=== PATIENT | female | born 1935 | race African-American/Black ===

== ENCOUNTER 2016-07-26 21:42 | Emergency (ER) | payer MEDICARE ==
[~2016-07-26] VITALS: Ht 172.7 cm; Wt 74.0 kg
[~2016-07-26 21:42] MED LIST: BUME1TAB; CARV3.12; CILO100T; GABA600T; GLIM4TAB; K-TA10TA; METH500T3; METH5TAB4; METO5TAB3; PRED10; PRIM50TA5; SIMV20TA; ULOR40TA; VALS1TAB64; VERA1TAB17
[2016-07-26 21:49] VITALS: BP 147/86; PULSE 77; RESP 18; TEMP 98.3; O2SAT 98
[2016-07-26] MEDS ORDERED: ATOR20TA15 PO (22:05)
[2016-07-26] MEDS ORDERED: PRED20 PO (22:05)
[2016-07-26] MEDS ORDERED: METH500T3 PO (22:05)
[2016-07-26] MEDS ORDERED: GABA600T PO (22:05)
[2016-07-26] MEDS ORDERED: ALLO100T PO (22:05)
[2016-07-26] MEDS ORDERED: HYDR-3583 PO (22:05)
[2016-07-26] MEDS ORDERED: PANT40TA3 PO (22:05)
[2016-07-26] MEDS ORDERED: PRIM50TA5 PO (22:05)
[2016-07-26] MEDS ORDERED: VALS1TAB64 PO (22:05)
[2016-07-26] MEDS ORDERED: METH5TAB4 PO (22:05)
[2016-07-26] MEDS ORDERED: K-TA10TA PO (22:17)
[2016-07-26] MEDS ORDERED: BUME2TAB PO (22:17)
[2016-07-26] MEDS ORDERED: VERA1TAB17 PO (22:17)
[2016-07-26] MEDS ORDERED: MULT-6 PO (22:17)
[2016-07-26] MEDS ORDERED: ZANT150T2 PO (22:17)
[2016-07-26] MEDS ORDERED: OMEG100010 PO (22:17)
[2016-07-26] MEDS ORDERED: CARV6.252 PO (22:17)
[2016-07-26] MEDS ORDERED: VITA10003 PO (22:17)
[2016-07-26] MEDS ORDERED: GLIM4TAB PO (22:17)
[2016-07-26] MEDS ORDERED: LIDOCAINE 1%/EPINEPHrine 1:100,000 SOLN 20 ML VIAL INFIL ONE (22:30)
--- NOTE | 2016-07-26 22:31 | PD ---
HPI Chief Complaint: Laceration/Skin Injury Time Seen by Provider: 22:20 Travel History International Travel<30 days: No Contact w/Intl Traveler<30days: No Traveled to known affect area: No History of Present Illness HPI 80-year-old female complains of laceration to left leg. Patient accidentally lacerated her left leg on her walker. Patient denies other injury. Patient denies any fall. Patient states that she is up-to-date with TD booster. PFSH Past Medical History Arthritis: Yes Heart Rhythm Problems: No Cancer: No Cardiac Catheterization: No Cardiovascular Problems: Yes High Cholesterol: Yes Congestive Heart Failure: Yes Diabetes: Yes (niddm) Patient Takes Glucophage: No Gastrointestinal Disorders: No Gout: Yes Genitourinary: No Hypertension: Yes Implanted Vascular Access Dvce: No Musculoskeletal: Yes (CHRONIC ARTHRITIS PAIN) Neurologic: No Psychiatric: No Respiratory: Yes Renal Failure: Yes (stage 3 CKD) Tetanus Vaccination: < 5 Years Influenza Vaccination: No ?: Not Menopausal: Yes : 4 Para: 4 Tubal Ligation: Yes Past Surgical History Coronary Artery Bypass Graft: No Eye Surgery: Yes (LEFT EYE CATARACT REMOVED) Other Surgery: Yes (CYST REMOVED LEFT BREAST) Social History Alcohol Use: Yes ("USUALLY AT NIGHT TO HELP ME SLEEP, GIN AND COKE") Tobacco Use: Yes (1 PPD) Substance Use: No Allergies-Medications (Allergen,Severity, Reaction): Coded Allergies: No Known Allergies (Verified , 07/26/16) Reported Meds & Prescriptions Reported Meds & Active Scripts Active Reported Centrum (Multiple Vitamins W/ Minerals) 1 Tab 1 Tab PO DAILY Arthur 3 1000 mg (Arthur-3 Fatty Acids) 1 Cap Cap Carvedilol 6.25 Mg Tab 6.25 Mg PO BID Glimepiride 4 Mg Tab 4 Mg PO DAILY Take with breakfast or first main meal Zantac (Ranitidine HCl) 150 Mg Tab 150 Mg PO DAILY Vitamin D-3 (Cholecalciferol) 1,000 Unit Tab 2,000 Units PO DAILY Verapamil ER 24 HR (Verapamil HCl) 240 Mg Tab 240 Mg PO DAILY K-Tab (Potassium Chloride) 10 Meq Tab 10 Meq PO DAILY Bumetanide 2 Mg Tab 3 Mg PO DAILY Atorvastatin (Atorvastatin Calcium) 20 Mg Tab 20 Mg PO DAILY Primidone 50 Mg Tab 50 Mg PO HS Methocarbamol 500 Mg Tab 500 Mg PO HS Pantoprazole (Pantoprazole Sodium) 40 Mg Tab 40 Mg PO DAILY Allopurinol 100 Mg Tab 100 Mg PO BID Valsartan 80 Mg Tab 80 Mg PO DAILY Prednisone 20 Mg Tab 20 Mg PO DAILY Gabapentin 600 Mg Tab 600 Mg PO TID Hydrocodone-Acetaminophen 10-325 mg Tab 1 Tab PO Q6H PRN Review of Systems General / Constitutional: No: Fever Eyes: No: Visual changes HENT: No: Headaches Cardiovascular: No: Chest Pain or Discomfort Respiratory: No: Shortness of Breath Gastrointestinal: No: Abdominal Pain Genitourinary: No: Dysuria Musculoskeletal: No: Pain Skin: No Rash Neurologic: No: Weakness Psychiatric: No: Depression Endocrine: No: Polydipsia Hematologic/Lymphatic: No: Easy Bruising Physical Exam Narrative GENERAL: Well-nourished, well-developed patient. SKIN: Focused skin assessment warm/dry. HEAD: Normocephalic. EYES: No scleral icterus. No injection or drainage. NECK: Supple, trachea midline. No JVD or lymphadenopathy. CARDIOVASCULAR: Regular rate and rhythm without murmurs, gallops, or rubs. RESPIRATORY: Breath sounds equal bilaterally. No accessory muscle use. GASTROINTESTINAL: Abdomen soft, non-tender, nondistended. MUSCULOSKELETAL: No cyanosis, or edema. BACK: Nontender without obvious deformity. No CVA tenderness. Patient had 15 cm laceration left low leg with skin retracted and the skin is very thin. No active bleeding. No bony injury. Sensorimotor function distally intact. Data Data Last Documented VS Vital Signs Date Time Temp Pulse Resp B/P Pulse Ox O2 Delivery O2 Flow Rate FiO2 07/26/16 21:49 98.3 77 18 147/86 98 Orders Lidocai-Epi 1%-1:100,000 Inj (Xylocaine- (07/26/16 22:30) MDM Medical Decision Making Medical Screen Exam Complete: Yes Emergency Medical Condition: Yes Differential Diagnosis Differential diagnosis including laceration, ligament tendon bony injury. Narrative Course 80-year-old female with left leg laceration. Keflex 500 mg by mouth given. Procedures Procedure Narrative LACERATION LOCATION: Left leg LENGTH: 14 NUMBER OF STITCHES/YAKOV: 26 REPAIR: The area of the laceration was prepped with Betadine and sterilely draped. The laceration was infiltrated with 1% lidocaine with epinephrine. The wound was copiously irrigated and explored without evidence of foreign body , tendon injury or neurovascular injury. The wound was closed using 3-0 Prolene . This was a single layer repair. A sterile dressing was applied. The patient was advised to keep the dressing clean and dry. Patient tolerated the procedure well. Diagnosis Primary Impression: Laceration of left leg Qualified Code: S81.812A - Laceration of left leg, initial encounter Patient Instructions: General Instructions Additional Instructions: Wound care daily. Take Keflex as directed. Follow-up with personal physician. Return if increasing redness swelling. Suture removal in 14 days. Scripts Cephalexin (Keflex)500 Mg [id number] Mg PO Q8H #21 CAP Ref 0 Prov:Xavier Jansen MD 07/26/16 Disposition: 01 DISCHARGE HOME Condition: Stable aXvier Jansen MD Jul 26, 2016 22:31
[2016-07-26] MEDS ORDERED: CEPH-460 PO (23:20)
[2016-07-26] MEDS ORDERED: CEPHALEXIN MONOHYDRATE 500 MG CAP PO ONE (23:30)
[2016-08-29] MEDS ORDERED: PRED10 PO (15:53)
== END 2016-07-26 23:36 | disposition home or self-care (01) ==
LOC: PHED 21:42
DX: S81.812A Laceration without foreign body, left lower leg, initial encounter (principal); E11.9 Type 2 diabetes mellitus without complications; I12.9 Hypertensive chronic kidney disease with stage 1 through stage 4 chronic kidney disease, or unspecified chronic kidney disease; F17.210 Nicotine dependence, cigarettes, uncomplicated; W26.8XXA Contact with other sharp object(s), not elsewhere classified, initial encounter; Y93.01 Activity, walking, marching and hiking; Y92.009 Unspecified place in unspecified non-institutional (private) residence as the place of occurrence of the external cause
CPT/HCPCS: 12005

== ENCOUNTER 2016-07-30 15:51 | Emergency (ER) | payer MEDICARE ==
[~2016-07-30] VITALS: Ht 172.7 cm; Wt 73.0 kg
[~2016-07-30 15:51] MED LIST changes: +ALLO100T PO; +ATOR20TA15 PO; -BUME1TAB; +BUME2TAB PO; -CARV3.12; +CARV6.252 PO; +CEPH-460 PO; -CILO100T; -GABA600T; +GABA600T PO; -GLIM4TAB; +GLIM4TAB PO; +HYDR-3583 PO; -K-TA10TA; +K-TA10TA PO; -METH500T3; +METH500T3 PO; -METH5TAB4; -METO5TAB3; +MULT-6 PO; +OMEG100010 PO; +PANT40TA3 PO; -PRED10; +PRED20 PO; -PRIM50TA5; +PRIM50TA5 PO; -SIMV20TA; -ULOR40TA; -VALS1TAB64; +VALS1TAB64 PO; -VERA1TAB17; +VERA1TAB17 PO; +VITA10003 PO; +ZANT150T2 PO
[2016-07-30 15:54] VITALS: BP 165/101; PULSE 86; RESP 16; TEMP 98.4; O2SAT 98
--- NOTE | 2016-07-30 16:30 | PD ---
HPI Chief Complaint: Wound/Suture/Staple Re-Check Time Seen by Provider: 16:23 Travel History International Travel<30 days: No Contact w/Intl Traveler<30days: No Traveled to known affect area: No History of Present Illness HPI 80-year-old Afro-Japanese female presents emergency department for wound check of the laceration to the left leg that she obtained from her walker on July 26. Patient was seen here and treated by Dr. Knight placed 26 sutures in this area. Patient is been taking Keflex. She is here for recheck. Patient states she had some burning and tingling in the area last evening. She has no other complaints. She is allergic to Uloric. PFSH Past Medical History Arthritis: Yes Heart Rhythm Problems: No Cancer: No Cardiac Catheterization: No Cardiovascular Problems: Yes High Cholesterol: Yes Congestive Heart Failure: Yes Diabetes: Yes (niddm) Patient Takes Glucophage: No Gastrointestinal Disorders: No Gout: Yes Genitourinary: No Hypertension: Yes Implanted Vascular Access Dvce: No Musculoskeletal: Yes (CHRONIC ARTHRITIS PAIN) Neurologic: No Psychiatric: No Respiratory: Yes Renal Failure: Yes (stage 3 CKD) Influenza Vaccination: No ?: Not Menopausal: Yes : 4 Para: 4 Tubal Ligation: Yes Past Surgical History Coronary Artery Bypass Graft: No Eye Surgery: Yes (LEFT EYE CATARACT REMOVED) Other Surgery: Yes (CYST REMOVED LEFT BREAST) Social History Alcohol Use: Yes Tobacco Use: Yes (1 PPD) Substance Use: No Allergies-Medications (Allergen,Severity, Reaction): Uncoded Allergies: URLORIC (Allergy, Severe, BURNING SENSATION OF TONGUE, 07/30/16) Reported Meds & Prescriptions Reported Meds & Active Scripts Active Keflex (Cephalexin) 500 Mg Cap 500 Mg PO Q8H Reported Centrum (Multiple Vitamins W/ Minerals) 1 Tab 1 Tab PO DAILY [place] 3 1000 mg ([place]-3 Fatty Acids) 1 Cap Cap Carvedilol 6.25 Mg Tab 6.25 Mg PO BID Glimepiride 4 Mg Tab 4 Mg PO DAILY Take with breakfast or first main meal Zantac (Ranitidine HCl) 150 Mg Tab 150 Mg PO DAILY Vitamin D-3 (Cholecalciferol) 1,000 Unit Tab 2,000 Units PO DAILY Verapamil ER 24 HR (Verapamil HCl) 240 Mg Tab 240 Mg PO DAILY K-Tab (Potassium Chloride) 10 Meq Tab 10 Meq PO DAILY Bumetanide 2 Mg Tab 3 Mg PO DAILY Atorvastatin (Atorvastatin Calcium) 20 Mg Tab 20 Mg PO DAILY Primidone 50 Mg Tab 50 Mg PO HS Methocarbamol 500 Mg Tab 500 Mg PO HS Pantoprazole (Pantoprazole Sodium) 40 Mg Tab 40 Mg PO DAILY Allopurinol 100 Mg Tab 100 Mg PO BID Valsartan 80 Mg Tab 80 Mg PO DAILY Prednisone 20 Mg Tab 20 Mg PO DAILY Gabapentin 600 Mg Tab 600 Mg PO TID Hydrocodone-Acetaminophen 10-325 mg Tab 1 Tab PO Q6H PRN Review of Systems Except as stated in HPI: all other systems reviewed are Neg General / Constitutional: No: Fever Eyes: No: Visual changes HENT: No: Headaches Cardiovascular: No: Chest Pain or Discomfort Respiratory: No: Shortness of Breath Gastrointestinal: No: Abdominal Pain Genitourinary: No: Dysuria Musculoskeletal: No: Pain Skin: No Rash Neurologic: No: Weakness Psychiatric: No: Depression Endocrine: No: Polydipsia Hematologic/Lymphatic: No: Easy Bruising Physical Exam Narrative GENERAL: Patient appears in no acute distress. SKIN: Warm and dry. Normal color. Normal turgor. Wound site appears to be healing well. There is some serous drainage from her chronic pedal edema, but no increased erythema, redness, or wound dehiscence. HEAD: Atraumatic. Normocephalic. EYES: Pupils equal and round. No scleral icterus. No injection or drainage. ENT: No nasal bleeding or discharge. Mucous membranes pink and moist. Pharynx is normal. NECK: Trachea midline. Supple nontender. CARDIOVASCULAR: Regular rate and rhythm. RESPIRATORY: No accessory muscle use. Clear to auscultation. Breath sounds equal bilaterally. MUSCULOSKELETAL: Extremities without clubbing, cyanosis, or edema. No obvious deformities. NEUROLOGICAL: Awake and alert. No obvious cranial nerve deficits. Motor grossly within normal limits. Five out of 5 muscle strength in the arms and legs. Normal speech. PSYCHIATRIC: Appropriate mood and affect; insight and judgment normal. Data Data Last Documented VS Vital Signs Date Time Temp Pulse Resp B/P Pulse Ox O2 Delivery O2 Flow Rate FiO2 07/30/16 15:54 98.4 86 16 165/101 98 MDM Medical Decision Making Medical Screen Exam Complete: Yes Emergency Medical Condition: Yes Medical Record Reviewed: Yes Differential Diagnosis Laceration left leg. Wound check. Laceration repair. Narrative Course Patient is medically stable at time of exam. Wound appears to be healing well with minimal wound dehiscence. No sign of cellulitis. Dressing is reapplied by nursing staff. Patient is to continue the Keflex as previously prescribed as well as her regular pain medications. Patient should keep this elevated continue wound care as previous. Patient should follow-up next Saturday for recheck and possible suture removal. Patient should return sooner with any worsening symptoms as needed. Diagnosis Primary Impression: Laceration of left leg Qualified Code: S81.812D - Laceration of left leg, subsequent encounter Additional Impression: Encounter for wound re-check Referrals: Primary Care Physician Patient Instructions: General Instructions, Laceration (ED) Additional Instructions: Wound appears to be healing well with minimal wound dehiscence. No sign of cellulitis. Dressing is reapplied by nursing staff. Patient is to continue the Keflex as previously prescribed as well as her regular pain medications. Patient should keep this elevated continue wound care as previous. Patient should follow-up next Saturday for recheck and possible suture removal. Patient should return sooner with any worsening symptoms as needed. Med/Other Pt SpecificInfo: No Change to Meds, Wound Care Disposition: DISCHARGE HOME Condition: Stable Ryne Fernandez July 30, 2016 16:30
[2016-08-29] MEDS ORDERED: PRED10 PO (15:53)
== END 2016-07-30 16:45 | disposition home or self-care (01) ==
LOC: PHEFT 15:51
DX: S81.812D Laceration without foreign body, left lower leg, subsequent encounter (principal); W45.8XXD Other foreign body or object entering through skin, subsequent encounter
CPT/HCPCS: 99281

== ENCOUNTER 2016-08-15 11:23 | Inpatient (IN) | payer MEDICARE ==
[~2016-08-15] VITALS: Ht 167.6 cm; Wt 70.0 kg
[2016-08-15 11:25] VITALS: BP 198/94; PULSE 88; RESP 20; TEMP 98.9; O2SAT 99
[2016-08-15] MEDS ORDERED: CLINDAMYCIN INJ 900 MG in SODIUM CHLORIDE 0.9% INJ 100 ML IV ONE (12:00)
[2016-08-15] MEDS ORDERED: VANCOMYCIN INJ 1,000 MG in SODIUM CHLOR 0.9% 250 ML INJ 250 ML IV ONE (12:15)
--- NOTE | 2016-08-15 12:22 | PD ---
HPI Chief Complaint: Skin Problem Time Seen by Provider: 11:43 Travel History International Travel<30 days: No Contact w/Intl Traveler<30days: No Traveled to known affect area: No History of Present Illness HPI WOUND HAS BEEN OPENED SINCE JULY 23, WHEN SHE LACERATED AGAINST HER WALKER, IT WAS SUTURED, SINCE THEN DEVELOPED INFECTION, PATIENT FINISHED KEFLEX, AND NOW ALMOST FINISHED WITH SECOND ABX BY DR VAZQUEZ. DESPITE MULTIPLE OUTPT ABX TREATMENTS, WOUND STILL OPEN, DRAINING, AND REDNESS/SWELLING TO LEG AREA PFSH Past Medical History Hx Anticoagulant Therapy: Yes Arthritis: Yes Heart Rhythm Problems: No Cancer: No Cardiac Catheterization: No Cardiovascular Problems: Yes High Cholesterol: Yes Congestive Heart Failure: Yes Diabetes: Yes Gastrointestinal Disorders: No Gout: Yes Genitourinary: No Hypertension: Yes Implanted Vascular Access Dvce: No Musculoskeletal: Yes (CHRONIC ARTHRITIS PAIN) Neurologic: No Psychiatric: No Respiratory: Yes Renal Failure: Yes (stage 3 CKD) ?: Not Menopausal: Yes : 4 Para: 4 Tubal Ligation: Yes Past Surgical History Coronary Artery Bypass Graft: No Eye Surgery: Yes (LEFT EYE CATARACT REMOVED) Other Surgery: Yes (CYST REMOVED LEFT BREAST) Social History Alcohol Use: Yes Tobacco Use: Yes (1 PPD) Substance Use: No Allergies-Medications (Allergen,Severity, Reaction): Uncoded Allergies: URLORIC (Allergy, Intermediate, BURNING SENSATION OF TONGUE, 08/15/16) Reported Meds & Prescriptions Reported Meds & Active Scripts Active Reported Methimazole 5 Mg Tab 2.5 Mg PO DAILY Garlic Unknown Strength Cap 1 Cap PO DAILY Calcium (Calcium Carbonate) 600 Mg Tab 1,200 Mg PO DAILY Metolazone 5 Mg Tab 5 Mg PO MOWEFR Take 1 tablet (5mg) daily on Saturday,Saturday and Saturday Percocet (Oxycodone-Acetaminophen) 5-325 mg Tab 2 Tab PO Q4H Keflex (Cephalexin) 500 Mg Cap 500 Mg PO Q6H Aspirin Adult Low Strength (Aspirin) 81 Mg Tabdr 81 Mg PO DAILY D 400 (Cholecalciferol) 400 Unit Tab 800 Units PO DAILY Bumetanide 1 Mg Tab 3 Mg PO DAILY Centrum (Multiple Vitamins W/ Minerals) 1 Tab 1 Tab PO DAILY [place] 3 1000 mg ([place]-3 Fatty Acids) 1 Cap Cap 1,000 Mg PO DAILY Carvedilol 6.25 Mg Tab 6.25 Mg PO BID Glimepiride 4 Mg Tab 4 Mg PO BID Verapamil ER 24 HR (Verapamil HCl) 240 Mg Tab 240 Mg PO DAILY Atorvastatin (Atorvastatin Calcium) 20 Mg Tab 20 Mg PO DAILY Primidone 50 Mg Tab 50 Mg PO HS Methocarbamol 500 Mg Tab 500 Mg PO HS Pantoprazole (Pantoprazole Sodium) 40 Mg Tab 40 Mg PO DAILY Allopurinol 100 Mg Tab 100 Mg PO BID Valsartan 80 Mg Tab 80 Mg PO DAILY Prednisone 20 Mg Tab 20 Mg PO DAILY Gabapentin 600 Mg Tab 600 Mg PO BID Review of Systems Skin: Positive Other (ERYTHEMA, EDEMA OVER ANTERIOR LEFT TIB/FIB AREA, THEN SUTURED AREA HAS ULCERATED LESION WITH SEROUS DRAINAGE ) Physical Exam Narrative GENERAL: SKIN:, ANTERIOR LEFT TIB FIB SUTURED AREA HAS ULCERATED LESION WITH SERO- PURULENT DRAINAGE...ALSO ERYTHEMA/EDEMA TO ANTERIOR LLE WELL HEAD: Atraumatic. Normocephalic. EYES: Pupils equal and round. No scleral icterus. No injection or drainage. ENT: No nasal bleeding or discharge. Mucous membranes pink and moist. NECK: Trachea midline. No JVD. CARDIOVASCULAR: Regular rate and rhythm. RESPIRATORY: No accessory muscle use. Clear to auscultation. Breath sounds equal bilaterally. GASTROINTESTINAL: Abdomen soft, non-tender, nondistended. Hepatic and splenic margins not palpable. MUSCULOSKELETAL: Extremities without clubbing, cyanosis, or edema. No obvious deformities. NEUROLOGICAL: Awake and alert. No obvious cranial nerve deficits. Motor grossly within normal limits. Five out of 5 muscle strength in the arms and legs. Normal speech. PSYCHIATRIC: Appropriate mood and affect; insight and judgment normal. Data Data Last Documented VS Vital Signs Date Time Temp Pulse Resp B/P Pulse Ox O2 Delivery O2 Flow Rate FiO2 08/15/16 12:55 72 18 174/84 97 Room Air 08/15/16 11:25 98.9 Orders Basic Metabolic Panel (Bmp) (08/15/16 11:54) Complete Blood Count With Diff (08/15/16 11:54) Blood Culture (08/15/16 11:54) Wound Culture And Gram Stain (08/15/16 11:54) Iv Access Insert/Monitor (08/15/16 11:54) Wound Care (08/15/16 11:54) Sodium Chloride 0.9% Flush (Ns Flush) (08/15/16 12:00) Clindamycin Inj (Cleocin Inj) (08/15/16 12:00) Us Leg Venous Doppler Bilat (08/15/16 ) Vancomycin Inj (Vancomycin Inj) (08/15/16 12:15) Admit Order (Ed Use Only) (08/15/16 14:24) Labs Laboratory Tests Test 08/15/16 12:15 White Blood Count 8.7 TH/MM3 Red Blood Count 4.00 MIL/MM3 Hemoglobin 12.1 GM/DL Hematocrit 35.9 % Mean Corpuscular Volume 89.7 FL Mean Corpuscular Hemoglobin 30.1 PG Mean Corpuscular Hemoglobin 33.6 % Concent Red Cell Distribution Width 18.5 % Platelet Count 215 TH/MM3 Mean Platelet Volume 9.5 FL Neutrophils (%) (Auto) 91.3 % Lymphocytes (%) (Auto) 6.0 % Monocytes (%) (Auto) 2.6 % Eosinophils (%) (Auto) 0.0 % Basophils (%) (Auto) 0.1 % Neutrophils # (Auto) 7.9 TH/MM3 Lymphocytes # (Auto) 0.5 TH/MM3 Monocytes # (Auto) 0.2 TH/MM3 Eosinophils # (Auto) 0.0 TH/MM3 Basophils # (Auto) 0.0 TH/MM3 CBC Comment DIFF FINAL Differential Comment Sodium Level 142 MEQ/L Potassium Level 3.9 MEQ/L Chloride Level 104 MEQ/L Carbon Dioxide Level 31.5 MEQ/L Anion Gap 7 MEQ/L Blood Urea Nitrogen 35 MG/DL Creatinine 1.58 MG/DL Estimat Glomerular Filtration 38 ML/MIN Rate Random Glucose 256 MG/DL Calcium Level 9.7 MG/DL [facility] Medical Decision Making Medical Screen Exam Complete: Yes Emergency Medical Condition: Yes Medical Record Reviewed: Yes Differential Diagnosis LLE CELLULITS,WITH FAILED OUTPATIENT PO ABX VS DVT Narrative Course PATIENT PRESENTED FOR A WOUND CHECK, SEES DR VAZQUEZ AND HAS FINISHED KEFLEX WELL A SECOND ABX AND STILL HAS SWELLING/PAIN AND DRAINAGE Diagnosis Primary Impression: Cellulitis and abscess of left leg Admitting Information Admitting Physician Requests: Admit Marcus Brooks MD August 15, 2016 12:05
[2016-08-15 12:55] VITALS: BP 174/84; PULSE 72; RESP 18; O2SAT 97
[2016-08-15] MEDS ORDERED: PERC5TAB12 PO (13:00)
[2016-08-15] MEDS ORDERED: METO5TAB3 PO (13:00)
[2016-08-15] MEDS ORDERED: ASPI1TAB91 PO (13:00)
[2016-08-15] MEDS ORDERED: GARL10CA2 PO (13:00)
[2016-08-15] MEDS ORDERED: METH5TAB4 PO (13:00)
[2016-08-15] MEDS ORDERED: BUME1TAB PO (13:00)
[2016-08-15] MEDS ORDERED: CHOL1TAB7 PO (13:00)
[2016-08-15] MEDS ORDERED: CALC600T25 PO (13:00)
[2016-08-15] MEDS ORDERED: CEPH-460 PO (13:00)
[2016-08-15 13:01] LABS: AUTOMATED NEUTROPHIL # 7.9 TH/MM3 (1.8-7.7); BASOPHIL % 0.1 % (0.0-2.0); HEMATOCRIT 35.9 % (35.0-46.0); HEMO FLAGS DIFF FINAL; LYMPHOCYTE # 0.5 TH/MM3 (1.0-4.8); MEAN CELL VOLUME 89.7 FL (80.0-100.0); MEAN CORPUSCULAR HEMOGLOBIN 30.1 PG (27.0-34.0); MEAN CORPUSCULAR HGB CONC 33.6 % (32.0-36.0); MONO % 2.6 % (0.0-8.0); NEUT % 91.3 % (16.0-70.0); PLATELET COUNT 215 TH/MM3 (150-450); RED CELL DISTRIBUTION WIDTH 18.5 % (11.6-17.2); WHITE BLOOD COUNT 8.7 TH/MM3 (4.0-11.0)
[2016-08-15 13:10] LABS: BICARBONATE 31.5 MEQ/L (21.0-32.0); POTASSIUM 3.9 MEQ/L (3.5-5.1)
[2016-08-15 15:15] VITALS: BP 173/93; PULSE 88; RESP 20; O2SAT 97
--- NOTE | 2016-08-15 15:39 | RADRPT ---
EXAM DATE/TIME: 08/15/2016 13:59 [facility] COMPARISON: No previous studies available for comparison. INDICATIONS : Bilateral leg swelling. MEDICAL HISTORY : Congestive heart failure. Hypercholesterolemia. Hypertension. Neuropathy. Hyperlipdemia. Renal diseas e. Arthritis. Gout. Diabetes. Hypothyroid. SURGICAL HISTORY : Tubal ligation. Cataracts. Cyst removed from left breast. ENCOUNTER: Initial ACUITY: 1 day PAIN SCORE: 0/10 LOCATION: Bilateral leg. TECHNIQUE: Venous ultrasound of the left and right leg was performed from the inguinal ligament to the proximal calf. Real-time, color Doppler and spectral tracing, compression and augmentation techniques were us ed. FINDINGS: RIGHT LEG: There is normal compressibility of the deep venous system from the inguinal region to the proximal ca lf. No echogenic clot is seen in the lumen of the common femoral, femoral, popliteal, and posterior tibial veins. There is a normal response of the venous system to proximal and distal augmentation an d respiration. LEFT LEG: There is normal compressibility of the deep venous system from the inguinal region to the proximal ca lf. No echogenic clot is seen in the lumen of the common femoral, femoral, popliteal, and posterior tibial veins. There is a normal response of the venous system to proximal and distal augmentation an d respiration. CONCLUSION: 1. No DVT identified within the either lower extremity. 2. 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 Dylan Cavanaugh MD on August 15, 2016 at 15:37 Board Certified Radiologist. This report was verified electronically.
--- NOTE | 2016-08-15 15:40 | HHI.HP ---
HPI Service [facility] Hospitalists Primary Care Physician Francy Ortiz M.D. Admission Diagnosis LLE CELLULITIS FAILED OUTPATIENT THERAPY Chief Complaint: LLE cellulitis Travel History International Travel<30 Days: No Contact w/Intl Traveler <30 Da: No Traveled to Known Affected Are: No History of Present Illness Mrs. Morrow is a 80 y/o AAF with diabetes mellitus, HTN, hyperlipidemia, hyperthyroidism, and polymyositis who presented to the ED at [facility] on 08/15/16 for wound check of the laceration to the left leg. Pt originally sustained a 15 cm laceration to the LLE on July 26, 2016 from her walker. Patient was seen in the ED on the day of injury and was treated by Dr. Knight who placed 26 sutures in this area. Patient was prescribed Keflex x 7 days. She was seen in the ED on 07/30/16 for a recheck and the wound was reportedly healing well with minimal wound dehiscence. Pt completed the Keflex and followed up with her PCP on 08/06/16 and was again prescribed Cephalexin 500mg QID x 7 days as she appeared to have some cellulitis at that time. She presented back to the ED on for wound recheck and it is still noted to have some cellulitic skin changes and is draining some purulent fluid. Pts family at bedside reports that the pt had stopped taking her diuretics for about a week because she didn't want to have to get up to urinate so much and both LE swelled quite a bit and pt was having leakage of fluid from the wound. She started back on her diuretics about 2 days ago and has had improvement in her LE edema. Patient states she had some burning and tingling in the area last evening. She denies any fever/chills, nausea/vomiting, diarrhea, abd pain, chest pain or SOB. Review of Systems Constitutional: DENIES: Fever, Chills Ears, nose, mouth, throat: DENIES: Oral lesions, Throat pain, Running Nose Respiratory: DENIES: Shortness of breath Cardiovascular: DENIES: Chest pain Gastrointestinal: DENIES: Abdominal pain, Diarrhea, Nausea, Vomiting Genitourinary: DENIES: Hematuria, Dysuria Integumentary: COMPLAINS OF: Abnormal pigmentation, DENIES: Rash Neurologic: DENIES: Headache Psychiatric: DENIES: Confusion Past Family Social History Past Medical History L1 compression fracture (anterior wedge compression fracture with 15% loss of vertebral body height at L1) Superior pubic ramus fracture right side. Cellulitis of LE HTN CKD, stage 3 CHF DDD Diabetes mellitus with peripheral neuropathy, nephropathy and hx of diabetic foot wounds (Hgb A1C 8.0% in 06/2016) Diverticulosis H. pylori infection Hyperlipidemia Hyperthyroidism MGUS Polymyositis COPD Past Surgical History Cataract surgery Tubal ligation Reported Medications -Methimazole 2.5 Mg PO DAILY -Metolazone 5 Mg PO MOWEFR -Percocet 5-325 mg 2 Tab PO Q4H -Aspirin 81 Mg PO DAILY -Bumetanide 3 Mg PO DAILY -Carvedilol 6.25 Mg PO BID -Glimepiride 4 Mg PO BID -Verapamil ER 24 HR 240 Mg PO DAILY -Atorvastatin 20 Mg PO DAILY -Primidone 50 Mg PO HS -Methocarbamol 500 Mg PO HS -Pantoprazole 40 Mg PO DAILY -Allopurinol 100 Mg PO BID -Valsartan 80 Mg PO DAILY -Prednisone 20 Mg PO DAILY (?BID) -Gabapentin 600 Mg PO BID -Keflex 500 Mg PO Q6H Garlic Unknown Strength Cap 1 Cap PO DAILY Calcium (Calcium Carbonate) 600 Mg Tab 1,200 Mg PO DAILY Centrum (Multiple Vitamins W/ Minerals) 1 Tab 1 Tab PO DAILY Brundidge 3 1000 mg (Brundidge-3 Fatty Acids) 1 Cap Cap 1,000 Mg PO DAILY D 400 (Cholecalciferol) 400 Unit Tab 800 Units PO DAILY Allergies: Uncoded Allergies: URLORIC (Allergy, Intermediate, BURNING SENSATION OF TONGUE, 08/15/16) Family History Mother with hx of colon cancer Father with hx of TB Social History (+)Tobacco use, smokes 1ppd since age 23 Social alcohol use Pt is a She is a retired teacher/counsellor Physical Exam Vital Signs Vital Signs Date Time Temp Pulse Resp B/P Pulse Ox O2 Delivery O2 Flow Rate FiO2 08/15/16 12:55 72 18 174/84 97 Room Air 08/15/16 12:01 84 18 08/15/16 11:25 98.9 88 20 198/94 99 Room Air Physical Exam GENERAL: This is a well-nourished, well-developed patient, in no apparent distress. HEENT: Atraumatic. Normocephalic. No temporal or scalp tenderness. No scleral icterus. Airway patent. NECK: Trachea midline, supple, nontender. CARDIO: Regular. RESP: CTA bilaterally. No wheezes, rales, or rhonchi. ABD: +BS, soft, non-tender, nondistended. EXT: LLE edema and erythema, purulent drainage and dehiscence of the skin over the claros area NEURO: Awake and alert. Motor and sensory grossly within normal limits. Normal speech. Laboratory Laboratory Tests Test 08/15/16 12:15 White Blood Count 8.7 Red Blood Count 4.00 Hemoglobin 12.1 Hematocrit 35.9 Mean Corpuscular Volume 89.7 Mean Corpuscular Hemoglobin 30.1 Mean Corpuscular Hemoglobin 33.6 Concent Red Cell Distribution Width 18.5 Platelet Count 215 Mean Platelet Volume 9.5 Neutrophils (%) (Auto) 91.3 Lymphocytes (%) (Auto) 6.0 Monocytes (%) (Auto) 2.6 Eosinophils (%) (Auto) 0.0 Basophils (%) (Auto) 0.1 Neutrophils # (Auto) 7.9 Lymphocytes # (Auto) 0.5 Monocytes # (Auto) 0.2 Eosinophils # (Auto) 0.0 Basophils # (Auto) 0.0 CBC Comment DIFF FINAL Differential Comment Sodium Level 142 Potassium Level 3.9 Chloride Level 104 Carbon Dioxide Level 31.5 Anion Gap 7 Blood Urea Nitrogen 35 Creatinine 1.58 Estimat Glomerular Filtration 38 Rate Random Glucose 256 Calcium Level 9.7 Date/Time Procedure Status Source Growth 08/15/16 12:15 Gram Stain Received Wound Leg Pending 08/15/16 12:15 Wound Culture Received Wound Leg Pending 08/15/16 12:15 Aerobic Blood Culture Received Blood Peripheral Pending 08/15/16 12:15 Anaerobic Blood Culture Received Blood Peripheral Pending Result Diagram: 08/15/16 1215 08/15/16 1215 Imaging Last Impressions Lower Extremity Ultrasound 08/15/16 0000 Signed Impressions: Service Date/Time: Monday, August 15, 2016 13:59 - CONCLUSION: 1. No DVT identified within the either lower extremity. 2. 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 Dylan Cavanaugh MD Septic Shock Reassessment Heart: Regular rate and rhythm Lungs: Clear Skin: Warm Assessment and Plan Problem List: (1) Cellulitis of left leg Status: Acute Plan: - Pt is a 80 y/o with diabetes mellitus, poorly controlled, HTN, polymyositis on chronic steroids who originally sustained a 15 cm laceration to the LLE on July 26, 2016 from her walker. Patient was seen in the ED on the day of injury and was treated by Dr. Knight who placed 26 sutures in this area. Patient was prescribed Keflex x 7 days. - She was seen in the ED on 07/30/16 for a recheck and the wound was reportedly healing well with minimal wound dehiscence. Pt completed the Keflex and followed up with her PCP on 08/06/16 and was again prescribed Cephalexin 500mg QID x 7 days as she appeared to have some cellulitis at that time. - She presented back to the ED on 08/15/16 for wound recheck and it is reportedly worsened with cellulitic skin changes, dehiscence of the wound and is draining some purulent fluid. - Pts family at bedside reports that the pt had stopped taking her diuretics for about a week because she didn't want to have to get up to urinate so much and both LE swelled quite a bit and pt was having leakage of fluid from the wound. - She started back on her diuretics about 2 days ago and has had improvement in her LE edema. - Pt was given Vancomycin and Clindamycin in the ED - LE US was negative for DVT - Blood cultures and wound cultures have been taken and are pending. - We will continued Vancomycin with pharmacy dosing and Zosyn, renally dosed - Mupirocin to be applied topically - Plastic surgery consultation - Monitor labs - Supportive care - DVT prophylaxis with Lovenox (2) Laceration of left leg Status: Acute Plan: - See above. (3) Hypertension Status: Chronic Plan: - Home meds resumed - Monitor - Vasotec and Clonidine PRN (4) Hyperlipidemia Status: Chronic Plan: - Cont. home meds (5) DM (diabetes mellitus) Status: Chronic Plan: - NovoLog SSI - Cont. home dose of Amaryl 4mg po BID - Accu checks (6) Tobacco abuse Status: Chronic Plan: - Tobacco cessation Assessment and Plan Patient examined. Assessment and plan formulated with Anay Tomlin PA-C. I agree with the above. left leg laceration 07/26. infected and treated with keflex. then dehisced after stopped using her bumex and separation and some ulceration at inferior aspect. some purelent drainage and tendernes. cx taken. abx iv started. ask Plastic for wound assistance. wet/dry and ivy ordered.. Physician Certification 2 Midnight Certification Type: Admission for Inpatient Services Order for Inpatient Services The services are ordered in accordance with Medicare regulations or non- Medicare payer requirements, as applicable. In the case of services not specified as inpatient-only, they are appropriately provided as inpatient services in accordance with the 2-midnight benchmark. Estimated LOS (days): 3 3 days is the estimated time the patient will need to remain in the hospital, assuming treatment plan goals are met and no additional complications. Post-Hospital Plan: Not yet determined Problem Qualifiers (1) Laceration of left leg: Qualified Code: S81.812D - Laceration of left leg, subsequent encounter (2) DM (diabetes mellitus): Anay Tomlin August 15, 2016 15:40 Alex Morrow MD August 15, 2016 17:59
[2016-08-15] MEDS ORDERED: VANCOMYCIN INJ 1,000 MG in SODIUM CHLOR 0.9% 250 ML INJ 250 ML IV SCH (16:30)
[2016-08-15] MEDS ORDERED: ACETAMINOPHEN 325 MG TAB PO PRN (16:30)
[2016-08-15] MEDS ORDERED: Vancomycin Consult Pharmacy 1 EA OTHER SCH (16:30)
[2016-08-15] MEDS ORDERED: ONDANSETRON HCL 4 MG/2 ML VIAL IV PRN (16:30)
[2016-08-15] MEDS ORDERED: ENALAPRILAT 1.25 MG/ML VIAL IV PUSH PRN (16:45)
[2016-08-15 17:40] VITALS: BP 161/75; PULSE 83; RESP 17; TEMP 98.5; O2SAT 95
[2016-08-15] MEDS ORDERED: GLUCAGON 1 MG/ML VIAL OTHER PRN (18:45)
[2016-08-15] MEDS: BUMETANIDE 1 MG TAB PO SCH (19:07)
[2016-08-15] MEDS: oxyCODONE/ACETAMINOPHEN 5 MG/325 MG TAB PO PRN (19:10)
[2016-08-15 20:00] VITALS: BP 168/91; PULSE 82; RESP 20; TEMP 97.9; O2SAT 98
[2016-08-15] MEDS: PIPERACIL-TAZO 2.25 GM PREMIX 50 ML IV SCH (20:35)
[2016-08-15] MEDS: CARVEDILOL 6.25 MG TAB PO SCH (20:35)
[2016-08-15] MEDS: GABAPENTIN 300 MG CAP PO SCH (20:35)
[2016-08-15] MEDS: ENOXAPARIN SODIUM 30 MG/0.3 ML SYRINGE SQ SCH (20:35)
[2016-08-15] MEDS: GLIMEPIRIDE 4 MG TAB PO SCH (20:36)
[2016-08-15] MEDS: PRIMIDONE 50 MG TAB PO SCH (20:36)
[2016-08-15] MEDS: INSULIN ASPART SUPPLEMENTAL SCALE SQ SCH (21:10)
[2016-08-15] MEDS: MUPIROCIN 2% OINT 22 GM TUBE TOPICAL SCH (21:47)
[2016-08-16] VITALS: BP 154/79; PULSE 72; RESP 18; TEMP 97.9; O2SAT 96
[2016-08-16] MEDS: oxyCODONE/ACETAMINOPHEN 5 MG/325 MG TAB PO PRN ×3 (01:43→16:13)
[2016-08-16] MEDS: PIPERACIL-TAZO 2.25 GM PREMIX 50 ML IV SCH ×4 (01:43→19:26)
[2016-08-16] MEDS: MUPIROCIN 2% OINT 22 GM TUBE TOPICAL SCH ×2 (05:48→14:00)
[2016-08-16] MEDS: DEXTROSE 50% IN WATER 50 ML VIAL(D50) IV PUSH PRN (05:57)
[2016-08-16] MEDS: INSULIN ASPART SUPPLEMENTAL SCALE SQ SCH ×4 (05:58→19:39)
[2016-08-16 06:08] LABS: AUTOMATED NEUTROPHIL # 4.7 TH/MM3 (1.8-7.7); BASOPHIL % 0.1 % (0.0-2.0); EOSINOPHIL % 0.3 % (0.0-4.0); HEMATOCRIT 34.3 % (35.0-46.0); HEMO FLAGS DIFF FINAL; LYMPH % 18.7 % (9.0-44.0); LYMPHOCYTE # 1.2 TH/MM3 (1.0-4.8); MEAN CELL VOLUME 90.2 FL (80.0-100.0); MEAN CORPUSCULAR HEMOGLOBIN 30.2 PG (27.0-34.0); MEAN CORPUSCULAR HGB CONC 33.5 % (32.0-36.0); MONO % 8.4 % (0.0-8.0); NEUT % 72.5 % (16.0-70.0); PLATELET COUNT 187 TH/MM3 (150-450); RED CELL DISTRIBUTION WIDTH 19.2 % (11.6-17.2); WHITE BLOOD COUNT 6.5 TH/MM3 (4.0-11.0)
[2016-08-16] MEDS: GLIMEPIRIDE 4 MG TAB PO SCH (06:24)
[2016-08-16 06:27] LABS: BICARBONATE 33.9 MEQ/L (21.0-32.0); MAGNESIUM 1.9 MG/DL (1.5-2.5); POTASSIUM 3.3 MEQ/L (3.5-5.1)
[2016-08-16] MEDS: GLIMEPIRIDE 2 MG TAB PO SCH ×2 (06:32→16:13)
[2016-08-16 08:00] VITALS: BP 198/108; PULSE 90; RESP 19; TEMP 96.7; O2SAT 92
--- NOTE | 2016-08-16 08:12 | PD.CONS ---
History of Present Illness Service Plastic and Reconstructive Surgery Consult Requested By Reason for Consult wound Primary Care Physician Francy Ortiz M.D. Diagnoses: History of Present Illness Patient is a 80 yo F who fell into her walker and suffered a wound to the right leg. It was sutured in the ER and there is an area of dehiscence and tissue loss. Review of Systems Integumentary: COMPLAINS OF: Abnormal pigmentation, Pruritus, Rash, Nail changes, Breast masses, Breast skin changes, Nipple discharge Past Family Social History Allergies: Uncoded Allergies: URLORIC (Allergy, Intermediate, BURNING SENSATION OF TONGUE, 08/15/16) Past Medical History CHF Past Surgical History none Reported Medications Current Medications Medications (Trade) Dose Ordered Sig/Debbie Route Start Time Stop Time Status Last Admin (NS Flush) 2 ml UNSCH PRN IVF 08/15/16 12:00 (Ecotrin Ec) 81 mg DAILY PO 08/16/16 09:00 (Lipitor) 20 mg DAILY PO 08/16/16 09:00 (Coreg) 6.25 mg BID PO 08/15/16 21:00 08/15/16 20:35 (Neurontin) 600 mg BID PO 08/15/16 21:00 08/15/16 20:35 (Tapazole) 2.5 mg DAILY PO 08/16/16 09:00 (Mysoline) 50 mg HS PO 08/15/16 21:00 08/15/16 20:36 (Diovan) 80 mg DAILY PO 08/16/16 09:00 (Isoptin Sr) 240 mg DAILY PO 08/16/16 09:00 (Bumetanide) 1 mg BID@,18 PO 08/15/16 18:00 08/15/16 19:07 Prednisone 20 mg 20 mg DAILY PO 08/16/16 09:00 Piperacillin Sod/ Tazobactam Sod 50 ml @ 100 mls/hr Q6H IV 08/15/16 20:00 08/16/16 01:43 (Vancomycin Consult Pharmacy) 0 ml @ 0 mls/hr UNSCH OTHER 08/15/16 16:30 (Bactroban 2% Oint) 1 applic Q8HR TOPICAL 08/15/16 22:00 08/16/16 05:48 (Tylenol) 650 mg Q4H PRN PO 08/15/16 16:30 (Zofran Inj) 4 mg Q6H PRN IV 08/15/16 16:30 (Percocet 5-325 Mg) 1 tab Q4H PRN PO 08/15/16 16:30 08/16/16 01:43 (Percocet 5-325 Mg) 2 tab Q4H PRN PO 08/15/16 16:30 08/15/16 19:10 (Lovenox Inj) 30 mg Q24H SQ 08/15/16 20:00 08/15/16 20:35 (Vasotec Inj) 1.25 mg Q6H PRN IV PUSH 08/15/16 16:45 (Catapres) 0.1 mg Q6H PRN PO 08/15/16 16:45 (D50w (Vial) Inj) 25 ml UNSCH PRN IV PUSH 08/15/16 18:45 08/16/16 05:57 Glucagon 1 mg 1 mg UNSCH PRN OTHER 08/15/16 18:45 (Vancomycin Inj/ NS 250 ml Inj) 256.5 ml @ 250 mls/hr Q24H IV 08/16/16 13:00 Miscellaneous Information SPECIFIC LAB TO BE DRAWN:VANCO TROUGH DATE TO BE DRJonh.. ONCE ONCE .XX 08/18/16 12:45 08/18/16 12:46 (Amaryl) 2 mg BIDAC PO 08/16/16 07:00 08/16/16 06:32 (Santyl Oint) 1 applic ONCE ONCE TOPICAL 08/16/16 08:15 08/16/16 08:16 UNV Active Ordered Medications Current Medications Medications (Trade) Dose Ordered Sig/Debbie Route Start Time Stop Time Status Last Admin (NS Flush) 2 ml UNSCH PRN IVF 08/15/16 12:00 (Ecotrin Ec) 81 mg DAILY PO 08/16/16 09:00 (Lipitor) 20 mg DAILY PO 08/16/16 09:00 (Coreg) 6.25 mg BID PO 08/15/16 21:00 08/15/16 20:35 (Neurontin) 600 mg BID PO 08/15/16 21:00 08/15/16 20:35 (Tapazole) 2.5 mg DAILY PO 08/16/16 09:00 (Mysoline) 50 mg HS PO 08/15/16 21:00 08/15/16 20:36 (Diovan) 80 mg DAILY PO 08/16/16 09:00 (Isoptin Sr) 240 mg DAILY PO 08/16/16 09:00 (Bumetanide) 1 mg BID@09,18 PO 08/15/16 18:00 08/15/16 19:07 Prednisone 20 mg 20 mg DAILY PO 08/16/16 09:00 Piperacillin Sod/ Tazobactam Sod 50 ml @ 100 mls/hr Q6H IV 08/15/16 20:00 08/16/16 01:43 (Vancomycin Consult Pharmacy) 0 ml @ 0 mls/hr UNSCH OTHER 08/15/16 16:30 (Bactroban 2% Oint) 1 applic Q8HR TOPICAL 08/15/16 22:00 08/16/16 05:48 (Tylenol) 650 mg Q4H PRN PO 08/15/16 16:30 (Zofran Inj) 4 mg Q6H PRN IV 08/15/16 16:30 (Percocet 5-325 Mg) 1 tab Q4H PRN PO 08/15/16 16:30 08/16/16 01:43 (Percocet 5-325 Mg) 2 tab Q4H PRN PO 08/15/16 16:30 08/15/16 19:10 (Lovenox Inj) 30 mg Q24H SQ 08/15/16 20:00 08/15/16 20:35 (Vasotec Inj) 1.25 mg Q6H PRN IV PUSH 08/15/16 16:45 (Catapres) 0.1 mg Q6H PRN PO 08/15/16 16:45 (D50w (Vial) Inj) 25 ml UNSCH PRN IV PUSH 08/15/16 18:45 08/16/16 05:57 Glucagon 1 mg 1 mg UNSCH PRN OTHER 08/15/16 18:45 (Vancomycin Inj/ NS 250 ml Inj) 256.5 ml @ 250 mls/hr Q24H IV 08/16/16 13:00 Miscellaneous Information SPECIFIC LAB TO BE DRAWN:VANCO TROUGH DATE TO BE DRJonh.. ONCE ONCE .XX 08/18/16 12:45 08/18/16 12:46 (Amaryl) 2 mg BIDAC PO 08/16/16 07:00 08/16/16 06:32 (Santyl Oint) 1 applic ONCE ONCE TOPICAL 08/16/16 08:15 08/16/16 08:16 UNV Family History not contrib Social History walker dependent Physical Exam Vital Signs Vital Signs Date Time Temp Pulse Resp B/P Pulse Ox O2 Delivery O2 Flow Rate FiO2 08/16/16 02:43 17 08/16/16 00:00 97.9 72 18 154/79 96 08/15/16 20:10 18 08/15/16 20:00 97.9 82 20 168/91 98 08/15/16 17:40 98.5 83 17 161/75 95 08/15/16 15:15 88 20 173/93 97 Room Air 08/15/16 12:55 72 18 174/84 97 Room Air 08/15/16 12:01 84 18 08/15/16 11:25 98.9 88 20 198/94 99 Room Air Physical Exam GENERAL: This is a well-nourished, well-developed patient, in no apparent distress. SKIN: sutured wound of the right anterior leg with a necrotic area. 2++edema weeping from the wound HEAD: Atraumatic. Normocephalic. No temporal or scalp tenderness. EYES: Pupils equal round and reactive. Extraocular motions intact. No scleral icterus. No injection or drainage. ENT: Nose without bleeding, purulent drainage or septal hematoma. Throat without erythema, tonsillar hypertrophy or exudate. Uvula midline. Airway patent. NECK: Trachea midline. No JVD or lymphadenopathy. Supple, nontender, no meningeal signs. CARDIOVASCULAR: Regular rate and rhythm without murmurs, gallops, or rubs. RESPIRATORY: Clear to auscultation. Breath sounds equal bilaterally. No wheezes , rales, or rhonchi. GASTROINTESTINAL: Abdomen soft, non-tender, nondistended. No hepato-splenomegaly , or palpable masses. No guarding. MUSCULOSKELETAL: Extremities without clubbing, cyanosis, or edema. No joint tenderness, effusion, or edema noted. No calf tenderness. Negative Homans sign bilaterally. NEUROLOGICAL: Awake and alert. Cranial nerves II through XII intact. Motor and sensory grossly within normal limits. Five out of 5 muscle strength in all muscle groups. Normal speech. Laboratory Laboratory Tests Test 08/15/16 08/16/16 12:15 05:50 White Blood Count 8.7 6.5 Red Blood Count 4.00 3.80 Hemoglobin 12.1 11.5 Hematocrit 35.9 34.3 Mean Corpuscular Volume 89.7 90.2 Mean Corpuscular Hemoglobin 30.1 30.2 Mean Corpuscular Hemoglobin 33.6 33.5 Concent Red Cell Distribution Width 18.5 19.2 Platelet Count 215 187 Mean Platelet Volume 9.5 8.7 Neutrophils (%) (Auto) 91.3 72.5 Lymphocytes (%) (Auto) 6.0 18.7 Monocytes (%) (Auto) 2.6 8.4 Eosinophils (%) (Auto) 0.0 0.3 Basophils (%) (Auto) 0.1 0.1 Neutrophils # (Auto) 7.9 4.7 Lymphocytes # (Auto) 0.5 1.2 Monocytes # (Auto) 0.2 0.5 Eosinophils # (Auto) 0.0 0.0 Basophils # (Auto) 0.0 0.0 CBC Comment DIFF FINAL DIFF FINAL Differential Comment Sodium Level 142 144 Potassium Level 3.9 3.3 Chloride Level 104 104 Carbon Dioxide Level 31.5 33.9 Anion Gap 7 6 Blood Urea Nitrogen 35 32 Creatinine 1.58 1.53 Estimat Glomerular Filtration 38 40 Rate Random Glucose 256 44 Calcium Level 9.7 9.0 Magnesium Level 1.9 Date/Time Procedure Status Source Growth 08/15/16 12:15 Gram Stain - Final Resulted Wound Leg 08/15/16 12:15 Wound Culture Resulted Wound Leg Pending 08/15/16 12:15 Aerobic Blood Culture Received Blood Peripheral Pending 08/15/16 12:15 Anaerobic Blood Culture Received Blood Peripheral Pending Result Diagram: 08/16/16 0550 08/16/16 0550 Assessment and Plan Assessment and Plan Patient is a 80yo with a wound of the right anterior leg and edema. Plan: 1. control edema. 2. Wound Care: Q 8 hours 1. Remove old dressing 2. Clean right lower extremity. 3. Apply Santyl to the necrotic area only 4. Cover wound with an ABD pad 5. wrap the leg with 2 (4 inch) DIANA wraps. 6. START at the toes and wrap proximally Tita Kelley MD August 16, 2016 08:12
[2016-08-16] MEDS ORDERED: COLLAGENASE OINT 30 GM TUBE TOPICAL ONE (08:15)
[2016-08-16] MEDS: GABAPENTIN 300 MG CAP PO SCH ×2 (08:22→19:27)
[2016-08-16] MEDS: VERAPAMIL HCL 240 MG SUSTAINED RELEASE TAB PO SCH (08:22)
[2016-08-16] MEDS: VALSARTAN 80 MG TAB PO SCH (08:22)
[2016-08-16] MEDS: BUMETANIDE 1 MG TAB PO SCH ×2 (08:22→16:13)
[2016-08-16] MEDS: METHIMAZOLE 5 MG TAB PO SCH (08:22)
[2016-08-16] MEDS: ATORVASTATIN 20 MG TAB PO SCH (08:23)
[2016-08-16] MEDS: CARVEDILOL 6.25 MG TAB PO SCH ×2 (08:23→19:27)
[2016-08-16] MEDS: ASPIRIN EC 81 MG TABEC PO SCH (08:23)
[2016-08-16] MEDS: predniSONE 20 MG TAB PO SCH (08:23)
[2016-08-16] MEDS ORDERED: POTASSIUM CHLORIDE 10 MEQ CAP PO ONE (10:00)
--- NOTE | 2016-08-16 10:12 | HHI.PR ---
Subjective Remarks Pt reports that she had good UOP overnight. Her legs are much less swollen today. Afebrile. Objective Vitals Vital Signs Date Time Temp Pulse Resp B/P Pulse Ox O2 Delivery O2 Flow Rate FiO2 08/16/16 08:00 96.7 90 19 198/108 92 08/16/16 02:43 17 08/16/16 00:00 97.9 72 18 154/79 96 08/15/16 20:10 18 08/15/16 20:00 97.9 82 20 168/91 98 08/15/16 17:40 98.5 83 17 161/75 95 08/15/16 15:15 88 20 173/93 97 Room Air 08/15/16 12:55 72 18 174/84 97 Room Air 08/15/16 12:01 84 18 08/15/16 11:25 98.9 88 20 198/94 99 Room Air 08/15/16 08/15/16 08/16/16 15:00 23:00 07:00 Intake Total 240 ml 220 ml Balance 240 ml 220 ml Intake Oral 240 ml 120 ml IV Total 100 ml # Voids 3 2 # Bowel Movements 0 1 Result Diagram: 08/16/16 0550 08/16/16 0550 Other Results Laboratory Tests Test 08/15/16 08/16/16 12:15 05:50 White Blood Count 8.7 TH/MM3 6.5 TH/MM3 Red Blood Count 4.00 MIL/MM3 3.80 MIL/MM3 Hemoglobin 12.1 GM/DL 11.5 GM/DL Hematocrit 35.9 % 34.3 % Mean Corpuscular Volume 89.7 FL 90.2 FL Mean Corpuscular Hemoglobin 30.1 PG 30.2 PG Mean Corpuscular Hemoglobin 33.6 % 33.5 % Concent Red Cell Distribution Width 18.5 % 19.2 % Platelet Count 215 TH/MM3 187 TH/MM3 Mean Platelet Volume 9.5 FL 8.7 FL Neutrophils (%) (Auto) 91.3 % 72.5 % Lymphocytes (%) (Auto) 6.0 % 18.7 % Monocytes (%) (Auto) 2.6 % 8.4 % Eosinophils (%) (Auto) 0.0 % 0.3 % Basophils (%) (Auto) 0.1 % 0.1 % Neutrophils # (Auto) 7.9 TH/MM3 4.7 TH/MM3 Lymphocytes # (Auto) 0.5 TH/MM3 1.2 TH/MM3 Monocytes # (Auto) 0.2 TH/MM3 0.5 TH/MM3 Eosinophils # (Auto) 0.0 TH/MM3 0.0 TH/MM3 Basophils # (Auto) 0.0 TH/MM3 0.0 TH/MM3 CBC Comment DIFF FINAL DIFF FINAL Differential Comment Sodium Level 142 MEQ/L 144 MEQ/L Potassium Level 3.9 MEQ/L 3.3 MEQ/L Chloride Level 104 MEQ/L 104 MEQ/L Carbon Dioxide Level 31.5 MEQ/L 33.9 MEQ/L Anion Gap 7 MEQ/L 6 MEQ/L Blood Urea Nitrogen 35 MG/DL 32 MG/DL Creatinine 1.58 MG/DL 1.53 MG/DL Estimat Glomerular Filtration 38 ML/MIN 40 ML/MIN Rate Random Glucose 256 MG/DL 44 MG/DL Calcium Level 9.7 MG/DL 9.0 MG/DL Magnesium Level 1.9 MG/DL Imaging Last Impressions Lower Extremity Ultrasound 08/15/16 0000 Signed Impressions: Service Date/Time: Monday, August 15, 2016 13:59 - CONCLUSION: 1. No DVT identified within the either lower extremity. 2. 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 Dylan Cavanaugh MD Objective Remarks General: NAD, AAOx3 Chest: CTA Cardiac: Regular Abd: +BS, soft ND/NT Ext: LLE less swollen, wound on left claros is draining fluid. Wound is dehisced with noted necrotic tissue in the wound bed. 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 Patient was seen in the ED on the day of injury and was treated by Dr. Knight who placed 26 sutures in this area. Patient was prescribed Keflex x 7 days. - She was seen in the ED on 07/30/16 for a recheck and the wound was reportedly healing well with minimal wound dehiscence. Pt completed the Keflex and followed up with her PCP on 08/06/16 and was again prescribed Cephalexin 500mg QID x 7 days as she appeared to have some cellulitis at that time. - She presented back to the ED on 08/15/16 for wound recheck and it is reportedly worsened with cellulitic skin changes, dehiscence of the wound and is draining some purulent fluid. - Pts family at bedside reports that the pt had stopped taking her diuretics for about a week because she didn't want to have to get up to urinate so much and both LE swelled quite a bit and pt was having leakage of fluid from the wound. - She started back on her diuretics about 2 days ago and has had improvement in her LE edema. - Pt was given Vancomycin and Clindamycin in the ED - LE US was negative for DVT - Blood cultures and wound cultures have been taken and are pending. The wound culture that we took in the ED was never sent to Micro lab last night. Nurse will send down this morning and if unable to be used will obtain another culture. - Pt continued Vancomycin with pharmacy dosing and Zosyn, renally dosed - Mupirocin to be applied topically - Appreciate Plastic surgery consultation - Recommended to apply Santyl to the necrotic area only, cover wound with an ABD pad, wrap the leg with 2 (4 inch) DIANA wraps starting at the toes and wrap proximally - Monitor labs - Supportive care - DVT prophylaxis with Lovenox (2) Laceration of left leg Status: Acute Plan: - See above. (3) Hypertension Status: Chronic Plan: - Home meds resumed - Monitor - Vasotec and Clonidine PRN (4) Hyperlipidemia Status: Chronic Plan: - Cont. home meds (5) DM (diabetes mellitus) Status: Chronic Plan: - BS was low this morning, - NovoLog SSI - Amaryl decreased to 2mg po BID - Accu checks (6) Tobacco abuse Status: Chronic Plan: - Tobacco cessation Assessment and Plan Patient examined. Assessment and plan formulated with Anay Tomlin PA-C. I agree with the above. left ant claros lacerated/sutured now with dehiscence and wound infection. severe edema related to chf and med noncompliance pseudomonas and another gnr so far on cx. cont vanco and zosyn and narrow soon. compression is ordered. plastic following. d/c soon with f/u Problem Qualifiers (1) Laceration of left leg: Qualified Code: S81.812D - Laceration of left leg, subsequent encounter (2) DM (diabetes mellitus): Anay Tomlin August 16, 2016 10:12 Alex Morrow MD August 16, 2016 19:48
[2016-08-16 10:24] VITALS: BP 147/82
[2016-08-16] MEDS: VANCOMYCIN 1,000 MG/NS 250 ML IV SCH ×2 (11:10)
[2016-08-16 12:00] VITALS: BP 157/91; PULSE 95; RESP 17; TEMP 96.5; O2SAT 93
[2016-08-16] MEDS ORDERED: VANCOMYCIN INJ 650 MG in SODIUM CHLOR 0.9% 250 ML INJ 250 ML IV SCH (13:00)
[2016-08-16 16:00] VITALS: BP_SYST 171; BP_SYST 172; BP_DIAS 100; BP_DIAS 86; PULSE 121; RESP 16; TEMP 96.8; O2SAT 97
[2016-08-16] MEDS: cloNIDine HCL 0.1 MG TAB PO PRN (16:13)
[2016-08-16] MEDS: ENOXAPARIN SODIUM 30 MG/0.3 ML SYRINGE SQ SCH (19:26)
[2016-08-16] MEDS: PRIMIDONE 50 MG TAB PO SCH (19:27)
[2016-08-16] MEDS ORDERED: POTASSIUM CHLORIDE 20 MEQ CONTROLLED RELEASE TAB PO ONE (19:45)
[2016-08-16 20:00] VITALS: BP 124/70; PULSE 69; RESP 18; TEMP 97.2; O2SAT 96
[2016-08-17] VITALS: BP 172/92; PULSE 75; RESP 20; TEMP 97; O2SAT 95
[2016-08-17] MEDS: PIPERACIL-TAZO 2.25 GM PREMIX 50 ML IV SCH ×3 (01:43→14:01)
[2016-08-17] MEDS: oxyCODONE/ACETAMINOPHEN 5 MG/325 MG TAB PO PRN ×3 (04:39→21:56)
[2016-08-17] MEDS: GLIMEPIRIDE 2 MG TAB PO SCH ×2 (05:45→17:05)
[2016-08-17] MEDS: INSULIN ASPART SUPPLEMENTAL SCALE SQ SCH ×4 (05:45→20:20)
[2016-08-17 06:02] LABS: AUTOMATED NEUTROPHIL # 4.2 TH/MM3 (1.8-7.7); BASOPHIL % 0.2 % (0.0-2.0); EOSINOPHIL % 0.3 % (0.0-4.0); HEMATOCRIT 32.9 % (35.0-46.0); HEMO FLAGS DIFF FINAL; LYMPH % 20.6 % (9.0-44.0); LYMPHOCYTE # 1.2 TH/MM3 (1.0-4.8); MEAN CELL VOLUME 89.7 FL (80.0-100.0); MEAN CORPUSCULAR HEMOGLOBIN 28.9 PG (27.0-34.0); MEAN CORPUSCULAR HGB CONC 32.2 % (32.0-36.0); MONO % 9.2 % (0.0-8.0); NEUT % 69.7 % (16.0-70.0); PLATELET COUNT 165 TH/MM3 (150-450); RED BLOOD COUNT 3.67 MIL/MM3 (4.00-5.30); RED CELL DISTRIBUTION WIDTH 18.5 % (11.6-17.2)
[2016-08-17 06:28] LABS: BICARBONATE 32.5 MEQ/L (21.0-32.0); POTASSIUM 3.3 MEQ/L (3.5-5.1)
[2016-08-17] MEDS: SODIUM CHLORIDE 0.9% FLUSH 10 ML FLUSH IVF PRN (07:58)
[2016-08-17] MEDS: METHIMAZOLE 5 MG TAB PO SCH (07:58)
[2016-08-17] MEDS: CARVEDILOL 6.25 MG TAB PO SCH ×2 (07:58→20:13)
[2016-08-17] MEDS: predniSONE 20 MG TAB PO SCH (07:58)
[2016-08-17] MEDS: GABAPENTIN 300 MG CAP PO SCH ×2 (07:59→20:13)
[2016-08-17] MEDS: ATORVASTATIN 20 MG TAB PO SCH (07:59)
[2016-08-17] MEDS: VALSARTAN 80 MG TAB PO SCH (07:59)
[2016-08-17] MEDS: VERAPAMIL HCL 240 MG SUSTAINED RELEASE TAB PO SCH (07:59)
[2016-08-17] MEDS: ASPIRIN EC 81 MG TABEC PO SCH (07:59)
[2016-08-17 08:00] VITALS: BP 152/76; PULSE 71; RESP 18; TEMP 96; O2SAT 98
[2016-08-17] MEDS ORDERED: POTASSIUM CHLORIDE 20 MEQ CONTROLLED RELEASE TAB PO ONE (08:00)
[2016-08-17] MEDS: BUMETANIDE 1 MG TAB PO SCH ×2 (08:00→17:05)
[2016-08-17] MEDS ORDERED: POTASSIUM CHLORIDE 10 MEQ CAP PO SCH (09:00)
--- NOTE | 2016-08-17 10:23 | HHI.PR ---
Subjective Remarks No issues reported overnight. No specific complaints. Objective Vitals Vital Signs Date Time Temp Pulse Resp B/P Pulse Ox O2 Delivery O2 Flow Rate FiO2 08/17/16 08:00 96.0 71 18 152/76 98 08/17/16 05:39 18 08/17/16 00:00 97.0 75 20 172/92 95 08/16/16 20:00 97.2 69 18 124/70 96 08/16/16 16:00 96.8 121 16 172/100 97 171/86 08/16/16 12:00 96.5 95 17 157/91 93 08/16/16 10:24 147/82 08/16/16 08/16/16 08/17/16 15:00 23:00 07:00 Intake Total 750 ml 320 ml 340 ml Output Total 150 ml Balance 750 ml 320 ml 190 ml Intake Oral 450 ml 320 ml 240 ml IV Total 300 ml 100 ml Output Urine Total 150 ml # Voids 5 1 1 # Bowel Movements 1 1 1 Result Diagram: 08/17/16 0537 08/17/16 0537 Other Results Laboratory Tests Test 08/15/16 08/16/16 08/17/16 12:15 05:50 05:37 White Blood Count 8.7 TH/MM3 6.5 TH/MM3 6.0 TH/MM3 Red Blood Count 4.00 MIL/MM3 3.80 MIL/MM3 3.67 MIL/MM3 Hemoglobin 12.1 GM/DL 11.5 GM/DL 10.6 GM/DL Hematocrit 35.9 % 34.3 % 32.9 % Mean Corpuscular Volume 89.7 FL 90.2 FL 89.7 FL Mean Corpuscular Hemoglobin 30.1 PG 30.2 PG 28.9 PG Mean Corpuscular Hemoglobin 33.6 % 33.5 % 32.2 % Concent Red Cell Distribution Width 18.5 % 19.2 % 18.5 % Platelet Count 215 TH/MM3 187 TH/MM3 165 TH/MM3 Mean Platelet Volume 9.5 FL 8.7 FL 8.9 FL Neutrophils (%) (Auto) 91.3 % 72.5 % 69.7 % Lymphocytes (%) (Auto) 6.0 % 18.7 % 20.6 % Monocytes (%) (Auto) 2.6 % 8.4 % 9.2 % Eosinophils (%) (Auto) 0.0 % 0.3 % 0.3 % Basophils (%) (Auto) 0.1 % 0.1 % 0.2 % Neutrophils # (Auto) 7.9 TH/MM3 4.7 TH/MM3 4.2 TH/MM3 Lymphocytes # (Auto) 0.5 TH/MM3 1.2 TH/MM3 1.2 TH/MM3 Monocytes # (Auto) 0.2 TH/MM3 0.5 TH/MM3 0.6 TH/MM3 Eosinophils # (Auto) 0.0 TH/MM3 0.0 TH/MM3 0.0 TH/MM3 Basophils # (Auto) 0.0 TH/MM3 0.0 TH/MM3 0.0 TH/MM3 CBC Comment DIFF FINAL DIFF FINAL DIFF FINAL Differential Comment Sodium Level 142 MEQ/L 144 MEQ/L 145 MEQ/L Potassium Level 3.9 MEQ/L 3.3 MEQ/L 3.3 MEQ/L Chloride Level 104 MEQ/L 104 MEQ/L 106 MEQ/L Carbon Dioxide Level 31.5 MEQ/L 33.9 MEQ/L 32.5 MEQ/L Anion Gap 7 MEQ/L 6 MEQ/L 7 MEQ/L Blood Urea Nitrogen 35 MG/DL 32 MG/DL 31 MG/DL Creatinine 1.58 MG/DL 1.53 MG/DL 1.63 MG/DL Estimat Glomerular Filtration 38 ML/MIN 40 ML/MIN 37 ML/MIN Rate Random Glucose 256 MG/DL 44 MG/DL 118 MG/DL Calcium Level 9.7 MG/DL 9.0 MG/DL 8.8 MG/DL Magnesium Level 1.9 MG/DL 2.0 MG/DL Imaging Last Impressions Lower Extremity Ultrasound 08/15/16 0000 Signed Impressions: Service Date/Time: Monday, August 15, 2016 13:59 - CONCLUSION: 1. No DVT identified within the either lower extremity. 2. 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 Dylan Cavanaugh MD Objective Remarks General: NAD, AAOx3 Chest: CTA Cardiac: Regular Abd: +BS, soft ND/NT Ext: LLE less swollen, wound on left claros is draining fluid. Wound is dehisced with noted necrotic tissue in the wound bed. 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 Patient was seen in the ED on the day of injury and was treated by Dr. Knight who placed 26 sutures in this area. Patient was prescribed Keflex x 7 days. - She was seen in the ED on 07/30/16 for a recheck and the wound was reportedly healing well with minimal wound dehiscence. Pt completed the Keflex and followed up with her PCP on 08/06/16 and was again prescribed Cephalexin 500mg QID x 7 days as she appeared to have some cellulitis at that time. - She presented back to the ED on 08/15/16 for wound recheck and it is reportedly worsened with cellulitic skin changes, dehiscence of the wound and is draining some purulent fluid. - Pts family at bedside reports that the pt had stopped taking her diuretics for about a week because she didn't want to have to get up to urinate so much and both LE swelled quite a bit and pt was having leakage of fluid from the wound. - She started back on her diuretics about 2 days ago and has had improvement in her LE edema. - Pt was given Vancomycin and Clindamycin in the ED - LE US was negative for DVT - Blood cultures with NGTD - Wound cultures with Pseudomonas aeruginosa, Enterobacter Cloacae, and Gamma hemolytic strep. - Pt continued Vancomycin with pharmacy dosing and Zosyn, renally dosed - Appreciate Plastic surgery consultation - Recommended to apply Santyl to the necrotic area only, cover wound with an ABD pad, wrap the leg with 2 (4 inch) DIANA wraps starting at the toes and wrap proximally - Monitor labs - Supportive care - DVT prophylaxis with Lovenox (2) Laceration of left leg Status: Acute Plan: - See above. (3) Hypertension Status: Chronic Plan: - Home meds resumed - Monitor - Vasotec and Clonidine PRN (4) Hyperlipidemia Status: Chronic Plan: - Cont. home meds (5) DM (diabetes mellitus) Status: Chronic Plan: - NovoLog SSI - Amaryl 2mg po BID - Accu checks (6) Tobacco abuse Status: Chronic Plan: - Tobacco cessation Assessment and Plan Patient examined. Assessment and plan formulated with Anay Tomlin PA-C. I agree with the above. left leg wound dehiscence. polymicrobial. d/c zosyn and vanco. cefepime and convert to po at d/c. compression wraps. Problem Qualifiers (1) Laceration of left leg: Qualified Code: S81.812D - Laceration of left leg, subsequent encounter (2) DM (diabetes mellitus): Anay Tomlin August 17, 2016 10:22 Alex Morrow MD August 17, 2016 21:04
[2016-08-17] MEDS: VANCOMYCIN 1,000 MG/NS 250 ML IV SCH ×2 (11:34)
[2016-08-17 12:00] VITALS: BP 155/82; PULSE 69; RESP 19; TEMP 97.6; O2SAT 99
[2016-08-17 16:00] VITALS: BP 171/81; PULSE 83; RESP 19; TEMP 96.3; O2SAT 94
[2016-08-17] MEDS: CEFEPIME INJ 2,000 MG in SODIUM CHLORIDE 0.9% INJ 100 ML IV SCH (17:30)
[2016-08-17 20:00] VITALS: BP 194/98; PULSE 93; RESP 20; TEMP 97.7; O2SAT 96
[2016-08-17] MEDS: ENOXAPARIN SODIUM 30 MG/0.3 ML SYRINGE SQ SCH (20:12)
[2016-08-17] MEDS: PRIMIDONE 50 MG TAB PO SCH (20:13)
[2016-08-17] MEDS: POTASSIUM CHLORIDE 10 MEQ CAP PO SCH (21:56)
[2016-08-18] VITALS: BP 177/96; PULSE 72; RESP 18; TEMP 98.1; O2SAT 96
[2016-08-18] MEDS: CEFEPIME INJ 2,000 MG in SODIUM CHLORIDE 0.9% INJ 100 ML IV SCH ×2 (02:31→16:33)
[2016-08-18] MEDS: oxyCODONE/ACETAMINOPHEN 5 MG/325 MG TAB PO PRN ×2 (02:31→09:51)
[2016-08-18 04:00] VITALS: BP 174/84; PULSE 71; RESP 18; TEMP 97.5; O2SAT 97
[2016-08-18] MEDS: DEXTROSE 50% IN WATER 50 ML VIAL(D50) IV PUSH PRN (06:20)
[2016-08-18] MEDS: INSULIN ASPART SUPPLEMENTAL SCALE SQ SCH ×4 (06:23→21:00)
[2016-08-18] MEDS: GLIMEPIRIDE 2 MG TAB PO SCH ×2 (07:00→17:34)
[2016-08-18 08:00] VITALS: BP 168/88; PULSE 82; RESP 16; TEMP 97.2; O2SAT 92
[2016-08-18] MEDS: ASPIRIN EC 81 MG TABEC PO SCH (08:46)
[2016-08-18] MEDS: METHIMAZOLE 5 MG TAB PO SCH (08:48)
[2016-08-18] MEDS: BUMETANIDE 1 MG TAB PO SCH ×2 (08:49→17:34)
[2016-08-18] MEDS: VALSARTAN 80 MG TAB PO SCH (08:49)
[2016-08-18] MEDS: ATORVASTATIN 20 MG TAB PO SCH (08:49)
[2016-08-18] MEDS: POTASSIUM CHLORIDE 10 MEQ CAP PO SCH ×2 (08:50→20:53)
[2016-08-18] MEDS: VERAPAMIL HCL 240 MG SUSTAINED RELEASE TAB PO SCH (08:50)
[2016-08-18] MEDS: CARVEDILOL 6.25 MG TAB PO SCH ×2 (08:50→20:54)
[2016-08-18] MEDS: predniSONE 20 MG TAB PO SCH (08:50)
[2016-08-18] MEDS: GABAPENTIN 300 MG CAP PO SCH ×2 (08:50→20:54)
[2016-08-18 09:15] LABS: BICARBONATE 31.9 MEQ/L (21.0-32.0); POTASSIUM 3.4 MEQ/L (3.5-5.1)
[2016-08-18] MEDS ORDERED: PHARMACY ORDERED LAB ONE (11:45)
[2016-08-18 12:00] VITALS: BP 154/76; PULSE 73; RESP 16; TEMP 95.9; O2SAT 92
[2016-08-18 16:00] VITALS: BP 161/90; PULSE 71; RESP 16; TEMP 97; O2SAT 99
[2016-08-18 20:00] VITALS: BP 167/86; PULSE 73; RESP 17; TEMP 96.9; O2SAT 98
[2016-08-18] MEDS: PRIMIDONE 50 MG TAB PO SCH (20:54)
[2016-08-18] MEDS: ENOXAPARIN SODIUM 30 MG/0.3 ML SYRINGE SQ SCH (20:55)
[2016-08-18] MEDS: SODIUM CHLORIDE 0.9% FLUSH 10 ML FLUSH IVF PRN (20:57)
--- NOTE | 2016-08-18 22:32 | HHI.PR ---
Subjective Remarks doing well Objective Vitals heart reg lung cta abd s/nt ext left ant claros lac with stitches superiorly and inferiorly ulcerated. no pus. edema better Vital Signs Date Time Temp Pulse Resp B/P Pulse Ox O2 Delivery O2 Flow Rate FiO2 08/18/16 20:00 96.9 73 17 167/86 98 08/18/16 16:00 97.0 71 16 161/90 99 08/18/16 12:00 95.9 73 16 154/76 92 08/18/16 08:00 97.2 82 16 168/88 92 08/18/16 04:00 97.5 71 18 174/84 97 08/18/16 00:00 98.1 72 18 177/96 96 08/17/16 08/17/16 08/18/16 15:00 23:00 07:00 Intake Total 903 ml 320 ml 240 ml Output Total 250 ml 200 ml Balance 903 ml 70 ml 40 ml Intake Oral 545 ml 320 ml 240 ml IV Total 358 ml Output Urine Total 250 ml 200 ml # Voids 5 1 # Bowel Movements 4 0 0 Result Diagram: 08/17/16 0537 08/18/16 0715 Imaging Last Impressions Lower Extremity Ultrasound 08/15/16 0000 Signed Impressions: Service Date/Time: Monday, August 15, 2016 13:59 - CONCLUSION: 1. No DVT identified within the either lower extremity. 2. 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 Patient was seen in the ED on the day of injury and was treated by Dr. Knight who placed 26 sutures in this area. Patient was prescribed Keflex x 7 days. - She was seen in the ED on 07/30/16 for a recheck and the wound was reportedly healing well with minimal wound dehiscence. Pt completed the Keflex and followed up with her PCP on 08/06/16 and was again prescribed Cephalexin 500mg QID x 7 days as she appeared to have some cellulitis at that time. - She presented back to the ED on 08/15/16 for wound recheck and it is reportedly worsened with cellulitic skin changes, dehiscence of the wound and is draining some purulent fluid. - Pts family at bedside reports that the pt had stopped taking her diuretics for about a week because she didn't want to have to get up to urinate so much and both LE swelled quite a bit and pt was having leakage of fluid from the wound. - She started back on her diuretics about 2 days ago and has had improvement in her LE edema. - Pt was given Vancomycin and Clindamycin in the ED - LE US was negative for DVT - Blood cultures with NGTD - Wound cultures with Pseudomonas aeruginosa, Enterobacter Cloacae, and Gamma hemolytic strep. -vanc and zosyn stopped. pt on cefepime and plan to convert to po abx on d/c - Appreciate Plastic surgery consultation - Recommended to apply Santyl to the necrotic area only, cover wound with an ABD pad, wrap the leg with 2 (4 inch) DIANA wraps starting at the toes and wrap proximally - Monitor labs - Supportive care - DVT prophylaxis with Lovenox (2) Laceration of left leg Status: Acute Plan: - See above. (3) Hypertension Status: Chronic Plan: - Home meds resumed - Monitor - Vasotec and Clonidine PRN (4) Hyperlipidemia Status: Chronic Plan: - Cont. home meds (5) DM (diabetes mellitus) Status: Chronic Plan: - NovoLog SSI - Amaryl 2mg po BID - Accu checks (6) Tobacco abuse Status: Chronic Plan: - Tobacco cessation Problem Qualifiers (1) Laceration of left leg: Qualified Code: S81.812D - Laceration of left leg, subsequent encounter (2) DM (diabetes mellitus): Alex Morrow MD August 18, 2016 22:32
[2016-08-19] VITALS (7 sets, daily range): BP systolic 140–191; BP diastolic 60–120; PULSE 73–94; RESP 17–20; TEMP 96.5–98.4; O2SAT 96–99
[2016-08-19] MEDS: CEFEPIME INJ 2,000 MG in SODIUM CHLORIDE 0.9% INJ 100 ML IV SCH ×2 (03:41→15:39)
[2016-08-19] MEDS: INSULIN ASPART SUPPLEMENTAL SCALE SQ SCH ×4 (06:34→21:00)
[2016-08-19 06:46] LABS: BICARBONATE 31.5 MEQ/L (21.0-32.0); POTASSIUM 3.8 MEQ/L (3.5-5.1)
[2016-08-19] MEDS: VALSARTAN 80 MG TAB PO SCH (07:54)
[2016-08-19] MEDS: GABAPENTIN 300 MG CAP PO SCH ×2 (07:55→22:09)
[2016-08-19] MEDS: ATORVASTATIN 20 MG TAB PO SCH (07:55)
[2016-08-19] MEDS: METHIMAZOLE 5 MG TAB PO SCH (07:55)
[2016-08-19] MEDS: POTASSIUM CHLORIDE 10 MEQ CAP PO SCH ×2 (07:55→22:09)
[2016-08-19] MEDS: CARVEDILOL 6.25 MG TAB PO SCH (07:56)
[2016-08-19] MEDS: predniSONE 20 MG TAB PO SCH (07:56)
[2016-08-19] MEDS: ASPIRIN EC 81 MG TABEC PO SCH (07:56)
[2016-08-19] MEDS: GLIMEPIRIDE 2 MG TAB PO SCH (07:56)
[2016-08-19] MEDS: BUMETANIDE 1 MG TAB PO SCH ×2 (07:56→17:24)
[2016-08-19] MEDS: VERAPAMIL HCL 240 MG SUSTAINED RELEASE TAB PO SCH (07:59)
--- NOTE | 2016-08-19 14:24 | HHI.PR ---
Subjective Remarks doing ok. no complaints just worried about nighttime hypoglycemia..says this occurs at home also Objective Vitals heart reg lung cta abd s/nt ext left leg wrapped. Vital Signs Date Time Temp Pulse Resp B/P Pulse Ox O2 Delivery O2 Flow Rate FiO2 08/19/16 12:00 97.5 80 20 155/90 97 08/19/16 09:00 163/85 08/19/16 08:00 98.4 94 20 191/120 98 08/19/16 04:00 96.5 86 17 140/60 96 08/19/16 00:00 96.9 77 17 160/87 96 08/18/16 20:00 96.9 73 17 167/86 98 08/18/16 16:00 97.0 71 16 161/90 99 08/18/16 08/18/16 08/19/16 14:59 22:59 06:59 Intake Total 360 ml 240 ml 340 ml Output Total 200 ml 100 ml Balance 160 ml 140 ml 340 ml Intake Oral 360 ml 240 ml 240 ml IV Total 100 ml Output Urine Total 200 ml 100 ml # Voids 1 # Bowel Movements 0 Result Diagram: 08/17/16 0537 08/19/16 0522 Imaging Last Impressions Lower Extremity Ultrasound 08/15/16 0000 Signed Impressions: Service Date/Time: Monday, August 15, 2016 13:59 - CONCLUSION: 1. No DVT identified within the either lower extremity. 2. 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 Patient was seen in the ED on the day of injury and was treated by Dr. Jansen who placed 26 sutures in this area. Patient was prescribed Keflex x 7 days. - She was seen in the ED on 07/30/16 for a recheck and the wound was reportedly healing well with minimal wound dehiscence. Pt completed the Keflex and followed up with her PCP on 08/06/16 and was again prescribed Cephalexin 500mg QID x 7 days as she appeared to have some cellulitis at that time. - She presented back to the ED on 08/15/16 for wound recheck and it is reportedly worsened with cellulitic skin changes, dehiscence of the wound and is draining some purulent fluid. - Pts family at bedside reports that the pt had stopped taking her diuretics for about a week because she didn't want to have to get up to urinate so much and both LE swelled quite a bit and pt was having leakage of fluid from the wound. - She started back on her diuretics about 2 days ago and has had improvement in her LE edema. - Pt was given Vancomycin and Clindamycin in the ED - LE US was negative for DVT - Blood cultures with NGTD - Wound cultures with Pseudomonas aeruginosa, Enterobacter Cloacae, and Gamma hemolytic strep. -vanc and zosyn stopped. pt on cefepime and plan to convert to po abx on d/c - Appreciate Plastic surgery consultation - Recommended to apply Santyl to the necrotic area only, cover wound with an ABD pad, wrap the leg with 2 (4 inch) DIANA wraps starting at the toes and wrap proximally - DVT prophylaxis with Lovenox If stable could d/c home tomorrow with po antibiotics, hhc with wound care and f /u plastic surgery. pt take steroids for polymyositis. reports normally taking 4mg bid but recently increased to 40mg daily but only takes 20mg for exacerbation. will start weaning that down d/c evening amaryl for now given her nightime hypoglycemia. (2) Laceration of left leg Status: Acute Plan: - See above. (3) Hypertension Status: Acute Plan: bp not well controlled on arb,ccb,bb increase her bb (4) DM (diabetes mellitus) Status: Acute Plan: Pt has dm with steroid exacerbation. she reports frequent nightime hypoglycemia will hold pm dose amaryl ssi (5) Tobacco abuse Status: Chronic Plan: - Tobacco cessation (6) Hyperlipidemia Status: Chronic Plan: - Cont. home meds Problem Qualifiers (1) Laceration of left leg: Qualified Code: S81.812D - Laceration of left leg, subsequent encounter (2) DM (diabetes mellitus): Alex Morrow MD August 19, 2016 14:24
[2016-08-19] MEDS: oxyCODONE/ACETAMINOPHEN 5 MG/325 MG TAB PO PRN ×3 (15:39→23:52)
[2016-08-19] MEDS: ENOXAPARIN SODIUM 30 MG/0.3 ML SYRINGE SQ SCH (22:09)
[2016-08-19] MEDS: CARVEDILOL 12.5 MG TAB PO SCH (22:09)
[2016-08-19] MEDS: PRIMIDONE 50 MG TAB PO SCH (22:09)
[2016-08-20] VITALS (7 sets, daily range): BP systolic 116–181; BP diastolic 66–98; PULSE 65–91; RESP 16–20; TEMP 96.5–97.8; O2SAT 75–97
[2016-08-20] MEDS: CEFEPIME INJ 2,000 MG in SODIUM CHLORIDE 0.9% INJ 100 ML IV SCH ×2 (04:45→16:03)
[2016-08-20] MEDS: cloNIDine HCL 0.1 MG TAB PO PRN (04:46)
[2016-08-20] MEDS: oxyCODONE/ACETAMINOPHEN 5 MG/325 MG TAB PO PRN (04:47)
[2016-08-20] MEDS: INSULIN ASPART SUPPLEMENTAL SCALE SQ SCH ×4 (06:29→20:39)
[2016-08-20] MEDS: ATORVASTATIN 20 MG TAB PO SCH (09:43)
[2016-08-20] MEDS: POTASSIUM CHLORIDE 10 MEQ CAP PO SCH ×2 (09:43→20:34)
[2016-08-20] MEDS: GABAPENTIN 300 MG CAP PO SCH ×2 (09:43→20:34)
[2016-08-20] MEDS: predniSONE 10 MG TAB PO SCH (09:43)
[2016-08-20] MEDS: CARVEDILOL 12.5 MG TAB PO SCH ×2 (09:44→20:33)
[2016-08-20] MEDS: VALSARTAN 80 MG TAB PO SCH (09:44)
[2016-08-20] MEDS: BUMETANIDE 1 MG TAB PO SCH ×2 (09:44→18:26)
[2016-08-20] MEDS: METHIMAZOLE 5 MG TAB PO SCH (09:44)
[2016-08-20] MEDS: ASPIRIN EC 81 MG TABEC PO SCH (09:44)
[2016-08-20] MEDS: VERAPAMIL HCL 240 MG SUSTAINED RELEASE TAB PO SCH (09:44)
[2016-08-20] MEDS: GLIMEPIRIDE 4 MG TAB PO SCH (09:50)
[2016-08-20] MEDS ORDERED: BUME1TAB PO (16:22)
--- NOTE | 2016-08-20 16:45 | HHI.PR ---
Subjective Remarks Pt reports that she had increased low back pain last night. She states that he has a known compression fracture in the lumbar spine. She complains of left sided weakness and increased hoarseness of voice which she states has been an ongoing issue for the last 2-3 months. She and her family are concerned that she may have had a stroke. Objective Vitals Vital Signs Date Time Temp Pulse Resp B/P Pulse Ox O2 Delivery O2 Flow Rate FiO2 08/20/16 12:00 96.5 68 18 116/66 96 08/20/16 08:00 96.6 83 20 177/93 75 08/20/16 04:00 97.1 86 17 181/94 95 08/20/16 00:00 96.5 91 17 161/98 95 08/19/16 20:00 96.5 80 17 186/92 98 08/19/16 08/19/16 08/20/16 15:00 23:00 07:00 Intake Total 880 ml 240 ml 240 ml Output Total 600 ml Balance 280 ml 240 ml 240 ml Intake Oral 880 ml 240 ml 240 ml Output Urine Total 600 ml # Voids 3 3 # Bowel Movements 1 3 3 Result Diagram: 08/17/16 0537 08/19/16 0522 Other Results Laboratory Tests Test 08/19/16 05:22 Sodium Level 145 MEQ/L Potassium Level 3.8 MEQ/L Chloride Level 107 MEQ/L Carbon Dioxide Level 31.5 MEQ/L Anion Gap 7 MEQ/L Blood Urea Nitrogen 27 MG/DL Creatinine 1.49 MG/DL Estimat Glomerular Filtration 41 ML/MIN Rate Random Glucose 101 MG/DL Calcium Level 8.4 MG/DL Imaging Last Impressions Lower Extremity Ultrasound 08/15/16 0000 Signed Impressions: Service Date/Time: Monday, August 15, 2016 13:59 - CONCLUSION: 1. No DVT identified within the either lower extremity. 2. 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 Dylan Cavanaugh MD Objective Remarks General: NAD, AAOx3 Chest: CTA Cardiac: Regular Abd: +BS, soft ND/NT Ext: Left ant claros lac with stitches superiorly and inferiorly ulcerated. Edema better. 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 Patient was seen in the ED on the day of injury and was treated by Dr. Jansen who placed 26 sutures in this area. Patient was prescribed Keflex x 7 days. - She was seen in the ED on 07/30/16 for a recheck and the wound was reportedly healing well with minimal wound dehiscence. Pt completed the Keflex and followed up with her PCP on 08/06/16 and was again prescribed Cephalexin 500mg QID x 7 days as she appeared to have some cellulitis at that time. - She presented back to the ED on 08/15/16 for wound recheck and it is reportedly worsened with cellulitic skin changes, dehiscence of the wound and is draining some purulent fluid. - Pts family at bedside reports that the pt had stopped taking her diuretics for about a week because she didn't want to have to get up to urinate so much and both LE swelled quite a bit and pt was having leakage of fluid from the wound. - She started back on her diuretics about 2 days ago and has had improvement in her LE edema. - Pt was given Vancomycin and Clindamycin in the ED - LE US was negative for DVT - Blood cultures with NGTD - Wound cultures with Pseudomonas aeruginosa, Enterobacter Cloacae, and Gamma hemolytic strep. - Vanc and Zosyn stopped. Pt on cefepime and plan to convert to po abx on d/c - Appreciate Plastic surgery consultation - Recommended to apply Santyl to the necrotic area only, cover wound with an ABD pad, wrap the leg with 2 (4 inch) DIANA wraps starting at the toes and wrap proximally - DVT prophylaxis with Lovenox - Pt concerned about increased low back pain last night and she has hx of lumbar compression fracture. Pt also concerned about voice changes and left sided weakness which has been an ongoing issue for the last 2-3 months. Pt and family very concerned about these issues and requesting evaluation now. We will check an MRI of the brain to r/o CVA and MRI of the lumbar spine to check the status of the previous lumbar compression fracture. - Pt take steroids for polymyositis and reportedly normally takes 4mg of Decadron BID but recently increased to Prednisone 40mg daily but only takes 20mg for exacerbation. We have started weaning that down and is currently on 10mg po daily. - Anticipate d/c home tomorrow with PO antibiotics, HHC with wound care and f/u plastic surgery. (2) Laceration of left leg Status: Acute Plan: - See above. (3) Hypertension Status: Acute Plan: - BP better controlled this afternoon after morning meds. - BB increased during admission. - Cont. on ARB, CCB, BB (4) DM (diabetes mellitus) Status: Acute Plan: - Pt has DM with steroid exacerbation. - She reports frequent nighttime hypoglycemia - Better with holding pm dose Amaryl - SSI (5) Tobacco abuse Status: Chronic Plan: - Tobacco cessation (6) Hyperlipidemia Status: Chronic Plan: - Cont. home meds Assessment and Plan Patient examined. Assessment and plan formulated with Anay Tomlin PA-C. I agree with the above. Pt believes c/o episode of unilateral weakness and is concerned that she may have suffered CVA. Pt seems neurologically intact. I doubt CVA. Will obtain MRI brain. Pt c/o continued LBP. Pt had been scheduled for lumbar MRI. Will obtain lumbar MRI. Anticipate d/c 08/21/16. Problem Qualifiers (1) Laceration of left leg: Qualified Code: S81.812D - Laceration of left leg, subsequent encounter (2) DM (diabetes mellitus): Anay Tomlin August 20, 2016 16:45 Chavo Soto DO August 21, 2016 02:17
[2016-08-20] MEDS: ENOXAPARIN SODIUM 30 MG/0.3 ML SYRINGE SQ SCH (20:32)
[2016-08-20] MEDS: PRIMIDONE 50 MG TAB PO SCH (20:34)
[2016-08-21] MEDS: CEFEPIME INJ 2,000 MG in SODIUM CHLORIDE 0.9% INJ 100 ML IV SCH ×2 (04:06→16:00)
[2016-08-21] MEDS: INSULIN ASPART SUPPLEMENTAL SCALE SQ SCH ×3 (04:58→17:43)
[2016-08-21 08:00] VITALS: BP 155/79; PULSE 79; RESP 18; TEMP 98; O2SAT 97
[2016-08-21] MEDS: VALSARTAN 80 MG TAB PO SCH (08:29)
[2016-08-21] MEDS: ASPIRIN EC 81 MG TABEC PO SCH (08:30)
[2016-08-21] MEDS: GABAPENTIN 300 MG CAP PO SCH (08:30)
[2016-08-21] MEDS: ATORVASTATIN 20 MG TAB PO SCH (08:30)
[2016-08-21] MEDS: predniSONE 10 MG TAB PO SCH (08:30)
[2016-08-21] MEDS: METHIMAZOLE 5 MG TAB PO SCH (08:30)
[2016-08-21] MEDS: CARVEDILOL 12.5 MG TAB PO SCH (08:30)
[2016-08-21] MEDS: VERAPAMIL HCL 240 MG SUSTAINED RELEASE TAB PO SCH (08:30)
[2016-08-21] MEDS: GLIMEPIRIDE 4 MG TAB PO SCH (08:30)
[2016-08-21] MEDS: POTASSIUM CHLORIDE 10 MEQ CAP PO SCH (08:30)
[2016-08-21] MEDS: BUMETANIDE 1 MG TAB PO SCH (08:31)
--- NOTE | 2016-08-21 09:40 | RADRPT ---
EXAM DATE/TIME: 08/21/2016 09:04 [facility] COMPARISON: No previous studies available for comparison. INDICATIONS : Left sided weakness. MEDICAL HISTORY : Diabetes mellitus type 2. Renal insufficiency, chronic. Hypertension. SURGICAL HISTORY : Tubal ligation. ENCOUNTER: Initial ACUITY: 2 day PAIN SCORE: 0/10 LOCATION: Head TECHNIQUE: Multiplanar, multisequence MRI of the brain was performed without contrast. FINDINGS: CEREBRUM: There is mild cerebral atrophy. Ventricles are normal given the degree of atrophy present. No eviden ce of midline shift, mass lesion, hemorrhage or acute infarction. No extraaxial fluid collections ar e seen. The pituitary gland and suprasellar cistern are normal in configuration. WHITE MATTER: There is mild periventricular white matter signal change. POSTERIOR FOSSA: The cerebellum and brainstem demonstrate no abnormality. The 4th ventricle is midline. The cerebello pontine angle is unremarkable. The cerebellar tonsils are normal in position. DIFFUSION IMAGING: No focal areas of restricted diffusion are seen. No evidence of acute infarction. EXTRACRANIAL: The visualized portions of the orbits and paranasal sinuses are unremarkable. CONCLUSION: 1. No acute intracranial abnormality is identified. There are no findings to indicate recent ischemia . 2. Chronic changes include generalized cerebral atrophy and mild periventricular white matter signal changes characteristic of chronic microvascular ischemia. Ty Tavera MD on August 21, 2016 at 9:35 Board Certified Radiologist. This report was verified electronically.
--- NOTE | 2016-08-21 10:00 | RADRPT ---
EXAM DATE/TIME: 08/21/2016 09:04 [facility] COMPARISON: No previous studies available for comparison. INDICATIONS : Pain. MEDICAL HISTORY : Diabetes mellitus type 2. Hypertension. Renal insufficiency, chronic. SURGICAL HISTORY : Tubal ligation. ENCOUNTER: Initial ACUITY: 2 day PAIN SCORE: 4/10 LOCATION: back TECHNIQUE: Multiplanar multisequence MRI of the lumbar spine was performed without contrast. FINDINGS: The most caudal appearing lumbar vertebra is numbered as L5. VERTEBRAE: There is mild loss of height of L1. Diffuse edema throughout L1 consistent with acute compression fra cture. Mild retropulsion of posterior fragments without significant canal stenosis. Normal alignment . CONUS: Normal level and configuration. T12-L1: The thecal sac has a normal diameter. No evidence of disc bulge or protrusion. The neural foramina are patent bilaterally. Mild facet arthropathy. L1-L2: The thecal sac has a normal diameter. No evidence of disc bulge or protrusion. The neural foramina are patent bilaterally. Mild facet arthropathy. L2-L3: Mild broad-based disc bulge abuts the ventral thecal sac and in conjunction with moderate facet arthr opathy/ligamentum flavum thickening causes mild canal stenosis. Fluid in the facets bilaterally. The neural foramina are patent bilaterally. L3-L4: Moderate broad based protrusion abuts the ventral thecal sac and in conjunction with moderate hypertr ophic facets/ligamentum flavum thickening causes severe canal stenosis. Mild neural foraminal narrow ing bilaterally. There is fluid in the facets bilaterally. L4-L5: Mild broad-based disc bulge abuts the ventral thecal sac without canal stenosis. There is moderate fa cet arthropathy/ligamentum flavum thickening. Severe narrowing of the right neural foramen. Left neur al foramen is patent. L5-S1: The thecal sac has a normal diameter. No evidence of disc bulge or protrusion. The neural foramina are patent bilaterally. CONCLUSION: 1. Acute mild compression fracture at L1 with minimal retropulsion of posterior fragments but no my l stenosis. 2. Mild broad-based disc bulge at L2-3 causing mild canal stenosis. 3. Moderate broad-based protrusion at L3-4 in conjunction with facet arthropathy/ligamentum flavum th ickening causes severe canal stenosis. 4. Mild broad-based disc bulge at L4-5 without canal stenosis. 5. Neural foraminal narrowing greater on the right at L4-5 as described above. Parminder F. Tocci, MD on August 21, 2016 at 9:48 Board Certified Radiologist. This report was verified electronically.
[2016-08-21 12:00] VITALS: BP 117/76; PULSE 76; RESP 20; TEMP 97.2; O2SAT 96
--- NOTE | 2016-08-21 15:59 | HHI.PR ---
Subjective Remarks No new complaints. Objective Vitals Vital Signs Date Time Temp Pulse Resp B/P Pulse Ox O2 Delivery O2 Flow Rate FiO2 08/21/16 12:00 97.2 76 20 117/76 96 08/21/16 08:00 98.0 79 18 155/79 97 08/20/16 23:58 97.8 78 17 153/87 97 08/20/16 20:00 97.2 66 16 140/77 94 08/20/16 16:00 97.6 65 20 161/88 95 08/20/16 08/20/16 08/21/16 14:59 22:59 06:59 Intake Total 380 ml 480 ml Balance 380 ml 480 ml Intake Oral 380 ml 480 ml # Voids 3 3 # Bowel Movements 3 3 Result Diagram: 08/17/16 0537 08/19/16 0522 Imaging Last Impressions Lower Extremity Ultrasound 08/15/16 0000 Signed Impressions: Service Date/Time: Monday, August 15, 2016 13:59 - CONCLUSION: 1. No DVT identified within the either lower extremity. 2. 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 Dylan Cavanaugh MD Objective Remarks General: NAD, AAOx3 Chest: CTA Cardiac: Regular Abd: +BS, soft ND/NT Ext: Left ant claros lac with stitches superiorly and inferiorly ulcerated. Edema better. 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 Patient was seen in the ED on the day of injury and was treated by Dr. Jansen who placed 26 sutures in this area. Patient was prescribed Keflex x 7 days. - She was seen in the ED on 07/30/16 for a recheck and the wound was reportedly healing well with minimal wound dehiscence. Pt completed the Keflex and followed up with her PCP on 08/06/16 and was again prescribed Cephalexin 500mg QID x 7 days as she appeared to have some cellulitis at that time. - She presented back to the ED on 08/15/16 for wound recheck and it is reportedly worsened with cellulitic skin changes, dehiscence of the wound and is draining some purulent fluid. - Pts family at bedside reports that the pt had stopped taking her diuretics for about a week because she didn't want to have to get up to urinate so much and both LE swelled quite a bit and pt was having leakage of fluid from the wound. - She started back on her diuretics about 2 days ago and has had improvement in her LE edema. - Pt was given Vancomycin and Clindamycin in the ED - LE US was negative for DVT - Blood cultures with NGTD - Wound cultures with Pseudomonas aeruginosa, Enterobacter Cloacae, and Gamma hemolytic strep. - Vanc and Zosyn stopped. Pt on cefepime and plan to convert to po abx on d/c - Appreciate Plastic surgery consultation - Recommended to apply Santyl to the necrotic area only, cover wound with an ABD pad, wrap the leg with 2 (4 inch) DIANA wraps starting at the toes and wrap proximally - DVT prophylaxis with Lovenox - Pt concerned about increased low back pain last night and she has hx of lumbar compression fracture. Pt also concerned about voice changes and left sided weakness which has been an ongoing issue for the last 2-3 months. Pt and family very concerned about these issues and requesting evaluation now. We will check an MRI of the brain to r/o CVA and MRI of the lumbar spine to check the status of the previous lumbar compression fracture. - Pt take steroids for polymyositis and reportedly normally takes 4mg of Decadron BID but recently increased to Prednisone 40mg daily but only takes 20mg for exacerbation. We have started weaning that down and is currently on 10mg po daily. - Anticipate d/c home tomorrow with PO antibiotics, HHC with wound care and f/u plastic surgery. (2) Laceration of left leg Status: Acute Plan: - See above. (3) Hypertension Status: Acute Plan: - BP better controlled this afternoon after morning meds. - BB increased during admission. - Cont. on ARB, CCB, BB (4) DM (diabetes mellitus) Status: Acute Plan: - Pt has DM with steroid exacerbation. - She reports frequent nighttime hypoglycemia - Better with holding pm dose Amaryl - SSI (5) Tobacco abuse Status: Chronic Plan: - Tobacco cessation (6) Hyperlipidemia Status: Chronic Plan: - Cont. home meds Assessment and Plan Patient examined. Assessment and plan formulated with Anay Tomlin PA-C. I agree with the above. Pt believes c/o episode of unilateral weakness and is concerned that she may have suffered CVA. Pt seems neurologically intact. I doubt CVA. Will obtain MRI brain. Pt c/o continued LBP. Pt had been scheduled for lumbar MRI. Will obtain lumbar MRI. Anticipate d/c 08/21/16. Problem Qualifiers (1) Laceration of left leg: Qualified Code: S81.812D - Laceration of left leg, subsequent encounter (2) DM (diabetes mellitus): Anay Tomlin August 21, 2016 15:59 Chavo Soto DO August 25, 2016 10:52
[2016-08-21 16:00] VITALS: BP 123/71; PULSE 62; RESP 18; TEMP 96.8; O2SAT 96
--- NOTE | 2016-08-21 16:11 | HHI.FF ---
Face to Face Verification Diagnosis: (1) Cellulitis and abscess of left leg (2) Cellulitis of left leg (3) Hypertension (4) DM (diabetes mellitus) Physical Therapy Order: Evaluate and Treat, Improve ambulation, Strength and gait training Home Health Nursing Order: Medical education Signs/symptoms of disease process Medication education-adverse effect Wound care and dressing changes Nursing assessment with vital signs I have seen patient Emelia Morrow on 08/21/16. My clinical findings support the need for the requested home health care services because: Ltd mobility - disease progression Deconditioned w/ increased weakness Med compliance is questionable Limited ability to care for self Need for psychosocial assistance I certify that my clinical findings support that this patient is homebound because: Impaired cognitive ability/safety Unsteady gait/balance Unsafe to leave home unassisted Need for psychosocial assistance Unable to use public transportation Chavo Soto DO August 21, 2016 16:11
[2016-08-21] MEDS ORDERED: PRED20 PO (16:14)
[2016-08-21] MEDS ORDERED: LEVA250T PO (16:19)
[2016-08-21] MEDS ORDERED: CARV6.252 PO (16:22)
[2016-08-21] MEDS ORDERED: GLIM4TAB PO (16:22)
--- NOTE | 2016-08-23 09:07 | HHI.DS ---
Discharge Summary Admission Date August 15, 2016 at 14:27 Discharge Date: August 21, 2016 Admitting Diagnosis LLE CELLULITIS FAILED OUTPATIENT THERAPY (1) Cellulitis of left leg Diagnosis: Principal (2) Laceration of left leg Diagnosis: Secondary (3) Hypertension Diagnosis: Secondary (4) DM (diabetes mellitus) Diagnosis: Secondary (5) Tobacco abuse Diagnosis: Secondary (6) Hyperlipidemia Diagnosis: Secondary Consultants Dr. Tita Kelley - Plastic Surgery Brief History Mrs. Morrow is a 80 y/o AAF with diabetes mellitus, HTN, hyperlipidemia, hyperthyroidism, and polymyositis who presented to the ED at [facility] on 08/15/16 for wound check of the laceration to the left leg. Pt originally sustained a 15 cm laceration to the LLE on July 26, 2016 from her walker. Patient was seen in the ED on the day of injury and was treated by Dr. Knight who placed 26 sutures in this area. Patient was prescribed Keflex x 7 days. She was seen in the ED on 07/30/16 for a recheck and the wound was reportedly healing well with minimal wound dehiscence. Pt completed the Keflex and followed up with her PCP on 08/06/16 and was again prescribed Cephalexin 500mg QID x 7 days as she appeared to have some cellulitis at that time. She presented back to the ED on for wound recheck and it is still noted to have some cellulitic skin changes and is draining some purulent fluid. Pts family at bedside reports that the pt had stopped taking her diuretics for about a week because she didn't want to have to get up to urinate so much and both LE swelled quite a bit and pt was having leakage of fluid from the wound. She started back on her diuretics about 2 days ago and has had improvement in her LE edema. Patient states she had some burning and tingling in the area last evening. She denies any fever/chills, nausea/vomiting, diarrhea, abd pain, chest pain or SOB. CBC/BMP: 08/19/16 0522 Imaging Last Impressions Lumbar Spine MRI 08/21/16 0000 Signed Impressions: Service Date/Time: Sunday, August 21, 2016 09:04 - CONCLUSION: 1. Acute mild compression fracture at L1 with minimal retropulsion of posterior fragments but no canal stenosis. 2. Mild broad-based disc bulge at L2-3 causing mild canal stenosis. 3. Moderate broad-based protrusion at L3-4 in conjunction with facet arthropathy/ligamentum flavum thickening causes severe canal stenosis. 4. Mild broad-based disc bulge at L4-5 without canal stenosis. 5. Neural foraminal narrowing greater on the right at L4-5 as described above. Parminder Nichols MD Brain MRI 08/21/16 0000 Signed Impressions: Service Date/Time: Sunday, August 21, 2016 09:04 - CONCLUSION: 1. No acute intracranial abnormality is identified. There are no findings to indicate recent ischemia. 2. Chronic changes include generalized cerebral atrophy and mild periventricular white matter signal changes characteristic of chronic microvascular ischemia. Ty Tavera MD Lower Extremity Ultrasound 08/15/16 0000 Signed Impressions: Service Date/Time: Monday, August 15, 2016 13:59 - CONCLUSION: 1. No DVT identified within the either lower extremity. 2. Incidental note made of a complex Busitllo's cyst within the left popliteal fossa. Dylan Cavanaugh MD PE at Discharge General: NAD, AAOx3 Chest: CTA Cardiac: Regular Abd: +BS, soft ND/NT Ext: Left ant claros lac with stitches superiorly and inferiorly ulcerated. Edema better. 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 Patient was seen in the ED on the day of injury and was treated by Dr. Jansen who placed 26 sutures in this area. Patient was prescribed Keflex x 7 days. She was seen in the ED on 07/30/16 for a recheck and the wound was reportedly healing well with minimal wound dehiscence. Pt completed the Keflex and followed up with her PCP on 08/06/16 and was again prescribed Cephalexin 500mg QID x 7 days as she appeared to have some cellulitis at that time. She presented back to the ED on 08/15/16 for wound recheck and it is reportedly worsened with cellulitic skin changes, dehiscence of the wound and is draining some purulent fluid. Pts family at bedside reports that the pt had stopped taking her diuretics for about a week because she didn' t want to have to get up to urinate so much and both LE swelled quite a bit and pt was having leakage of fluid from the wound. She started back on her diuretics about 2 days ago and has had improvement in her LE edema. Pt was given Vancomycin and Clindamycin in the ED. LE US was negative for DVT. Blood cultures with NGTD. Wound cultures with Pseudomonas aeruginosa, Enterobacter Cloacae, and Gamma hemolytic strep. Vanc and Zosyn stopped and pt was started on cefepime on 08/17. Plastic surgery was consulted during this admission and recommended to apply Santyl to the necrotic area only, cover wound with an ABD pad, wrap the leg with 2 (4 inch) DIANA wraps starting at the toes and wrap proximally. Pt will continue these daily dressing changes as recommended by Dr. Kelley upon discharge. She will followup with Dr. Kelley in 3-5 days. Pt will complete 5 more days of Levaquin 250mg po daily. During this admission pt expressed concerns about increased low back pain last night and she has hx of lumbar compression fracture. Pt also concerned about voice changes and left sided weakness which has been an ongoing issue for the last 2-3 months. Pt and family very concerned about these issues and requesting evaluation now. We will check an MRI of the brain to r/o CVA and MRI of the lumbar spine to check the status of the previous lumbar compression fracture. MRI Lumbar spine indicated acute mild compression fracture at L1 with minimal retropulsion of posterior fragments but no canal stenosis, mild broad-based disc bulge at L2-3 causing mild canal stenosis, moderate broad-based protrusion at L3-4 in conjunction with facet arthropathy/ligamentum flavum thickening causes severe canal stenosis, mild broad-based disc bulge at L4-5 without canal stenosis, and neural foraminal narrowing greater on the right at L4-5. MRI Brain indicated no acute intracranial abnormality is identified, no findings to indicate recent ischemia, chronic changes include generalized cerebral atrophy and mild periventricular white matter signal changes characteristic of chronic microvascular ischemia. The case was discussed with Dr. Daniels prior to discharge and he offered to see the pt in consultation but the pt wanted to be discharged and followup with Dr. Daniels as an outpt. Her pain was controlled at the time of discharge. Pt take steroids for polymyositis and reportedly normally takes 4mg of Decadron BID but recently increased to Prednisone 40mg daily but only takes 20mg for exacerbation. We have started weaning that down and is currently on 10mg po daily. She will be prescribed 5 more days of 10mg po daily and she was given instructions to call her Supervisor Speech, Dr. Stuart, for further instructions regarding her steroid regimen. Pt had issues with steroid hyperglycemia during admission as well as morning hypoglycemia. Her Amaryl dose was decreased to 4mg po daily which helped with the morning hypoglycemia. Pts BP medications were adjusted as well as her BP was elevated which improved with increasing her Coreg to 12.5mg po BID. Pt will need to followup with her PCP, Dr. Mathew, in 1 week She will need to followup with Dr. Kelley in 3-5 days. Pt will need to followup with Dr. Daniels in 1 week. We are arranging for HHC/PT upon discharge. Pt Condition on Discharge: Stable Discharge Disposition: Disch w/ Home Health Serv Discharge Instructions DIET: Follow Instructions for: Diabetic Diet Activities you can perform: Regular-No Restrictions Follow up Referrals: Neurosurgery - 1 Week with Ronaldo Daniels MD PCP Follow-up - [address] Francy Mathew Plastic Surgery - 3-[address] Tita Kelley New Medications: Levofloxacin (Levaquin) 250 Mg Tab 250 MG PO DAILY Infection #5 Ref 0 TAB Changed Medications: Bumetanide (Bumetanide) 1 Mg Tab 1 MG PO BID #60 Ref 0 TAB (Changed from: 3 MG; DAILY) Carvedilol (Carvedilol) 6.25 Mg Tab 12.5 MG PO BID HTN #60 Ref 0 TAB (Changed from: 6.25 MG) Glimepiride (Glimepiride) 4 Mg Tab 4 MG PO DAILY Blood Sugar Management #30 Ref 0 TAB (Changed from: BID) Prednisone (Prednisone) 20 Mg Tab 10 MG PO DAILY Please call Dr. Stuart's office for further instructions. MUSCLE WEAKNESS #5 Ref 0 TAB (Changed from: 20 MG) Continued Medications: Allopurinol (Allopurinol) 100 Mg Tab 100 MG PO BID Gout #[address] Ref [address] (Aspirin Adult Low Strength) 81 Mg Tabdr 81 MG PO DAILY TAB Atorvastatin (Atorvastatin) 20 Mg Tab 20 MG PO DAILY Cholesterol Management #30 Ref 0 TAB Calcium Carbonate (Calcium) 600 Mg Tab 1200 MG PO DAILY Nutritional Supplement Cholecalciferol (D 400) 400 Unit Tab 800 UNITS PO DAILY Gabapentin (Gabapentin) 600 Mg Tab 600 MG PO BID #60 Ref 0 TAB Methimazole (Methimazole) 5 Mg Tab 2.5 MG PO DAILY Thyroid #30 Ref 0 TAB Methocarbamol (Methocarbamol) 500 Mg Tab 500 MG PO HS Muscle Spasm #90 Ref 0 TAB Multiple Vitamins W/ Minerals (Centrum) 1 Tab 1 TAB PO DAILY Nutritional Supplement Ref 0 TAB [place]-3 Fatty Acids ([place] 3 1000 mg) 1 Cap Cap 1000 MG PO DAILY Oxycodone-Acetaminophen (Percocet) 5-325 mg Tab 2 TAB PO Q4H PAIN Ref 0 TAB Pantoprazole (Pantoprazole) 40 Mg Tab 40 MG PO DAILY Reflux #30 Ref 0 TAB Primidone (Primidone) 50 Mg Tab 50 MG PO HS Control Seizures #60 Ref 0 TAB Valsartan (Valsartan) 80 Mg Tab 80 MG PO DAILY Blood Pressure Management #30 Ref 0 TAB Verapamil ER 24 HR (Verapamil ER 24 HR) 240 Mg Tab 240 MG PO DAILY #30 Ref 0 TAB Discontinued Medications: Cephalexin (Keflex) 500 Mg Cap 500 MG PO Q6H CELLULITIS Ref 0 CAP Garlic (Garlic) Unknown Strength Cap 1 CAP PO DAILY Metolazone (Metolazone) 5 Mg Tab 5 MG PO MOWEFR Take 1 tablet (5mg) daily on Saturday,Saturday and Saturday #30 Ref 0 TAB Anay Tomlin August 23, 2016 09:07 Chavo Soto DO August 25, 2016 10:53
[2016-08-29] MEDS ORDERED: PRED10 PO (15:53)
== END 2016-08-21 17:59 | disposition home or self-care (01) | DRG 603 ==
LOC: NEPE 11:23 → NEDA 14:27 → N07B 17:22
PROVIDERS: ADMIT Hospitalist; ATTEND Hospitalist
DX: L03.116 Cellulitis of left lower limb (principal); E11.21 Type 2 diabetes mellitus with diabetic nephropathy; M33.20 Polymyositis, organ involvement unspecified; T81.30XA Disruption of wound, unspecified, initial encounter; I13.0 Hypertensive heart and chronic kidney disease with heart failure and stage 1 through stage 4 chronic kidney disease, or unspecified chronic kidney disease; I50.9 Heart failure, unspecified; N18.3 Chronic kidney disease, stage 3 (moderate); E11.42 Type 2 diabetes mellitus with diabetic polyneuropathy; E11.22 Type 2 diabetes mellitus with diabetic chronic kidney disease; E05.90 Thyrotoxicosis, unspecified without thyrotoxic crisis or storm; E78.5 Hyperlipidemia, unspecified; J44.9 Chronic obstructive pulmonary disease, unspecified; M10.9 Gout, unspecified; L02.416 Cutaneous abscess of left lower limb; M71.20 Synovial cyst of popliteal space [Baker], unspecified knee; S81.801A Unspecified open wound, right lower leg, initial encounter; T38.0X5A Adverse effect of glucocorticoids and synthetic analogues, initial encounter; W19.XXXA Unspecified fall, initial encounter; Z79.52 Long term (current) use of systemic steroids; F17.210 Nicotine dependence, cigarettes, uncomplicated; Z91.14 Patient's other noncompliance with medication regimen
CPT/HCPCS: 70551; 72148; 80048; 82948; 83735; 85025; 86403; 87040; 87070; 87077; 87186; 87205; 93970; 96365; 96367; J0692; J1650; J1815; J2543; J3370; J7050; J7512

== ENCOUNTER 2016-08-29 08:46 | Inpatient (IN) | payer MEDICARE ==
[2016-08-29] VITALS (13 sets, daily range): BP systolic 121–181; BP diastolic 85–93; PULSE 79–103; RESP 15–18; TEMP 97.4–98.2; O2SAT 99–100
[~2016-08-29] VITALS: Ht 167.6 cm; Wt 72.0 kg
[~2016-08-29 08:46] MED LIST changes: +ASPI1TAB91 PO; +BUME1TAB PO; -BUME2TAB PO; +CALC600T25 PO; -CEPH-460 PO; +CHOL1TAB7 PO; -HYDR-3583 PO; -K-TA10TA PO; +LEVA250T PO; +METH5TAB4 PO; +PERC5TAB12 PO; -VITA10003 PO; -ZANT150T2 PO
[2016-08-29] MEDS ORDERED: SODIUM CHLORIDE 0.9% FLUSH 10 ML FLUSH IV FLUSH PRN (09:30)
--- NOTE | 2016-08-29 09:40 | PD ---
HPI Chief Complaint: Cold / Flu Symptoms Time Seen by Provider: 09:06 Travel History International Travel<30 days: No Contact w/Intl Traveler<30days: No Traveled to known affect area: No History of Present Illness HPI Patient is a 80-year-old female who is brought to the emergency room by EMS with multiple complaints. As per patient, she reports that for the past few days, she felt that something was stuck in her throat, she reports that she could barely talk for the past couple days. Patient reports that her family called EMS because she could not talk at all this morning. Patient reports that one EMS put her on the stretcher, she felt much better and reports that the sensation her throat was gone. Reports that she can talk like her normal self, reports that she does not have sensation of somebody dislodged her throat. As per EMS, when they arrived on scene, patient was sitting in front of an air conditioner and was cold to touch. Reports that patient was barely responsive on scene, he was unable to get an appropriate blood pressure, reports that they did get a blood sugar of 43, patient was given D10 and repeat blood sugar was 60. EMS reports that they think the patient may have been in A. fib, patient with no history of atrial fibrillation, patient is normal sinus rhythm while in the emergency room. EMS also reports that family was concerned as patient has had a cold for the past 3 days. Patient at this time is alert and oriented 3. Patient denies any cough or congestion, denies any fevers or chills. Patient reports that she did bump her right thigh on her commode, reports that her right thigh is hurting her. Patient also reports that she is being treated for feeling laceration to her left anterior claros which she hitting her leg against a wheelchair. Patient with no other complaints at this time. Patient's blood sugar in the emergency room at 84 and then repeat blood sugar was 73 PFSH Past Medical History Hx Anticoagulant Therapy: Yes Arthritis: Yes Autoimmune Disease: No Anxiety: No Depression: No Heart Rhythm Problems: No Cancer: No Cardiac Catheterization: No Cardiovascular Problems: Yes High Cholesterol: Yes Chemotherapy: No Congestive Heart Failure: Yes COPD: Yes Cerebrovascular Accident: No Diabetes: Yes Patient Takes Glucophage: No Endocrine: Yes Gastrointestinal Disorders: No Gout: Yes Genitourinary: No Hypertension: Yes Immune Disorder: No Implanted Vascular Access Dvce: No Musculoskeletal: Yes (CHRONIC ARTHRITIS PAIN) Neurologic: No Psychiatric: No Respiratory: Yes Radiation Therapy: No Renal Failure: Yes (stage 3 CKD) Sickle Cell Disease: No Thyroid Disease: Yes Tetanus Vaccination: > 5 Years Influenza Vaccination: No ?: Not Menopausal: Yes : 4 Para: 4 Tubal Ligation: Yes Past Surgical History Coronary Artery Bypass Graft: No Eye Surgery: Yes (cataract removal from left eye) Gynecologic Surgery: Yes (tubal ligation and cyst removed from left breast) Hysterectomy: No Other Surgery: Yes (CYST REMOVED LEFT BREAST) Social History Alcohol Use: Yes Tobacco Use: Yes Substance Use: No Allergies-Medications (Allergen,Severity, Reaction): Coded Allergies: No Known Allergies (Unverified , 08/29/16) Reported Meds & Prescriptions Reported Meds & Active Scripts Active Glimepiride 4 Mg Tab 4 Mg PO DAILY Carvedilol 6.25 Mg Tab 12.5 Mg PO BID Prednisone 20 Mg Tab 10 Mg PO DAILY Please call Dr. Stuart's office for further instructions. Bumetanide 1 Mg Tab 1 Mg PO BID Reported Protonix (Pantoprazole Sodium) 40 Mg Tab 40 Mg PO DAILY Methimazole 5 Mg Tab 2.5 Mg PO DAILY Calcium (Calcium Carbonate) 600 Mg Tab 1,200 Mg PO DAILY Percocet (Oxycodone-Acetaminophen) 5-325 mg Tab 2 Tab PO Q4H Aspirin Adult Low Strength (Aspirin) 81 Mg Tabdr 81 Mg PO DAILY D 400 (Cholecalciferol) 400 Unit Tab 800 Units PO DAILY Verapamil ER 24 HR (Verapamil HCl) 240 Mg Tab 240 Mg PO DAILY Atorvastatin (Atorvastatin Calcium) 20 Mg Tab 20 Mg PO DAILY Primidone 50 Mg Tab 50 Mg PO HS Methocarbamol 500 Mg Tab 500 Mg PO HS Allopurinol 100 Mg Tab 100 Mg PO BID Valsartan 80 Mg Tab 80 Mg PO DAILY Gabapentin 600 Mg Tab 600 Mg PO BID Review of Systems General / Constitutional: No: Fever Eyes: No: Visual changes HENT: Positive: Sore Throat, No: Headaches Cardiovascular: No: Chest Pain or Discomfort Respiratory: Positive: Cough, No: Shortness of Breath Gastrointestinal: No: Abdominal Pain Genitourinary: No: Dysuria Musculoskeletal: No: Pain Skin: No Rash Neurologic: Positive: Weakness Psychiatric: No: Depression Endocrine: No: Polydipsia Hematologic/Lymphatic: No: Easy Bruising Physical Exam Narrative GENERAL: nad, alert and oriented x 3 SKIN: Focused skin assessment warm/dry. HEAD: Atraumatic. Normocephalic. EYES: Pupils equal and round. No scleral icterus. No injection or drainage. ENT: No nasal bleeding or discharge. Mucous membranes pink and moist. NECK: Trachea midline. No JVD. CARDIOVASCULAR: Regular rate and rhythm. No murmur appreciated. RESPIRATORY: No accessory muscle use. Clear to auscultation. Breath sounds equal bilaterally. GASTROINTESTINAL: Abdomen soft, non-tender, nondistended. Hepatic and splenic margins not palpable. MUSCULOSKELETAL: No obvious deformities. Patient with healing wound to left anterior claros NEUROLOGICAL: Awake and alert. No obvious cranial nerve deficits. Motor grossly within normal limits. Normal speech. PSYCHIATRIC: Appropriate mood and affect; insight and judgment normal. Data Data Last Documented VS Vital Signs Date Time Temp Pulse Resp B/P Pulse Ox O2 Delivery O2 Flow Rate FiO2 08/29/16 09:27 79 15 181/87 100 Nasal Cannula 2 08/29/16 09:06 97.4 Orders Complete Blood Count With Diff (08/29/16 09:17) Comprehensive Metabolic Panel (08/29/16 09:17) Lipase (08/29/16 09:17) Prothrombin Time / Inr (Pt) (08/29/16:17) Act Partial Throm Time (Ptt) (08/29/16 09:17) Urinalysis - C+S If Indicated (08/29/16 09:17) Iv Access Insert/Monitor (08/29/16 09:17) Ecg Monitoring (08/29/16:17) Oximetry (08/29/16:17) NPO (08/29/16 09:17) Sodium Chloride 0.9% Flush (Ns Flush) (08/29/16 09:30) Chest, Single Ap (08/29/16 09:17) Ckmb (Isoenzyme) Profile (08/29/16:17) Troponin I (08/29/16 09:17) Bedside Glucose WALTER.AC&HS (08/29/16 09:17) Bedside Glucose WALTER.AC&HS (08/29/16 09:17) Femur (Ap & Lat/2vws) (08/29/16 ) CKMB (08/29/16 09:30) CKMB% (08/29/16 09:30) Potassium Chloride (Kcl) (08/29/16 12:00) Aspirin Chew (Aspirin Chew) (08/29/16 12:00) Labs Laboratory Tests Test 08/29/16 08/29/16 09:30 10:00 White Blood Count 8.1 TH/MM3 Red Blood Count 3.86 MIL/MM3 Hemoglobin 11.4 GM/DL Hematocrit 34.4 % Mean Corpuscular Volume 89.3 FL Mean Corpuscular Hemoglobin 29.5 PG Mean Corpuscular Hemoglobin 33.1 % Concent Red Cell Distribution Width 18.2 % Platelet Count 225 TH/MM3 Mean Platelet Volume 8.8 FL Neutrophils (%) (Auto) 73.7 % Lymphocytes (%) (Auto) 15.9 % Monocytes (%) (Auto) 9.6 % Eosinophils (%) (Auto) 0.5 % Basophils (%) (Auto) 0.3 % Neutrophils # (Auto) 6.0 TH/MM3 Lymphocytes # (Auto) 1.3 TH/MM3 Monocytes # (Auto) 0.8 TH/MM3 Eosinophils # (Auto) 0.0 TH/MM3 Basophils # (Auto) 0.0 TH/MM3 CBC Comment DIFF FINAL Differential Comment Prothrombin Time 10.4 SEC Prothromb Time International 0.9 RATIO Ratio Activated Partial 25.9 SEC Thromboplast Time Sodium Level 135 MEQ/L Potassium Level 2.9 MEQ/L Chloride Level 99 MEQ/L Carbon Dioxide Level 30.1 MEQ/L Anion Gap 6 MEQ/L Blood Urea Nitrogen 60 MG/DL Creatinine 3.12 MG/DL Estimat Glomerular Filtration 17 ML/MIN Rate Random Glucose 117 MG/DL Calcium Level 8.1 MG/DL Total Bilirubin 0.2 MG/DL Aspartate Amino Transf 23 U/L (AST/SGOT) Alanine Aminotransferase 20 U/L (ALT/SGPT) Alkaline Phosphatase 77 U/L Total Creatine Kinase 128 U/L Creatine Kinase MB 2.5 NG/ML Troponin I 0.06 NG/ML Total Protein 6.8 GM/DL Albumin 2.8 GM/DL Lipase 118 U/L Urine Color LIGHT-YELLOW Urine Turbidity CLEAR Urine pH 5.0 Urine Specific [place] 1.007 Urine Protein NEG mg/dL Urine Glucose (UA) NEG mg/dL Urine Ketones NEG mg/dL Urine Occult Blood TRACE Urine Nitrite NEG Urine Bilirubin NEG Urine Urobilinogen LESS THAN 2.0 MG/DL Urine Leukocyte Esterase TRACE Urine RBC 1 /hpf Urine WBC 2 /hpf Urine Squamous Epithelial 1 /hpf Cells Urine Mucus FEW /lpf Microscopic Urinalysis Comment CULT NOT INDICATED MDM Medical Decision Making Medical Screen Exam Complete: Yes Emergency Medical Condition: Yes Interpretation(s) EKG at 0901: NSR at 69bpm, qt/qtc: 427/446, nonspecific t wave changes Vital Signs Date Time Temp Pulse Resp B/P Pulse Ox O2 Delivery O2 Flow Rate FiO2 08/29/16 09:19 80 15 100 Nasal Cannula 2 08/29/16 09:06 97.4 80 15 121/93 100 Differential Diagnosis pneumonia, cellulitis, hip fracture, hypoglyemia, electrolyte abnormality, tobacco abuse, passed fb in esophagus, acs, arrhythmia Narrative Course Patient is a 80-year-old female who presents to emergency room with multiple complaints. Patient has not been feeling well for the past few days, reports that she has had a cold. Patient at this time denies any cough or congestion, or fevers or chills. Plan to obtain x-ray of lungs to evaluate for possible pneumonia. EMS reports that patient's blood sugar was 43 on scene, patient is on gliperamide for her diabetes, she reports overall decreased by mouth intake over the past few days as she felt that she had a foreign body lodged in her throat. Patient reports that the sensation is gone and she is able to talk and swallow like her normal self. Patient was given with decreased 10 by EMS, repeat blood sugar while in the emergency room was 84 and repeat after that was 73. Plan to monitor her blood sugars every hour. Plan to check labs Patient complains of pain to her right hip after she hit her thigh on the commode, x-ray of the right femur ordered to evaluate for possible fracture. EMS also reports that patient was in A. fib on scene, patient with no history of A. fib, with normal sinus rhythm with no acute changes on EKG at this time. Plan to continue to monitor her on a quality assurance monitor. Laboratory Tests Test 08/29/16 08/29/16 09:30 10:00 White Blood Count 8.1 TH/MM3 (4.0-11.0) Red Blood Count 3.86 MIL/MM3 (4.00-5.30) Hemoglobin 11.4 GM/DL (11.6-15.3) Hematocrit 34.4 % (35.0-46.0) Mean Corpuscular Volume 89.3 FL (80.0-100.0) Mean Corpuscular Hemoglobin 29.5 PG (27.0-34.0) Mean Corpuscular Hemoglobin 33.1 % Concent (32.0-36.0) Red Cell Distribution Width 18.2 % (11.6-17.2) Platelet Count 225 TH/MM3 (150-450) Mean Platelet Volume 8.8 FL (7.0-11.0) Neutrophils (%) (Auto) 73.7 % (16.0-70.0) Lymphocytes (%) (Auto) 15.9 % (9.0-44.0) Monocytes (%) (Auto) 9.6 % (0.0-8.0) Eosinophils (%) (Auto) 0.5 % (0.0-4.0) Basophils (%) (Auto) 0.3 % (0.0-2.0) Neutrophils # (Auto) 6.0 TH/MM3 (1.8-7.7) Lymphocytes # (Auto) 1.3 TH/MM3 (1.0-4.8) Monocytes # (Auto) 0.8 TH/MM3 (0-0.9) Eosinophils # (Auto) 0.0 TH/MM3 (0-0.4) Basophils # (Auto) 0.0 TH/MM3 (0-0.2) CBC Comment DIFF FINAL Differential Comment Prothrombin Time 10.4 SEC (9.8-11.6) Prothromb Time International 0.9 RATIO Ratio Activated Partial 25.9 SEC Thromboplast Time (24.3-30.1) Sodium Level 135 MEQ/L (136-145) Potassium Level 2.9 MEQ/L (3.5-5.1) Chloride Level 99 MEQ/L (98-107) Carbon Dioxide Level 30.1 MEQ/L (21.0-32.0) Anion Gap 6 MEQ/L (5-15) Blood Urea Nitrogen 60 MG/DL (7-18) Creatinine 3.12 MG/DL (0.50-1.00) Estimat Glomerular Filtration 17 ML/MIN (>89) Rate Random Glucose 117 MG/DL (74-106) Calcium Level 8.1 MG/DL (8.5-10.1) Total Bilirubin 0.2 MG/DL (0.2-1.0) Aspartate Amino Transf 23 U/L (15-37) (AST/SGOT) Alanine Aminotransferase 20 U/L (10-53) (ALT/SGPT) Alkaline Phosphatase 77 U/L (45-117) Total Creatine Kinase 128 U/L (26-192) Creatine Kinase MB 2.5 NG/ML (0.5-3.6) Troponin I 0.06 NG/ML (0.02-0.05) Total Protein 6.8 GM/DL (6.4-8.2) Albumin 2.8 GM/DL (3.4-5.0) Lipase 118 U/L (73-393) Urine Color LIGHT-YELLOW (YELLW/STRAW) Urine Turbidity CLEAR (CLEAR) Urine pH 5.0 (5.0-8.5) Urine Specific [place] 1.007 (1.002-1.035) Urine Protein NEG mg/dL (NEG-TRACE) Urine Glucose (UA) NEG mg/dL (NEG) Urine Ketones NEG mg/dL (NEG) Urine Occult Blood TRACE (NEG) Urine Nitrite NEG (NEG) Urine Bilirubin NEG (NEG) Urine Urobilinogen LESS THAN 2.0 MG/DL (LESS THAN 2.0) Urine Leukocyte Esterase TRACE (NEG) Urine RBC 1 /hpf (0-3) Urine WBC 2 /hpf (0-5) Urine Squamous Epithelial 1 /hpf (0-5) Cells Urine Mucus FEW /lpf (OCC) Microscopic Urinalysis Comment CULT NOT INDICATED Last Impressions Chest X-Ray 08/29/16 0917 Signed Impressions: Service Date/Time: Monday, August 29, 2016 09:46 - CONCLUSION: No acute cardiopulmonary disease identified. Gene Arnold MD Femur X-Ray 08/29/16 0000 Signed Impressions: Service Date/Time: Monday, August 29, 2016 09:51 - CONCLUSION: 1. Old right-sided pubic rami fractures. 2. Right femur series otherwise within normal limits. Gene Arnold MD Patient with acute renal insufficiency with a creatinine of 3.12, patient's bee sting creatinine is 1.49. patient also with hypokalemia with potassium 2.9. patient was given an oral supplement. patient did have 1 episode of hypoglycemia , currently her blood sugar is stable.plan to admit patient for renal failure. patient does have an elevated troponin of 0.06 which is nonspecific, she is not having any chest pain at this time.plan to perform serial troponins, will give aspirin. case reviewed with dr. haines who accepts pt to service Diagnosis Primary Impression: Hypoglycemia Additional Impressions: Hypokalemia Elevated troponin Renal failure Admitting Information Admitting Physician Requests: Admit Anay Live DO August 29, 2016 09:40
[2016-08-29] MEDS ORDERED: PROT40TA PO (09:41)
[2016-08-29 10:16] LABS: BASOPHIL % 0.3 % (0.0-2.0); EOSINOPHIL % 0.5 % (0.0-4.0); HEMATOCRIT 34.4 % (35.0-46.0); HEMO FLAGS DIFF FINAL; LYMPH % 15.9 % (9.0-44.0); LYMPHOCYTE # 1.3 TH/MM3 (1.0-4.8); MEAN CELL VOLUME 89.3 FL (80.0-100.0); MEAN CORPUSCULAR HEMOGLOBIN 29.5 PG (27.0-34.0); MEAN CORPUSCULAR HGB CONC 33.1 % (32.0-36.0); MONO % 9.6 % (0.0-8.0); NEUT % 73.7 % (16.0-70.0); PLATELET COUNT 225 TH/MM3 (150-450); RED BLOOD COUNT 3.86 MIL/MM3 (4.00-5.30); RED CELL DISTRIBUTION WIDTH 18.2 % (11.6-17.2); WHITE BLOOD COUNT 8.1 TH/MM3 (4.0-11.0)
[2016-08-29 10:28] LABS: PROTHROMBIN TIME - PATIENT 10.4 SEC (9.8-11.6)
[2016-08-29 10:30] LABS: APTT (PATIENT) 25.9 SEC (24.3-30.1); INTERNATIONAL NORMALIZED RATIO 0.9 RATIO
[2016-08-29 10:31] LABS: ALT (GPT) 20 U/L (10-53); ANION GAP 6 MEQ/L (5-15); AST (GOT) 23 U/L (15-37); BICARBONATE 30.1 MEQ/L (21.0-32.0); BLOOD UREA NITROGEN 60 MG/DL (7-18); CHLORIDE 99 MEQ/L (98-107); GLOMERULAR FILTRATION RATE 17 ML/MIN (>89); SODIUM (NA) 135 MEQ/L (136-145)
[2016-08-29 10:35] LABS: ALKALINE PHOSPHATASE 77 U/L (45-117); CREATINE KINASE 128 U/L (26-192); TOTAL BILIRUBIN ADULT 0.2 MG/DL (0.2-1.0)
--- NOTE | 2016-08-29 10:36 | RADRPT ---
EXAM DATE/TIME: 08/29/2016 09:51 [facility] COMPARISON: No previous studies available for comparison. INDICATIONS : Joint pain. Patient complains of right leg pain. MEDICAL HISTORY : Diabetes mellitus type 2. Hypertension. Renal insufficiency, chronic SURGICAL HISTORY : Tubal ligation. ENCOUNTER: Initial ACUITY: 1 day PAIN SCORE: 10/10 LOCATION: Right Hip/femur. FINDINGS: 4 views right femur. Evidence of old right pubic rami fractures. Femur is within normal limits. Align ment within normal limits. Diffuse arterial calcification. CONCLUSION: 1. Old right-sided pubic rami fractures. 2. Right femur series otherwise within normal limits. Gene Arnold MD on August 29, 2016 at 10:32 Board Certified Radiologist. This report was verified electronically.
[2016-08-29 10:37] LABS: BLOOD, URINE TRACE (NEG); COMMENT (UR) CULT NOT INDICATED; CULTURE IF INDICATED CULT NOT INDICATED; GLUCOSE,URINE NEG (NEG); KETONE, URINE NEG (NEG); MUCUS URINE FEW /lpf (OCC); NITRITE,URINE NEG (NEG); SQUAMOUS EPITHELIAL CELL URINE 1 /hpf (0-5); URINE COLOR LIGHT-YELLOW (YELLW/STRAW)
[2016-08-29 10:42] LABS: POTASSIUM 2.9 MEQ/L (3.5-5.1)
--- NOTE | 2016-08-29 10:54 | RADRPT ---
EXAM DATE/TIME: 08/29/2016 09:46 [facility] COMPARISON: CHEST SINGLE AP, July 01, 2015, 16:50. INDICATIONS : Free air. MEDICAL HISTORY : None. Diabetes mellitus type 2. Hypertension. Renal insufficiency, chronic SURGICAL HISTORY : Tubal ligation. ENCOUNTER: Initial ACUITY: 1 day PAIN SCORE: 0/10 LOCATION: Bilateral chest FINDINGS: Single AP view of the chest. The lungs are clear. Cardiomediastinal silhouette within normal limits. No evidence of pleural effusion or pneumothorax. CONCLUSION: No acute cardiopulmonary disease identified. Gene Arnold MD on August 29, 2016 at 10:52 Board Certified Radiologist. This report was verified electronically.
[2016-08-29 11:32] LABS: CKMB 2.5 NG/ML (0.5-3.6)
[2016-08-29] MEDS ORDERED: ASPIRIN 81 MG CHEW TAB CHEW ONE (12:00)
[2016-08-29] MEDS ORDERED: POTASSIUM CHLORIDE 10 MEQ CONTROLLED RELEASE TAB PO ONE (12:00)
[2016-08-29] MEDS ORDERED: CEPH500C PO (12:07)
[2016-08-29] MEDS ORDERED: LEVO500T8 PO (12:07)
[2016-08-29] MEDS ORDERED: NS + KCL 20 MEQ INJ 1,000 ML IV SCH (12:15)
[2016-08-29] MEDS ORDERED: DEXTROSE 50% IN WATER 50 ML SYRINGE ONE (13:30)
[2016-08-29] MEDS ORDERED: DEXTROSE 50% IN WATER 50 ML VIAL(D50) IV PUSH ONE ×2 (13:30→13:45)
[2016-08-29] MEDS ORDERED: DEXT 5%-NACL 0.45% 1000 ML INJ 1,000 ML IV SCH (13:45)
--- NOTE | 2016-08-29 14:10 | PD.PN.STU ---
Subjective Remarks 80 year old lady PMH DM, HTN, HPL, hyperthyroid, CKD, polymyositis who presented to the ED with c/o hoarseness and trouble breathing. It began 2-3 days ago and she describes it as a sensation of something cutting her air off. Since being admitted she feels like her symptoms have improved. Apparently earlier she was slurring her speech and was unintelligible and when EMS arrived her blood glucose was in the 40s. She was given D10 at that time and her symptoms slowly improved. She reports a chronic cough with white sputum and some chest pain. Denies n/v or syncope. SHx: tubal ligation, cyst removal from L breast Social: one alcoholic beverage per night, ppd smoker, denies illicit drug use Objective Vitals General: frail appearing woman, a/a/o x3, laying in bed HEENT: normocephalic/atraumatic, periorbital edema, secretions from nose and eyes, oral mucosa appears dry Heart: S1S2, no murmurs Lungs: CTA, some accessory muscle use Abdomen: soft, nondistended, nontender MSK: LLE anterior claros wound, no edema Vital Signs Date Time Temp Pulse Resp B/P Pulse Ox O2 Delivery O2 Flow Rate FiO2 08/29/16 12:11 90 15 133/85 99 Room Air 08/29/16 09:27 79 15 181/87 100 Nasal Cannula 2 08/29/16 09:19 80 15 100 Nasal Cannula 2 08/29/16 09:06 97.4 80 15 121/93 100 Result Diagram: 08/29/16 0930 08/29/16 0930 A/P Assessment and Plan Hypoglycemia: likely a hypoglycemic event that led to weakness/slurred speech improving now with D10 continue to monitor pt has history of hyper/hypoglycemia and poorly controlled diabetes Acute on chronic kidney disease: Cr. of 3.12 (1.49 on 08/19) IV fluids Hypokalemia: 2.9 on admission Given oral supplement Left leg wound: appears stable Elevated troponins: EKG normal on admission awaiting serial troponin Rodolfo Enrique M3 August 29, 2016 14:10
[2016-08-29] MEDS ORDERED: RESP: ALBUTEROL 2.5 MG/IPRATROPIUM 0.5 MG NEB (PRN) NEB (15:30)
[2016-08-29] MEDS ORDERED: PRED10 PO ×2 (15:53)
--- NOTE | 2016-08-29 15:58 | HHI.HP ---
HPI Service [facility] Hospitalists Primary Care Physician Francy Ortiz M.D. Admission Diagnosis Renal failure,hypoglycemia Chief Complaint: sob Travel History International Travel<30 Days: No Contact w/Intl Traveler <30 Da: No Traveled to Known Affected Are: No History of Present Illness Mrs. Morrow is a 80 y/o AAF with diabetes mellitus, HTN, hyperlipidemia, hyperthyroidism, and polymyositis who presented to the ED at [facility] on 08/15/16 for wound check of the laceration to the left leg. Pt originally sustained a 15 cm laceration to the LLE on July 26, 2016 from her walker. Patient was seen in the ED on the day of injury and was treated by Dr. Knight who placed 26 sutures in this area. Patient was prescribed Keflex x 7 days. She was seen in the ED on 07/30/16 for a recheck and the wound was reportedly healing well with minimal wound dehiscence. Pt completed the Keflex and followed up with her PCP on 08/06/16 and was again prescribed Cephalexin 500mg QID x 7 days as she appeared to have some cellulitis at that time. She presented back to the ED on for wound recheck and it is still noted to have some cellulitic skin changes and is draining some purulent fluid. Pts family at bedside reports that the pt had stopped taking her diuretics for about a week because she didn't want to have to get up to urinate so much and both LE swelled quite a bit and pt was having leakage of fluid from the wound. She was admitted and found to have a polymicrobial infection in the wound. compression therapy greatly improved the swelling. During the admission the pt had diuretics, bp meds , and dm meds adjusted. she was seen by plastic surgery. When she was discharged pt failed to comply with med change recommedations. She had been intermittently sob and feels and strangulation sensation. also slurred speech and confustion today. Presented to ED and found to have mariia with severe hypolycemia. BG was as low as 19 in ED. Review of Systems Other sob confusion Past Family Social History Past Medical History L1 compression fracture (anterior wedge compression fracture with 15% loss of vertebral body height at L1) Superior pubic ramus fracture right side. Cellulitis of LE HTN CKD, stage 3 CHF DDD Diabetes mellitus with peripheral neuropathy, nephropathy and hx of diabetic foot wounds (Hgb A1C 8.0% in 06/2016) Diverticulosis H. pylori infection Hyperlipidemia Hyperthyroidism MGUS Polymyositis COPD polymicrobial infection left leg laceration Cataract surgery Tubal ligation Reported Medications Reported Meds & Active Scripts Active Glimepiride 4 Mg Tab 4 Mg PO DAILY Carvedilol 6.25 Mg Tab 12.5 Mg PO BID Bumetanide 1 Mg Tab 1 Mg PO BID Reported Prednisone 10 Mg Tab 10 Mg PO DAILY Prednisone 10 Mg Tab 10 Mg PO DAILY Cephalexin 500 Mg Cap 500 Mg PO Q6H Levofloxacin 500 Mg Tablet 500 Mg PO DAILY Protonix (Pantoprazole Sodium) 40 Mg Tab 40 Mg PO DAILY Methimazole 5 Mg Tab 2.5 Mg PO DAILY Calcium (Calcium Carbonate) 600 Mg Tab 1,200 Mg PO DAILY Percocet (Oxycodone-Acetaminophen) 5-325 mg Tab 2 Tab PO Q4H Aspirin Adult Low Strength (Aspirin) 81 Mg Tabdr 81 Mg PO DAILY D 400 (Cholecalciferol) 400 Unit Tab 800 Units PO DAILY Verapamil ER 24 HR (Verapamil HCl) 240 Mg Tab 240 Mg PO DAILY Atorvastatin (Atorvastatin Calcium) 20 Mg Tab 20 Mg PO DAILY Primidone 50 Mg Tab 50 Mg PO HS Methocarbamol 500 Mg Tab 500 Mg PO HS Allopurinol 100 Mg Tab 100 Mg PO BID Valsartan 80 Mg Tab 80 Mg PO DAILY Gabapentin 600 Mg Tab 600 Mg PO BID Allergies: Coded Allergies: No Known Allergies (Unverified , 08/29/16) Family History Mother with hx of colon cancer Father with hx of TB S Social History (+)Tobacco use, smokes 1ppd since age 23 Social alcohol use Pt is a She is a retired teacher/counsellor Physical Exam Vital Signs nad heart reg lung scaterd wheeze abd s/nt ext left ant leg lac with sutures. lower wound ulceration with some black eschar and white granulation Vital Signs Date Time Temp Pulse Resp B/P Pulse Ox O2 Delivery O2 Flow Rate FiO2 08/29/16 15:26 97.9 99 15 145/89 97 08/29/16 12:11 90 15 133/85 99 Room Air 08/29/16 09:27 79 15 181/87 100 Nasal Cannula 2 08/29/16 09:19 80 15 100 Nasal Cannula 2 08/29/16 09:06 97.4 80 15 121/93 100 Laboratory Laboratory Tests Test 08/29/16 08/29/16 08/29/16 09:30 10:00 13:45 White Blood Count 8.1 Red Blood Count 3.86 Hemoglobin 11.4 Hematocrit 34.4 Mean Corpuscular Volume 89.3 Mean Corpuscular Hemoglobin 29.5 Mean Corpuscular Hemoglobin 33.1 Concent Red Cell Distribution Width 18.2 Platelet Count 225 Mean Platelet Volume 8.8 Neutrophils (%) (Auto) 73.7 Lymphocytes (%) (Auto) 15.9 Monocytes (%) (Auto) 9.6 Eosinophils (%) (Auto) 0.5 Basophils (%) (Auto) 0.3 Neutrophils # (Auto) 6.0 Lymphocytes # (Auto) 1.3 Monocytes # (Auto) 0.8 Eosinophils # (Auto) 0.0 Basophils # (Auto) 0.0 CBC Comment DIFF FINAL Differential Comment Prothrombin Time 10.4 Prothromb Time International 0.9 Ratio Activated Partial 25.9 Thromboplast Time Sodium Level 135 Potassium Level 2.9 Chloride Level 99 Carbon Dioxide Level 30.1 Anion Gap 6 Blood Urea Nitrogen 60 Creatinine 3.12 Estimat Glomerular Filtration 17 Rate Random Glucose 117 661 Calcium Level 8.1 Total Bilirubin 0.2 Aspartate Amino Transf 23 (AST/SGOT) Alanine Aminotransferase 20 (ALT/SGPT) Alkaline Phosphatase 77 Total Creatine Kinase 128 Creatine Kinase MB 2.5 Troponin I 0.06 0.07 Total Protein 6.8 Albumin 2.8 Lipase 118 Urine Color LIGHT-YELLOW Urine Turbidity CLEAR Urine pH 5.0 Urine Specific [place] 1.007 Urine Protein NEG Urine Glucose (UA) NEG Urine Ketones NEG Urine Occult Blood TRACE Urine Nitrite NEG Urine Bilirubin NEG Urine Urobilinogen LESS THAN 2.0 Urine Leukocyte Esterase TRACE Urine RBC 1 Urine WBC 2 Urine Squamous Epithelial 1 Cells Urine Mucus FEW Microscopic Urinalysis Comment CULT NOT INDICATED Result Diagram: 08/29/16 0930 08/29/16 1345 Assessment and Plan Problem List: (1) MARIIA (acute kidney injury) Status: Acute Plan: Pt has poor dm control. recent admission for left lac lac and polymicrobial infection/wound dehiscence with ulceration. s/p abx course MARIIA/ckd3. probably dehydration. poor po intake/diuretics. doubt AIN hypoglycemia. Likely from reduced amaryl clearance in setting of mariia. also poor po intake. doubt sepsis. hypokalemia. had recent diarrhea. elevated troponin. flat. felt related to mariia sob. pt has some wheezing on exam. no pna on xray. delirium felt related to hypoglycemia. improving. OF note pt and family admit they were not following the last d/c medication recommendations... I educated them on the intended changes...and we will need to re-iterate any changes on the next dc home. hold arb. replace kcl. ivf with kcl and d5 hold bumex for now monitor bg q2hr x 3 then q4 if stable. hold amaryl. ssi as needed. consider change to glipizide. duonebs. echo wound care. cont santyl. adjust bp meds as needed. telemetry dvt prophylaxis PT eval (2) Hypoglycemia Status: Acute Plan: see above (3) Delirium Status: Acute Plan: see above (4) SOB (shortness of breath) Status: Acute Plan: see above (5) Elevated troponin Status: Acute Plan: see above (6) Wound infection Status: Acute Plan: see above (7) Hypokalemia Status: Acute Plan: see bryanve (8) DM (diabetes mellitus) Status: Chronic (9) Hypertension Status: Chronic (10) Polymyositis Status: Chronic Plan: cont chronic steroids Physician Certification 2 Midnight Certification Type: Admission for Inpatient Services Order for Inpatient Services 3The services are ordered in accordance with Medicare regulations or non- Medicare payer requirements, as applicable. In the case of services not specified as inpatient-only, they are appropriately provided as inpatient services in accordance with the 2-midnight benchmark. Estimated LOS (days): 3 3 days is the estimated time the patient will need to remain in the hospital, assuming treatment plan goals are met and no additional complications. Post-Hospital Plan: Home Alex Morrow MD August 29, 2016 15:58
[2016-08-29] MEDS ORDERED: ONDANSETRON HCL 4 MG/2 ML VIAL IV PUSH PRN (16:00)
[2016-08-29] MEDS: COLLAGENASE OINT 30 GM TUBE TOPICAL SCH (16:30)
[2016-08-29] MEDS ORDERED: D5-NS + KCL 20 MEQ INJ 1,000 ML IV SCH (17:00)
[2016-08-29] MEDS: INSULIN ASPART SUPPLEMENTAL SCALE SQ SCH ×3 (17:00→23:38)
[2016-08-29] MEDS: RESP: ALBUTEROL 2.5 MG/IPRATROPIUM 0.5 MG NEB (SCH) NEB ×2 (17:00→20:00)
[2016-08-29] MEDS: oxyCODONE/ACETAMINOPHEN 5 MG/325 MG TAB PO PRN (17:05)
[2016-08-29] MEDS ORDERED: POTASSIUM CHLORIDE 20 MEQ CONTROLLED RELEASE TAB PO ONE (20:45)
[2016-08-29] MEDS: METHOCARBAMOL 500 MG TAB PO SCH (21:00)
[2016-08-29] MEDS: CARVEDILOL 12.5 MG TAB PO SCH (21:00)
[2016-08-29] MEDS: HEPARIN SODIUM - SQ 10,000 UNITS/ML VIAL SQ SCH (21:00)
[2016-08-29] MEDS: PRIMIDONE 50 MG TAB PO SCH (21:00)
[2016-08-29] MEDS ORDERED: ALLOPURINOL 100 MG TAB PO SCH (21:00)
[2016-08-30] VITALS (16 sets, daily range): BP systolic 141–170; BP diastolic 85–98; PULSE 86–112; RESP 18; TEMP 97.9–98.2; O2SAT 96–99
[2016-08-30 07:01] LABS: AUTOMATED NEUTROPHIL # 5.5 TH/MM3 (1.8-7.7); BASOPHIL % 0.4 % (0.0-2.0); EOSINOPHIL % 0.5 % (0.0-4.0); HEMATOCRIT 32.6 % (35.0-46.0); HEMO FLAGS DIFF FINAL; LYMPH % 15.8 % (9.0-44.0); LYMPHOCYTE # 1.2 TH/MM3 (1.0-4.8); MEAN CELL VOLUME 89.4 FL (80.0-100.0); MEAN CORPUSCULAR HGB CONC 33.6 % (32.0-36.0); MONO % 11.1 % (0.0-8.0); NEUT % 72.2 % (16.0-70.0); PLATELET COUNT 196 TH/MM3 (150-450); RED BLOOD COUNT 3.64 MIL/MM3 (4.00-5.30); RED CELL DISTRIBUTION WIDTH 17.8 % (11.6-17.2); WHITE BLOOD COUNT 7.7 TH/MM3 (4.0-11.0)
[2016-08-30 07:07] LABS: BICARBONATE 31.3 MEQ/L (21.0-32.0); POTASSIUM 4.4 MEQ/L (3.5-5.1)
[2016-08-30] MEDS: ATORVASTATIN 20 MG TAB PO SCH (08:19)
[2016-08-30] MEDS: ASPIRIN EC 81 MG TABEC PO SCH (08:19)
[2016-08-30] MEDS: VERAPAMIL HCL 240 MG SUSTAINED RELEASE TAB PO SCH (08:19)
[2016-08-30] MEDS: CARVEDILOL 12.5 MG TAB PO SCH ×2 (08:20→20:32)
[2016-08-30] MEDS: ALLOPURINOL 100 MG TAB PO SCH (08:20)
[2016-08-30] MEDS: predniSONE 10 MG TAB PO SCH (08:20)
[2016-08-30] MEDS: HEPARIN SODIUM - SQ 10,000 UNITS/ML VIAL SQ SCH ×2 (08:21→20:32)
[2016-08-30] MEDS: oxyCODONE/ACETAMINOPHEN 5 MG/325 MG TAB PO PRN ×4 (08:21→23:52)
[2016-08-30] MEDS: PANTOPRAZOLE SOD 40 MG DELAYED RELEASE TAB PO SCH (08:21)
--- NOTE | 2016-08-30 08:27 | PD.PN.STU ---
Subjective Remarks feeling better breathing better left leg is painful, needs wound care to wrap tolerating foods no CP, SOB, n/v Objective Vitals General: frail appearing woman, a/a/o x3, does not appear to be in acute distress HEENT: normocephalic/atraumatic, periorbital edema improving, oral mucosa is pink and moist Heart: S1S2, no murmurs Lungs: no accessory muscle use, CTA Abdomen: soft, nondistended, nontender MSK: LLE anterior claros wound, no edema Vital Signs Date Time Temp Pulse Resp B/P Pulse Ox O2 Delivery O2 Flow Rate FiO2 08/29/16 23:35 99 Nasal Cannula 2.00 08/29/16 23:00 98.0 87 18 154/88 99 08/29/16 23:00 103 08/29/16 22:00 89 08/29/16 21:00 93 08/29/16 20:00 89 08/29/16 19:00 88 08/29/16 19:00 98.2 88 16 158/93 100 08/29/16 19:00 98.2 88 16 158/93 100 08/29/16 18:00 92 08/29/16 17:00 95 08/29/16 16:00 85 08/29/16 15:26 97.9 99 15 145/89 97 08/29/16 12:11 90 15 133/85 99 Room Air 08/29/16 09:27 79 15 181/87 100 Nasal Cannula 2 08/29/16 09:19 80 15 100 Nasal Cannula 2 08/29/16 09:06 97.4 80 15 121/93 100 I/O 08/29/16 08/29/16 08/29/16 08/30/16 08/30/16 08/30/16 07:00 15:00 23:00 07:00 15:00 23:00 Intake Total 1160 ml Output Total 800 ml Balance 360 ml Intake Oral 1000 ml IV Total 160 ml Output Urine Total 800 ml # Bowel Movements 1 Result Diagram: 08/30/16 0545 08/30/16 0545 A/P Assessment and Plan Hypoglycemia: likely a hypoglycemic event that led to weakness/slurred speech improving now with D10 continue to monitor pt has history of hyper/hypoglycemia and poorly controlled diabetes 08/30 - blood glucose levels stable, continue to monitor Acute on chronic kidney disease: Cr. of 3.12 on admission (1.49 on 08/19) IV fluids 08/30 - Cr. improved to 2.23 Continue IV fluids Hypokalemia: 2.9 on admission Given oral supplement 08/30 - resolved Potassium now 4.4 Left leg wound: appears stable, continue wound care treatment 08/30 - pt c/o pain, will increase oxycodone to 2x 5mg q4hr Elevated troponins: EKG normal on admission awaiting serial troponin - remained stable, likely due to MARIIA Polymyositis: continue steroid therapy Hypertension: 08/30 - well controlled, continue to monitor Type 2 diabetes: continue to monitor blood glucose levels Rodolfo Enrique Aug 30, 2016 08:27
[2016-08-30] MEDS: RESP: ALBUTEROL 2.5 MG/IPRATROPIUM 0.5 MG NEB (SCH) NEB ×3 (08:42→19:28)
[2016-08-30] MEDS: COLLAGENASE OINT 30 GM TUBE TOPICAL SCH (09:00)
[2016-08-30] MEDS: INSULIN ASPART SUPPLEMENTAL SCALE SQ SCH ×5 (11:58→21:00)
--- NOTE | 2016-08-30 12:10 | EKG ---
Date Performed: 08/29/2016 Time Performed: 09:01:36 PTAGE: 80 years EKG: Sinus rhythm WITH MARKED SINUS ARRHYTHMIA BORDERLINE LEFT AXIS DEVIATION NONSPECIFIC T-WAVE ABNORMALITY BORDERLIN E ECG PREVIOUS TRACING : 07/01/2015 20.02 Compared to prior tracing no significant change DOCTOR: Bart Mosqueda Interpretating Date/Time 08/30/2016 12:09:34
[2016-08-30] MEDS: SODIUM CHLOR 0.9% 1000 ML INJ 1,000 ML IV SCH (15:00)
--- NOTE | 2016-08-30 15:12 | HHI.PR ---
Subjective Remarks doing better. Objective Vitals heart reg lung cta abd s/nt ext left ant claros wound. no pus drainage old sutures noted. Vital Signs Date Time Temp Pulse Resp B/P Pulse Ox O2 Delivery O2 Flow Rate FiO2 08/30/16 14:08 18 08/30/16 12:41 96 Nasal Cannula 2.00 08/30/16 12:00 98.1 94 18 153/89 98 08/30/16 11:00 94 08/30/16 10:00 86 08/30/16 09:00 90 08/30/16 08:00 97.9 93 18 144/98 97 08/30/16 08:00 112 08/30/16 07:00 94 08/29/16 23:35 99 Nasal Cannula 2.00 08/29/16 23:00 98.0 87 18 154/88 99 08/29/16 23:00 103 08/29/16 22:00 89 08/29/16 21:00 93 08/29/16 20:00 89 08/29/16 19:00 88 08/29/16 19:00 98.2 88 16 158/93 100 08/29/16 19:00 98.2 88 16 158/93 100 08/29/16 18:00 92 08/29/16 17:00 95 08/29/16 16:00 85 08/29/16 15:26 97.9 99 15 145/89 97 08/29/16 08/29/16 08/30/16 15:00 23:00 07:00 Intake Total 1160 ml Output Total 800 ml Balance 360 ml Intake Oral 1000 ml IV Total 160 ml Output Urine Total 800 ml # Bowel Movements 1 Result Diagram: 08/30/16 0545 08/30/16 0545 A/P Problem List: (1) MARIIA (acute kidney injury) Status: Acute Plan: Pt has poor dm control. recent admission for left lac lac and polymicrobial infection/wound dehiscence with ulceration. s/p abx course MARIIA/ckd3. probably dehydration. poor po intake/diuretics. doubt AIN hypoglycemia. Likely from reduced amaryl clearance in setting of mariia. also poor po intake. doubt sepsis. hypokalemia. had recent diarrhea. elevated troponin. flat. felt related to mariia sob. pt has some wheezing on exam. no pna on xray. delirium felt related to hypoglycemia. improving. OF note pt and family admit they were not following the last d/c medication recommendations... I educated them on the intended changes...and we will need to re-iterate any changes on the next dc home. hold arb. replaced kcl. ivf with kcl and d5..will convert to NS until renal function back to baseline hold bumex for now monitor bg hold amaryl. ssi as needed. consider change to glipizide. duonebs. echo pending wound care. cont santyl. adjust bp meds as needed. telemetry dvt prophylaxis PT eval (2) Hypoglycemia Status: Acute Plan: see above (3) Delirium Status: Acute Plan: see above (4) SOB (shortness of breath) Status: Acute Plan: see above (5) Elevated troponin Status: Acute Plan: see above (6) Wound infection Status: Acute Plan: see above (7) Hypokalemia Status: Acute Plan: see abovve (8) DM (diabetes mellitus) Status: Chronic (9) Hypertension Status: Chronic (10) Polymyositis Status: Chronic Plan: cont chronic steroids Alex Morrow MD Aug 30, 2016 15:12
--- NOTE | 2016-08-30 17:11 | EC ---
Study Study Date:08/30/2016 STUDY CONCLUSIONS SUMMARY - Left ventricle: The cavity size was normal. Wall thickness was normal. Systolic function was normal. The estimated ejection fraction was in the range of 55% to 60%. Wall motion was normal; there were no regional wall motion abnormalities. - Aortic valve: Transvalvular velocity was increased. There was mild stenosis. Valve area: 1.65cm^2(VTI). Valve area: 1.58cm^2 (Vmax). If LV function is below 40, please consider prescribing an ACEI or ARB or document rationale for non-use. PROCEDURE DATA STUDY STATUS: Elective. Procedure: Transthoracic echocardiography. Image quality was good. Scanning was performed from the parasternal, apical, and subcostal acoustic windows. Study completion: The patient tolerated the procedure well. Transthoracic echocardiography. M-mode, complete 2D, complete spectral Doppler, and color Doppler. Height: Height: 66in. Weight: Weight: 149.7lb. Body mass index: BMI: 24.2kg/m^2. Body surface area: BSA: 1.77m^2. Patient status: Inpatient. CARDIAC ANATOMY LEFT VENTRICLE: The cavity size was normal. Wall thickness was normal. Systolic function was normal. The estimated ejection fraction was in the range of 55% to 60%. Wall motion was normal; there were no regional wall motion abnormalities. AORTIC VALVE: Trileaflet; normal thickness leaflets. Doppler: Transvalvular velocity was increased. There was mild stenosis. No regurgitation. Valve area: 1.65cm^2(VTI). Indexed valve area: 0.93cm^2/m^2 (VTI). Valve area: 1.58cm^2 (Vmax). Indexed valve area: 0.89cm^2/m^2 (Vmax). Mean gradient: 10mm Hg (S). Peak gradient: 24mm Hg (S). AORTA: Aortic root: The aortic root was normal in size. MITRAL VALVE: Structurally normal valve. Doppler: Transvalvular velocity was within the normal range. There was no evidence for stenosis. Trace regurgitation. Valve area by pressure half-time: 3.33cm^2. Indexed valve area by pressure half-time: 1.88cm^2/m^2. Peak gradient: 2mm Hg (D). LEFT ATRIUM: The atrium was normal in size. RIGHT VENTRICLE: The cavity size was normal. Wall thickness was normal. PULMONIC VALVE: Doppler: Transvalvular velocity was within the normal range. There was no evidence for stenosis. No regurgitation. TRICUSPID VALVE: Structurally normal valve. Doppler: Transvalvular velocity was within the normal range. Trace regurgitation. Peak gradient: 18mm Hg (D). PULMONARY ARTERY: The main pulmonary artery was normal-sized. Systolic pressure was within the normal range. RIGHT ATRIUM: The atrium was normal in size. PERICARDIUM: There was no pericardial effusion. SYSTEMIC VEINS: Inferior vena cava: The vessel was normal in size. Patient weight: 149.7lb _Ejection fraction:_ 65-75% _Fractional shortening:_ 32% up to 5Kg 5-11.5Kg 11.6-22.9Kg 23-45Kg 45-57Kg Aortic Root 7-13 <17 13-22 17-27 17-27 LA diam 6-13 <23 24-38 33-47 37-40 RVID 10-17 7-15 7-15 7-18 8-17 LVIDd 12-22 <32 24-38 33-47 37-40 LVPW 2-4 3-6 5-7 6-8 7-8 IVS 2-4 3-6 5-7 6-8 7-8 BASIC MEASUREMENTS ADULT NORMAL Left ventricle LV internal dimension, ED, chordal 43.9 mm 43-52 level, PLAX LV internal dimension, ES, chordal 28.9 mm 23-38 level, PLAX Fractional shortening, chordal level, 34 % >29 PLAX LV posterior wall thickness, ED 20 mm IVS/LVPW ratio, ED 1 <1.3 Volume, ED, MOD, 1-plane 87 ml Volume index, ED, MOD, 1-plane 49 ml/m^2 Ventricular septum Septal thickness, ED 20 mm Aortic valve Leaflet separation 18 mm 15-26 Left atrium Anterior-posterior dimension 35 mm Anterior-posterior dimension index 1.98 cm/m^2 <2.2 Right ventricle RV internal dimension, ED, PLAX 20.9 mm 19-38 BASIC MEASUREMENTS ADULT NORMAL Aortic valve Leaflet separation 18 mm 15-26 Aorta Root diameter, ED 30 mm 20-37 DOPPLER MEASUREMENTS ADULT NORMAL Aortic valve Peak velocity, S 243 cm/s Mean velocity, S 143 cm/s VTI, S 37.5 cm Mean gradient, S 10 mm Hg Peak gradient, S 24 mm Hg Valve area, VTI 1.65 cm^2 Valve area index, VTI 0.93 cm^2/m^2 Valve area, Vmax 1.58 cm^2 Valve area index, Vmax 0.89 cm^2/m^2 Mitral valve Peak E-wave velocity 76.5 cm/s Peak A-wave velocity 103 cm/s Pressure half-time 66 ms Peak gradient, D 2 mm Hg Peak E/A ratio 0.7 Valve area, pressure half-time 3.33 cm^2 Valve area index, pressure half-time 1.88 cm^2/m^2 Tricuspid valve Peak gradient, D 18 mm Hg Maximal inflow velocity 215 cm/s Systemic veins Estimated CVP 10 mm Hg Pulmonic valve Peak velocity, S 119 cm/s Acceleration time 310 ms LEGEND: Mean values are shown as u=mean value. Asterisk (*) obrien values outside specified normal range. Amended Jaya Chen [id number]
[2016-08-30] MEDS: METHOCARBAMOL 500 MG TAB PO SCH (20:32)
[2016-08-30] MEDS: PRIMIDONE 50 MG TAB PO SCH (20:32)
[2016-08-31] VITALS (7 sets, daily range): BP systolic 125–183; BP diastolic 63–97; PULSE 72–97; RESP 16–20; TEMP 97.2–99; O2SAT 94–100
[2016-08-31] MEDS: INSULIN ASPART SUPPLEMENTAL SCALE SQ SCH ×6 (00:42→21:00)
[2016-08-31] MEDS: oxyCODONE/ACETAMINOPHEN 5 MG/325 MG TAB PO PRN (04:48)
[2016-08-31] MEDS: CARVEDILOL 12.5 MG TAB PO SCH ×2 (08:22→22:23)
[2016-08-31] MEDS: VERAPAMIL HCL 240 MG SUSTAINED RELEASE TAB PO SCH (08:22)
[2016-08-31] MEDS: PANTOPRAZOLE SOD 40 MG DELAYED RELEASE TAB PO SCH (08:22)
[2016-08-31] MEDS: predniSONE 10 MG TAB PO SCH (08:22)
[2016-08-31] MEDS: ALLOPURINOL 100 MG TAB PO SCH (08:22)
[2016-08-31] MEDS: ATORVASTATIN 20 MG TAB PO SCH (08:22)
[2016-08-31] MEDS: ASPIRIN EC 81 MG TABEC PO SCH (08:22)
[2016-08-31] MEDS: HEPARIN SODIUM - SQ 10,000 UNITS/ML VIAL SQ SCH ×2 (08:24→22:23)
[2016-08-31] MEDS: COLLAGENASE OINT 30 GM TUBE TOPICAL SCH (08:25)
[2016-08-31] MEDS: SODIUM CHLOR 0.9% 1000 ML INJ 1,000 ML IV SCH (08:26)
[2016-08-31] MEDS: RESP: ALBUTEROL 2.5 MG/IPRATROPIUM 0.5 MG NEB (SCH) NEB ×3 (08:48→19:28)
[2016-08-31] MEDS ORDERED: oxyCODONE/ACETAMINOPHEN 5 MG/325 MG TAB PO PRN (10:30)
--- NOTE | 2016-08-31 10:35 | HHI.PR ---
Subjective Remarks Pt reports that she did not sleep well last night and is very tired this morning. Her blood sugar readings were stable last night and this morning. Objective Vitals Vital Signs Date Time Temp Pulse Resp B/P Pulse Ox O2 Delivery O2 Flow Rate FiO2 08/31/16 08:00 98.0 77 20 148/78 100 08/31/16 04:00 97.7 93 18 94 08/31/16 04:00 97 157/75 97 08/31/16 01:00 97 16 157/97 97 08/31/16 00:00 97.7 89 16 183/95 95 08/30/16 22:00 91 08/30/16 19:28 96 Nasal Cannula 2.00 08/30/16 19:00 98.0 90 18 170/90 98 08/30/16 18:00 102 08/30/16 17:00 86 08/30/16 16:00 92 08/30/16 16:00 98.2 90 18 141/85 99 08/30/16 15:00 87 08/30/16 14:08 18 08/30/16 14:00 88 08/30/16 13:00 92 08/30/16 12:41 96 Nasal Cannula 2.00 08/30/16 12:00 96 08/30/16 12:00 98.1 94 18 153/89 98 08/30/16 11:00 94 08/30/16 08/30/16 08/31/16 15:00 23:00 07:00 Intake Total 500 ml 1561 ml Balance 500 ml 1561 ml Intake Oral 240 ml IV Total 500 ml 1321 ml # Voids 4 2 # Bowel Movements 0 Result Diagram: 08/30/16 0545 08/30/16 0545 Other Results Laboratory Tests Test 08/29/16 08/29/16 08/29/16 08/30/16 13:45 16:30 19:29 05:45 Random Glucose 661 MG/DL 80 MG/DL Troponin I 0.07 NG/ML Urine Eosinophils NONE SEEN /HPF Potassium Level 3.2 MEQ/L 4.4 MEQ/L White Blood Count 7.7 TH/MM3 Red Blood Count 3.64 MIL/MM3 Hemoglobin 10.9 GM/DL Hematocrit 32.6 % Mean Corpuscular Volume 89.4 FL Mean Corpuscular Hemoglobin 30.0 PG Mean Corpuscular Hemoglobin 33.6 % Concent Red Cell Distribution Width 17.8 % Platelet Count 196 TH/MM3 Mean Platelet Volume 9.1 FL Neutrophils (%) (Auto) 72.2 % Lymphocytes (%) (Auto) 15.8 % Monocytes (%) (Auto) 11.1 % Eosinophils (%) (Auto) 0.5 % Basophils (%) (Auto) 0.4 % Neutrophils # (Auto) 5.5 TH/MM3 Lymphocytes # (Auto) 1.2 TH/MM3 Monocytes # (Auto) 0.9 TH/MM3 Eosinophils # (Auto) 0.0 TH/MM3 Basophils # (Auto) 0.0 TH/MM3 CBC Comment DIFF FINAL Differential Comment Sodium Level 140 MEQ/L Chloride Level 103 MEQ/L Carbon Dioxide Level 31.3 MEQ/L Anion Gap 6 MEQ/L Blood Urea Nitrogen 43 MG/DL Creatinine 2.23 MG/DL Estimat Glomerular Filtration 26 ML/MIN Rate Calcium Level 8.7 MG/DL Phosphorus Level 2.7 MG/DL Magnesium Level 2.0 MG/DL Imaging Last Impressions Chest X-Ray 08/29/16 0917 Signed Impressions: Service Date/Time: Monday, August 29, 2016 09:46 - CONCLUSION: No acute cardiopulmonary disease identified. Gene Arnold MD Femur X-Ray 08/29/16 0000 Signed Impressions: Service Date/Time: Monday, August 29, 2016 09:51 - CONCLUSION: 1. Old right-sided pubic rami fractures. 2. Right femur series otherwise within normal limits. Gene Arnold MD Objective Remarks General: NAD, AAOx3 Chest: CTA Cardiac: Regular Abd: +BS, soft ND/NT Ext: Minimal edema, LLE wound bandage is c/d/i A/P Problem List: (1) MARIIA (acute kidney injury) Status: Acute Plan: - Pt has poor dm control. - She was recently admitted for LLE lac and polymicrobial infection/wound dehiscence with ulceration. s/p abx course - Pt presented with SOB, strangulation sensation periodically and some slurred speech and confusion - She was found to have MARIIA/CKD, stage 3, felt to probably be related to dehydration, poor PO intake/diuretics - Pt was also noted to be hypoglycemic, likely from reduced Amaryl clearance in setting of MARIIA and poor po intake, doubt sepsis. - She had some diarrhea recently which may account for the hypokalemia at admission which has improved. - Her elevated troponin noted at admission was flat with trending and felt to be related to MARIIA - Pt had complained of some SOB and had some wheezing on exam at admission. No evidence of PNA on CXR. - Her delirium was felt to be related to hypoglycemia and has improved - Of note, pt and family admit they were not following the last d/c medication recommendations. I educated them on the intended changes and we will need to re-iterate any changes on the next dc home. - Pts ARB and Bumex were held at admission due to MARIIA. - Her electrolytes were replaced - Pt was initially on IVF with KCl and D5 and this was convert to NS on 08/30. - Awaiting repeat labs this morning. - Amaryl was held at admission due to MARIIA, consider change to Glipizide - Cont. NovoLog SSI. - 2D echo (08/30/16) - Estimated EF 60% - Mild aortic stenosis - Cont. wound care. cont santyl. - Telemetry - DVT prophylaxis (2) Hypoglycemia Status: Acute Plan: see above (3) Delirium Status: Acute Plan: see above (4) SOB (shortness of breath) Status: Acute Plan: see above (5) Elevated troponin Status: Acute Plan: see above (6) Wound infection Status: Acute Plan: see above (7) Hypokalemia Status: Acute Plan: see abovve (8) DM (diabetes mellitus) Status: Chronic Plan: - See above (9) Hypertension Status: Chronic (10) Polymyositis Status: Chronic Plan: cont chronic steroids Assessment and Plan Patient examined. Assessment and plan formulated with Anay Tomlin PA-C. I agree with the above. mariia improving bp stable wound on leg stable bg stable. resume glipizide in AM Anay Tomlin Aug 31, 2016 10:35 Alex Morrow MD Aug 31, 2016 22:01
[2016-08-31 12:39] LABS: BICARBONATE 29.9 MEQ/L (21.0-32.0); POTASSIUM 4.2 MEQ/L (3.5-5.1)
[2016-08-31] MEDS: METHOCARBAMOL 500 MG TAB PO SCH (22:23)
[2016-08-31] MEDS: PRIMIDONE 50 MG TAB PO SCH (22:24)
[2016-09-01] VITALS (7 sets, daily range): BP systolic 124–155; BP diastolic 66–96; PULSE 73–82; RESP 13–20; TEMP 96.6–98.5; O2SAT 92–100
[2016-09-01] MEDS: oxyCODONE/ACETAMINOPHEN 5 MG/325 MG TAB PO PRN ×3 (00:28→23:13)
[2016-09-01] MEDS: INSULIN ASPART SUPPLEMENTAL SCALE SQ SCH ×6 (00:28→20:40)
[2016-09-01 05:31] LABS: BICARBONATE 28.8 MEQ/L (21.0-32.0); POTASSIUM 3.9 MEQ/L (3.5-5.1)
[2016-09-01] MEDS: RESP: ALBUTEROL 2.5 MG/IPRATROPIUM 0.5 MG NEB (SCH) NEB ×3 (09:05→21:06)
[2016-09-01] MEDS: VERAPAMIL HCL 240 MG SUSTAINED RELEASE TAB PO SCH (09:24)
[2016-09-01] MEDS: ALLOPURINOL 100 MG TAB PO SCH (09:24)
[2016-09-01] MEDS: ATORVASTATIN 20 MG TAB PO SCH (09:24)
[2016-09-01] MEDS: glipiZIDE 5 MG TAB PO SCH (09:24)
[2016-09-01] MEDS: predniSONE 10 MG TAB PO SCH (09:25)
[2016-09-01] MEDS: CARVEDILOL 12.5 MG TAB PO SCH ×2 (09:25→20:39)
[2016-09-01] MEDS: ASPIRIN EC 81 MG TABEC PO SCH (09:25)
[2016-09-01] MEDS: PANTOPRAZOLE SOD 40 MG DELAYED RELEASE TAB PO SCH (09:25)
[2016-09-01] MEDS: HEPARIN SODIUM - SQ 10,000 UNITS/ML VIAL SQ SCH ×2 (09:26→20:40)
[2016-09-01] MEDS: COLLAGENASE OINT 30 GM TUBE TOPICAL SCH (09:30)
--- NOTE | 2016-09-01 11:56 | HHI.PR ---
Subjective Remarks doing well Objective Vitals heart reg lung cta abd s/nt ext left leg wrapped Vital Signs Date Time Temp Pulse Resp B/P Pulse Ox O2 Delivery O2 Flow Rate FiO2 09/01/16 09:05 96 21 09/01/16 08:00 98.5 82 20 124/66 94 09/01/16 04:00 96.6 77 16 149/70 97 08/31/16 20:00 99.0 83 18 172/79 94 08/31/16 16:00 98.0 72 16 137/76 94 08/31/16 12:00 97.2 95 16 125/63 98 08/31/16 08/31/16 09/01/16 15:00 23:00 07:00 Intake Total 1165 ml 240 ml 646 ml Balance 1165 ml 240 ml 646 ml Intake Oral 720 ml 240 ml 240 ml IV Total 445 ml 406 ml # Voids 3 2 1 # Bowel Movements 1 0 0 Result Diagram: 08/30/16 0545 09/01/16 0426 Imaging Last Impressions Chest X-Ray 08/29/16 0917 Signed Impressions: Service Date/Time: Monday, August 29, 2016 09:46 - CONCLUSION: No acute cardiopulmonary disease identified. Gene Arnold MD Femur X-Ray 08/29/16 0000 Signed Impressions: Service Date/Time: Monday, August 29, 2016 09:51 - CONCLUSION: 1. Old right-sided pubic rami fractures. 2. Right femur series otherwise within normal limits. Gene Arnold MD A/P Problem List: (1) MARIIA (acute kidney injury) Status: Acute Plan: - Pt has poor dm control. - She was recently admitted for LLE lac and polymicrobial infection/wound dehiscence with ulceration. s/p abx course - Pt presented with SOB, strangulation sensation periodically and some slurred speech and confusion - She was found to have MARIIA/CKD, stage 3, felt to probably be related to dehydration, poor PO intake/diuretics - Pt was also noted to be hypoglycemic, likely from reduced Amaryl clearance in setting of MARIIA and poor po intake, doubt sepsis. - She had some diarrhea recently which may account for the hypokalemia at admission which has improved. - Her elevated troponin noted at admission was flat with trending and felt to be related to MARIIA - Pt had complained of some SOB and had some wheezing on exam at admission. No evidence of PNA on CXR. - Her delirium was felt to be related to hypoglycemia and has improved - Of note, pt and family admit they were not following the last d/c medication recommendations. I educated them on the intended changes and we will need to re-iterate any changes on the next dc home. - Pts ARB and Bumex were held at admission due to MARIIA. - Her electrolytes were replaced - Pt was initially on IVF with KCl and D5 and this was convert to NS on 08/30. - Amaryl was held at admission due to MARIIA, c - 2D echo (08/30/16) - Estimated EF 60% - Mild aortic stenosis - Cont. wound care. cont santyl. stop ivf. initiate morning glipizide. wound care. if bp rises then resume arb. if stable then d/c home tomorrow. 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
[2016-09-01] MEDS: PRIMIDONE 50 MG TAB PO SCH (20:39)
[2016-09-01] MEDS: METHOCARBAMOL 500 MG TAB PO SCH (20:39)
[2016-09-02] VITALS: BP 169/82; PULSE 94; RESP 20; TEMP 98.4; O2SAT 94
[2016-09-02] MEDS: INSULIN ASPART SUPPLEMENTAL SCALE SQ SCH ×3 (01:00→09:00)
[2016-09-02 04:00] VITALS: BP 153/75; PULSE 85; RESP 20; TEMP 97.9; O2SAT 95
[2016-09-02 08:00] VITALS: PULSE 91; PULSE 98; RESP 20; TEMP 98.2; O2SAT 96
[2016-09-02 08:31] VITALS: BP 170/80
[2016-09-02] MEDS: glipiZIDE 5 MG TAB PO SCH (08:33)
[2016-09-02] MEDS: ASPIRIN EC 81 MG TABEC PO SCH (08:34)
[2016-09-02] MEDS: HEPARIN SODIUM - SQ 10,000 UNITS/ML VIAL SQ SCH (08:34)
[2016-09-02] MEDS: ALLOPURINOL 100 MG TAB PO SCH (08:34)
[2016-09-02] MEDS: PANTOPRAZOLE SOD 40 MG DELAYED RELEASE TAB PO SCH (08:34)
[2016-09-02] MEDS: VERAPAMIL HCL 240 MG SUSTAINED RELEASE TAB PO SCH (08:34)
[2016-09-02] MEDS: CARVEDILOL 12.5 MG TAB PO SCH (08:34)
[2016-09-02] MEDS: predniSONE 10 MG TAB PO SCH (08:34)
[2016-09-02] MEDS: ATORVASTATIN 20 MG TAB PO SCH (08:34)
[2016-09-02] MEDS: COLLAGENASE OINT 30 GM TUBE TOPICAL SCH (08:34)
[2016-09-02] MEDS: oxyCODONE/ACETAMINOPHEN 5 MG/325 MG TAB PO PRN (08:35)
[2016-09-02 08:39] VITALS: O2SAT 97
[2016-09-02] MEDS: RESP: ALBUTEROL 2.5 MG/IPRATROPIUM 0.5 MG NEB (SCH) NEB ×2 (08:39→12:44)
[2016-09-02] MEDS ORDERED: VALSARTAN 80 MG TAB PO SCH (09:00)
--- NOTE | 2016-09-02 11:49 | HHI.PR ---
Subjective Remarks eager for d/c today. son is now in town. Objective Vitals heart reg verenice gcta abd s/nt ext right claros wound stitches notes ulcerated area with granulation tissue and santyl...some superficial black eschar on superior edge.no cellulitis or drainage. no foul odor. Vital Signs Date Time Temp Pulse Resp B/P Pulse Ox O2 Delivery O2 Flow Rate FiO2 09/02/16 08:39 97 21 09/02/16 08:31 170/80 170/80 09/02/16 08:00 98.2 98 20 96 09/02/16 08:00 91 09/02/16 04:00 97.9 85 20 153/75 95 09/02/16 00:00 98.4 94 20 169/82 94 09/01/16 21:06 98 21 09/01/16 20:00 97.7 82 20 155/96 98 09/01/16 16:00 98.3 73 16 145/91 100 09/01/16 12:00 98.0 79 13 92 09/01/16 09/01/16 09/02/16 15:00 23:00 07:00 Intake Total 1000 ml 240 ml 240 ml Output Total 250 ml Balance 1000 ml 240 ml -10 ml Intake Oral 1000 ml 240 ml 240 ml IV Total 0 ml Output Urine Total 250 ml # Voids 3 2 # Bowel Movements 2 0 0 Result Diagram: 08/30/16 0545 09/01/16 0426 Imaging Last Impressions Chest X-Ray 08/29/16 0917 Signed Impressions: Service Date/Time: Monday, August 29, 2016 09:46 - CONCLUSION: No acute cardiopulmonary disease identified. Gene Arnold MD Femur X-Ray 08/29/16 0000 Signed Impressions: Service Date/Time: Monday, August 29, 2016 09:51 - CONCLUSION: 1. Old right-sided pubic rami fractures. 2. Right femur series otherwise within normal limits. Gene Arnold MD A/P Problem List: (1) MARIIA (acute kidney injury) Status: Acute Plan: - Pt has poor dm control. - She was recently admitted for LLE lac and polymicrobial infection/wound dehiscence with ulceration. s/p abx course - Pt presented with SOB, strangulation sensation periodically and some slurred speech and confusion - She was found to have MARIIA/CKD, stage 3, felt to probably be related to dehydration, poor PO intake/diuretics - Pt was also noted to be hypoglycemic, likely from reduced Amaryl clearance in setting of MARIIA and poor po intake, doubt sepsis. - She had some diarrhea recently which may account for the hypokalemia at admission which has improved. - Her elevated troponin noted at admission was flat with trending and felt to be related to MARIIA - Pt had complained of some SOB and had some wheezing on exam at admission. No evidence of PNA on CXR. - Her delirium was felt to be related to hypoglycemia and has improved - Of note, pt and family admit they were not following the last d/c medication recommendations. I educated them on the intended changes and we will need to re-iterate any changes on the next dc home. - Pts ARB and Bumex were held at admission due to MARIIA. - Her electrolytes were replaced - Pt was initially on IVF with KCl and D5 and this was convert to NS on 08/30. - Amaryl was held at admission due to MARIIA, c - 2D echo (08/30/16) - Estimated EF 60% - Mild aortic stenosis - Cont. wound care. cont santyl. Pt will be instructed on her medication list at d/c. several changes are made. Last d/c home she took old meds that were supposed to be stopped. will ask for hhc/pt/wound care..lab check bmp this week...also med education at home...she and family are to make new appt with plastic surgeon dr Kelley to follow wound. I offered her another day in hospital..she kindly refused. (2) Hypoglycemia Status: Acute Plan: see above (3) Delirium Status: Acute Plan: see above (4) SOB (shortness of breath) Status: Acute Plan: see above (5) Elevated troponin Status: Acute Plan: see above (6) Wound infection Status: Acute Plan: see above (7) Hypokalemia Status: Acute Plan: see bryanve (8) DM (diabetes mellitus) Status: Chronic Plan: - See above (9) Hypertension Status: Chronic (10) Polymyositis Status: Chronic Plan: cont chronic steroids Alex Morrow MD Sep 02, 2016 11:48
[2016-09-02] MEDS ORDERED: COLL30T TOPICAL (11:51)
[2016-09-02] MEDS ORDERED: GLIP5 PO (11:51)
--- NOTE | 2016-09-02 11:52 | HHI.DCPOC ---
Discharge Care Plan Diagnosis: (1) MARIIA (acute kidney injury) (2) Hypoglycemia (3) SOB (shortness of breath) (4) Hypokalemia (5) Wound infection (6) DM (diabetes mellitus) (7) Hypertension (8) Polymyositis Goals to Promote Your Health * To prevent worsening of your condition and complications * To maintain your health at the optimal level Directions to Meet Your Goals Take your medications as prescribed Follow your dietary instruction Follow activity as directed Keep your appointments as scheduled Take your immunizations and boosters as scheduled If your symptoms worsen call your PCP, if no PCP go to Urgent Care Center or Emergency Room Smoking is Dangerous to Your Health. Avoid second hand smoke Call the 24-hour hour crisis hotline for domestic abuse at Alex Morrow MD Sep 02, 2016 11:52
--- NOTE | 2016-09-02 11:58 | HHI.FF ---
Face to Face Verification Diagnosis: (1) Wound infection (2) MARIIA (acute kidney injury) (3) Hypoglycemia (4) SOB (shortness of breath) (5) Hypertension Physical Therapy Order: Evaluate and Treat Home Health Nursing Order: Medical education Signs/symptoms of disease process Medication education-adverse effect Wound care and dressing changes Nursing assessment with vital signs Instructions: wound care right claros. santyl. wet/dry. sterile gauze daily..f/u DR Kelley plastics bmp check on 09/05/16 with results to pcp Dr Ortiz..monitor for worsening renal function and overdiuresis. Also assure pt only taking meds prescribed on this discharge. I have seen patient Emelia Morrow on 09/02/16. My clinical findings support the need for the requested home health care services because: Deconditioned w/ increased weakness Limited ability to care for self I certify that my clinical findings support that this patient is homebound because: Need for psychosocial assistance Alex Morrow MD Sep 02, 2016 11:58
[2016-09-02 12:00] VITALS: BP 168/60; PULSE 77; RESP 15; TEMP 98.8; O2SAT 99
== END 2016-09-02 14:26 | disposition home health service (06) | DRG 683 ==
LOC: NEPE 08:46 → INTOOBSV 12:01 → NEDA 12:01 → HCIS 16:00 → N07B 08-30 21:55 → OBSVTOIN 08-31 12:12
PROVIDERS: ADMIT Hospitalist; ATTEND Hospitalist
DX: N17.9 Acute kidney failure, unspecified (principal); M33.20 Polymyositis, organ involvement unspecified; F05 Delirium due to known physiological condition; E11.22 Type 2 diabetes mellitus with diabetic chronic kidney disease; I50.9 Heart failure, unspecified; I13.0 Hypertensive heart and chronic kidney disease with heart failure and stage 1 through stage 4 chronic kidney disease, or unspecified chronic kidney disease; E11.42 Type 2 diabetes mellitus with diabetic polyneuropathy; E11.649 Type 2 diabetes mellitus with hypoglycemia without coma; E87.6 Hypokalemia; E78.5 Hyperlipidemia, unspecified; N18.3 Chronic kidney disease, stage 3 (moderate); J44.9 Chronic obstructive pulmonary disease, unspecified; K57.90 Diverticulosis of intestine, part unspecified, without perforation or abscess without bleeding; Z79.84 Long term (current) use of oral hypoglycemic drugs; Z79.82 Long term (current) use of aspirin; Z79.52 Long term (current) use of systemic steroids; F17.210 Nicotine dependence, cigarettes, uncomplicated; E86.0 Dehydration; E05.90 Thyrotoxicosis, unspecified without thyrotoxic crisis or storm; M10.9 Gout, unspecified; M19.90 Unspecified osteoarthritis, unspecified site; R74.8 Abnormal levels of other serum enzymes
CPT/HCPCS: 71010; 73552; 76937; 80048; 80053; 81001; 82550; 82552; 82947; 82948; 83690; 83735; 84100; 84132; 84484; 85025; 85610; 85730; 87040; 87205; 93005; 93306; 94640; 94664; 99285; G8987-GP; G8988-GP; J1644; J1815; J3480; J7030; J7512

== ENCOUNTER 2016-10-11 06:42 | Observation (INO) | payer MEDICARE ==
[~2016-10-11] VITALS: Ht 162.6 cm; Wt 68.5 kg
[~2016-10-11 06:42] MED LIST changes: +COLL30T TOPICAL; -GLIM4TAB PO; +GLIP5 PO; -LEVA250T PO; -METH5TAB4 PO; -MULT-6 PO; -OMEG100010 PO; -PANT40TA3 PO; +PRED10 PO; -PRED20 PO; +PROT40TA PO
[2016-10-11] MEDS ORDERED: SODIUM CHLOR 0.9% 1000 ML INJ 1,000 ML IV SCH (07:00)
[2016-10-11] MEDS ORDERED: CHLORHEXIDINE GLUCONATE 2 % 1 PACK (2 CLOTHS) TOPICAL PRN (07:30)
[2016-10-11] MEDS ORDERED: METOPROLOL TARTRATE 25 MG TAB PO PRN (07:30)
[2016-10-11] MEDS ORDERED: LACTATED RINGER'S 1000 ML IV PRN (07:30)
[2016-10-11] MEDS ORDERED: INSULIN HUMAN REGULAR 1,000 UNITS/10 ML VIAL SQ PRN (07:30)
[2016-10-11] MEDS ORDERED: SODIUM CHLORID 0.9% 500 ML IV PRN (07:30)
[2016-10-11] MEDS ORDERED: VANCOMYCIN HCL 1000 MG ON-CALL/NS 250 ML IV SCH ×2 (07:30)
[2016-10-11] MEDS ORDERED: POVIDONE IODINE 5% (ANTISEPSIS KIT) 4 APPLICATIONS EACH NARE PRN (07:30)
[2016-10-11 07:47] VITALS: BP 183/98; PULSE 67; RESP 18; TEMP 97.4; O2SAT 98
[2016-10-11] MEDS ORDERED: ceFAZolin 2 GM PREMIX 50 ML ONE (08:06)
[2016-10-11] MEDS ORDERED: BUPIVACAINE HCL PF 0.5% 30 ML VIAL ONE (08:06)
[2016-10-11] MEDS ORDERED: ARTIFICIAL TEARS OPTH OINT 3.5 APPLIC/3.5 GM TUBO ONE (08:38)
[2016-10-11] MEDS ORDERED: fentaNYL CITRATE 250 MCG/5 ML AMP ONE (08:38)
[2016-10-11] MEDS ORDERED: MIDAZOLAM HCL 2 MG/2 ML VIAL ONE (08:38)
[2016-10-11] MEDS ORDERED: KETAMINE HCL 500 MG/5 ML VIAL ONE (08:38)
[2016-10-11] MEDS ORDERED: IOHEXOL 350 MG/ML 50 ML BTL (for RAD DIAG) ONE (09:55)
[2016-10-11] MEDS ORDERED: DO NOT ADM ANY ANTICOAGULANT DRUGS PRN (11:00)
[2016-10-11] MEDS ORDERED: ACETAMINOPHEN 1000 MG/100 ML VIAL IV ONE ×2 (11:13→11:30)
[2016-10-11] MEDS ORDERED: MENTHOL LOZENGE BUCCAL PRN (11:15)
[2016-10-11] MEDS ORDERED: ACETAMINOPHEN/HYDROcodone 325 MG/10 MG TAB PO PRN (11:15)
[2016-10-11] MEDS: DOCUSATE SODIUM 100 MG CAP PO SCH ×2 (11:15→20:00)
[2016-10-11] MEDS ORDERED: MORPHINE SULFATE 4 MG/ML INJ IV PUSH PRN (11:15)
[2016-10-11] MEDS ORDERED: ONDANSETRON HCL 4 MG/2 ML VIAL IV PRN (11:15)
[2016-10-11] MEDS ORDERED: ACETAMINOPHEN 325 MG TAB PO PRN (11:15)
[2016-10-11] MEDS: PANTOPRAZOLE SOD 40 MG DELAYED RELEASE TAB PO SCH (11:15)
[2016-10-11] MEDS ORDERED: SODIUM CHLORIDE 0.9% FLUSH 5 ML FLUSH IVF PRN (11:15)
[2016-10-11] MEDS: SODIUM CHLORIDE 0.9% FLUSH 5 ML FLUSH IVF SCH ×2 (11:15→20:05)
--- NOTE | 2016-10-11 11:27 | RADRPT ---
EXAM DATE/TIME: 10/11/2016 09:41 [facility] COMPARISON: No previous studies available for comparison. INDICATIONS : Post-op L-1 kyphoplasty for compression fracture. MEDICAL HISTORY : None. SURGICAL HISTORY : None. ENCOUNTER: Initial ACUITY: 1 day PAIN SCORE: Non-responsive. LOCATION: Lumbar spine. FINDINGS: There is evidence for vertebroplasty. CONCLUSION: Intraoperative examination. Simón Wahl MD on October 11, 2016 at 11:25 Board Certified Radiologist. This report was verified electronically.
[2016-10-11] MEDS: NS + KCL 20 MEQ INJ 1,000 ML IV SCH ×2 (11:35→15:07)
[2016-10-11 14:00] VITALS: BP 184/93; PULSE 59; RESP 18; TEMP 95.2; O2SAT 98
[2016-10-11 17:45] VITALS: O2SAT 98
[2016-10-11] MEDS: ceFAZolin 2 GM PREMIX 50 ML IV SCH (17:45)
[2016-10-11 19:00] VITALS: BP 158/88; PULSE 75; RESP 16; TEMP 99.6; O2SAT 94
--- NOTE | 2016-10-11 19:53 | PD.OP ---
Operative Report Date of Surgery: Oct 11, 2016 Preoperative Diagnosis: L1 compression fracture Postoperative Diagnosis: L1 compression fracture Procedure: L1 kyphoplasty Anesthesia: general Surgeon: Ronaldo Daniels Health Education Director(s): JENNIFER Operation and Findings: INDICATIONS FOR THE PROCEDURE Ms Morrow is a 80 year-old female who presented with intractable pain related to a compression fracture of L1. The patient has failed nonsurgical management and a kyphoplasty was indicated as the most appropriate form of treatment. The [id number] details of the procedure, indications, alternatives, risks and potential complications were fully discussed with the patient. The patient fully understood. All The questions were answered. No guarantees were given. The patient voiced requesting the procedure and provided informed consents. The patient was offered the alternative of delaying the procedure and continuing with nonsurgical management. DETAILS OF THE SURGICAL PROCEDURE The patient was brought to the operating room and after the induction of general anesthesia, endotracheal intubation was performed. A Rehman catheter and bilateral TOM hose and sequential compression devices were placed and kept throughout the procedure. The patient was positioned prone on the Noah table over gel rods. All pressure points were carefully padded with egg crate mattress. The eyes were tapped shut after ointment was applied by the nesthesiologist to prevent corneal abrasion. A Mandeep hugger was placed over the expossed lower body to maintain control of the core body temperature. The lumbar region was prepped and draped in the usual sterile fashion. The C-arms were brought to the field and simultaneous AP and lateral x-rays were obtained. The levels were carefully counted and the pedicles were marked over the skin. An entry point was selected 1 centimeter superior and 1 centimeter lateral to the pedicle of L1. Two small incisions were outlined on the skin and infiltrated with 1% lidocaine with epinephrine in 1:100,000 dilution. Initially, two small skin incisions were made with a #11 blade. Then, Jamshidi needles were carefully advanced to the entrance of the pedicle, and then into the vertebral body L1 under continuous fluoroscopic guidance. K-wires were placed inside the vertebral body of and the needles were carefully removed. A drill was used to create a trough into the vertebral body to insert a cannula. Once the cannula was located through the pedicle, the drill was removed and bilateral balloons were inserted into the T11 vertebral body for vertebral augmentation. A careful expansion of the balloon under continuous fluoroscopic guidance and manometric evaluation allowed expansion of the vertebral body. Then, the balloons were deflated and carefully removed and the voids created in the vertebral body were filled with bone cement under fluoroscopic visualization. A very good filling of the vertebral body was achieved without evidence of extravasation or cement or other complications. The cannulas were then removed. The incisions were closed using a single stitch at each incision. Dermabond was applied to the skin. At the end of the procedure, the sponge, needle, instrument counts correct. The estimated blood loss as minimal. No intraoperative complications occurred. The patient received prophylactic antibiotics. The patient was then extubated and transferred to the recovery room in stable condition. Ronaldo Daniels MD Oct 11, 2016 19:52
[2016-10-11] MEDS: GABAPENTIN 300 MG CAP PO SCH (20:00)
[2016-10-11] MEDS: CARVEDILOL 6.25 MG TAB PO SCH (20:00)
[2016-10-11] MEDS: ALLOPURINOL 100 MG TAB PO SCH (20:00)
[2016-10-11] MEDS: ACETAMINOPHEN/HYDROcodone 325 MG/10 MG TAB PO PRN (20:01)
[2016-10-11] MEDS: BUMETANIDE 1 MG TAB PO SCH (20:01)
[2016-10-11] MEDS ORDERED: METHOCARBAMOL 500 MG TAB PO SCH (21:00)
[2016-10-11] MEDS ORDERED: PRIMIDONE 50 MG TAB PO SCH (21:00)
[2016-10-11] MEDS ORDERED: ENALAPRILAT 1.25 MG/ML VIAL IV PUSH PRN (23:30)
[2016-10-11 23:53] VITALS: BP 196/98; PULSE 74; RESP 18; TEMP 97.7; O2SAT 97
[2016-10-12] MEDS: ceFAZolin 2 GM PREMIX 50 ML IV SCH ×2 (00:01→07:38)
[2016-10-12] MEDS: ACETAMINOPHEN/HYDROcodone 325 MG/10 MG TAB PO PRN ×3 (00:02→07:41)
[2016-10-12 00:30] VITALS: BP 146/84; PULSE 68
[2016-10-12 07:24] VITALS: BP 181/82; PULSE 61; RESP 17; TEMP 96.3; O2SAT 97
[2016-10-12] MEDS: PANTOPRAZOLE SOD 40 MG DELAYED RELEASE TAB PO SCH (07:39)
[2016-10-12] MEDS: CARVEDILOL 6.25 MG TAB PO SCH (07:40)
[2016-10-12] MEDS: GABAPENTIN 300 MG CAP PO SCH (07:40)
[2016-10-12] MEDS: ALLOPURINOL 100 MG TAB PO SCH (07:40)
[2016-10-12] MEDS: BUMETANIDE 1 MG TAB PO SCH (07:40)
[2016-10-12] MEDS: DOCUSATE SODIUM 100 MG CAP PO SCH (07:40)
[2016-10-12] MEDS ORDERED: glipiZIDE 5 MG TAB PO SCH (08:00)
[2016-10-12 08:19] VITALS: O2SAT 92
[2016-10-12] MEDS ORDERED: COLLAGENASE OINT 30 GM TUBE TOPICAL SCH (09:00)
[2016-10-12] MEDS ORDERED: predniSONE 10 MG TAB PO SCH (09:00)
[2016-10-12] MEDS ORDERED: ATORVASTATIN 20 MG TAB PO SCH (09:00)
[2016-10-12] MEDS ORDERED: VALSARTAN 80 MG TAB PO SCH (09:00)
[2016-10-12] MEDS ORDERED: CALCIUM CARBONATE 1.25 GM (CA 500 MG) TAB PO SCH (09:00)
[2016-10-12] MEDS ORDERED: CHOLECALCIFEROL (VIT D3) 400 UNIT TAB PO SCH (09:00)
[2016-10-12] MEDS ORDERED: VERAPAMIL HCL 240 MG SUSTAINED RELEASE TAB PO SCH (09:00)
[2016-10-12] MEDS ORDERED: HYDR-3533 PO (09:10)
[2016-10-12] MEDS ORDERED: WALKER WHEELS/F1 MIS (10:12)
--- NOTE | 2016-10-12 10:13 | HHI.DCPOC ---
Discharge Care Plan Diagnosis: (1) S/P kyphoplasty Goals to Promote Your Health * To prevent worsening of your condition and complications * To maintain your health at the optimal level Directions to Meet Your Goals Take your medications as prescribed Follow your dietary instruction Follow activity as directed Keep your appointments as scheduled Take your immunizations and boosters as scheduled If your symptoms worsen call your PCP, if no PCP go to Urgent Care Center or Emergency Room Smoking is Dangerous to Your Health. Avoid second hand smoke Call the 24-hour hour crisis hotline for domestic abuse at Gabbie Winters Oct 12, 2016 10:13
--- NOTE | 2016-10-12 10:17 | HHI.DS ---
Discharge Summary Admission Date Oct 11, 2016 at 11:04 Discharge Date: Oct 12, 2016 Admitting Diagnosis s/p Kyphoplasty (1) S/P kyphoplasty ICD Code: Z98.890 Brief History Ms Morrow is a 80 year-old female who presented with intractable pain related to a compression fracture of L1. The patient has failed nonsurgical management and a kyphoplasty was indicated as the most appropriate form of treatment. Imaging Last Impressions Thoracolumbar Spine 10/11/16 0000 Signed Impressions: Service Date/Time: September 09:41 - CONCLUSION: Intraoperative examination. Simón Wahl MD PE at Discharge Ms. Morrow is alert, awake and oriented to time, place and person. Speech is fluent. Cranial nerve examination: pupils to be equal. Extra-ocular movements are intact. Facial motor symmetric. Neck is soft and supple Motor: moves all four extremities 4/5, limited due to complaints of arthritic pain Sensory examination is intact to light touch in both the upper and lower extremities. There is a bilateral plantar flexion response. Respiratory: nonlabored Hospital Course Ms. Morrow underwent a L1 kyphoplasty on Oct 11, 2016. Her surgery went well without complications. She reports improvement of her preoperative lumbar pain. She will be discharged home in stable conditions. Wound care and activity restrictions were discussed. Pt Condition on Discharge: Stable Discharge Disposition: Discharge Home Discharge Instructions DIET: Follow Instructions for: Heart Healthy Diet ACTIVITIES You can perform: Weight Bearing As Farzana ADDITIONAL Activity Instructio: Avoid strenuous activities, heavy lifting, overhead activities, repetitive bending, twisting, pushing, pulling or any activities which might result in stress over the spine. Avoid situtation that will put at risk for falls. Use assistive device as needed for walking. Wear TLSO when out of bed. New Medications: Hydrocodone-Acetaminophen (Lortab) 5-325 Mg Tab 1 TAB PO Q8HR PRN PAIN #62 Ref 0 TAB Walker with Front Wheels (Walker with Front Wheels) 1 Mis Mis 1 EA .ROUTE DIRECTED #1 Ref 0 EA Continued Medications: Allopurinol (Allopurinol) 100 Mg Tab 100 MG PO BID Gout #30 Ref [address] (Aspirin Adult Low Strength) 81 Mg Tabdr 81 MG PO DAILY TAB Atorvastatin (Atorvastatin) 20 Mg Tab 20 MG PO DAILY Cholesterol Management #30 Ref 0 TAB Bumetanide (Bumetanide) 1 Mg Tab 1 MG PO BID #60 Ref 0 TAB Calcium Carbonate (Calcium) 600 Mg Tab 1200 MG PO DAILY Nutritional Supplement Carvedilol (Carvedilol) 6.25 Mg Tab 12.5 MG PO BID HTN #60 Ref 0 TAB Cholecalciferol (D 400) 400 Unit Tab 800 UNITS PO DAILY Collagenase (Santyl) 250 Unit/Gm Oin 1 APPLIC TOPICAL DAILY wound care Days 14 TUBE Gabapentin (Gabapentin) 600 Mg Tab 600 MG PO BID #60 Ref 0 TAB Glipizide (Glucotrol) 5 Mg Tab 5 MG PO DAILYAC dm #30 TAB Methocarbamol (Methocarbamol) 500 Mg Tab 500 MG PO HS Muscle Spasm #90 Ref 0 TAB Oxycodone-Acetaminophen (Percocet) 5-325 mg Tab 2 TAB PO Q4H PAIN Ref 0 TAB Pantoprazole (Protonix) 40 Mg Tab 40 MG PO DAILY Reflux #30 Ref 0 TAB Prednisone (Prednisone) 10 Mg Tab 10 MG PO DAILY Ref 0 TAB Primidone (Primidone) 50 Mg Tab 50 MG PO HS Control Seizures #60 Ref 0 TAB Valsartan (Valsartan) 80 Mg Tab 160 MG PO DAILY Blood Pressure Management #30 Ref 0 TAB Verapamil ER 24 HR (Verapamil ER 24 HR) 240 Mg Tab 240 MG PO DAILY #30 Ref 0 TAB Gabbie Winters Oct 12, 2016 10:17
== END 2016-10-12 12:33 | disposition home or self-care (01) ==
LOC: HSDC 06:42 → HSDI 11:04 → N06B 14:01
PROVIDERS: ADMIT Neurological Surgery; ATTEND Neurological Surgery
DX: S32.010A Wedge compression fracture of first lumbar vertebra, initial encounter for closed fracture (principal); I10 Essential (primary) hypertension; E78.5 Hyperlipidemia, unspecified; E03.9 Hypothyroidism, unspecified; E11.9 Type 2 diabetes mellitus without complications; M06.9 Rheumatoid arthritis, unspecified; G62.9 Polyneuropathy, unspecified; F32.9 Major depressive disorder, single episode, unspecified; F17.200 Nicotine dependence, unspecified, uncomplicated; Z79.899 Other long term (current) drug therapy; Z79.82 Long term (current) use of aspirin; X58.XXXA Exposure to other specified factors, initial encounter
CPT/HCPCS: 01936; 22514; 72070; 94150; 97162; G0378; G8987; G8988; J0131; J0690; J3010; J3370; J3480; J7050; J7512; L0200; L0484; Q9967; J2250

== ENCOUNTER 2017-05-22 14:14 | Inpatient (IN) | payer MEDICARE ==
[~2017-05-22] VITALS: Ht 170.2 cm; Wt 68.5 kg
[~2017-05-22 14:14] MED LIST changes: -ASPI1TAB91 PO; +ASPI81TA16 PO; -CALC600T25 PO; +CALC600T5 PO; -CHOL1TAB7 PO; +CHOL400T17 PO; +HYDR-3533 PO; +WALKER WHEELS/F1 MIS
[2017-05-22 14:17] VITALS: BP 130/75; PULSE 93; RESP 14; TEMP 98.1; O2SAT 97
[2017-05-22 15:33] LABS: AUTOMATED NEUTROPHIL # 5.5 TH/MM3 (1.8-7.7); BASOPHIL % 0.6 % (0.0-2.0); EOSINOPHIL % 0.4 % (0.0-4.0); HEMATOCRIT 32.2 % (35.0-46.0); HEMOGLOBIN 11.6 GM/DL (11.6-15.3); LYMPH % 9.7 % (9.0-44.0); LYMPHOCYTE # 0.6 TH/MM3 (1.0-4.8); MEAN CELL VOLUME 90.1 FL (80.0-100.0); MEAN CORPUSCULAR HEMOGLOBIN 32.6 PG (27.0-34.0); MEAN PLATELET VOLUME 8.2 FL (7.0-11.0); MONO % 4.4 % (0.0-8.0); MONOCYTE # 0.3 TH/MM3 (0-0.9); NEUT % 84.9 % (16.0-70.0); PLATELET COUNT 173 TH/MM3 (150-450); RED BLOOD COUNT 3.57 MIL/MM3 (4.00-5.30); RED CELL DISTRIBUTION WIDTH 17.8 % (11.6-17.2); WHITE BLOOD COUNT 6.4 TH/MM3 (4.0-11.0)
[2017-05-22 15:44] LABS: MEAN CORPUSCULAR HGB CONC 36.2 % (32.0-36.0)
[2017-05-22 15:51] VITALS: BP 163/87; PULSE 84; RESP 24; TEMP 98.1; O2SAT 97
[2017-05-22 15:54] LABS: ALBUMIN 2.9 GM/DL (3.4-5.0); ALKALINE PHOSPHATASE 64 U/L (45-117); ALT (GPT) 19 U/L (10-53); AST (GOT) 22 U/L (15-37); BICARBONATE 28.4 MEQ/L (21.0-32.0); BLOOD UREA NITROGEN 34 MG/DL (7-18); CALCIUM 8.1 MG/DL (8.5-10.1); CHLORIDE 107 MEQ/L (98-107); CREATININE 1.77 MG/DL (0.50-1.00); GLOMERULAR FILTRATION RATE 33 ML/MIN (>89); GLUCOSE,RANDOM 138 MG/DL (74-106); MAGNESIUM 2.5 MG/DL (1.5-2.5); SODIUM (NA) 140 MEQ/L (136-145); TOTAL BILIRUBIN ADULT 0.3 MG/DL (0.2-1.0); TOTAL PROTEIN 7.4 GM/DL (6.4-8.2)
--- NOTE | 2017-05-22 16:00 | PD ---
HPI Chief Complaint: Fall Time Seen by Provider: 14:56 Travel History International Travel<30 days: No Contact w/Intl Traveler<30days: No Traveled to known affect area: No History of Present Illness HPI 81-year-old female that presents to the ED for evaluation of injury to her left hip. Per patient and ambulance note patient was helping some children when she accidentally fell will playing with the children. Per patient she landed on her left hip. She has deformity to the left hip with shortening. She cannot ambulate on her own. She denies any numbness, tingling, weakness. No head injury or loss of consciousness. States having had a cyst that was infected on her right foot for which she was taking Keflex and penicillin and has no taken any for 2 days. She has a history of hypertension and diabetes. She denies any blood thinners. No chest pain or shortness of breath. No arm pain or back pain. No neck pain. No head injury. No blurry vision or double vision. No urinary or bowel movement issues. Per patient the pain is 8 out of 10. She was given morphine by EVAC. She last ate breakfast today. She follows with " Dr Jones" for orthopedics. PFSH Past Medical History Hx Anticoagulant Therapy: Yes Arthritis: Yes Asthma: No Autoimmune Disease: No Anxiety: No Depression: No Heart Rhythm Problems: No Cancer: No Cardiac Catheterization: No Cardiovascular Problems: Yes (CHF) High Cholesterol: Yes Chemotherapy: No Chest Pain: No Congestive Heart Failure: Yes COPD: Yes Cerebrovascular Accident: No Diabetes: Yes Patient Takes Glucophage: Yes (05/21/17 1200) Endocrine: Yes Gastrointestinal Disorders: No GERD: Yes Gout: Yes Genitourinary: Yes Headaches: Yes Hiatal Hernia: No Hypertension: Yes Immune Disorder: Yes (RA) Implanted Vascular Access Dvce: No Kidney Stones: No Musculoskeletal: Yes (CHRONIC ARTHRITIS PAIN) Neurologic: Yes (NUMBNESS ON FEET, R ARM WEAK) Psychiatric: No Reproductive: No Respiratory: No Migraines: No Radiation Therapy: No Renal Failure: Yes (stage 3 CKD) Seizures: No Sickle Cell Disease: No Sleep Apnea: No Thyroid Disease: No Ulcer: No Influenza Vaccination: No ?: Not Menopausal: Yes : 4 Para: 4 Tubal Ligation: Yes Past Surgical History Abdominal Surgery: No AICD: No Arteriovenous Shunt: No Cardiac Surgery: No Coronary Artery Bypass Graft: No Ear Surgery: No Endocrine Surgery: No Eye Surgery: Yes (cataract removal from left eye) Genitourinary Surgery: No Gynecologic Surgery: Yes (tubal ligation and cyst removed from left breast) Hysterectomy: No Insulin Pump: No Joint Replacement: No Oral Surgery: No Pacemaker: No Thoracic Surgery: No Other Surgery: Yes (CYST REMOVED LEFT BREAST, BACK SX) Social History Alcohol Use: Yes (SELDOM) Tobacco Use: Yes (1 PPD) Substance Use: No Allergies-Medications (Allergen,Severity, Reaction): Coded Allergies: No Known Allergies (Unverified , 10/23/16) Reported Meds & Prescriptions Reported Meds & Active Scripts Active Bumetanide 1 Mg Tab 1 Mg PO TID Glucotrol (Glipizide) 5 Mg Tab 5 Mg PO DAILYAC Carvedilol 6.25 Mg Tab 12.5 Mg PO BID Reported Ferrous Sulfate 325 Mg (65 Mg Iron) Tablet 325 Mg PO DAILY Potassium Chloride ER (Potassium Chloride) 10 Meq Cap 10 Meq PO DAILY Zantac (Ranitidine HCl) 150 Mg Tab 75 Mg PO DAILY Vitamin D3 (Cholecalciferol) 1,000 Unit Cap 2,000 Units PO DAILY Levothyroxine (Levothyroxine Sodium) 25 Mcg Tab 25 Mcg PO DAILY Gabapentin 800 Mg Tab 800 Mg PO TID Prednisone 10 Mg Tab 10 Mg PO DAILY Protonix (Pantoprazole Sodium) 40 Mg Tab 40 Mg PO DAILY Calcium (Calcium Carbonate) 600 Mg Tab 1,200 Mg PO DAILY Percocet (Oxycodone-Acetaminophen) 5-325 mg Tab 2 Tab PO Q6HR Aspirin Adult Low Strength (Aspirin) 81 Mg Tabdr 81 Mg PO DAILY D 400 (Cholecalciferol) 400 Unit Tab 800 Units PO DAILY Verapamil ER 24 HR (Verapamil HCl) 240 Mg Tab 240 Mg PO DAILY Atorvastatin (Atorvastatin Calcium) 20 Mg Tab 20 Mg PO DAILY Primidone 50 Mg Tab 50 Mg PO HS Methocarbamol 500 Mg Tab 500 Mg PO HS Allopurinol 100 Mg Tab 100 Mg PO BID Valsartan 80 Mg Tab 160 Mg PO DAILY Review of Systems Except as stated in HPI: all other systems reviewed are Neg Physical Exam Narrative GENERAL: SKIN: Warm and dry. HEAD: Atraumatic. Normocephalic. EYES: Pupils equal and round. No scleral icterus. No injection or drainage. ENT: No nasal bleeding or discharge. Mucous membranes pink and moist. Tongue is midline. No uvula deviation. NECK: Trachea midline. No JVD. CARDIOVASCULAR: Regular rate and rhythm. No murmurs, S3, S4. RESPIRATORY: No accessory muscle use. Clear to auscultation. Breath sounds equal bilaterally. GASTROINTESTINAL: Abdomen soft, non-tender, nondistended. Hepatic and splenic margins not palpable. MUSCULOSKELETAL: Extremities without clubbing, cyanosis, or edema. No obvious deformities. Full range of motion of the upper and lower extremities bilaterally. 2+ pulses bilaterally. Patient has left hip and leg shortening. Very painful with any movement especially internal and external rotation of the left hip as well as flexion and extension. NEUROLOGICAL: Awake and alert. No obvious cranial nerve deficits. Motor grossly within normal limits. Five out of 5 muscle strength in the arms and legs. Normal speech. PSYCHIATRIC: Appropriate mood and affect; insight and judgment normal. Data Data Last Documented VS Vital Signs Date Time Temp Pulse Resp B/P (MAP) Pulse Ox O2 Delivery O2 Flow Rate FiO2 05/22/17 15:51 98.1 84 24 163/87 (112) 97 Room Air Orders Orders Electrocardiogram (05/22/17 14:56) Complete Blood Count With Diff (05/22/17 14:56) Comprehensive Metabolic Panel (05/22/17 14:56) Prothrombin Time / Inr (Pt) (05/22/17 14:56) Act Partial Throm Time (Ptt) (05/22/17 14:56) Urinalysis - C+S If Indicated (05/22/17 14:56) Magnesium (Mg) (05/22/17 14:56) Chest, Single Ap (05/22/17 14:56) Iv Access Insert/Monitor (05/22/17 14:56) Ecg Monitoring (05/22/17 14:56) Oximetry (05/22/17 14:56) Femur (Ap & Lat/2vws) (05/22/17 ) Pelvis, Ap Only (Routine) (05/22/17 ) Admit Order (Ed Use Only) (05/22/17 ) Labs Laboratory Tests Test 05/22/17 13:25 05/22/17 15:12 Urine Color YELLOW Urine Turbidity CLEAR Urine pH 5.5 Urine Specific [place] 1.013 Urine Protein 30 mg/dL Urine Glucose (UA) NEG mg/dL Urine Ketones NEG mg/dL Urine Occult Blood TRACE Urine Nitrite NEG Urine Bilirubin NEG Urine Urobilinogen LESS THAN 2.0 MG/DL Urine Leukocyte Esterase NEG Urine RBC 1 /hpf Urine WBC 1 /hpf Urine Squamous Epithelial Cells 4 /hpf Urine Bacteria MANY /hpf Urine Mucus FEW /lpf Microscopic Urinalysis Comment CULTURE INDICATED White Blood Count 6.4 TH/MM3 Red Blood Count 3.57 MIL/MM3 Hemoglobin 11.6 GM/DL Hematocrit 32.2 % Mean Corpuscular Volume 90.1 FL Mean Corpuscular Hemoglobin 32.6 PG Mean Corpuscular Hemoglobin Concent 36.2 % Red Cell Distribution Width 17.8 % Platelet Count 173 TH/MM3 Mean Platelet Volume 8.2 FL Neutrophils (%) (Auto) 84.9 % Lymphocytes (%) (Auto) 9.7 % Monocytes (%) (Auto) 4.4 % Eosinophils (%) (Auto) 0.4 % Basophils (%) (Auto) 0.6 % Neutrophils # (Auto) 5.5 TH/MM3 Lymphocytes # (Auto) 0.6 TH/MM3 Monocytes # (Auto) 0.3 TH/MM3 Eosinophils # (Auto) 0.0 TH/MM3 Basophils # (Auto) 0.0 TH/MM3 CBC Comment AUTO DIFF Differential Comment AUTO DIFF CONFIRMED Target Cells 1+ Keratocytes OCC Prothrombin Time 10.0 SEC Prothromb Time International Ratio 1.0 RATIO Activated Partial Thromboplast Time 22.4 SEC Blood Urea Nitrogen 34 MG/DL Creatinine 1.77 MG/DL Random Glucose 138 MG/DL Total Protein 7.4 GM/DL Albumin 2.9 GM/DL Calcium Level 8.1 MG/DL Magnesium Level 2.5 MG/DL Alkaline Phosphatase 64 U/L Aspartate Amino Transf (AST/SGOT) 22 U/L Alanine Aminotransferase (ALT/SGPT) 19 U/L Total Bilirubin 0.3 MG/DL Sodium Level 140 MEQ/L Potassium Level 4.0 MEQ/L Chloride Level 107 MEQ/L Carbon Dioxide Level 28.4 MEQ/L Anion Gap 5 MEQ/L Estimat Glomerular Filtration Rate 33 ML/MIN [facility] Medical Decision Making Medical Screen Exam Complete: Yes Emergency Medical Condition: Yes Medical Record Reviewed: Yes Interpretation(s) CBC & BMP Diagram 05/22/17 15:12 Total Protein 7.4, Albumin 2.9 L, Calcium Level 8.1 L, Magnesium Level 2.5, Alkaline Phosphatase 64, Aspartate Amino Transf (AST/SGOT) 22, Alanine Aminotransferase (ALT/SGPT) 19, Total Bilirubin 0.3 EKG shows sinus rhythm with no sign of acute ischemia or arrythmia read by me and attending. xray shows hip fracture Differential Diagnosis Fracture versus sprain versus strain versus bruise versus contusion Narrative Course 81-year-old female that presents to the ED for evaluation of left hip injury. Patient was properly examined and was found to have signs and symptoms very concerning for left hip fracture. X-rays and labs were ordered. X-rays were positive for fracture. Otherwise unremarkable. At this time patient will be admitted to [facility] and have orthopedic consult. Dr. Armas agrees to admission. Diagnosis Primary Impression: Hip fracture, left Qualified Codes: S72.002A - Fracture of unspecified part of neck of left femur , initial encounter for closed fracture Admitting Information Admitting Physician Requests: Admit Scripts Bumetanide (Bumetanide) 1 Mg Tab 1 MG PO TID, #60 TAB 0 Refills Prov: Anay Tomlin 05/22/17 Valerio Palacios May 22, 2017 16:00
--- NOTE | 2017-05-22 16:11 | RADRPT ---
EXAM DATE/TIME: 05/22/2017 15:38 [facility] COMPARISON: CHEST SINGLE AP, August 29, 2016, 9:46. INDICATIONS : Chest discomfort after fall. MEDICAL HISTORY : None. SURGICAL HISTORY : None. ENCOUNTER: Initial ACUITY: 1 day PAIN SCORE: 1/10 LOCATION: Bilateral chest FINDINGS: The cardiac silhouette is mildly enlarged. There is vascular congestion in mild interstitial prominen ce present diffusely. No evidence of infiltrate or contusion. No hemothorax or pneumothorax. CONCLUSION: Mild fluid overload. No acute injury or infiltrate. Ty Ramírez MD on May 22, 2017 at 16:04 Board Certified Radiologist. This report was verified electronically.
--- NOTE | 2017-05-22 16:17 | RADRPT ---
EXAM DATE/TIME: 05/22/2017 15:41 [facility] COMPARISON: PELVIS AP ONLY, July 09, 2015, 23:56. INDICATIONS : Pelvic pain after fall. MEDICAL HISTORY : None. SURGICAL HISTORY : None. ENCOUNTER: Initial ACUITY: 1 day PAIN SCORE: 10/10 LOCATION: Left pelvis. FINDINGS: Transcervical fracture left femoral neck is present. Femoral neck is not dislocated. Old fracture of the right superior pubic and inferior pubic ramus is present. There is calcification in the pelvis mo st characteristic of fibroids. CONCLUSION: 1. Left femoral neck fracture Oscar Barone MD on May 22, 2017 at 16:07 Board Certified Radiologist. This report was verified electronically.
--- NOTE | 2017-05-22 16:20 | RADRPT ---
EXAM DATE/TIME: 05/22/2017 15:44 [facility] COMPARISON: No previous studies available for comparison. INDICATIONS : Left femur pain after fall. MEDICAL HISTORY : None. SURGICAL HISTORY : None. ENCOUNTER: Initial ACUITY: 1 day PAIN SCORE: 10/10 LOCATION: Left proximal femur. FINDINGS: Transcervical fracture left femoral neck is present. The femoral shaft is intact. A large suprapatell ar joint effusion is seen but no fracture or lipohemarthrosis is evident. There is osteoarthritis inv olving the lateral tibiofemoral compartment. CONCLUSION: 1. Transcervical fracture left femoral neck 2. Large knee effusion without fracture. It is continued clinical concern CT scan is recommended Oscar Barone MD on May 22, 2017 at 16:16 Board Certified Radiologist. This report was verified electronically.
[2017-05-22 16:41] LABS: TARGET CELLS 1+ (NORMAL)
[2017-05-22 16:42] LABS: KERATOCYTES OCC (NORMAL)
[2017-05-22 16:52] LABS: BACTERIA, URINE MANY /hpf; BILIRUBIN, URINE NEG (NEG); BLOOD, URINE TRACE (NEG); GLUCOSE,URINE NEG (NEG); KETONE, URINE NEG (NEG); MUCUS URINE FEW /lpf (OCC); NITRITE,URINE NEG (NEG); PH, URINE 5.5 (5.0-8.5); SQUAMOUS EPITHELIAL CELL URINE 4 /hpf (0-5); URINE COLOR YELLOW (YELLW/STRAW); URINE LEUKOCYTE ESTERASE NEG (NEG)
[2017-05-22] MEDS ORDERED: BUME1TAB PO (16:57)
[2017-05-22] MEDS ORDERED: CHOL10008 PO (16:57)
[2017-05-22] MEDS ORDERED: LEVO25TA4 PO (16:57)
[2017-05-22] MEDS ORDERED: FERR325T18 PO (16:57)
[2017-05-22] MEDS ORDERED: ZANT150T2 PO (16:57)
[2017-05-22] MEDS ORDERED: POTA10CA PO (16:57)
[2017-05-22] MEDS ORDERED: GABA800T PO (16:57)
--- NOTE | 2017-05-22 16:59 | HHI.HP ---
HPI Service [facility] Hospitalists Primary Care Physician Francy Ortiz M.D. Admission Diagnosis hip fracture Chief Complaint: Left hip pain Travel History International Travel<30 Days: No Contact w/Intl Traveler <30 Da: No Traveled to Known Affected Are: No History of Present Illness Mrs. Morrow is a pleasant 81 y/o AAF with DM, HTN, Hyperlipidemia, hypothyroidism, CKD stage 3, and polymyositis [place] [facility] [place] complaints of left hip pain and inability to ambulate. She reports that she was trying to go after her grandchild and fell on her left hip. She reports that she has been using a cane to help with ambulation at home. Pt had immediate pain in the left hip following the fall and could not ambulate on her own. She has a large effusion on the left knee which she reports is chronic and is supposed to have surgery for the left knee soon per the pts family at bedside. Imaging studies done in the ED revealed a left transcervical femoral neck fracture. Pt is being admitted to Orthopedic surgery evaluation. Pt also reports that she had a cyst on her right foot which she has had some previous drainage from the wound. She had an outpt LE US which were negative for DVTs on 05/13/17. Review of Systems Constitutional: DENIES: Fever, Chills Eyes: DENIES: Vision loss Ears, nose, mouth, throat: DENIES: Hearing loss Respiratory: DENIES: Cough Cardiovascular: COMPLAINS OF: Lower Extremity Edema, DENIES: Chest pain, Palpitations Gastrointestinal: DENIES: Abdominal pain, Black stools, Bloody stools, Nausea, Vomiting Genitourinary: DENIES: Hematuria, Dysuria Musculoskeletal: COMPLAINS OF: Joint pain, Joint Swelling Integumentary: DENIES: Rash Neurologic: DENIES: Headache Psychiatric: DENIES: Confusion Past Family Social History Past Medical History L1 compression fracture (anterior wedge compression fracture with 15% loss of vertebral body height at L1) Superior pubic ramus fracture right side. Cellulitis of LE HTN CKD, stage 3 CHF DDD Diabetes mellitus with peripheral neuropathy, nephropathy and hx of diabetic foot wounds (Hgb A1C 8.0% in 06/2016) Diverticulosis H. pylori infection Hyperlipidemia Hyperthyroidism MGUS Polymyositis COPD Polymicrobial infection left leg laceration Past Surgical History Cataract surgery Tubal ligation Reported Medications Bumetanide 1 Mg Tab 1 Mg PO TID Glucotrol (Glipizide) 5 Mg Tab 5 Mg PO DAILYAC Carvedilol 6.25 Mg Tab 12.5 Mg PO BID Ferrous Sulfate 325 Mg (65 Mg Iron) Tablet 325 Mg PO DAILY Potassium Chloride ER (Potassium Chloride) 10 Meq Cap 10 Meq PO DAILY Zantac (Ranitidine HCl) 150 Mg Tab 75 Mg PO DAILY Vitamin D3 (Cholecalciferol) 1,000 Unit Cap 2,000 Units PO DAILY Levothyroxine (Levothyroxine Sodium) 25 Mcg Tab 25 Mcg PO DAILY Gabapentin 800 Mg Tab 800 Mg PO TID Prednisone 10 Mg Tab 10 Mg PO DAILY Protonix (Pantoprazole Sodium) 40 Mg Tab 40 Mg PO DAILY Calcium (Calcium Carbonate) 600 Mg Tab 1,200 Mg PO DAILY Percocet (Oxycodone-Acetaminophen) 5-325 mg Tab 2 Tab PO Q6HR Aspirin Adult Low Strength (Aspirin) 81 Mg Tabdr 81 Mg PO DAILY D 400 (Cholecalciferol) 400 Unit Tab 800 Units PO DAILY Verapamil ER 24 HR (Verapamil HCl) 240 Mg Tab 240 Mg PO DAILY Atorvastatin (Atorvastatin Calcium) 20 Mg Tab 20 Mg PO DAILY Primidone 50 Mg Tab 50 Mg PO HS Methocarbamol 500 Mg Tab 500 Mg PO HS Allopurinol 100 Mg Tab 100 Mg PO BID Valsartan 80 Mg Tab 160 Mg PO DAILY Allergies: Coded Allergies: No Known Allergies (Unverified , 10/23/16) Family History Mother with hx of colon cancer Father with hx of TB Social History (+)Tobacco use, smokes 1ppd since age 23 Social alcohol use Pt is a She is a retired teacher/counsellor Physical Exam Vital Signs Vital Signs Date Time Temp Pulse Resp B/P (MAP) Pulse Ox O2 Delivery O2 Flow Rate FiO2 05/22/17 15:51 98.1 84 24 163/87 (112) 97 Room Air 05/22/17 14:52 Room Air Physical Exam GENERAL: This is a well-nourished, well-developed patient, in no apparent distress. SKIN: No rashes, ecchymoses or lesions. Cool and dry. HEENT: Atraumatic. Normocephalic. No temporal or scalp tenderness. No scleral icterus. Airway patent. NECK: Trachea midline, supple, nontender. CARDIO: Regular. RESP: CTA bilaterally. No wheezes, rales, or rhonchi. ABD: +BS, soft, non-tender, nondistended. EXT: Large left knee effusion. No calf tenderness. Negative Homans sign bilaterally. NEURO: Awake and alert. Motor and sensory grossly within normal limits. Five out of 5 muscle strength in all muscle groups. Normal speech. Laboratory Laboratory Tests Test 05/22/17 13:25 05/22/17 15:12 White Blood Count 6.4 Red Blood Count 3.57 Hemoglobin 11.6 Hematocrit 32.2 Mean Corpuscular Volume 90.1 Mean Corpuscular Hemoglobin 32.6 Mean Corpuscular Hemoglobin Concent 36.2 Red Cell Distribution Width 17.8 Platelet Count 173 Mean Platelet Volume 8.2 Neutrophils (%) (Auto) 84.9 Lymphocytes (%) (Auto) 9.7 Monocytes (%) (Auto) 4.4 Eosinophils (%) (Auto) 0.4 Basophils (%) (Auto) 0.6 Neutrophils # (Auto) 5.5 Lymphocytes # (Auto) 0.6 Monocytes # (Auto) 0.3 Eosinophils # (Auto) 0.0 Basophils # (Auto) 0.0 CBC Comment AUTO DIFF Differential Comment AUTO DIFF CONFIRMED Target Cells 1+ Keratocytes OCC Prothrombin Time 10.0 Prothromb Time International Ratio 1.0 Activated Partial Thromboplast Time 22.4 Blood Urea Nitrogen 34 Creatinine 1.77 Random Glucose 138 Total Protein 7.4 Albumin 2.9 Calcium Level 8.1 Magnesium Level 2.5 Alkaline Phosphatase 64 Aspartate Amino Transf (AST/SGOT) 22 Alanine Aminotransferase (ALT/SGPT) 19 Total Bilirubin 0.3 Sodium Level 140 Potassium Level 4.0 Chloride Level 107 Carbon Dioxide Level 28.4 Anion Gap 5 Estimat Glomerular Filtration Rate 33 Result Diagram: 05/22/17 1512 05/22/17 1512 Imaging Last Impressions Chest X-Ray 05/22/17 1456 Signed Impressions: Service Date/Time: Monday, May 22, 2017 15:38 - CONCLUSION: Mild fluid overload. No acute injury or infiltrate. Ty Ramírez MD Pelvis X-Ray 05/22/17 0000 Signed Impressions: Service Date/Time: Monday, May 22, 2017 15:41 - CONCLUSION: 1. Left femoral neck fracture Oscar Barone MD Femur X-Ray 05/22/17 0000 Signed Impressions: Service Date/Time: Monday, May 22, 2017 15:44 - CONCLUSION: 1. Transcervical fracture left femoral neck 2. Large knee effusion without fracture. It is continued clinical concern CT scan is recommended MD Lindsey Best VTE Risk Assessment Lindsey VTE Risk Assessment: Mod/High Risk (score >= 2) Venurini Risk Assessment Model Point Value = 1 Point Value = 2 Point Value = 3 Point Value = 5 Age 41-60 Minor surgery BMI > 25 kg/m2 Swollen legs Varicose veins or History of unexplained or recurrent spontaneous Oral contraceptives or hormone replacement Sepsis (< 1 month) Serious lung disease, including pneumonia (< 1 month) Abnormal pulmonary function Acute myocardial infarction Congestive heart failure (< 1 month) History of inflammatory bowel disease Medical patient at bed rest Age 61-74 Arthroscopic surgery Major open surgery (> 45 min) Laparoscopic surgery (> 45 min) Malignancy Confined to bed (> 72 hours) Immobilizing plaster cast Central venous access Age >= 75 History of VTE Family history of VTE Factor V Leiden Prothrombin [id number] Lupus anticoagulant Anticardiolipin antibodies Elevated serum homocysteine Heparin-induced thrombocytopenia Other congenital or acquired thrombophilia Stroke (< 1 month) Elective arthroplasty Hip, pelvis, or leg fracture Acute spinal cord injury (< 1 month) Prophylaxis Regimen Total Risk Factor Score Risk Level Prophylaxis Regimen 0-1 Low Early ambulation 2 Moderate Order ONE of the following: *Sequential Compression Device (SCD) *Heparin 5000 units SQ BID 3-4 Higher Order ONE of the following medications: *Heparin 5000 units SQ TID *Enoxaparin/Lovenox 40 mg SQ daily (WT < 150 kg, CrCl > 30 mL/min) *Enoxaparin/Lovenox 30 mg SQ daily (WT < 150 kg, CrCl > 10-29 mL/min) *Enoxaparin/Lovenox 30 mg SQ BID (WT < 150 kg, CrCl > 30 mL/min) AND/OR *Sequential Compression Device (SCD) 5 or more Highest Order ONE of the following medications: *Heparin 5000 units SQ TID (Preferred with Epidurals) *Enoxaparin/Lovenox 40 mg SQ daily (WT < 150 kg, CrCl > 30 mL/min) *Enoxaparin/Lovenox 30 mg SQ daily (WT < 150 kg, CrCl > 10-29 mL/min) *Enoxaparin/Lovenox 30 mg SQ BID (WT < 150 kg, CrCl > 30 mL/min) AND *Sequential Compression Device (SCD) Assessment and Plan Problem List: (1) Hip fracture, left ICD Codes: S72.002A - Fracture of unspecified part of neck of left femur, initial encounter for closed fracture Status: Acute Plan: Left hip fracture - Pt is an 81 y/o AAF with DM, HTN, Hyperlipidemia, hypothyroidism, CKD stage 3, and polymyositis. - [place] [facility] [place] with complaints of left hip pain and inability to ambulate which began after she fell trying to go after her grandchild and fell on her left hip. - Imaging studies done in the ED revealed a left transcervical femoral neck fracture. - Pt is being admitted to Orthopedic surgery evaluation. - Pt to be placed in [place] traction per ED orders - Give IVF - Pain control PRN - NPO after MN except meds - Supportive care - SCDs Left knee effusion - Reportedly chronic, outpt bilateral LE US were negative for DVTs on . Abnormal UA - Await urine culture - Pt has not been having any UTI symptoms reportedly HTN - Home meds resumed - monitor Diabetes mellitus - NovoLog SSI - Accu checks Polymyositis - home meds continued GERD - PPI and Zantac continued (2) Effusion, left knee ICD Codes: M25.462 - Effusion, left knee (3) DM (diabetes mellitus) ICD Codes: E11.9 - Type 2 diabetes mellitus without complications Status: Chronic (4) Hypertension ICD Codes: I10 - Essential (primary) hypertension Status: Chronic (5) Hyperlipidemia ICD Codes: E78.5 - Hyperlipidemia, unspecified Status: Chronic (6) Polymyositis ICD Codes: M33.20 - Polymyositis, organ involvement unspecified Status: Chronic Physician Certification 2 Midnight Certification Type: Admission for Inpatient Services Order for Inpatient Services The services are ordered in accordance with Medicare regulations or non- Medicare payer requirements, as applicable. In the case of services not specified as inpatient-only, they are appropriately provided as inpatient services in accordance with the 2-midnight benchmark. Estimated LOS (days): 3 3 days is the estimated time the patient will need to remain in the hospital, assuming treatment plan goals are met and no additional complications. Post-Hospital Plan: Not yet determined Problem Qualifiers (1) Hip fracture, left: Qualified Codes: S72.002A - Fracture of unspecified part of neck of left femur , initial encounter for closed fracture Anay Tomlin May 22, 2017 16:59
[2017-05-22] MEDS ORDERED: ONDANSETRON HCL 4 MG/2 ML VIAL IV PUSH PRN (17:15)
[2017-05-22] MEDS ORDERED: ACETAMINOPHEN/HYDROcodone 325 MG/5 MG TAB PO PRN (17:15)
[2017-05-22 17:52] VITALS: BP 182/94
[2017-05-22] MEDS: GABAPENTIN 400 MG CAP PO SCH (18:23)
[2017-05-22] MEDS: ACETAMINOPHEN/HYDROcodone 325 MG/5 MG TAB PO PRN ×2 (18:24→22:36)
[2017-05-22] MEDS: INSULIN ASPART SUPPLEMENTAL SCALE SQ SCH ×2 (18:27→21:00)
[2017-05-22 18:40] VITALS: BP 191/102; PULSE 78; RESP 17; TEMP 96.8; O2SAT 97
[2017-05-22] MEDS ORDERED: cloNIDine HCL 0.1 MG TAB PO PRN (20:45)
[2017-05-22] MEDS: PRIMIDONE 50 MG TAB PO SCH (21:00)
[2017-05-22] MEDS ORDERED: CARVEDILOL 12.5 MG TAB PO SCH (21:00)
[2017-05-22 21:08] VITALS: BP 183/88; PULSE 76; RESP 16; TEMP 97.2; O2SAT 95
[2017-05-22] MEDS: ALLOPURINOL 100 MG TAB PO SCH (21:18)
[2017-05-22] MEDS: METHOCARBAMOL 500 MG TAB PO SCH (21:18)
[2017-05-22] MEDS: DEXT 5%-NACL 0.9% 1000 ML INJ 1,000 ML IV SCH (21:18)
[2017-05-22] MEDS ORDERED: LACTATED RINGER'S 1000 ML IV PRN (22:00)
[2017-05-22] MEDS ORDERED: CHLORHEXIDINE GLUCONATE 2 % 1 PACK (2 CLOTHS) TOPICAL PRN (22:00)
[2017-05-22] MEDS ORDERED: SODIUM CHLORID 0.9% 500 ML IV PRN (22:00)
[2017-05-22] MEDS ORDERED: POVIDONE IODINE 5% (ANTISEPSIS KIT) 4 APPLICATIONS EACH NARE PRN (22:00)
[2017-05-22] MEDS ORDERED: SODIUM CHLOR 0.9% 1000 ML INJ 1,000 ML IV SCH (23:00)
[2017-05-23] VITALS (7 sets, daily range): BP systolic 140–208; BP diastolic 79–107; PULSE 67–85; RESP 14–18; TEMP 95.2–98.8; O2SAT 92–97
[2017-05-23] MEDS: cloNIDine HCL 0.1 MG TAB PO PRN ×2 (00:44→08:47)
[2017-05-23] MEDS ORDERED: MORPHINE SULFATE 4 MG/ML INJ IV PUSH PRN (00:45)
[2017-05-23] MEDS ORDERED: ALPRAZolam 0.25 MG TAB PO ONE (00:45)
[2017-05-23] MEDS: VALSARTAN 80 MG TAB PO SCH (05:22)
[2017-05-23] MEDS: ACETAMINOPHEN/HYDROcodone 325 MG/5 MG TAB PO PRN (05:22)
[2017-05-23] MEDS: LEVOTHYROXINE SODIUM 25 MCG TAB PO SCH (05:22)
[2017-05-23] MEDS: CARVEDILOL 12.5 MG TAB PO SCH ×2 (05:22→19:58)
[2017-05-23] MEDS: VERAPAMIL HCL 240 MG SUSTAINED RELEASE TAB PO SCH (05:22)
[2017-05-23 06:07] LABS: BICARBONATE 25.8 MEQ/L (21.0-32.0); CALCIUM 7.9 MG/DL (8.5-10.1); CREATININE 1.33 MG/DL (0.50-1.00)
--- NOTE | 2017-05-23 07:50 | PD.CONS ---
[facility] Service Orthopedic Surgeons Consult Requested By Anay Tomlin Reason for Consult Fracture of the left hip Primary Care Physician Francy Ortiz M.D. Admission Diagnosis hip fracture Diagnoses: (1) Hip fracture, left (2) Effusion, left knee (3) DM (diabetes mellitus) (4) Hypertension (5) Hyperlipidemia (6) Polymyositis Chief Complaint: Left hip pain and inability to ambulate History of Present Illness This patient is an 81-year-old female. She normally endplates with a cane. She was chasing after her grandchild when she slipped fell and landed on her left hip. She was unable to ambulate. She is brought by [facility] to [facility]. X-ray showed evidence of a displaced left basicervical femoral neck fracture. She was admitted to the service of Dr. Tomlin. I have been asked see the patient in consultation regarding the same. The patient has a known history of effusion of the left knee. Family indicates that she is being scheduled for left total knee replacement surgery in the future Past Family Social History Allergies: Coded Allergies: No Known Allergies (Unverified Allergy, Unknown, 05/22/17) Active Ordered Medications Current Medications Medications (Trade) Dose Ordered Sig/Debbie Route Start Time Stop Time Status Last Admin (NovoLOG SUPPLEMENTAL SCALE) 1 ACHS SLIDING SCALE SQ 05/22/17 18:00 ([place] 5-325 Mg) 1 tab Q4H PRN PO 05/22/17 17:15 ([place] 5-325 Mg) 2 tab Q4H PRN PO 05/22/17 17:15 05/23/17 05:22 (Zofran Inj) 4 mg Q6H PRN IV PUSH 05/22/17 17:15 (Zyloprim) 100 mg BID PO 05/22/17 21:00 05/22/17 21:18 (Vitamin D3) 800 units DAILY PO 05/23/17 09:00 (Ferrous Sulfate) 325 mg DAILY PO 05/23/17 09:00 (Neurontin) 800 mg TID PO 05/22/17 18:00 05/22/17 18:23 (Synthroid) 25 mcg DAILY@0600 PO 05/23/17 06:00 05/23/17 05:22 (Robaxin) 500 mg HS PO 05/22/17 21:00 05/22/17 21:18 (Protonix) 40 mg DAILY PO 05/23/17 09:00 (KCl) 10 meq DAILY PO 05/23/17 09:00 (Deltasone) 10 mg DAILY PO 05/23/17 09:00 (Mysoline) 50 mg HS PO 05/22/17 21:00 05/22/17 21:00 (Diovan) 160 mg DAILY PO 05/23/17 05:15 05/23/17 05:22 (Isoptin Sr) 240 mg DAILY PO 05/23/17 05:15 05/23/17 05:22 (Oscal) 1,000 mg DAILY PO 05/23/17 09:00 Dextrose/Sodium Chloride 1,000 ml @ 70 mls/hr [id number] IV 05/22/17 20:00 05/22/17 21:18 (Catapres) 0.1 mg Q4H PRN PO 05/22/17 22:00 05/23/17 00:44 Lactated Ringer's 1,000 ml @ 30 mls/hr Q24H PRN IV 05/22/17 22:00 05/25/17 21:59 Sodium Chloride 500 ml @ 30 mls/hr [id number] PRN IV 05/22/17 22:00 05/25/17 21:59 (Betadine 5% Antisepsis Kit) 1 applic [employer] PRN EACH NARE 05/22/17 22:00 05/25/17 21:59 (Chlorhexidine 2% Cloth) 3 pack [employer] PRN TOPICAL 05/22/17 22:00 05/25/17 21:59 (Morphine Inj) 3 mg Q3H PRN IV PUSH 05/23/17 00:45 05/23/17 00:43 (Coreg) 12.5 mg BID PO 05/23/17 05:15 05/23/17 05:22 Reported Meds & Active Scripts Active Bumetanide 1 Mg Tab 1 Mg PO TID Glucotrol (Glipizide) 5 Mg Tab 5 Mg PO DAILYAC Carvedilol 6.25 Mg Tab 12.5 Mg PO BID Reported Ferrous Sulfate 325 Mg (65 Mg Iron) Tablet 325 Mg PO DAILY Potassium Chloride ER (Potassium Chloride) 10 Meq Cap 10 Meq PO DAILY Zantac (Ranitidine HCl) 150 Mg Tab 75 Mg PO DAILY Vitamin D3 (Cholecalciferol) 1,000 Unit Cap 2,000 Units PO DAILY Levothyroxine (Levothyroxine Sodium) 25 Mcg Tab 25 Mcg PO DAILY Gabapentin 800 Mg Tab 800 Mg PO TID Prednisone 10 Mg Tab 10 Mg PO DAILY Protonix (Pantoprazole Sodium) 40 Mg Tab 40 Mg PO DAILY Calcium (Calcium Carbonate) 600 Mg Tab 1,200 Mg PO DAILY Percocet (Oxycodone-Acetaminophen) 5-325 mg Tab 2 Tab PO Q6HR Aspirin Adult Low Strength (Aspirin) 81 Mg Tabdr 81 Mg PO DAILY D 400 (Cholecalciferol) 400 Unit Tab 800 Units PO DAILY Verapamil ER 24 HR (Verapamil HCl) 240 Mg Tab 240 Mg PO DAILY Atorvastatin (Atorvastatin Calcium) 20 Mg Tab 20 Mg PO DAILY Primidone 50 Mg Tab 50 Mg PO HS Methocarbamol 500 Mg Tab 500 Mg PO HS Allopurinol 100 Mg Tab 100 Mg PO BID Valsartan 80 Mg Tab 160 Mg PO DAILY Physical Exam Vital Signs Vital Signs Date Time Temp Pulse Resp B/P (MAP) Pulse Ox O2 Delivery O2 Flow Rate FiO2 05/23/17 06:32 79 175/90 (118) 05/23/17 03:47 96.7 82 17 188/79 (115) 95 05/23/17 00:45 96.7 85 17 208/107 (140) 95 05/22/17 21:08 97.2 76 16 183/88 (119) 95 05/22/17 18:40 96.8 78 17 191/102 (131) 97 05/22/17 17:52 81 17 182/94 (123) 97 05/22/17 15:51 98.1 84 24 163/87 (112) 97 Room Air 05/22/17 14:52 Room Air Physical Exam The patient is lying in bed. She is fairly comfortable. She is seen with the nurse at the bedside. HEENT: Normocephalic atraumatic pupils equal round reactive. NECK: Supple. No abnormal masses. Full range of motion. CHEST: Clear to auscultation with no rales or rhonchi's or wheezes. HEART: Regular rate and rhythm. No murmurs. ABDOMEN: Soft, nontender, no masses. Normal active bowel sounds. GENITOURINARY: Deferred MUSCULOSKELETAL: The left leg is in Golden's traction. Mild tenderness in the region of the left hip. Dorsalis pedis 1+. Sensation is normal. The foot is warm Laboratory Laboratory Tests Test 05/22/17 13:25 05/22/17 15:12 05/23/17 05:06 Urine Color YELLOW Urine Turbidity CLEAR Urine pH 5.5 Urine Specific [place] 1.013 Urine Protein 30 Urine Glucose (UA) NEG Urine Ketones NEG Urine Occult Blood TRACE Urine Nitrite NEG Urine Bilirubin NEG Urine Urobilinogen LESS THAN 2.0 Urine Leukocyte Esterase NEG Urine RBC 1 Urine WBC 1 Urine Squamous Epithelial Cells 4 Urine Bacteria MANY Urine Mucus FEW Microscopic Urinalysis Comment CULTURE INDICATED White Blood Count 6.4 Red Blood Count 3.57 Hemoglobin 11.6 Hematocrit 32.2 Mean Corpuscular Volume 90.1 Mean Corpuscular Hemoglobin 32.6 Mean Corpuscular Hemoglobin Concent 36.2 Red Cell Distribution Width 17.8 Platelet Count 173 Mean Platelet Volume 8.2 Neutrophils (%) (Auto) 84.9 Lymphocytes (%) (Auto) 9.7 Monocytes (%) (Auto) 4.4 Eosinophils (%) (Auto) 0.4 Basophils (%) (Auto) 0.6 Neutrophils # (Auto) 5.5 Lymphocytes # (Auto) 0.6 Monocytes # (Auto) 0.3 Eosinophils # (Auto) 0.0 Basophils # (Auto) 0.0 CBC Comment AUTO DIFF Differential Comment AUTO DIFF CONFIRMED Target Cells 1+ Keratocytes OCC Prothrombin Time 10.0 Prothromb Time International Ratio 1.0 Activated Partial Thromboplast Time 22.4 Blood Urea Nitrogen 34 26 Creatinine 1.77 1.33 Random Glucose 138 89 Total Protein 7.4 Albumin 2.9 Calcium Level 8.1 7.9 Magnesium Level 2.5 Alkaline Phosphatase 64 Aspartate Amino Transf (AST/SGOT) 22 Alanine Aminotransferase (ALT/SGPT) 19 Total Bilirubin 0.3 Sodium Level 140 142 Potassium Level 4.0 3.5 Chloride Level 107 110 Carbon Dioxide Level 28.4 25.8 Anion Gap 5 6 Estimat Glomerular Filtration Rate 33 46 Date/Time Source Procedure Growth Status 05/22/17 13:25 Urine Random Urine Urine Culture Pending Received Result Diagram: 05/22/17 1512 05/23/17 0506 Imaging X-rays reviewed, CT reviewed and review of the radiologist's interpretation shows evidence of a displaced left femoral neck fracture. Assessment & Plan Assessment and Plan Left femoral neck fracture. PLAN: Consent: There are risks with surgery including infection, bleeding, loss of motion, dislocation, fracture of the shaft of the femur, need for further surgery, neurologic or vascular injury. She understands these issues and wishes to proceed forward with surgery as outlined above. Surgery today if arrangements can be made and the patient is stabilized Gavin Menjivar MD May 23, 2017 07:50
[2017-05-23] MEDS: INSULIN ASPART SUPPLEMENTAL SCALE SQ SCH ×4 (08:00→21:00)
--- NOTE | 2017-05-23 08:13 | EKG ---
Date Performed: 05/22/2017 Time Performed: 15:10:58 PTAGE: 81 years EKG: Sinus rhythm RIGHT BUNDLE BRANCH BLOCK LEFT ANTERIOR FASCICULAR BLOCK ABNORMAL ECG PREVIOUS TRACING : 08/29/2016 09.01 Since the prior tracing, there has been no significant randle DOCTOR: Emerald Da Silva Interpretating Date/Time 05/23/2017 08:10:52
[2017-05-23] MEDS: predniSONE 10 MG TAB PO SCH (08:38)
[2017-05-23] MEDS: ALLOPURINOL 100 MG TAB PO SCH ×2 (08:38→19:59)
[2017-05-23] MEDS: PANTOPRAZOLE SOD 40 MG DELAYED RELEASE TAB PO SCH (08:38)
[2017-05-23] MEDS: CHOLECALCIFEROL (VIT D3) 400 UNIT TAB PO SCH (08:38)
[2017-05-23] MEDS: CALCIUM CARBONATE 1.25 GM (CA 500 MG) TAB PO SCH (08:38)
[2017-05-23] MEDS: GABAPENTIN 400 MG CAP PO SCH ×3 (08:38→20:00)
[2017-05-23] MEDS: FERROUS SULFATE 325 MG (65 MG ELEMENTAL IRON) TAB PO SCH (08:38)
[2017-05-23] MEDS: POTASSIUM CHLORIDE 10 MEQ CAP PO SCH (08:38)
[2017-05-23] MEDS: DEXT 5%-NACL 0.9% 1000 ML INJ 1,000 ML IV SCH (08:49)
[2017-05-23] MEDS ORDERED: NON-FORMULARY DRUG (Ranitidine (Zantac) 75 MG) PO SCH (09:00)
--- NOTE | 2017-05-23 09:06 | HHI.PR ---
Subjective Remarks leg/foot pain. Objective Vitals oriented heart reg lung cta abd s/nt ext left leg traction jang Vital Signs Date Time Temp Pulse Resp B/P (MAP) Pulse Ox O2 Delivery O2 Flow Rate FiO2 05/23/17 08:00 98.8 84 18 179/99 (125) 92 05/23/17 06:32 79 175/90 (118) 05/23/17 03:47 96.7 82 17 188/79 (115) 95 05/23/17 00:45 96.7 85 17 208/107 (140) 95 05/22/17 21:08 97.2 76 16 183/88 (119) 95 05/22/17 18:40 96.8 78 17 191/102 (131) 97 05/22/17 17:52 81 17 182/94 (123) 97 05/22/17 15:51 98.1 84 24 163/87 (112) 97 Room Air 05/22/17 14:52 Room Air Result Diagram: 05/22/17 1512 05/23/17 0506 Imaging Last Impressions Chest X-Ray 05/22/17 1456 Signed Impressions: Service Date/Time: Monday, May 22, 2017 15:38 - CONCLUSION: Mild fluid overload. No acute injury or infiltrate. Ty Ramírez MD Pelvis X-Ray 05/22/17 0000 Signed Impressions: Service Date/Time: Monday, May 22, 2017 15:41 - CONCLUSION: 1. Left femoral neck fracture Oscar Barone MD Femur X-Ray 05/22/17 0000 Signed Impressions: Service Date/Time: Monday, May 22, 2017 15:44 - CONCLUSION: 1. Transcervical fracture left femoral neck 2. Large knee effusion without fracture. It is continued clinical concern CT scan is recommended Oscar Barone MD A/P Problem List: (1) Hip fracture, left ICD Codes: S72.002A - Fracture of unspecified part of neck of left femur, initial encounter for closed fracture Status: Acute Plan: Left hip fracture - Pt is an 81 y/o AAF with DM, HTN, Hyperlipidemia, hypothyroidism, CKD stage 3, and polymyositis. - Pt presented to the ED at [facility] on 05/22/17 with complaints of left hip pain and inability to ambulate which began after she fell trying to go after her grandchild and fell on her left hip. - Imaging studies done in the ED revealed a left transcervical femoral neck fracture. - Orthopedic surgery evaluation today - Pt to be placed in [place] traction per ED orders - d5ns while npo. - Pain control PRN - NPO except meds - Supportive care - SCDs Left knee effusion - Reportedly chronic, outpt bilateral LE US were negative for DVTs on . Abnormal UA - Await urine culture - Pt has not been having any UTI symptoms reportedly HTN - Home meds resumed - monitor Diabetes mellitus - NovoLog SSI - Accu checks Polymyositis - home meds continued GERD - PPI and Zantac continued (2) Effusion, left knee ICD Codes: M25.462 - Effusion, left knee Status: Chronic (3) DM (diabetes mellitus) ICD Codes: E11.9 - Type 2 diabetes mellitus without complications Status: Chronic (4) Hypertension ICD Codes: I10 - Essential (primary) hypertension Status: Chronic (5) Hyperlipidemia ICD Codes: E78.5 - Hyperlipidemia, unspecified Status: Chronic (6) Polymyositis ICD Codes: M33.20 - Polymyositis, organ involvement unspecified Status: Chronic Problem Qualifiers (1) Hip fracture, left: Qualified Codes: S72.002A - Fracture of unspecified part of neck of left femur , initial encounter for closed fracture Alex Morrow MD May 23, 2017 09:06
[2017-05-23] MEDS ORDERED: cloNIDine HCL 0.2 MG TAB PO PRN (09:15)
[2017-05-23] MEDS ORDERED: GENTAMICIN SULFATE 80 MG/2 ML VIAL ONE (09:28)
[2017-05-23] MEDS ORDERED: VANCOMYCIN 1 GM/200 ML INJ 200 ML IV ONE (10:22)
[2017-05-23] MEDS ORDERED: ceFAZolin 2 GM PREMIX 50 ML ONE (10:22)
[2017-05-23] MEDS ORDERED: [UNRECOGNIZED DRUG - OTHER] IRRIGATION SCH (10:45)
[2017-05-23] MEDS ORDERED: fentaNYL CITRATE 250 MCG/5 ML AMP ONE (10:45)
[2017-05-23] MEDS ORDERED: TRANEXAMIC ACID INJ 685 MG in SODIUM CHLORIDE 0.9% INJ 100 ML IV SCH (10:45)
[2017-05-23] MEDS ORDERED: BUPIVACAINE LIPOSO 1.3% IRRIGATION SCH (10:45)
[2017-05-23] MEDS ORDERED: ceFAZolin 2 GM PREMIX 50 ML IV SCH (11:15)
[2017-05-23] MEDS ORDERED: VANCOMYCIN 1 GM/200 ML PREMIX ON-CALL IV SCH (11:15)
[2017-05-23] MEDS ORDERED: DEXAMETHASONE SOD PHOS 4 MG/ML VIAL IV ONE (12:00)
[2017-05-23] MEDS ORDERED: ONDANSETRON HCL 4 MG/2 ML VIAL IV ONE (12:00)
[2017-05-23] MEDS ORDERED: LIDOCAINE HCL 1% PF 5 ML SYRINGE OTHER ONE (12:00)
[2017-05-23] MEDS ORDERED: GLYCOPYRROLATE 1 MG/5 ML SYRINGE IV PUSH ONE (12:00)
[2017-05-23] MEDS ORDERED: NEOSTIGMINE 5 MG/5 ML SYRINGE IV PUSH ONE (12:00)
[2017-05-23] MEDS ORDERED: ePHEDrine/NS 25 MG/5 ML SYRINGE IV ONE (12:00)
[2017-05-23] MEDS ORDERED: ROCURONIUM INJ 50 MG/5 ML SYRINGE IV PUSH ONE (12:00)
[2017-05-23] MEDS ORDERED: PROPOFOL 200 MG/20 ML AMP IV ONE (12:00)
--- NOTE | 2017-05-23 12:08 | PD.OP ---
cc: Gavin Menjivar MD Operative Report Date of Surgery: May 23, 2017 Preoperative Diagnosis: Left femoral neck fracture, subcapital, displaced Postoperative Diagnosis: Same Procedure: Left hip bipolar replacement arthroplasty Anesthesia: Gen. Surgeon: Gavin Menjivar Refinery Process Engineer(s): ROBBIN Conner Operation and Findings: EBL: 200 cc INDICATION: Patient is an 81-year-old female with left hip pain after fall yesterday. X-ray shows evidence of a displaced subcapital femoral neck fracture. She presents for the above procedure NOTE: Tita Conner PA-C was present for the entire surgical procedure as my preschool assistant teacher. In my medical opinion her skill and care was necessary for the proper management of this patient. COMPONENTS: COMPANY: [employer] CUP: Bipolar, 48 mm STEM: Size 12, Corail, standard offset, hydroxyapatite-coated HEAD: 28 mm, + 1.5 neck length, 12/14 taper PROCEDURE: This patient was brought to the operating room and anesthetized in the supine position and positioned on the routine table in the clean air suite. The patient was then rolled to a left side up lateral position and held with a Biomet hip positioner. The left hip and leg was scrubbed with alcohol followed by Hibiclens followed by chloro prep and draped sterilely. A timeout was done and antibiotics were given within a routine time window. A 4 inch incision was made starting along the posterior one third of the greater trochanter. The iliotibial band was opened in line with the incision. The Charnley retractors were positioned. The posterior capsule and external rotators were taken down together in a sleeve. The fracture was exposed. The head was removed. The neck was cut at the right location. The acetabulum was inspected. All loose bone fragments were removed. Retractors were positioned allowing good visualization of the proximal femur. A box osteotome was utilized followed by progressive broaching for the stem. This was progressively broached until the final size stem.. A trial reduction showed adequate fit with the final bipolar head and neck length. Stability was excellent. Offset was satisfactory. Leg length was reestablished. At 90 of flexion it was stable to 70 of internal rotation. The hip could not be subluxed anteriorly. The canal was irrigated copiously. Hemostasis was controlled. The final stem was inserted. The final head and bipolar component was assembled and impacted. The hip was reduced and stability, offset and leg length was as previously noted. The posterior capsule and external rotators were repaired through bone with interrupted #2 Tycron sutures. The piriformis muscle was repaired with the same. The iliotibial band with interrupted #1 Vicryl sutures. Subcutaneous tissue was approximated with 2-0 Vicryl suture and skin with running intradermal 3-0 Vicryl followed by Steri-Strips and benzoin. A sterile dressing was applied.. The sponge count needle counts and instrument counts were all correct. The patient was awakened and taken to the recovery room in satisfactory condition FINDINGS: There was evidence of a comminuted and displaced left femoral neck fracture. Overall bone quality was satisfactory. No complication was appreciated. Gavin Menjivar MD May 23, 2017 12:08
[2017-05-23] MEDS ORDERED: HYDR-3583 PO (12:14)
[2017-05-23] MEDS ORDERED: ENOX30P SQ (12:14)
[2017-05-23] MEDS ORDERED: ONDANSETRON HCL 4 MG/2 ML VIAL IVP PRN (12:15)
[2017-05-23] MEDS ORDERED: ACETAMINOPHEN/HYDROcodone 325 MG/10 MG TAB PO PRN (12:15)
[2017-05-23] MEDS ORDERED: TEMAZEPAM 15 MG CAP PO PRN (12:15)
[2017-05-23] MEDS ORDERED: ASPIRIN EC 81 MG TABEC PO ONE (12:15)
[2017-05-23] MEDS ORDERED: ALUMINUM/MAGNESIUM/SIMETH 30 ML CUP PO PRN (12:15)
[2017-05-23] MEDS ORDERED: DO NOT ADM ANY ANTICOAGULANT DRUGS PRN (12:30)
[2017-05-23] MEDS ORDERED: Post-op Orders (for Pharmacy) XX ONE (12:34)
[2017-05-23] MEDS ORDERED: *morphine SULFATE 4 MG/ML PERIprocedure ONLY ONE ×3 (12:39→12:54)
[2017-05-23] MEDS: LACTATED RINGER'S 1000 ML INJ 1,000 ML IV SCH ×2 (13:00→21:06)
[2017-05-23] MEDS ORDERED: HYDROmorphone HCL PF 2 MG/ML VIAL ONE ×3 (13:25→14:20)
[2017-05-23] MEDS ORDERED: ASPIRIN EC 81 MG TABEC ONE (14:22)
--- NOTE | 2017-05-23 14:27 | RADRPT ---
EXAM DATE/TIME: 05/23/2017 13:19 [place] COMPARISON: No previous studies available for comparison. INDICATIONS : Post op left hip surgery. MEDICAL HISTORY : Chronic obstructive pulmonary disease. Congestive heart failure. Hypercholesterolemia. GERD. Tracy l disease, stage III. Arthritis. Diabetes. Hypothyroidism. SURGICAL HISTORY : Tubal ligation. Total left hip. ENCOUNTER: Subsequent ACUITY: 1 day PAIN SCORE: Non-responsive. LOCATION: Left hip. FINDINGS: Two-view examination status post noncemented unipolar total hip arthroplasty. The hardware is in nor mal alignment and is intact. Deep soft tissue gas is seen about the lateral left thigh and hip. Vas cular calcifications in the medial. No radiopaque foreign bodies. CONCLUSION: Expected postsurgical changes status post total hip arthroplasty. Kanu Kimble MD on May 23, 2017 at 14:24 Board Certified Radiologist. This report was verified electronically.
[2017-05-23] MEDS: ACETAMINOPHEN/HYDROcodone 325 MG/10 MG TAB PO PRN ×2 (15:20→23:07)
[2017-05-23] MEDS: GABAPENTIN 300 MG CAP PO SCH (19:58)
[2017-05-23] MEDS: PRIMIDONE 50 MG TAB PO SCH (19:59)
[2017-05-23] MEDS: MAGNESIUM HYDROXIDE SUSP 30 ML CUP PO SCH (20:00)
[2017-05-23] MEDS: METHOCARBAMOL 500 MG TAB PO SCH (20:11)
[2017-05-23] MEDS ORDERED: ASPIRIN EC 81 MG TABEC PO SCH (21:00)
[2017-05-23] MEDS ORDERED: SENNOSIDES 8.6 MG TAB PO SCH (21:00)
[2017-05-24 00:15] VITALS: BP 151/85; PULSE 65; RESP 18; TEMP 96.9; O2SAT 100
[2017-05-24 04:20] VITALS: BP 162/83; PULSE 72; RESP 18; TEMP 97.4; O2SAT 99
[2017-05-24] MEDS: LEVOTHYROXINE SODIUM 25 MCG TAB PO SCH (05:30)
[2017-05-24] MEDS: ACETAMINOPHEN/HYDROcodone 325 MG/10 MG TAB PO PRN ×3 (05:33→17:36)
[2017-05-24 05:39] LABS: HEMATOCRIT 29.4 % (35.0-46.0); HEMOGLOBIN 9.9 GM/DL (11.6-15.3)
[2017-05-24 05:58] LABS: BICARBONATE 28.4 MEQ/L (21.0-32.0); CALCIUM 7.8 MG/DL (8.5-10.1); CREATININE 1.25 MG/DL (0.50-1.00)
[2017-05-24 08:00] VITALS: BP 161/88; PULSE 80; RESP 17; TEMP 97.8; O2SAT 95
[2017-05-24] MEDS: INSULIN ASPART SUPPLEMENTAL SCALE SQ SCH ×4 (08:00→21:00)
--- NOTE | 2017-05-24 08:01 | PD.ORT.PN ---
Subjective Subjective Remarks Pain control much better than preop. She states she slept better last night. No new leg pain. No CP or SOB. Questions about surgery. Objective Vitals Vital Signs Date Time Temp Pulse Resp B/P (MAP) Pulse Ox O2 Delivery O2 Flow Rate FiO2 05/24/17 07:26 Room Air 05/24/17 05:36 99 Room Air 05/24/17 04:20 97.4 72 18 162/83 (109) 99 05/24/17 00:15 96.9 65 18 151/85 (107) 100 05/23/17 19:27 97 Nasal Cannula 3.00 05/23/17 19:21 96.8 67 14 162/90 (114) 97 05/23/17 19:14 95 Nasal Cannula 3.00 05/23/17 15:00 95.2 67 18 140/83 (102) 95 05/23/17 14:30 98.0 61 15 161/80 (107) 99 Nasal Cannula 2 05/23/17 14:15 60 15 161/78 (105) 99 Nasal Cannula 2 05/23/17 14:00 61 16 180/88 (118) 99 Nasal Cannula 2 05/23/17 13:45 63 15 174/89 (117) 99 Nasal Cannula 2 05/23/17 13:30 58 16 164/82 (109) 100 Nasal Cannula 2 05/23/17 13:15 56 14 140/77 (98) 98 Nasal Cannula 2 05/23/17 13:00 58 18 137/73 (94) 100 Nasal Cannula 3 05/23/17 12:45 60 17 143/76 (98) 95 Nasal Cannula 3 05/23/17 12:30 98.2 64 18 155/83 (107) 97 Nasal Cannula 3 05/23/17 08:00 98.8 84 18 179/99 (125) 92 I/O 05/23/17 05/23/17 05/23/17 05/24/17 05/24/17 05/24/17 07:00 15:00 23:00 07:00 15:00 23:00 Intake Total 600 ml 1600 ml 551 ml 940 ml Output Total 500 ml 4000 ml 525 ml 325 ml Balance 100 ml -2400 ml 26 ml 615 ml Intake Oral 0 ml 240 ml 240 ml IV Total 600 ml 1600 ml 311 ml 700 ml Output Urine Total 500 ml 800 ml 525 ml 325 ml Estimated Blood Loss 200 ml Other 3000 ml # Bowel Movements 0 0 0 Result Diagram: 05/24/17 0500 05/24/17 0500 Imaging Last 24 hours Impressions Hip X-Ray 05/23/17 1202 Signed Impressions: Service Date/Time: May 13:19 - CONCLUSION: Expected postsurgical changes status post total hip arthroplasty. Kanu Kimble MD Objective Remarks Sitting up in bed NAD VSS LLE Posterior hip dressing c/d/i,no drainage today, mild swelling, some tenderness +motor at distal, +sens, +nvi Neg homans Assessment & Plan Ortho Post Op Day #: 1 Problem List: Assessment and Plan pod#1 s/p Left Hip Bipolar Left femoral neck fracture. Ortho stable. PO pain control as needed. D/C jang cath. PT - WBAT LLE. Posterior NICKY precautions. Hold dressing changes unless saturated. Lovenox for dvt propylaxis Mild postop anemia. Hg 9.9 today. Med following. D/C planning, likely will need short term rehab F/U in 2 weeks outpatient. Isi Morel May 24, 2017 08:01
[2017-05-24] MEDS: CARVEDILOL 12.5 MG TAB PO SCH ×2 (08:23→21:12)
[2017-05-24] MEDS: GABAPENTIN 300 MG CAP PO SCH ×2 (08:24→21:12)
[2017-05-24] MEDS: GABAPENTIN 400 MG CAP PO SCH ×2 (08:24→21:12)
[2017-05-24] MEDS: CALCIUM CARBONATE 1.25 GM (CA 500 MG) TAB PO SCH (08:24)
[2017-05-24] MEDS: VERAPAMIL HCL 240 MG SUSTAINED RELEASE TAB PO SCH (08:24)
[2017-05-24] MEDS: POTASSIUM CHLORIDE 10 MEQ CAP PO SCH (08:24)
[2017-05-24] MEDS: VALSARTAN 80 MG TAB PO SCH (08:25)
[2017-05-24] MEDS: PANTOPRAZOLE SOD 40 MG DELAYED RELEASE TAB PO SCH (08:25)
[2017-05-24] MEDS: CHOLECALCIFEROL (VIT D3) 400 UNIT TAB PO SCH (08:25)
[2017-05-24] MEDS: ALLOPURINOL 100 MG TAB PO SCH ×2 (08:25→21:12)
[2017-05-24] MEDS: predniSONE 10 MG TAB PO SCH (08:25)
[2017-05-24] MEDS: FERROUS SULFATE 325 MG (65 MG ELEMENTAL IRON) TAB PO SCH (08:25)
[2017-05-24] MEDS: MAGNESIUM HYDROXIDE SUSP 30 ML CUP PO SCH ×2 (08:26→21:11)
[2017-05-24] MEDS: ENOXAPARIN SODIUM 30 MG/0.3 ML SYRINGE SQ SCH (08:26)
[2017-05-24] MEDS: LACTATED RINGER'S 1000 ML INJ 1,000 ML IV SCH (08:30)
--- NOTE | 2017-05-24 09:22 | HHI.PR ---
Subjective Remarks Pt doing well this morning. She had Rehman cath removed Denies any cough or SOB Objective Vitals Vital Signs Date Time Temp Pulse Resp B/P (MAP) Pulse Ox O2 Delivery O2 Flow Rate FiO2 05/24/17 08:00 97.8 80 17 161/88 (112) 95 05/24/17 07:26 Room Air 05/24/17 05:36 99 Room Air 05/24/17 04:20 97.4 72 18 162/83 (109) 99 05/24/17 00:15 96.9 65 18 151/85 (107) 100 05/23/17 19:27 97 Nasal Cannula 3.00 05/23/17 19:21 96.8 67 14 162/90 (114) 97 05/23/17 19:14 95 Nasal Cannula 3.00 05/23/17 15:00 95.2 67 18 140/83 (102) 95 05/23/17 14:30 98.0 61 15 161/80 (107) 99 Nasal Cannula 2 05/23/17 14:15 60 15 161/78 (105) 99 Nasal Cannula 2 05/23/17 14:00 61 16 180/88 (118) 99 Nasal Cannula 2 05/23/17 13:45 63 15 174/89 (117) 99 Nasal Cannula 2 05/23/17 13:30 58 16 164/82 (109) 100 Nasal Cannula 2 05/23/17 13:15 56 14 140/77 (98) 98 Nasal Cannula 2 05/23/17 13:00 58 18 137/73 (94) 100 Nasal Cannula 3 05/23/17 12:45 60 17 143/76 (98) 95 Nasal Cannula 3 05/23/17 12:30 98.2 64 18 155/83 (107) 97 Nasal Cannula 3 Result Diagram: 05/24/17 0500 05/24/17 0500 Other Results Laboratory Tests Test 05/22/17 13:25 05/22/17 15:12 05/23/17 05:06 05/24/17 05:00 Urine Color YELLOW Urine Turbidity CLEAR Urine pH 5.5 Urine Specific [place] 1.013 Urine Protein 30 mg/dL Urine Glucose (UA) NEG mg/dL Urine Ketones NEG mg/dL Urine Occult Blood TRACE Urine Nitrite NEG Urine Bilirubin NEG Urine Urobilinogen LESS THAN 2.0 MG/DL Urine Leukocyte Esterase NEG Urine RBC 1 /hpf Urine WBC 1 /hpf Urine Squamous Epithelial Cells 4 /hpf Urine Bacteria MANY /hpf Urine Mucus FEW /lpf Microscopic Urinalysis Comment CULTURE INDICATED White Blood Count 6.4 TH/MM3 Red Blood Count 3.57 MIL/MM3 Hemoglobin 11.6 GM/DL 9.9 GM/DL Hematocrit 32.2 % 29.4 % Mean Corpuscular Volume 90.1 FL Mean Corpuscular Hemoglobin 32.6 PG Mean Corpuscular Hemoglobin Concent 36.2 % Red Cell Distribution Width 17.8 % Platelet Count 173 TH/MM3 Mean Platelet Volume 8.2 FL Neutrophils (%) (Auto) 84.9 % Lymphocytes (%) (Auto) 9.7 % Monocytes (%) (Auto) 4.4 % Eosinophils (%) (Auto) 0.4 % Basophils (%) (Auto) 0.6 % Neutrophils # (Auto) 5.5 TH/MM3 Lymphocytes # (Auto) 0.6 TH/MM3 Monocytes # (Auto) 0.3 TH/MM3 Eosinophils # (Auto) 0.0 TH/MM3 Basophils # (Auto) 0.0 TH/MM3 CBC Comment AUTO DIFF Differential Comment AUTO DIFF CONFIRMED Target Cells 1+ Keratocytes OCC Prothrombin Time 10.0 SEC Prothromb Time International Ratio 1.0 RATIO Activated Partial Thromboplast Time 22.4 SEC Blood Urea Nitrogen 34 MG/DL 26 MG/DL 21 MG/DL Creatinine 1.77 MG/DL 1.33 MG/DL 1.25 MG/DL Random Glucose 138 MG/DL 89 MG/DL 113 MG/DL Total Protein 7.4 GM/DL Albumin 2.9 GM/DL Calcium Level 8.1 MG/DL 7.9 MG/DL 7.8 MG/DL Magnesium Level 2.5 MG/DL Alkaline Phosphatase 64 U/L Aspartate Amino Transf (AST/SGOT) 22 U/L Alanine Aminotransferase (ALT/SGPT) 19 U/L Total Bilirubin 0.3 MG/DL Sodium Level 140 MEQ/L 142 MEQ/L 140 MEQ/L Potassium Level 4.0 MEQ/L 3.5 MEQ/L 4.1 MEQ/L Chloride Level 107 MEQ/L 110 MEQ/L 105 MEQ/L Carbon Dioxide Level 28.4 MEQ/L 25.8 MEQ/L 28.4 MEQ/L Anion Gap 5 MEQ/L 6 MEQ/L 7 MEQ/L Estimat Glomerular Filtration Rate 33 ML/MIN 46 ML/MIN 50 ML/MIN Imaging Last Impressions Chest X-Ray 05/22/17 1456 Signed Impressions: Service Date/Time: Monday, May 22, 2017 15:38 - CONCLUSION: Mild fluid overload. No acute injury or infiltrate. Ty Ramírez MD Pelvis X-Ray 05/22/17 0000 Signed Impressions: Service Date/Time: Monday, May 22, 2017 15:41 - CONCLUSION: 1. Left femoral neck fracture Oscar Barone MD Femur X-Ray 05/22/17 0000 Signed Impressions: Service Date/Time: Monday, May 22, 2017 15:44 - CONCLUSION: 1. Transcervical fracture left femoral neck 2. Large knee effusion without fracture. It is continued clinical concern CT scan is recommended Oscar Barone MD Objective Remarks General: NAD, AAox3 Chest: Crackles on the left side Cardiac: Regular Abd: +BS, soft ND/NT Ext: Bandage on lateral left hip c/d/i A/P Problem List: (1) Hip fracture, left ICD Codes: S72.002A - Fracture of unspecified part of neck of left femur, initial encounter for closed fracture Status: Acute Plan: Left hip fracture - Pt is an 81 y/o AAF with DM, HTN, Hyperlipidemia, hypothyroidism, CKD stage 3, and polymyositis. - Pt presented to the ED at [facility] on 05/22/17 with complaints of left hip pain and inability to ambulate which began after she fell trying to go after her grandchild and fell on her left hip. - Imaging studies done in the ED revealed a left transcervical femoral neck fracture. - Orthopedic surgery following. - Pt s/p Left hip bipolar replacement arthroplasty on 05/23/[address] Jacobs - Pain control PRN - Constipation precautions - IS - Supportive care - DVT prophylaxis with Lovenox - Anticipate discharge to SNF at the conclusion of this hospitalization Left knee effusion - Reportedly chronic, outpt bilateral LE US were negative for DVTs on . Abnormal UA - Await urine culture - Pt has not been having any UTI symptoms reportedly HTN - Home meds resumed - monitor Diabetes mellitus - NovoLog SSI - Accu checks Polymyositis - home meds continued GERD - PPI and Zantac continued (2) Effusion, left knee ICD Codes: M25.462 - Effusion, left knee Status: Chronic (3) DM (diabetes mellitus) ICD Codes: E11.9 - Type 2 diabetes mellitus without complications Status: Chronic (4) Hypertension ICD Codes: I10 - Essential (primary) hypertension Status: Chronic (5) Hyperlipidemia ICD Codes: E78.5 - Hyperlipidemia, unspecified Status: Chronic (6) Polymyositis ICD Codes: M33.20 - Polymyositis, organ involvement unspecified Status: Chronic Assessment and Plan Patient examined. Assessment and plan formulated with Anay Tomlin PA-C. I agree with the above. stop ivf. going for PT now. resume diuretics. plan for snf ?tomorrow. Problem Qualifiers (1) Hip fracture, left: Qualified Codes: S72.002A - Fracture of unspecified part of neck of left femur , initial encounter for closed fracture Anay Tomlin May 24, 2017 09:22 Alex Morrow MD May 24, 2017 09:51
[2017-05-24] MEDS ORDERED: LACTULOSE SYRUP 20 GM/30 ML CUP PO PRN (09:30)
[2017-05-24] MEDS ORDERED: SENNOSIDES 8.6 MG TAB PO PRN (09:30)
[2017-05-24] MEDS ORDERED: BISACODYL 10 MG SUPP RECTAL PRN (09:30)
[2017-05-24] MEDS ORDERED: MAGNESIUM HYDROXIDE SUSP 30 ML CUP PO PRN (09:30)
[2017-05-24] MEDS: BUMETANIDE 1 MG TAB PO SCH ×2 (11:39→17:36)
[2017-05-24] MEDS: DOCUSATE SODIUM 50 MG/SENNA 8.6 MG TAB PO SCH ×2 (11:41→21:12)
[2017-05-24 11:44] VITALS: BP 189/96; PULSE 80; RESP 17; TEMP 96.3; O2SAT 97
[2017-05-24 16:00] VITALS: BP 184/97; PULSE 80; RESP 17; TEMP 96.6; O2SAT 96
[2017-05-24 20:00] VITALS: BP 161/85; PULSE 75; RESP 15; TEMP 98.1; O2SAT 94
[2017-05-24] MEDS: PRIMIDONE 50 MG TAB PO SCH (21:00)
[2017-05-24] MEDS: METHOCARBAMOL 500 MG TAB PO SCH (21:12)
[2017-05-25] MEDS: LEVOTHYROXINE SODIUM 25 MCG TAB PO SCH (06:18)
[2017-05-25] MEDS: ACETAMINOPHEN/HYDROcodone 325 MG/10 MG TAB PO PRN ×3 (06:22→17:49)
--- NOTE | 2017-05-25 07:07 | PD.ORT.PN ---
Subjective Post Op Day #: 2 Subjective Remarks Pt resting in bed comfortably. Admits pain is well controlled. Admits she has gotten up to a chair and walked successfully. Most likely d/c to rehab tomorrow. Objective Vitals Vital Signs Date Time Temp Pulse Resp B/P (MAP) Pulse Ox O2 Delivery O2 Flow Rate FiO2 05/24/17 21:58 Room Air 05/24/17 20:00 98.1 75 15 161/85 (110) 94 05/24/17 16:00 96.6 80 17 184/97 (126) 96 05/24/17 11:44 96.3 80 17 189/96 (127) 97 05/24/17 08:00 97.8 80 17 161/88 (112) 95 05/24/17 07:26 Room Air I/O 05/24/17 05/24/17 05/24/17 05/25/17 05/25/17 05/25/17 07:00 15:00 23:00 07:00 15:00 23:00 Intake Total 940 ml 480 ml 600 ml 200 ml Output Total 325 ml 275 ml Balance 615 ml 205 ml 600 ml 200 ml Intake Oral 240 ml 480 ml 600 ml 200 ml IV Total 700 ml Output Urine Total 325 ml 275 ml # Voids 3 6 6 # Bowel Movements 0 0 Result Diagram: 05/24/17 0500 05/24/17 0500 Imaging Last 24 hours Impressions Hip X-Ray 05/23/17 1202 Signed Impressions: Service Date/Time: May 13:19 - CONCLUSION: Expected postsurgical changes status post total hip arthroplasty. Kanu Kimble MD Procedures Left Hip Bipolar Samra Menjivar 05/23/17 Objective Remarks Laying in bed NAD VSS LLE Posterior hip dressing c/d/i,no drainage today, mild swelling, some tenderness +motor at distal, +sens, +nvi Neg homans Assessment & Plan Ortho Post Op Day #: 2 Problem List: (1) Hip fracture, left ICD Codes: S72.002A - Fracture of unspecified part of neck of left femur, initial encounter for closed fracture Status: Acute Qualifiers: Qualified Codes: S72.002A - Fracture of unspecified part of neck of left femur, initial encounter for closed fracture Assessment and Plan pod#2 s/p Left Hip Bipolar Left femoral neck fracture. Ortho stable. PO pain control as needed. PT - WBAT LLE. Posterior NICKY precautions. Hold dressing changes unless saturated. Lovenox for dvt propylaxis D/C planning, likely will need short term rehab Saturday. F/U in 2 weeks outpatient. Concepcion Conner May 25, 2017 07:07
[2017-05-25 07:08] LABS: AUTOMATED NEUTROPHIL # 4.6 TH/MM3 (1.8-7.7); BASOPHIL % 0.3 % (0.0-2.0); EOSINOPHIL # 0.1 TH/MM3 (0-0.4); EOSINOPHIL % 1.3 % (0.0-4.0); HEMATOCRIT 30.3 % (35.0-46.0); HEMOGLOBIN 10.2 GM/DL (11.6-15.3); LYMPH % 19.3 % (9.0-44.0); LYMPHOCYTE # 1.2 TH/MM3 (1.0-4.8); MEAN CELL VOLUME 91.2 FL (80.0-100.0); MEAN CORPUSCULAR HEMOGLOBIN 30.6 PG (27.0-34.0); MEAN CORPUSCULAR HGB CONC 33.6 % (32.0-36.0); MEAN PLATELET VOLUME 8.2 FL (7.0-11.0); MONO % 7.3 % (0.0-8.0); MONOCYTE # 0.5 TH/MM3 (0-0.9); NEUT % 71.8 % (16.0-70.0); PLATELET COUNT 140 TH/MM3 (150-450); RED BLOOD COUNT 3.32 MIL/MM3 (4.00-5.30); WHITE BLOOD COUNT 6.5 TH/MM3 (4.0-11.0)
[2017-05-25 07:28] LABS: BICARBONATE 36.1 MEQ/L (21.0-32.0); CALCIUM 8.7 MG/DL (8.5-10.1); CREATININE 1.41 MG/DL (0.50-1.00); MAGNESIUM 2.3 MG/DL (1.5-2.5)
[2017-05-25 07:57] VITALS: BP 174/94; PULSE 94; RESP 17; TEMP 99.6; O2SAT 96
[2017-05-25] MEDS: INSULIN ASPART SUPPLEMENTAL SCALE SQ SCH ×4 (08:00→20:59)
[2017-05-25] MEDS: predniSONE 10 MG TAB PO SCH (08:15)
[2017-05-25] MEDS: MAGNESIUM HYDROXIDE SUSP 30 ML CUP PO SCH ×2 (08:15→20:59)
[2017-05-25] MEDS: DOCUSATE SODIUM 50 MG/SENNA 8.6 MG TAB PO SCH ×2 (08:15→20:59)
[2017-05-25] MEDS: GABAPENTIN 400 MG CAP PO SCH ×2 (08:15→21:02)
[2017-05-25] MEDS: GABAPENTIN 300 MG CAP PO SCH ×2 (08:15→21:02)
[2017-05-25] MEDS: ALLOPURINOL 100 MG TAB PO SCH ×2 (08:15→21:02)
[2017-05-25] MEDS: CHOLECALCIFEROL (VIT D3) 400 UNIT TAB PO SCH (08:16)
[2017-05-25] MEDS: BUMETANIDE 1 MG TAB PO SCH (08:16)
[2017-05-25] MEDS: VALSARTAN 80 MG TAB PO SCH (08:16)
[2017-05-25] MEDS: FERROUS SULFATE 325 MG (65 MG ELEMENTAL IRON) TAB PO SCH (08:16)
[2017-05-25] MEDS: PANTOPRAZOLE SOD 40 MG DELAYED RELEASE TAB PO SCH (08:16)
[2017-05-25] MEDS: CALCIUM CARBONATE 1.25 GM (CA 500 MG) TAB PO SCH (08:16)
[2017-05-25] MEDS: CARVEDILOL 12.5 MG TAB PO SCH ×2 (08:16→21:02)
[2017-05-25] MEDS: VERAPAMIL HCL 240 MG SUSTAINED RELEASE TAB PO SCH (08:16)
[2017-05-25] MEDS: POTASSIUM CHLORIDE 10 MEQ CAP PO SCH (08:17)
[2017-05-25] MEDS: ENOXAPARIN SODIUM 30 MG/0.3 ML SYRINGE SQ SCH (08:21)
--- NOTE | 2017-05-25 09:29 | HHI.PR ---
Subjective Remarks just surgical site pain. eating ok. Objective Vitals heart reg lung cta abd s/nt ext no pitting Vital Signs Date Time Temp Pulse Resp B/P (MAP) Pulse Ox O2 Delivery O2 Flow Rate FiO2 05/25/17 07:57 99.6 94 17 174/94 (120) 96 05/25/17 07:24 18 05/24/17 21:58 Room Air 05/24/17 20:00 98.1 75 15 161/85 (110) 94 05/24/17 16:00 96.6 80 17 184/97 (126) 96 05/24/17 11:44 96.3 80 17 189/96 (127) 97 Result Diagram: 05/25/17 0630 05/25/17 0630 Imaging Last Impressions Chest X-Ray 05/22/17 1456 Signed Impressions: Service Date/Time: Monday, May 22, 2017 15:38 - CONCLUSION: Mild fluid overload. No acute injury or infiltrate. Ty Ramírez MD Pelvis X-Ray 05/22/17 0000 Signed Impressions: Service Date/Time: Monday, May 22, 2017 15:41 - CONCLUSION: 1. Left femoral neck fracture Oscar Barone MD Femur X-Ray 05/22/17 0000 Signed Impressions: Service Date/Time: Monday, May 22, 2017 15:44 - CONCLUSION: 1. Transcervical fracture left femoral neck 2. Large knee effusion without fracture. It is continued clinical concern CT scan is recommended Oscar Barone MD A/P Problem List: (1) Hip fracture, left ICD Codes: S72.002A - Fracture of unspecified part of neck of left femur, initial encounter for closed fracture Status: Acute Plan: Left hip fracture - Pt is an 81 y/o AAF with DM, HTN, Hyperlipidemia, hypothyroidism, CKD stage 3, and polymyositis. - Pt presented to the ED at [facility] [place] on 05/22/17 with complaints of left hip pain and inability to ambulate which began after she fell trying to go after her grandchild and fell on her left hip. - Imaging studies done in the ED revealed a left transcervical femoral neck fracture. - Orthopedic surgery following. - Pt s/p Left hip bipolar replacement arthroplasty on 05/23/[address] Jacobs - Pain control PRN - Constipation precautions - IS - Supportive care - DVT prophylaxis with Lovenox -d/c to snf tomorrow Left knee effusion - Reportedly chronic, outpt bilateral LE US were negative for DVTs on . Abnormal UA - no uti per cx - Pt has not been having any UTI symptoms reportedly HTN - Home meds resumed - monitor Diabetes mellitus - NovoLog SSI - Accu checks Polymyositis - home meds continued GERD - PPI and Zantac continued (2) Effusion, left knee ICD Codes: M25.462 - Effusion, left knee Status: Chronic (3) DM (diabetes mellitus) ICD Codes: E11.9 - Type 2 diabetes mellitus without complications Status: Chronic (4) Hypertension ICD Codes: I10 - Essential (primary) hypertension Status: Chronic (5) Hyperlipidemia ICD Codes: E78.5 - Hyperlipidemia, unspecified Status: Chronic (6) Polymyositis ICD Codes: M33.20 - Polymyositis, organ involvement unspecified Status: Chronic Problem Qualifiers (1) Hip fracture, left: Qualified Codes: S72.002A - Fracture of unspecified part of neck of left femur , initial encounter for closed fracture Alex Morrow MD May 25, 2017 09:29
[2017-05-25] MEDS: MORPHINE SULFATE 8 MG/ML INJ IM PRN ×2 (10:15→14:00)
[2017-05-25 11:43] VITALS: BP 134/71; PULSE 70; RESP 17; TEMP 98.1; O2SAT 90
[2017-05-25 12:00] VITALS: O2SAT 99
[2017-05-25 15:43] VITALS: BP 103/51; PULSE 59; RESP 17; TEMP 98.6; O2SAT 100
[2017-05-25 19:20] VITALS: BP 108/63; PULSE 69; RESP 17; TEMP 98.5; O2SAT 95
[2017-05-25] MEDS: METHOCARBAMOL 500 MG TAB PO SCH (21:02)
[2017-05-25] MEDS: PRIMIDONE 50 MG TAB PO SCH (21:02)
[2017-05-25 23:41] VITALS: BP 125/69; PULSE 73; RESP 17; TEMP 98.5; O2SAT 95
[2017-05-26] MEDS ORDERED: CALCIUM CARBONATE 500 MG CHEWABLE TAB CHEW PRN (01:00)
[2017-05-26] MEDS: LEVOTHYROXINE SODIUM 25 MCG TAB PO SCH (05:53)
--- NOTE | 2017-05-26 06:33 | PD.ORT.PN ---
Subjective Post Op Day #: 3 Subjective Remarks Postoperative day #3 bipolar hip arthroplasty. The patient is resting comfortably. No reported problems. Objective Vitals Vital Signs Date Time Temp Pulse Resp B/P (MAP) Pulse Ox O2 Delivery O2 Flow Rate FiO2 05/25/17 23:41 98.5 73 17 125/69 (87) 95 05/25/17 22:04 Room Air 05/25/17 19:20 98.5 69 17 108/63 (78) 95 05/25/17 15:43 98.6 59 17 103/51 (68) 100 05/25/17 12:00 99 05/25/17 11:43 98.1 70 17 134/71 (92) 90 05/25/17 07:57 99.6 94 17 174/94 (120) 96 05/25/17 07:24 18 I/O 05/25/17 05/25/17 05/25/17 05/26/17 05/26/17 05/26/17 07:00 15:00 23:00 07:00 15:00 23:00 Intake Total 200 ml 480 ml 480 ml 360 ml Balance 200 ml 480 ml 480 ml 360 ml Intake Oral 200 ml 480 ml 480 ml 360 ml # Voids 6 3 3 1 # Bowel Movements 4 4 1 Result Diagram: 05/25/17 0630 05/25/17 0630 Imaging Last 24 hours Impressions Hip X-Ray 05/23/17 1202 Signed Impressions: Service Date/Time: May 13:19 - CONCLUSION: Expected postsurgical changes status post total hip arthroplasty. Kanu Kimble MD Procedures Left Hip Bipolar Samra Maygary 05/23/17 Objective Remarks Laying in bed NAD VSS LLE Posterior hip dressing c/d/i,no drainage today, mild swelling, some tenderness +motor at distal, +sens, +nvi Neg homans Assessment & Plan Problem List: (1) Hip fracture, left ICD Codes: S72.002A - Fracture of unspecified part of neck of left femur, initial encounter for closed fracture Status: Acute Qualifiers: Qualified Codes: S72.002A - Fracture of unspecified part of neck of left femur, initial encounter for closed fracture Assessment and Plan pod#3 s/p Left Hip Bipolar Left femoral neck fracture. Ortho stable for discharge PO pain control as needed. PT - WBAT LLE. Posterior NICKY precautions. Hold dressing changes unless saturated. Lovenox for dvt propylaxis D/C planning, likely will need short term rehab. F/U in 2 weeks outpatient. Alex Conteh MD May 26, 2017 06:33
[2017-05-26] MEDS: GABAPENTIN 400 MG CAP PO SCH (07:50)
[2017-05-26] MEDS: ACETAMINOPHEN/HYDROcodone 325 MG/10 MG TAB PO PRN ×2 (07:50→13:28)
[2017-05-26] MEDS: GABAPENTIN 300 MG CAP PO SCH (07:50)
[2017-05-26] MEDS: CHOLECALCIFEROL (VIT D3) 400 UNIT TAB PO SCH (07:51)
[2017-05-26] MEDS: CALCIUM CARBONATE 1.25 GM (CA 500 MG) TAB PO SCH (07:51)
[2017-05-26] MEDS: POTASSIUM CHLORIDE 10 MEQ CAP PO SCH (07:51)
[2017-05-26] MEDS: predniSONE 10 MG TAB PO SCH (07:51)
[2017-05-26] MEDS: CARVEDILOL 12.5 MG TAB PO SCH (07:51)
[2017-05-26] MEDS: VERAPAMIL HCL 240 MG SUSTAINED RELEASE TAB PO SCH (07:51)
[2017-05-26] MEDS: PANTOPRAZOLE SOD 40 MG DELAYED RELEASE TAB PO SCH (07:51)
[2017-05-26] MEDS: VALSARTAN 80 MG TAB PO SCH (07:51)
[2017-05-26] MEDS: ALLOPURINOL 100 MG TAB PO SCH (07:51)
[2017-05-26] MEDS: FERROUS SULFATE 325 MG (65 MG ELEMENTAL IRON) TAB PO SCH (07:51)
[2017-05-26] MEDS: DOCUSATE SODIUM 50 MG/SENNA 8.6 MG TAB PO SCH (07:52)
[2017-05-26] MEDS: MAGNESIUM HYDROXIDE SUSP 30 ML CUP PO SCH (07:52)
[2017-05-26] MEDS: INSULIN ASPART SUPPLEMENTAL SCALE SQ SCH ×2 (07:56→11:29)
[2017-05-26 08:00] VITALS: BP 174/91; PULSE 117; RESP 19; TEMP 99.3; O2SAT 91
[2017-05-26] MEDS ORDERED: METH500T3 PO (08:59)
[2017-05-26] MEDS ORDERED: BUME1TAB PO (08:59)
--- NOTE | 2017-05-26 09:01 | HHI.DCPOC ---
Discharge Care Plan Diagnosis: (1) Hip fracture, left Goals to Promote Your Health * To prevent worsening of your condition and complications * To maintain your health at the optimal level Directions to Meet Your Goals Take your medications as prescribed Follow your dietary instruction Follow activity as directed Keep your appointments as scheduled Take your immunizations and boosters as scheduled If your symptoms worsen call your PCP, if no PCP go to Urgent Care Center or Emergency Room Smoking is Dangerous to Your Health. Avoid second hand smoke Call the 24-hour hour crisis hotline for domestic abuse at Alex Morrow MD May 26, 2017 09:01
--- NOTE | 2017-05-26 09:47 | HHI.DS ---
Discharge Summary Admission Date May 22, 2017 at 16:35 Discharge Date: May 26, 2017 Admitting Diagnosis hip fracture (1) Hip fracture, left Diagnosis: Principal ICD Codes: S72.002A - Fracture of unspecified part of neck of left femur, initial encounter for closed fracture Status: Acute (2) Effusion, left knee ICD Codes: M25.462 - Effusion, left knee Status: Chronic (3) DM (diabetes mellitus) Diagnosis: Secondary ICD Codes: E11.9 - Type 2 diabetes mellitus without complications Status: Chronic (4) Hypertension Diagnosis: Secondary ICD Codes: I10 - Essential (primary) hypertension Status: Chronic (5) Hyperlipidemia Diagnosis: Secondary ICD Codes: E78.5 - Hyperlipidemia, unspecified Status: Chronic (6) Polymyositis Diagnosis: Secondary ICD Codes: M33.20 - Polymyositis, organ involvement unspecified Status: Chronic Brief History Mrs. Morrow is a pleasant 81 y/o AAF with DM, HTN, Hyperlipidemia, hypothyroidism, CKD stage 3, and polymyositis Pt presented to the ED at [facility] on with complaints of left hip pain and inability to ambulate. She reports that she was trying to go after her grandchild and fell on her left hip. She reports that she has been using a cane to help with ambulation at home. Pt had immediate pain in the left hip following the fall and could not ambulate on her own. She has a large effusion on the left knee which she reports is chronic and is supposed to have surgery for the left knee soon per the pts family at bedside. Imaging studies done in the ED revealed a left transcervical femoral neck fracture. Pt is being admitted to Orthopedic surgery evaluation. Pt also reports that she had a cyst on her right foot which she has had some previous drainage from the wound. She had an outpt LE US which were negative for DVTs on 05/13/17. CBC/BMP: 05/25/17 0630 05/25/17 0630 Significant Findings Laboratory Tests Test 05/24/17 05:00 05/25/17 06:30 Hemoglobin 9.9 GM/DL (11.6-15.3) 10.2 GM/DL (11.6-15.3) Hematocrit 29.4 % (35.0-46.0) 30.3 % (35.0-46.0) Blood Urea Nitrogen 21 MG/DL (7-18) 22 MG/DL (7-18) Creatinine 1.25 MG/DL (0.50-1.00) 1.41 MG/DL (0.50-1.00) Random Glucose 113 MG/DL (74-106) 107 MG/DL (74-106) Calcium Level 7.8 MG/DL (8.5-10.1) Estimat Glomerular Filtration Rate 50 ML/MIN (>89) 43 ML/MIN (>89) Red Blood Count 3.32 MIL/MM3 (4.00-5.30) Platelet Count 140 TH/MM3 (150-450) Neutrophils (%) (Auto) 71.8 % (16.0-70.0) Carbon Dioxide Level 36.1 MEQ/L (21.0-32.0) Anion Gap 3 MEQ/L (5-15) Hospital Course Left hip fracture - Pt is an 81 y/o AAF with DM, HTN, Hyperlipidemia, hypothyroidism, CKD stage 3, and polymyositis. - Pt presented to the ED at [facility] [place] on 05/22/17 with complaints of left hip pain and inability to ambulate which began after she fell trying to go after her grandchild and fell on her left hip. - Imaging studies done in the ED revealed a left transcervical femoral neck fracture. - Orthopedic surgery following. - Pt s/p Left hip bipolar replacement arthroplasty on 05/23/[address] Jacobs - Pain control PRN- Constipation precautions- IS - DVT prophylaxis with Lovenox -d/c to snf today Left knee effusion - Reportedly chronic, outpt bilateral LE US were negative for DVTs on . Abnormal UA - no uti per cx - Pt has not been having any UTI symptoms reportedly HTN - Home meds resumed - monitor Diabetes mellitus - NovoLog SSI - Accu checks Polymyositis - home meds continued GERD - PPI and Zantac continued (2) Effusion, left knee ICD Codes: M25.462 - Effusion, left knee Status: Chronic (3) DM (diabetes mellitus) ICD Codes: E11.9 - Type 2 diabetes mellitus without complications Status: Chronic (4) Hypertension ICD Codes: I10 - Essential (primary) hypertension Status: Chronic (5) Hyperlipidemia ICD Codes: E78.5 - Hyperlipidemia, unspecified Status: Chronic (6) Polymyositis ICD Codes: M33.20 - Polymyositis, organ involvement unspecified Status: Chronic Pt Condition on Discharge: Stable Discharge Disposition: Discharge to SNF Discharge Instructions DIET: Follow Instructions for: Diabetic Diet Activities you can perform: Full Weight Bearing Activities to Avoid: Lifting/Bending Follow up Referrals: Appointment for Follow Up - 2 Weeks with Gavin Menjivar MD New Medications: Enoxaparin Inj (Lovenox Inj) 30 Mg/0.3 Ml Syr 30 MG SQ DAILY for Blood Clot Prevention for 25 Days, SYRINGE 0 Refills Hydrocodone/Acetaminophen (Hydrocodone-Acetamin 10-325 mg) 10 Mg-325 Mg Tablet 1 TAB PO Q4H PRN for Pain, #50 TAB Changed Medications: Bumetanide (Bumetanide) 1 Mg Tab 1 MG PO DAILY for swelling, #30 TAB 0 Refills (Changed from: TID; 60) Continued Medications: Allopurinol (Allopurinol) 100 Mg Tab 100 MG PO BID for Gout, #30 TAB [address] (Aspirin Adult Low Strength) 81 Mg Tabdr 81 MG PO DAILY, TAB Atorvastatin (Atorvastatin) 20 Mg Tab 20 MG PO DAILY for Cholesterol Management, #30 TAB 0 Refills Calcium Carbonate (Calcium) 600 Mg Tab 1200 MG PO DAILY for Nutritional Supplement Carvedilol (Carvedilol) 6.25 Mg Tab 12.5 MG PO BID for HTN, #60 TAB 0 Refills Cholecalciferol (D 400) 400 Unit Tab 800 UNITS PO DAILY Cholecalciferol (Vitamin D3) 1,000 Unit Cap 2000 UNITS PO DAILY for Nutritional Supplement, #1 BOTTLE 0 Refills Ferrous Sulfate (Ferrous Sulfate) 325 Mg (65 Mg Iron) Tablet 325 MG PO DAILY for Nutritional Supplement, #30 TAB 0 Refills Gabapentin (Gabapentin) 800 Mg Tab 800 MG PO TID, #90 TAB 0 Refills Glipizide (Glucotrol) 5 Mg Tab 5 MG PO DAILYAC for dm, #30 TAB Levothyroxine (Levothyroxine) 25 Mcg Tab 25 MCG PO DAILY for Thyroid, #30 TAB 0 Refills Methocarbamol (Methocarbamol) 500 Mg Tab 500 MG PO HS for Muscle Spasm, #30 TAB 0 Refills (This prescription has been renewed) Pantoprazole (Protonix) 40 Mg Tab 40 MG PO DAILY for Reflux, #30 TAB 0 Refills Potassium Chloride ER (Potassium Chloride ER) 10 Meq Cap 10 MEQ PO DAILY for Electrolyte Replacement, #30 CAP 0 Refills Prednisone (Prednisone) 10 Mg Tab 10 MG PO DAILY, TAB 0 Refills Primidone (Primidone) 50 Mg Tab 50 MG PO HS for Control Seizures, #60 TAB 0 Refills Ranitidine (Zantac) 150 Mg Tab 75 MG PO DAILY for Reduce Stomach Acid, #30 TAB 0 Refills Valsartan (Valsartan) 80 Mg Tab 160 MG PO DAILY for Blood Pressure Management, #30 TAB 0 Refills Verapamil ER 24 HR (Verapamil ER 24 HR) 240 Mg Tab 240 MG PO DAILY, #30 TAB 0 Refills Discontinued Medications: Oxycodone-Acetaminophen (Percocet) 5-325 mg Tab 2 TAB PO Q6HR for PAIN, TAB 0 Refills Alex Morrow MD May 26, 2017 09:47
[2017-05-26] MEDS: ENOXAPARIN SODIUM 30 MG/0.3 ML SYRINGE SQ SCH (09:58)
[2017-05-26 12:06] VITALS: BP 107/61; PULSE 79; RESP 18; TEMP 98.6; O2SAT 96
== END 2017-05-26 14:37 | DRG 470 ==
LOC: NEPE 14:14 → NEDA 16:35 → N06B 17:51
PROVIDERS: ADMIT Hospitalist; ATTEND Hospitalist
PROC: 0SRS0JA Replacement of Left Hip Joint, Femoral Surface with Synthetic Substitute, Uncemented, Open Approach (ICD-10-PCS; principal; 2017-05-23 10:43)
DX: S72.032A Displaced midcervical fracture of left femur, initial encounter for closed fracture (principal); E11.22 Type 2 diabetes mellitus with diabetic chronic kidney disease; E11.42 Type 2 diabetes mellitus with diabetic polyneuropathy; M33.20 Polymyositis, organ involvement unspecified; I13.0 Hypertensive heart and chronic kidney disease with heart failure and stage 1 through stage 4 chronic kidney disease, or unspecified chronic kidney disease; I50.9 Heart failure, unspecified; N18.3 Chronic kidney disease, stage 3 (moderate); E78.5 Hyperlipidemia, unspecified; E03.9 Hypothyroidism, unspecified; M25.462 Effusion, left knee; J44.9 Chronic obstructive pulmonary disease, unspecified; K21.9 Gastro-esophageal reflux disease without esophagitis; F17.210 Nicotine dependence, cigarettes, uncomplicated; D64.9 Anemia, unspecified; W19.XXXA Unspecified fall, initial encounter; Z79.84 Long term (current) use of oral hypoglycemic drugs
CPT/HCPCS: 71045; 72170; 73502; 73552; 80048; 80053; 81001; 82948; 83735; 85014; 85018; 85025; 85610; 85730; 86850; 86900; 86901; 87086; 93005; 94150; C1776; C9290; J0690; J1100; J1170; J1580; J1650; J1815; J2270; J2405; J2710; J3010; J3370; J7042; J7120; J7512

== ENCOUNTER 2017-06-21 12:49 | Inpatient (IN) | payer MEDICARE ==
[~2017-06-21] VITALS: Ht 172.7 cm; Wt 80.0 kg
[2017-06-21] VITALS (11 sets, daily range): BP systolic 81–166; BP diastolic 51–92; PULSE 47–82; RESP 16–20; TEMP 97.8–98.6; O2SAT 97–100
[~2017-06-21 12:49] MED LIST changes: +CHOL10008 PO; -COLL30T TOPICAL; +ENOX30P SQ; +FERR325T18 PO; -GABA600T PO; +GABA800T PO; -HYDR-3533 PO; +HYDR-3583 PO; +LEVO25TA4 PO; -PERC5TAB12 PO; +POTA10CA PO; -WALKER WHEELS/F1 MIS; +ZANT150T2 PO
[2017-06-21] MEDS ORDERED: SODIUM CHLOR 0.9% 1000 ML INJ 1,000 ML IV SCH (13:14)
--- NOTE | 2017-06-21 13:22 | PD ---
HPI Chief Complaint: AMS,hypotension Time Seen by Provider: 13:13 Travel History International Travel<30 days: No Contact w/Intl Traveler<30days: No History of Present Illness HPI 81-year-old female presents to the emergency department for altered mental status from home. According to EMS, her daughter called 911 for altered mental status that started today. She received a total of Narcan 0.8 mg as well as Zofran 4 mg IV and normal saline 1 L IV bolus by EMS. EMS, she is hypotensive on scene with a blood pressure in the 70s systolic. They state that she did awaken slightly after the first dose of Narcan, but they were also putting her on a stretcher messing with her. There was no difference after the second dose of Narcan. She did complain of epigastric pain and nausea to them. She does not answer questions appropriately for me. She'll tell me her name and the year , but will not answer any other questions. She does have past medical history of diabetes, hypertension, hyperlipidemia, hypothyroidism, CK D stage III and polymyositis. She had a hip surgery done 3 weeks ago for hip fracture. She apparently has been on pain medication as well as new hypertensive medications according to EMS. No exacerbating or relieving factors. Severity: moderate- severe. PFSH Past Medical History Hx Anticoagulant Therapy: Yes Arthritis: Yes Asthma: No Autoimmune Disease: No Anxiety: No Depression: No Heart Rhythm Problems: No Cancer: No Cardiac Catheterization: No Cardiovascular Problems: Yes (CHF) High Cholesterol: Yes Chemotherapy: No Chest Pain: No Congestive Heart Failure: Yes COPD: Yes Cerebrovascular Accident: No Diabetes: Yes Endocrine: Yes Gastrointestinal Disorders: No GERD: Yes Gout: Yes Genitourinary: Yes Headaches: Yes Hiatal Hernia: No Hypertension: Yes Immune Disorder: Yes (RA) Implanted Vascular Access Dvce: No Kidney Stones: No Musculoskeletal: Yes (CHRONIC ARTHRITIS PAIN) Neurologic: Yes (NUMBNESS ON FEET, R ARM WEAK) Psychiatric: No Reproductive: No Respiratory: No Migraines: No Radiation Therapy: No Renal Failure: Yes (stage 3 CKD) Seizures: No Sickle Cell Disease: No Sleep Apnea: No Thyroid Disease: No Ulcer: No Menopausal: Yes : 4 Para: 4 Tubal Ligation: Yes Past Surgical History Abdominal Surgery: No AICD: No Arteriovenous Shunt: No Cardiac Surgery: No Coronary Artery Bypass Graft: No Ear Surgery: No Endocrine Surgery: No Eye Surgery: Yes (cataract removal from left eye) Genitourinary Surgery: No Gynecologic Surgery: Yes (tubal ligation and cyst removed from left breast) Hysterectomy: No Insulin Pump: No Joint Replacement: No Oral Surgery: No Pacemaker: No Thoracic Surgery: No Other Surgery: Yes (CYST REMOVED LEFT BREAST, BACK SX) Social History Alcohol Use: Yes (SELDOM) Tobacco Use: Yes (1 PPD) Substance Use: No Allergies-Medications (Allergen,Severity, Reaction): Coded Allergies: pregabalin (Verified Allergy, Intermediate, Rash, 06/21/17) Reported Meds & Prescriptions Reported Meds & Active Scripts Active Bumetanide 1 Mg Tab 1 Mg PO DAILY Methocarbamol 500 Mg Tab 500 Mg PO HS Lovenox Inj (Enoxaparin Sodium) 30 Mg/0.3 Ml Syr 30 Mg SQ DAILY 25 Days Hydrocodone-Acetamin 10-325 mg (Hydrocodone/Acetaminophen) 10 Mg-325 Mg Tablet 1 Tab PO Q4H PRN Glucotrol (Glipizide) 5 Mg Tab 5 Mg PO DAILYAC Carvedilol 6.25 Mg Tab 12.5 Mg PO BID Reported Norvasc (Amlodipine Besylate) 5 Mg Tab 5 Mg PO DAILY Ferrous Sulfate 325 Mg (65 Mg Iron) Tablet 325 Mg PO DAILY Potassium Chloride ER (Potassium Chloride) 10 Meq Cap 10 Meq PO DAILY Zantac (Ranitidine HCl) 150 Mg Tab 75 Mg PO DAILY Vitamin D3 (Cholecalciferol) 1,000 Unit Cap 2,000 Units PO DAILY Levothyroxine (Levothyroxine Sodium) 25 Mcg Tab 25 Mcg PO DAILY Gabapentin 800 Mg Tab 800 Mg PO TID Prednisone 10 Mg Tab 10 Mg PO DAILY Protonix (Pantoprazole Sodium) 40 Mg Tab 40 Mg PO DAILY Aspirin Adult Low Strength (Aspirin) 81 Mg Tabdr 81 Mg PO DAILY D 400 (Cholecalciferol) 400 Unit Tab 800 Units PO DAILY Verapamil ER 24 HR (Verapamil HCl) 240 Mg Tab 240 Mg PO DAILY Atorvastatin (Atorvastatin Calcium) 20 Mg Tab 20 Mg PO DAILY Primidone 50 Mg Tab 50 Mg PO HS Allopurinol 100 Mg Tab 300 Mg PO BID Valsartan 80 Mg Tab 160 Mg PO DAILY Review of Systems Except as stated in HPI: all other systems reviewed are Neg Physical Exam Narrative GENERAL: Well-nourished, well-developed elderly female patient. Patient lethargic, will answer name and month with sternal rub, but does not answer any other questions. SKIN: Focused skin assessment warm/dry. HEAD: Normocephalic. Atraumatic. EYES: No scleral icterus. No injection or drainage. NECK: Supple, trachea midline. No JVD or lymphadenopathy. CARDIOVASCULAR: Regular rate and rhythm without murmurs, gallops, or rubs. Bilateral radial pedal pulses 2+. RESPIRATORY: Breath sounds equal bilaterally. No accessory muscle use. Lungs sounds are clear to auscultation GASTROINTESTINAL: Abdomen soft, non-tender, nondistended. MUSCULOSKELETAL: No cyanosis, or edema. Patient does have an approximately 2-3 cm abscess to the dorsal aspect of the patient's right foot with purulent drainage. Drainage is expressed and wound culture is taken. BACK: Nontender without obvious deformity. No CVA tenderness. Data Data Last Documented VS Vital Signs Date Time Temp Pulse Resp B/P (MAP) Pulse Ox O2 Delivery O2 Flow Rate FiO2 06/21/17 15:54 97.9 65 18 140/71 (94) 100 Nasal Cannula 3.00 Orders Orders Electrocardiogram (06/21/17 13:14) Ammonia (06/21/17 13:14) Complete Blood Count With Diff (06/21/17 13:14) Comprehensive Metabolic Panel (06/21/17 13:14) Creatine Kinase (Cpk) (06/21/17 13:14) Prothrombin Time / Inr (Pt) (06/21/17 13:14) Act Partial Throm Time (Ptt) (06/21/17 13:14) Troponin I (06/21/17 13:14) Thyroid Stimulating Hormone (06/21/17 13:14) Urinalysis - C+S If Indicated (06/21/17 13:14) Lactic Acid Sepsis Protocol (06/21/17 13:14) Chest, Single Ap (06/21/17 13:14) Blood Glucose (06/21/17 13:14) Ecg Monitoring (06/21/17 13:14) Iv Access Insert/Monitor (06/21/17 13:14) Oximetry (06/21/17 13:14) Sodium Chloride 0.9% Flush (Ns Flush) (06/21/17 13:15) Sodium Chlor 0.9% 1000 Ml Inj (Ns 1000 M (06/21/17 13:14) Ct Brain W/O Iv Contrast(Rout) (06/21/17 ) Cath For Specimen (06/21/17 13:24) Ct Abd/Pel W/O Iv Contrast (06/21/17 ) Blood Culture (06/21/17 13:29) Wound Culture And Gram Stain (06/21/17 13:37) Urine Culture (06/21/17 13:30) Us Abdomen Gallbladder (06/21/17 ) Lipase (06/21/17 13:30) Piperacil-Tazo 2.25 Gm Premix (Zosyn 2.2 (06/21/17 16:00) Admit Order (Ed Use Only) (06/21/17 16:45) Labs Laboratory Tests Test 06/21/17 13:30 06/21/17 13:33 06/21/17 14:30 06/21/17 16:00 White Blood Count 7.8 TH/MM3 Red Blood Count 2.98 MIL/MM3 Hemoglobin 8.8 GM/DL Hematocrit 26.6 % Mean Corpuscular Volume 89.4 FL Mean Corpuscular Hemoglobin 29.5 PG Mean Corpuscular Hemoglobin Concent 33.0 % Red Cell Distribution Width 18.3 % Platelet Count 247 TH/MM3 Mean Platelet Volume 8.3 FL Neutrophils (%) (Auto) 74.6 % Lymphocytes (%) (Auto) 19.8 % Monocytes (%) (Auto) 5.0 % Eosinophils (%) (Auto) 0.3 % Basophils (%) (Auto) 0.3 % Neutrophils # (Auto) 5.8 TH/MM3 Lymphocytes # (Auto) 1.6 TH/MM3 Monocytes # (Auto) 0.4 TH/MM3 Eosinophils # (Auto) 0.0 TH/MM3 Basophils # (Auto) 0.0 TH/MM3 CBC Comment DIFF FINAL Differential Comment Urine Color YELLOW Urine Turbidity CLEAR Urine pH 6.0 Urine Specific Johnson 1.010 Urine Protein 100 mg/dL Urine Glucose (UA) NEG mg/dL Urine Ketones NEG mg/dL Urine Occult Blood NEG Urine Nitrite NEG Urine Bilirubin NEG Urine Urobilinogen LESS THAN 2.0 MG/DL Urine Leukocyte Esterase NEG Urine RBC 2 /hpf Urine WBC LESS THAN 1 /hpf Urine Bacteria RARE /hpf Urine Hyaline Casts 1 /lpf Microscopic Urinalysis Comment CATH-CULTURE IND Blood Urea Nitrogen 29 MG/DL Creatinine 2.01 MG/DL Random Glucose 253 MG/DL Total Protein 6.6 GM/DL Albumin 2.1 GM/DL Calcium Level 7.6 MG/DL Alkaline Phosphatase 132 U/L Aspartate Amino Transf (AST/SGOT) 166 U/L Alanine Aminotransferase (ALT/SGPT) 89 U/L Total Bilirubin 0.5 MG/DL Sodium Level 136 MEQ/L Potassium Level 4.7 MEQ/L Chloride Level 103 MEQ/L Carbon Dioxide Level 21.1 MEQ/L Anion Gap 12 MEQ/L Estimat Glomerular Filtration Rate 29 ML/MIN Total Creatine Kinase 65 U/L Troponin I LESS THAN 0.02 NG/ML Lipase 95 U/L Thyroid Stimulating Hormone 3rd Gen 3.800 uIU/ML Lactic Acid Level 4.0 mmol/L 1.7 mmol/L Ammonia 17 MCMOL/L Prothrombin Time 11.2 SEC Prothromb Time International Ratio 1.1 RATIO Activated Partial Thromboplast Time 26.2 SEC MDM Medical Decision Making Medical Screen Exam Complete: Yes Emergency Medical Condition: Yes Medical Record Reviewed: Yes Interpretation(s) CT brain - CONCLUSION: No acute intracranial disease. No change in from previous study. chest x-ray - CONCLUSION: No acute disease. CT abdomen/pelvis - CONCLUSION: Gallstones prominent gallbladder with thickened gallbladder wall. Acute cholecystitis may be consideration. Trace ascites Extensive vascular calcifications Multiple diverticuli throughout the colon Differential Diagnosis Electrolyte abnormality versus dehydration versus ACS versus intracranial abnormality versus hypotension versus UTI versus pneumonia versus sepsis Narrative Course 81-year-old female presents to the emergency department via EMS for altered mental status, hypotension. Blood pressure on arrival is 81/51. She is also bradycardic with a heart rate of 47. Second liter normal saline IV boluses hung. EKG, CBC, CMP, CK, troponin, TSH, lactic acid, ammonia, PTT, PT/INR are ordered and pending. Chest x-ray is ordered and pending. CT of the brain and CT abdomen/pelvis are ordered and pending. EKG shows sinus bradycardia, heart rate 43, right bundle branch block. CBC shows anemia of hemoglobin 8.8, hematocrit 26.6. CMP shows BUN 29, hyperglycemia of 253, AST of 166, ALT 89, alkaline phosphatase 132. CK is 65. Troponin is less than 0.02. Lactic acid is 4.0. Ammonia is 17. Coags [-]. Chest x-ray shows no acute disease. CT of the brain shows no acute intracranial disease. CT abdomen/pelvis shows Gallstones prominent gallbladder with thickened gallbladder wall; Acute cholecystitis may be consideration; Trace ascites; Extensive vascular calcifications; Multiple diverticuli throughout the colon. Patient is given Zosyn 2.25 g IV. Ultrasound of the gallbladder is ordered and shows trace ascites, gallbladder wall thickening, I cannot confirm gallstones, cholecystitis would be a consideration. Dr. Wolff accepted admission. Diagnosis Primary Impression: Altered mental status Qualified Codes: R41.82 - Altered mental status, unspecified Additional Impressions: Hypotension Qualified Codes: I95.9 - Hypotension, unspecified RUQ abdominal pain Admitting Information Admitting Physician Requests: Admit Monik Bacon Jun 21, 2017 13:22
[2017-06-21] MEDS: SODIUM CHLORIDE 0.9% FLUSH 10 ML FLUSH IV FLUSH PRN (13:34)
--- NOTE | 2017-06-21 13:34 | PD ---
Physical Exam Narrative I, Dr. Lee, have reviewed the advance practice practitioner's documentation and am in agreement, met with the patient face to face, made the diagnosis, and the medical decision making was done by me. *My assessment and Findings: Altered mental status secondary to polypharmacy vs. dehydration vs. sepsis vs. overdose vs. CVA 81yo F was brought in by [facility] for altered mental status today. Pt has a lot of medications and was initially hypotensive and given a liter of NS IVF by [facility]. Pt is just starting to receive second liter of IVF now and BP has improved significantly. Pt knows her name and follows commands and moves all extremities. However, pt seems confused and not answering all questions She appears to be very cold especially her extremities and difficult to obtain a good pulse ox. When ask if she has pain, she points to her abdomen. When ask to move her extremities, she said her left arm is her weak arm. Pt had received a total of NS IVF x2 and is now much better. Pt is AAOx3 now and speaking in complete sentences. Said she woke up at 10am today and was feeling generalized weakness and nauseous. Said she wants feeling very bad. Labs reviewed, no leukocytosis. H/H 8.8/26.6 which is slightly lower than before. BUN/creatinine elevated at 29/2.01. Lactic acid elevated at 4.0. Elevated liver enzymes. Troponin negative. TSH mildly elevated. Will obtain T4. Lipase normal. UA negative. CXR negative. CT a/p showed gallstones and thickened gallbladder wall. Acute cholecystitis may be consideration. Pt reevaluated at bedside and with only very minimal pain in RUQ. CT brain showed no acute intracranial disease. Pt given zosyn. Will admit to medicine with surgery consult. Data Data Last Documented VS Vital Signs Date Time Temp Pulse Resp B/P (MAP) Pulse Ox O2 Delivery O2 Flow Rate FiO2 06/21/17 15:54 97.9 65 18 140/71 (94) 100 Nasal Cannula 3.00 Orders Orders Electrocardiogram (06/21/17 13:14) Ammonia (06/21/17 13:14) Complete Blood Count With Diff (06/21/17 13:14) Comprehensive Metabolic Panel (06/21/17 13:14) Creatine Kinase (Cpk) (06/21/17 13:14) Prothrombin Time / Inr (Pt) (06/21/17 13:14) Act Partial Throm Time (Ptt) (06/21/17 13:14) Troponin I (06/21/17 13:14) Thyroid Stimulating Hormone (06/21/17 13:14) Urinalysis - C+S If Indicated (06/21/17 13:14) Lactic Acid Sepsis Protocol (06/21/17 13:14) Chest, Single Ap (06/21/17 13:14) Blood Glucose (06/21/17 13:14) Ecg Monitoring (06/21/17 13:14) Iv Access Insert/Monitor (06/21/17 13:14) Oximetry (06/21/17 13:14) Sodium Chloride 0.9% Flush (Ns Flush) (06/21/17 13:15) Sodium Chlor 0.9% 1000 Ml Inj (Ns 1000 M (06/21/17 13:14) Ct Brain W/O Iv Contrast(Rout) (06/21/17 ) Cath For Specimen (06/21/17 13:24) Ct Abd/Pel W/O Iv Contrast (06/21/17 ) Blood Culture (06/21/17 13:29) Wound Culture And Gram Stain (06/21/17 13:37) Urine Culture (06/21/17 13:30) Us Abdomen Gallbladder (06/21/17 ) Lipase (06/21/17 13:30) Piperacil-Tazo 2.25 Gm Premix (Zosyn 2.2 (06/21/17 16:00) Admit Order (Ed Use Only) (06/21/17 16:45) Labs Laboratory Tests Test 06/21/17 13:30 06/21/17 13:33 06/21/17 14:30 06/21/17 16:00 White Blood Count 7.8 TH/MM3 Red Blood Count 2.98 MIL/MM3 Hemoglobin 8.8 GM/DL Hematocrit 26.6 % Mean Corpuscular Volume 89.4 FL Mean Corpuscular Hemoglobin 29.5 PG Mean Corpuscular Hemoglobin Concent 33.0 % Red Cell Distribution Width 18.3 % Platelet Count 247 TH/MM3 Mean Platelet Volume 8.3 FL Neutrophils (%) (Auto) 74.6 % Lymphocytes (%) (Auto) 19.8 % Monocytes (%) (Auto) 5.0 % Eosinophils (%) (Auto) 0.3 % Basophils (%) (Auto) 0.3 % Neutrophils # (Auto) 5.8 TH/MM3 Lymphocytes # (Auto) 1.6 TH/MM3 Monocytes # (Auto) 0.4 TH/MM3 Eosinophils # (Auto) 0.0 TH/MM3 Basophils # (Auto) 0.0 TH/MM3 CBC Comment DIFF FINAL Differential Comment Urine Color YELLOW Urine Turbidity CLEAR Urine pH 6.0 Urine Specific [place] 1.010 Urine Protein 100 mg/dL Urine Glucose (UA) NEG mg/dL Urine Ketones NEG mg/dL Urine Occult Blood NEG Urine Nitrite NEG Urine Bilirubin NEG Urine Urobilinogen LESS THAN 2.0 MG/DL Urine Leukocyte Esterase NEG Urine RBC 2 /hpf Urine WBC LESS THAN 1 /hpf Urine Bacteria RARE /hpf Urine Hyaline Casts 1 /lpf Microscopic Urinalysis Comment CATH-CULTURE IND Blood Urea Nitrogen 29 MG/DL Creatinine 2.01 MG/DL Random Glucose 253 MG/DL Total Protein 6.6 GM/DL Albumin 2.1 GM/DL Calcium Level 7.6 MG/DL Alkaline Phosphatase 132 U/L Aspartate Amino Transf (AST/SGOT) 166 U/L Alanine Aminotransferase (ALT/SGPT) 89 U/L Total Bilirubin 0.5 MG/DL Sodium Level 136 MEQ/L Potassium Level 4.7 MEQ/L Chloride Level 103 MEQ/L Carbon Dioxide Level 21.1 MEQ/L Anion Gap 12 MEQ/L Estimat Glomerular Filtration Rate 29 ML/MIN Total Creatine Kinase 65 U/L Troponin I LESS THAN 0.02 NG/ML Lipase 95 U/L Thyroid Stimulating Hormone 3rd Gen 3.800 uIU/ML Lactic Acid Level 4.0 mmol/L 1.7 mmol/L Ammonia 17 MCMOL/L Prothrombin Time 11.2 SEC Prothromb Time International Ratio 1.1 RATIO Activated Partial Thromboplast Time 26.2 SEC [facility] Supervised Visit with ROSA: Yes Interpretation(s) EKG: Sinus bradycardia at 48bpm. TWI V6. RBBB. Diagnosis Primary Impression: Altered mental status Qualified Codes: R41.82 - Altered mental status, unspecified Admitting Information Admitting Physician Requests: it Kailyn Lee DO Jun 21, 2017 13:34
[2017-06-21 13:58] LABS: AUTOMATED NEUTROPHIL # 5.8 TH/MM3 (1.8-7.7); BASOPHIL % 0.3 % (0.0-2.0); EOSINOPHIL % 0.3 % (0.0-4.0); HEMATOCRIT 26.6 % (35.0-46.0); HEMOGLOBIN 8.8 GM/DL (11.6-15.3); LYMPH % 19.8 % (9.0-44.0); LYMPHOCYTE # 1.6 TH/MM3 (1.0-4.8); MEAN CELL VOLUME 89.4 FL (80.0-100.0); MEAN CORPUSCULAR HEMOGLOBIN 29.5 PG (27.0-34.0); MEAN PLATELET VOLUME 8.3 FL (7.0-11.0); MONOCYTE # 0.4 TH/MM3 (0-0.9); NEUT % 74.6 % (16.0-70.0); PLATELET COUNT 247 TH/MM3 (150-450); RED BLOOD COUNT 2.98 MIL/MM3 (4.00-5.30); RED CELL DISTRIBUTION WIDTH 18.3 % (11.6-17.2); WHITE BLOOD COUNT 7.8 TH/MM3 (4.0-11.0)
[2017-06-21] MEDS ORDERED: AMLO5 PO (13:59)
[2017-06-21 14:01] LABS: BACTERIA, URINE RARE /hpf; BILIRUBIN, URINE NEG (NEG); BLOOD, URINE NEG (NEG); GLUCOSE,URINE NEG (NEG); HYALINE CAST, URINE 1 /lpf (RARE); KETONE, URINE NEG (NEG); NITRITE,URINE NEG (NEG); URINE COLOR YELLOW (YELLW/STRAW); URINE LEUKOCYTE ESTERASE NEG (NEG)
--- NOTE | 2017-06-21 14:24 | RADRPT ---
EXAM DATE/TIME: 06/21/2017 14:09 [facility] COMPARISON: CT BRAIN W/O CONTRAST, July 01, 2015, 15:20. INDICATIONS : Altered mental status. RADIATION DOSE: 56.35 CTDIvol (mGy) MEDICAL HISTORY : Cardiovascular disease. Hypertension. renal failure, diabetes. SURGICAL HISTORY : Tubal ligation. ENCOUNTER: Initial ACUITY: 1 day PAIN SCALE: 0/10 LOCATION: cranial TECHNIQUE: Multiple contiguous axial images were obtained of the head. Using automated exposure control and adj ustment of the mA and/or kV according to patient size, radiation dose was kept as low as reasonably a chievable to obtain optimal diagnostic quality images. DICOM format image data is available electro nically for review and comparison. FINDINGS: CEREBRUM: The ventricles are normal for age. No evidence of midline shift, mass lesion, hemorrhage or acute in farction. No extra-axial fluid collections are seen. POSTERIOR FOSSA: The cerebellum and brainstem are intact. The 4th ventricle is midline. The cerebellopontine angle i s unremarkable. EXTRACRANIAL: The visualized portion of the orbits is intact. SKULL: The calvaria is intact. No evidence of skull fracture. CONCLUSION: No acute intracranial disease. No change in from previous study. Parminder Nichols MD on June 21, 2017 at 14:21 Board Certified Radiologist. This report was verified electronically.
[2017-06-21 14:26] LABS: ALBUMIN 2.1 GM/DL (3.4-5.0); AST (GOT) 166 U/L (15-37); BICARBONATE 21.1 MEQ/L (21.0-32.0); BLOOD UREA NITROGEN 29 MG/DL (7-18); CALCIUM 7.6 MG/DL (8.5-10.1); CHLORIDE 103 MEQ/L (98-107); CREATININE 2.01 MG/DL (0.50-1.00); GLOMERULAR FILTRATION RATE 29 ML/MIN (>89); GLUCOSE,RANDOM 253 MG/DL (74-106); SODIUM (NA) 136 MEQ/L (136-145)
[2017-06-21 14:27] LABS: ALT (GPT) 89 U/L (10-53)
--- NOTE | 2017-06-21 14:30 | RADRPT ---
EXAM DATE/TIME: 06/21/2017 14:12 [facility] COMPARISON: No previous studies available for comparison. INDICATIONS : Abdominal pain. ORAL CONTRAST: No oral contrast ingested. RADIATION DOSE: 6.84 CTDIvol (mGy) MEDICAL HISTORY : Renal failure, chronic. Diabetes mellitus type 2. Hypertension. SURGICAL HISTORY : None. ENCOUNTER: Initial ACUITY: 1 day PAIN SCALE: Non-responsive LOCATION: upper quadrant TECHNIQUE: Volumetric scanning of the abdomen and pelvis was performed. Using automated exposure control and ad justment of the mA and/or kV according to patient size, radiation dose was kept as low as reasonably achievable to obtain optimal diagnostic quality images. DICOM format image data is available electro nically for review and comparison. FINDINGS: Lower lungs are clear. Moderate compensated cardiomegaly The liver is free of focal defects Gallstones with thickened gallbladder wall Trace ascites Spleen and pancreas unremarkable Extensive vascular calcifications in aorta dilated to 3.8 cm. 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 CONCLUSION: Gallstones prominent gallbladder with thickened gallbladder wall. Acute cholecystitis may be consideration. Trace ascites Extensive vascular calcifications Multiple diverticuli throughout the colon . Braxton Cavanaugh MD FACR on June 21, 2017 at 14:24 Board Certified Radiologist. This report was verified electronically.
[2017-06-21 14:37] LABS: ALKALINE PHOSPHATASE 132 U/L (45-117); TOTAL BILIRUBIN ADULT 0.5 MG/DL (0.2-1.0); TOTAL PROTEIN 6.6 GM/DL (6.4-8.2); TROPONIN I LESS THAN 0.02 NG/ML (0.02-0.05)
--- NOTE | 2017-06-21 14:40 | RADRPT ---
EXAM DATE/TIME: 06/21/2017 13:57 [facility] COMPARISON: No previous studies available for comparison. INDICATIONS : Altered Mental Status. Patient states no present pain at this time. MEDICAL HISTORY : None. SURGICAL HISTORY : None. ENCOUNTER: Initial ACUITY: 1 day PAIN SCORE: 0/10 LOCATION: Bilateral chest FINDINGS: A single view of the chest demonstrates the lungs to be symmetrically aerated without evidence of mas s, infiltrate or effusion. The cardiomediastinal contours are unremarkable. Mild cardiomegaly. [place] structures are intact. CONCLUSION: No acute disease. Parminder Nichols MD on June 21, 2017 at 14:37 Board Certified Radiologist. This report was verified electronically.
[2017-06-21 15:38] LABS: INTERNATIONAL NORMALIZED RATIO 1.1 RATIO; PROTHROMBIN TIME - PATIENT 11.2 SEC (9.8-11.6)
[2017-06-21] MEDS ORDERED: PIPERACIL-TAZO 2.25 GM PREMIX 50 ML IV ONE (16:00)
--- NOTE | 2017-06-21 16:31 | RADRPT ---
EXAM DATE/TIME: 06/21/2017 15:11 [facility] COMPARISON: CT ABDOMEN & PELVIS W/O CONTRAST, June 21, 2017, 14:12. INDICATIONS : Right upper quadrant pain. MEDICAL HISTORY : Chronic obstructive pulmonary disease. Congestive heart failure. Hypertension. GERD. CKD. SURGICAL HISTORY : Tubal ligation. Cyst removed from left breast. ENCOUNTER: Initial ACUITY: 1 day PAIN SCORE: 4/10 LOCATION: Right upper quadrant MEASUREMENTS: LIVER: 18.9 cm length COMMON DUCT: 4 mm RIGHT KIDNEY: 13.4 x 5.0 x 4.4 cm FINDINGS: LIVER: Echogenic liver without ductal dilatation. Trace ascites COMMON DUCT: No intraluminal mass or stone visualized. GALLBLADDER: Are not wall with pericholecystic fluid and no gallstones. PANCREAS: Poorly visualized RIGHT KIDNEY: No evidence of hydronephrosis, stone, or mass. CONCLUSION: Trace ascites. Gallbladder wall thickening. I cannot confirm gallstones. Cholecyst itis would be a consideration. Braxton Cavanaugh MD FACR on June 21, 2017 at 16:26 Board Certified Radiologist. This report was verified electronically.
--- NOTE | 2017-06-21 16:57 | HHI.HP ---
HPI Service [facility] Hospitalists Primary Care Physician Francy Ortiz M.D. Admission Diagnosis AMS, hypotension, possible cholecystitis Chief Complaint: AMS Travel History International Travel<30 Days: No Contact w/Intl Traveler <30 Da: No Traveled to Known Affected Are: No History of Present Illness Mrs. Morrow is a pleasant 81 y/o AAF with DM, HTN, Hyperlipidemia, hypothyroidism, CKD stage 3, and polymyositis Pt was recently [place] [facility] [place] 05[place]26[place]17 after a left hip fracture. Pt underwent left hip bipolar replacement arthroplasty on 05/23/[address] Jacobs and did well postoperatively and went to SNF at discharge. Pt presented back to the ED [place] [facility] [place] 06/21/17 with AMS. According to ED documentation, the pts daughter called 911 for altered mental status that started this morning. When EMS arrived pt received Narcan 0.8 mg as well as Zofran 4 mg IV and normal saline 1 L IV bolus by EMS. She was reportedly hypotensive on scene with a systolic blood pressure in the 70s. Pt reportedly complained of epigastric pain and nausea. Labs work in the ED noted a normal WBC count of 7.8 Past Family Social History Past Medical History Left hip fracture (05/2017) L1 compression fracture (anterior wedge compression fracture with 15% loss of vertebral body height at L1) Superior pubic ramus fracture right side. Cellulitis of LE HTN CKD, stage 3 CHF DDD Diabetes mellitus with peripheral neuropathy, nephropathy and hx of diabetic foot wounds (Hgb A1C 8.0% in 06/2016) Diverticulosis H. pylori infection Hyperlipidemia Hyperthyroidism MGUS Polymyositis COPD Polymicrobial infection left leg laceration Past Surgical History Left hip bipolar replacement arthroplasty on 05/23/[address] Jacobs Cataract surgery Tubal ligation Reported Medications Bumetanide 1 Mg Tab 1 Mg PO DAILY Methocarbamol 500 Mg Tab 500 Mg PO HS Lovenox Inj (Enoxaparin Sodium) 30 Mg/0.3 Ml Syr 30 Mg SQ DAILY 25 Days Hydrocodone-Acetamin 10-325 mg (Hydrocodone/Acetaminophen) 10 Mg-325 Mg Tablet 1 Tab PO Q4H PRN Glucotrol (Glipizide) 5 Mg Tab 5 Mg PO DAILYAC Carvedilol 6.25 Mg Tab 12.5 Mg PO BID Norvasc (Amlodipine Besylate) 5 Mg Tab 5 Mg PO DAILY Ferrous Sulfate 325 Mg (65 Mg Iron) Tablet 325 Mg PO DAILY Potassium Chloride ER (Potassium Chloride) 10 Meq Cap 10 Meq PO DAILY Zantac (Ranitidine HCl) 150 Mg Tab 75 Mg PO DAILY Vitamin D3 (Cholecalciferol) 1,000 Unit Cap 2,000 Units PO DAILY Levothyroxine (Levothyroxine Sodium) 25 Mcg Tab 25 Mcg PO DAILY Gabapentin 800 Mg Tab 800 Mg PO TID Prednisone 10 Mg Tab 10 Mg PO DAILY Protonix (Pantoprazole Sodium) 40 Mg Tab 40 Mg PO DAILY Aspirin Adult Low Strength (Aspirin) 81 Mg Tabdr 81 Mg PO DAILY D 400 (Cholecalciferol) 400 Unit Tab 800 Units PO DAILY Verapamil ER 24 HR (Verapamil HCl) 240 Mg Tab 240 Mg PO DAILY Atorvastatin (Atorvastatin Calcium) 20 Mg Tab 20 Mg PO DAILY Primidone 50 Mg Tab 50 Mg PO HS Allopurinol 100 Mg Tab 300 Mg PO BID Valsartan 80 Mg Tab 160 Mg PO DAILY Allergies: Coded Allergies: pregabalin (Verified Allergy, Intermediate, Rash, 06/21/17) Family History Mother with hx of colon cancer Father with hx of TB Social History (+)Tobacco use, smokes 1ppd since age 23 Social alcohol use Pt is a She is a retired teacher/counsellor Physical Exam Vital Signs Vital Signs Date Time Temp Pulse Resp B/P (MAP) Pulse Ox O2 Delivery O2 Flow Rate FiO2 06/21/17 15:54 97.9 65 18 140/71 (94) 100 Nasal Cannula 3.00 06/21/17 15:21 97.8 48 20 118/77 (91) 99 Nasal Cannula 3.00 06/21/17 13:50 49 18 112/60 (77) 99 Nasal Cannula 3.00 06/21/17 13:27 20 98 Room Air 06/21/17 13:25 98.6 48 18 112/66 (81) 99 Room Air 06/21/17 13:10 17 97 Room Air 06/21/17 13:10 47 16 81/51 (61) Physical Exam GENERAL: This is a well-nourished, well-developed patient, in no apparent distress. SKIN: No rashes, ecchymoses or lesions. Cool and dry. HEAD: Atraumatic. Normocephalic. No temporal or scalp tenderness. EYES: Pupils equal round and reactive. Extraocular motions intact. No scleral icterus. No injection or drainage. ENT: Nose without bleeding, purulent drainage or septal hematoma. Throat without erythema, tonsillar hypertrophy or exudate. Uvula midline. Airway patent. NECK: Trachea midline. No JVD or lymphadenopathy. Supple, nontender, no meningeal signs. CARDIOVASCULAR: Regular rate and rhythm without murmurs, gallops, or rubs. RESPIRATORY: Clear to auscultation. Breath sounds equal bilaterally. No wheezes , rales, or rhonchi. GASTROINTESTINAL: Abdomen soft, non-tender, nondistended. No hepato-splenomegaly , or palpable masses. No guarding. MUSCULOSKELETAL: Extremities without clubbing, cyanosis, or edema. No joint tenderness, effusion, or edema noted. No calf tenderness. Negative Homans sign bilaterally. NEUROLOGICAL: Awake and alert. Cranial nerves II through XII intact. Motor and sensory grossly within normal limits. Five out of 5 muscle strength in all muscle groups. Normal speech. Laboratory Laboratory Tests Test 06/21/17 13:30 06/21/17 13:33 06/21/17 14:30 06/21/17 16:00 White Blood Count 7.8 Red Blood Count 2.98 Hemoglobin 8.8 Hematocrit 26.6 Mean Corpuscular Volume 89.4 Mean Corpuscular Hemoglobin 29.5 Mean Corpuscular Hemoglobin Concent 33.0 Red Cell Distribution Width 18.3 Platelet Count 247 Mean Platelet Volume 8.3 Neutrophils (%) (Auto) 74.6 Lymphocytes (%) (Auto) 19.8 Monocytes (%) (Auto) 5.0 Eosinophils (%) (Auto) 0.3 Basophils (%) (Auto) 0.3 Neutrophils # (Auto) 5.8 Lymphocytes # (Auto) 1.6 Monocytes # (Auto) 0.4 Eosinophils # (Auto) 0.0 Basophils # (Auto) 0.0 CBC Comment DIFF FINAL Differential Comment Urine Color YELLOW Urine Turbidity CLEAR Urine pH 6.0 Urine Specific [place] 1.010 Urine Protein 100 Urine Glucose (UA) NEG Urine Ketones NEG Urine Occult Blood NEG Urine Nitrite NEG Urine Bilirubin NEG Urine Urobilinogen LESS THAN 2.0 Urine Leukocyte Esterase NEG Urine RBC 2 Urine WBC LESS THAN 1 Urine Bacteria RARE Urine Hyaline Casts 1 Microscopic Urinalysis Comment CATH-CULTURE IND Blood Urea Nitrogen 29 Creatinine 2.01 Random Glucose 253 Total Protein 6.6 Albumin 2.1 Calcium Level 7.6 Alkaline Phosphatase 132 Aspartate Amino Transf (AST/SGOT) 166 Alanine Aminotransferase (ALT/SGPT) 89 Total Bilirubin 0.5 Sodium Level 136 Potassium Level 4.7 Chloride Level 103 Carbon Dioxide Level 21.1 Anion Gap 12 Estimat Glomerular Filtration Rate 29 Total Creatine Kinase 65 Troponin I LESS THAN 0.02 Lipase 95 Thyroid Stimulating Hormone 3rd Gen 3.800 Lactic Acid Level 4.0 1.7 Ammonia 17 Prothrombin Time 11.2 Prothromb Time International Ratio 1.1 Activated Partial Thromboplast Time 26.2 Date/Time Source Procedure Growth Status 06/21/17 13:25 Blood Peripheral Aerobic Blood Culture Pending Received 06/21/17 13:25 Blood Peripheral Anaerobic Blood Culture Pending Received 06/21/17 13:30 Urine Catheterized Urine Urine Culture Pending Received 06/21/17 13:30 Wound Foot Gram Stain Pending Received 06/21/17 13:30 Wound Foot Wound Culture Pending Received Result Diagram: 06/21/17 1330 06/21/17 1330 Caprini VTE Risk Assessment Caprini Risk Assessment Model Point Value = 1 Point Value = 2 Point Value = 3 Point Value = 5 Age 41-60 Minor surgery BMI > 25 kg/m2 Swollen legs Varicose veins or History of unexplained or recurrent spontaneous Oral contraceptives or hormone replacement Sepsis (< 1 month) Serious lung disease, including pneumonia (< 1 month) Abnormal pulmonary function Acute myocardial infarction Congestive heart failure (< 1 month) History of inflammatory bowel disease Medical patient at bed rest Age 61-74 Arthroscopic surgery Major open surgery (> 45 min) Laparoscopic surgery (> 45 min) Malignancy Confined to bed (> 72 hours) Immobilizing plaster cast Central venous access Age >= 75 History of VTE Family history of VTE Factor V Leiden Prothrombin [id number] Lupus anticoagulant Anticardiolipin antibodies Elevated serum homocysteine Heparin-induced thrombocytopenia Other congenital or acquired thrombophilia Stroke (< 1 month) Elective arthroplasty Hip, pelvis, or leg fracture Acute spinal cord injury (< 1 month) Prophylaxis Regimen Total Risk Factor Score Risk Level Prophylaxis Regimen 0-1 Low Early ambulation 2 Moderate Order ONE of the following: *Sequential Compression Device (SCD) *Heparin 5000 units SQ BID 3-4 Higher Order ONE of the following medications: *Heparin 5000 units SQ TID *Enoxaparin/Lovenox 40 mg SQ daily (WT < 150 kg, CrCl > 30 mL/min) *Enoxaparin/Lovenox 30 mg SQ daily (WT < 150 kg, CrCl > 10-29 mL/min) *Enoxaparin/Lovenox 30 mg SQ BID (WT < 150 kg, CrCl > 30 mL/min) AND/OR *Sequential Compression Device (SCD) 5 or more Highest Order ONE of the following medications: *Heparin 5000 units SQ TID (Preferred with Epidurals) *Enoxaparin/Lovenox 40 mg SQ daily (WT < 150 kg, CrCl > 30 mL/min) *Enoxaparin/Lovenox 30 mg SQ daily (WT < 150 kg, CrCl > 10-29 mL/min) *Enoxaparin/Lovenox 30 mg SQ BID (WT < 150 kg, CrCl > 30 mL/min) AND *Sequential Compression Device (SCD) Anay Tomlin Jun 21, 2017 16:57
[2017-06-21] MEDS ORDERED: ACETAMINOPHEN 325 MG TAB PO PRN (17:15)
[2017-06-21] MEDS ORDERED: ONDANSETRON HCL 4 MG/2 ML VIAL IV PRN (17:15)
[2017-06-21] MEDS ORDERED: PILL SPLITTER OTHER PRN (18:00)
[2017-06-21] MEDS: GABAPENTIN 400 MG CAP PO SCH (18:21)
[2017-06-21] MEDS: INSULIN ASPART SUPPLEMENTAL SCALE SQ SCH (21:00)
[2017-06-21] MEDS ORDERED: ALLOPURINOL 100 MG TAB PO SCH (21:00)
[2017-06-21] MEDS: PRIMIDONE 50 MG TAB PO SCH (21:23)
--- NOTE | 2017-06-21 21:56 | HHI.HP ---
HPI Service [facility] Hospitalists Primary Care Physician Francy Ortiz M.D. Admission Diagnosis AMS, hypotension, possible cholecystitis Chief Complaint: AMS,hypotrension abdominal pain Travel History International Travel<30 Days: No Contact w/Intl Traveler <30 Da: No Traveled to Known Affected Are: No History of Present Illness Mrs. Morrow is a pleasant 81 y/o AAF with DM, HTN, Hyperlipidemia, hypothyroidism, CKD stage 3, and polymyositis Pt was recently admitted to [facility] from 05/22/17 to 05/26/17 after a left hip fracture. Pt underwent left hip bipolar replacement arthroplasty on 05/23/[address] Jacobs and did well postoperatively and went to SNF at discharge. Pt presented back to the ED at [facility] on 06/21/17 with AMS. According to ED documentation, the pts daughter called 911 for altered mental status that started this morning. When EMS arrived pt received Narcan 0.8 mg as well as Zofran 4 mg IV and normal saline 1 L IV bolus by EMS. She was reportedly hypotensive on scene with a systolic blood pressure in the 70s. Pt reportedly complained of epigastric pain and nausea. Labs work in the ED noted a normal WBC count of 7.8,patient received more IV fluid in er with improvement in blood pressure . Patient had CT abdomen showed gallstones with thickening and suggested cholecystitis will start on antibiotics and get surgical evaluation. Review of Systems ROS Limitations: Altered Mental Status Gastrointestinal: COMPLAINS OF: Abdominal pain, Nausea Past Family Social History Past Medical History Left hip fracture (05/2017) L1 compression fracture (anterior wedge compression fracture with 15% loss of vertebral body height at L1) Superior pubic ramus fracture right side. Cellulitis of LE HTN CKD, stage 3 CHF DDD Diabetes mellitus with peripheral neuropathy, nephropathy and hx of diabetic foot wounds (Hgb A1C 8.0% in 06/2016) Diverticulosis H. pylori infection Hyperlipidemia Hyperthyroidism MGUS Polymyositis COPD Polymicrobial infection left leg laceration Past Surgical History Left hip bipolar replacement arthroplasty on 05/23/[address] Jacobs Cataract surgery Tubal ligation Reported Medications Bumetanide 1 Mg Tab 1 Mg PO DAILY Methocarbamol 500 Mg Tab 500 Mg PO HS Lovenox Inj (Enoxaparin Sodium) 30 Mg/0.3 Ml Syr 30 Mg SQ DAILY 25 Days Hydrocodone-Acetamin 10-325 mg (Hydrocodone/Acetaminophen) 10 Mg-325 Mg Tablet 1 Tab PO Q4H PRN Glucotrol (Glipizide) 5 Mg Tab 5 Mg PO DAILYAC Carvedilol 6.25 Mg Tab 12.5 Mg PO BID Reported Norvasc (Amlodipine Besylate) 5 Mg Tab 5 Mg PO DAILY Ferrous Sulfate 325 Mg (65 Mg Iron) Tablet 325 Mg PO DAILY Potassium Chloride ER (Potassium Chloride) 10 Meq Cap 10 Meq PO DAILY Zantac (Ranitidine HCl) 150 Mg Tab 75 Mg PO DAILY Vitamin D3 (Cholecalciferol) 1,000 Unit Cap 2,000 Units PO DAILY Levothyroxine (Levothyroxine Sodium) 25 Mcg Tab 25 Mcg PO DAILY Gabapentin 800 Mg Tab 800 Mg PO TID Prednisone 10 Mg Tab 10 Mg PO DAILY Protonix (Pantoprazole Sodium) 40 Mg Tab 40 Mg PO DAILY Aspirin Adult Low Strength (Aspirin) 81 Mg Tabdr 81 Mg PO DAILY D 400 (Cholecalciferol) 400 Unit Tab 800 Units PO DAILY Verapamil ER 24 HR (Verapamil HCl) 240 Mg Tab 240 Mg PO DAILY Atorvastatin (Atorvastatin Calcium) 20 Mg Tab 20 Mg PO DAILY Primidone 50 Mg Tab 50 Mg PO HS Allopurinol 100 Mg Tab 300 Mg PO BID Valsartan 80 Mg Tab 160 Mg Allergies: Coded Allergies: pregabalin (Verified Allergy, Intermediate, Rash, 06/21/17) Family History Mother with hx of colon cancer Father with hx of TB Social History (+)Tobacco use, smokes 1ppd since age 23 Social alcohol use Pt is a She is a retired teacher/counsellor Physical Exam Vital Signs Vital Signs Date Time Temp Pulse Resp B/P (MAP) Pulse Ox O2 Delivery O2 Flow Rate FiO2 06/21/17 21:04 97.8 80 16 162/86 (111) 06/21/17 20:07 06/21/17 19:37 82 18 166/92 (116) 98 Room Air 06/21/17 18:22 97.8 50 18 164/81 (108) 99 Nasal Cannula 3.00 06/21/17 17:20 98.1 51 18 138/67 (90) 100 Nasal Cannula 3.00 06/21/17 15:54 97.9 65 18 140/71 (94) 100 Nasal Cannula 3.00 06/21/17 15:21 97.8 48 20 118/77 (91) 99 Nasal Cannula 3.00 06/21/17 13:50 49 18 112/60 (77) 99 Nasal Cannula 3.00 06/21/17 13:27 20 98 Room Air 06/21/17 13:25 98.6 48 18 112/66 (81) 99 Room Air 06/21/17 13:10 17 97 Room Air 06/21/17 13:10 47 16 81/51 (61) Physical Exam GENERAL: This is a well-nourished, well-developed patient, in no apparent distress. SKIN: No rashes, ecchymoses or lesions. Cool and dry. HEAD: Atraumatic. Normocephalic. No temporal or scalp tenderness. EYES: Pupils equal round and reactive. Extraocular motions intact. No scleral icterus. No injection or drainage. ENT: Nose without bleeding, purulent drainage or septal hematoma. Throat without erythema, tonsillar hypertrophy or exudate. Uvula midline. Airway patent. NECK: Trachea midline. No JVD or lymphadenopathy. Supple, nontender, no meningeal signs. CARDIOVASCULAR: Regular rate and rhythm without murmurs, gallops, or rubs. RESPIRATORY: Clear to auscultation. Breath sounds equal bilaterally. No wheezes , rales, or rhonchi. GASTROINTESTINAL: Abdomen soft, mild-tender rt side, nondistended. No hepato- splenomegaly, or palpable masses. No guarding. MUSCULOSKELETAL: Extremities without clubbing, cyanosis, or edema. No joint tenderness, effusion, or edema noted. No calf tenderness. Negative Homans sign bilaterally. NEUROLOGICAL: Awake and alert. Cranial nerves II through XII intact. Motor and sensory grossly within normal limits. Five out of 5 muscle strength in all muscle groups. Normal speech. Laboratory Laboratory Tests Test 06/21/17 13:30 06/21/17 13:33 06/21/17 14:30 06/21/17 16:00 White Blood Count 7.8 Red Blood Count 2.98 Hemoglobin 8.8 Hematocrit 26.6 Mean Corpuscular Volume 89.4 Mean Corpuscular Hemoglobin 29.5 Mean Corpuscular Hemoglobin Concent 33.0 Red Cell Distribution Width 18.3 Platelet Count 247 Mean Platelet Volume 8.3 Neutrophils (%) (Auto) 74.6 Lymphocytes (%) (Auto) 19.8 Monocytes (%) (Auto) 5.0 Eosinophils (%) (Auto) 0.3 Basophils (%) (Auto) 0.3 Neutrophils # (Auto) 5.8 Lymphocytes # (Auto) 1.6 Monocytes # (Auto) 0.4 Eosinophils # (Auto) 0.0 Basophils # (Auto) 0.0 CBC Comment DIFF FINAL Differential Comment Urine Color YELLOW Urine Turbidity CLEAR Urine pH 6.0 Urine Specific [place] 1.010 Urine Protein 100 Urine Glucose (UA) NEG Urine Ketones NEG Urine Occult Blood NEG Urine Nitrite NEG Urine Bilirubin NEG Urine Urobilinogen LESS THAN 2.0 Urine Leukocyte Esterase NEG Urine RBC 2 Urine WBC LESS THAN 1 Urine Bacteria RARE Urine Hyaline Casts 1 Microscopic Urinalysis Comment CATH-CULTURE IND Blood Urea Nitrogen 29 Creatinine 2.01 Random Glucose 253 Total Protein 6.6 Albumin 2.1 Calcium Level 7.6 Alkaline Phosphatase 132 Aspartate Amino Transf (AST/SGOT) 166 Alanine Aminotransferase (ALT/SGPT) 89 Total Bilirubin 0.5 Sodium Level 136 Potassium Level 4.7 Chloride Level 103 Carbon Dioxide Level 21.1 Anion Gap 12 Estimat Glomerular Filtration Rate 29 Total Creatine Kinase 65 Troponin I LESS THAN 0.02 Lipase 95 Thyroid Stimulating Hormone 3rd Gen 3.800 Lactic Acid Level 4.0 1.7 Ammonia 17 Prothrombin Time 11.2 Prothromb Time International Ratio 1.1 Activated Partial Thromboplast Time 26.2 Date/Time Source Procedure Growth Status 06/21/17 13:25 Blood Peripheral Aerobic Blood Culture Pending Received 06/21/17 13:25 Blood Peripheral Anaerobic Blood Culture Pending Received 06/21/17 13:30 Urine Catheterized Urine Urine Culture Pending Received 06/21/17 13:30 Wound Foot Gram Stain Pending Received 06/21/17 13:30 Wound Foot Wound Culture Pending Received Result Diagram: 06/21/17 1330 06/21/17 1330 Imaging Last 24 hours Impressions Chest X-Ray 06/21/17 1314 Signed Impressions: Service Date/Time: Wednesday, June 21, 2017 13:57 - CONCLUSION: No acute disease. Parminder Nichols MD Head CT 06/21/17 0000 Signed Impressions: Service Date/Time: Wednesday, June 21, 2017 14:09 - CONCLUSION: No acute intracranial disease. No change in from previous study. Parminder Nichols MD Gall Bladder Ultrasound 06/21/17 0000 Signed Impressions: Service Date/Time: Wednesday, June 21, 2017 15:11 - CONCLUSION: Trace ascites. Gallbladder wall thickening. I cannot confirm gallstones. Cholecystitis would be a consideration. Braxton Cavanaugh MD FACR Abdomen/Pelvis CT 06/21/17 0000 Signed Impressions: Service Date/Time: Wednesday, June 21, 2017 14:12 - CONCLUSION: Gallstones prominent gallbladder with thickened gallbladder wall. Acute cholecystitis may be consideration. Trace ascites Extensive vascular calcifications Multiple diverticuli throughout the colon . Braxton Cavanaugh MD FACR Course in er started on iv antibiotics and continued on IV fluid Caprini VTE Risk Assessment Caprini VTE Risk Assessment: Mod/High Risk (score >= 2) Caprini Risk Assessment Model Point Value = 1 Point Value = 2 Point Value = 3 Point Value = 5 Age 41-60 Minor surgery BMI > 25 kg/m2 Swollen legs Varicose veins or History of unexplained or recurrent spontaneous Oral contraceptives or hormone replacement Sepsis (< 1 month) Serious lung disease, including pneumonia (< 1 month) Abnormal pulmonary function Acute myocardial infarction Congestive heart failure (< 1 month) History of inflammatory bowel disease Medical patient at bed rest Age 61-74 Arthroscopic surgery Major open surgery (> 45 min) Laparoscopic surgery (> 45 min) Malignancy Confined to bed (> 72 hours) Immobilizing plaster cast Central venous access Age >= 75 History of VTE Family history of VTE Factor V Leiden Prothrombin [id number] Lupus anticoagulant Anticardiolipin antibodies Elevated serum homocysteine Heparin-induced thrombocytopenia Other congenital or acquired thrombophilia Stroke (< 1 month) Elective arthroplasty Hip, pelvis, or leg fracture Acute spinal cord injury (< 1 month) Prophylaxis Regimen Total Risk Factor Score Risk Level Prophylaxis Regimen 0-1 Low Early ambulation 2 Moderate Order ONE of the following: *Sequential Compression Device (SCD) *Heparin 5000 units SQ BID 3-4 Higher Order ONE of the following medications: *Heparin 5000 units SQ TID *Enoxaparin/Lovenox 40 mg SQ daily (WT < 150 kg, CrCl > 30 mL/min) *Enoxaparin/Lovenox 30 mg SQ daily (WT < 150 kg, CrCl > 10-29 mL/min) *Enoxaparin/Lovenox 30 mg SQ BID (WT < 150 kg, CrCl > 30 mL/min) AND/OR *Sequential Compression Device (SCD) 5 or more Highest Order ONE of the following medications: *Heparin 5000 units SQ TID (Preferred with Epidurals) *Enoxaparin/Lovenox 40 mg SQ daily (WT < 150 kg, CrCl > 30 mL/min) *Enoxaparin/Lovenox 30 mg SQ daily (WT < 150 kg, CrCl > 10-29 mL/min) *Enoxaparin/Lovenox 30 mg SQ BID (WT < 150 kg, CrCl > 30 mL/min) AND *Sequential Compression Device (SCD) Assessment and Plan Problem List: (1) Altered mental status ICD Codes: R41.82 - Altered mental status, unspecified Status: Acute Plan: improved with fluids (2) Hypotension ICD Codes: I95.9 - Hypotension, unspecified Status: Acute Plan: improved with fluid (3) RUQ abdominal pain ICD Codes: R10.11 - Right upper quadrant pain Status: Acute Plan: CT abdomen suggests gallbladder disease possible cholecystitis will get surgical evaluation (4) MARIIA (acute kidney injury) ICD Codes: N17.9 - Acute kidney failure, unspecified Status: Acute Plan: given IV fluid recheck labs baseline ckd stage3 (5) DM (diabetes mellitus) ICD Codes: E11.9 - Type 2 diabetes mellitus without complications Status: Chronic Plan: on sliding scale Assessment and Plan further plan as case progresses Code Status full Discussed Condition With patient Problem Qualifiers (1) Altered mental status: Qualified Codes: R41.82 - Altered mental status, unspecified (2) Hypotension: Qualified Codes: I95.9 - Hypotension, unspecified Kelby Kearns MD Jun 21, 2017 21:56
[2017-06-21] MEDS: ACETAMINOPHEN/HYDROcodone 325 MG/10 MG TAB PO PRN (22:40)
[2017-06-21] MEDS ORDERED: DEXTROSE 5% IN WATE 1000ML INJ 1,000 ML IV SCH (23:00)
[2017-06-22] VITALS (7 sets, daily range): BP systolic 147–188; BP diastolic 77–98; PULSE 16–84; RESP 16–18; TEMP 97.7–98.4; O2SAT 92–96
[2017-06-22] MEDS ORDERED: ALLO100T PO (03:59)
[2017-06-22] MEDS: PIPERACIL-TAZO 2.25 GM PREMIX 50 ML IV SCH ×2 (04:11→19:29)
[2017-06-22] MEDS: LEVOTHYROXINE SODIUM 25 MCG TAB PO SCH (05:50)
[2017-06-22] MEDS: INSULIN ASPART SUPPLEMENTAL SCALE SQ SCH ×4 (08:00→22:25)
--- NOTE | 2017-06-22 08:59 | HHI.PR ---
Subjective Remarks Pt reports that she has had some recent medications changes from rehab: Valsartan was increased to 320mg QHS on 06/13/17, Atorvastatin changed to Pravastatin and Allopurinol decreased to 100mg Q12H She woke up yesterday morning with AMS per the pts grand-daughter. Her BP yesterday morning was 92/52 and BS was 152 when the pt was confused. Pt reported that she had to go to the bathroom and had a soft BM on the way to the bathroom and pt sat on the toilet but seemed to be very lethargic. Pt felt hot but no fever was documented. When EMS arrived pt received Narcan 0.8 mg as well as Zofran 4 mg IV and normal saline 1 L IV bolus by EMS. She was reportedly hypotensive on scene with a systolic blood pressure in the 70s. Pt reportedly complained of epigastric pain and nausea. Pt was brought to the ED and en route pt had an episode of vomiting and another BM. Pt was given IVF in [facility] ED and her BP improved and her AMS improved. Pts grand-daughter reports that periodically the pt complains of abdominal pain and occasionally uses Gas-X for this but its not clear if this helps or not. Pt denies any abd pain with food intake. In addition to the Valsartan pt takes Verapamil 240mg po daily, Coreg 12.5mg po BID, Norvasc 5mg po daily, and Bumex 1mg po daily for her BP. She also takes Gabapentin 800mg TID, Percocet 10/325 Q6H and Methocarbamol at night. This regimen of pain medication has not changed recently. Overnight the pt did well following admission. She is awake and alert. Denies any abd pain currently She has tolerated clear liquids. Pts LFTs were noted to be elevated at admission which is new but other than the above noted changes to her meds she has not been started on anything new. Objective Vitals Vital Signs Date Time Temp Pulse Resp B/P (MAP) Pulse Ox O2 Delivery O2 Flow Rate FiO2 06/22/17 08:03 98.3 84 16 162/81 (108) 92 06/22/17 03:51 97.7 83 16 147/77 (100) 96 06/21/17 23:37 98.0 82 20 153/81 (105) 97 06/21/17 21:04 97.8 80 16 162/86 (111) 06/21/17 20:07 06/21/17 19:37 82 18 166/92 (116) 98 Room Air 06/21/17 18:22 97.8 50 18 164/81 (108) 99 Nasal Cannula 3.00 06/21/17 17:20 98.1 51 18 138/67 (90) 100 Nasal Cannula 3.00 06/21/17 15:54 97.9 65 18 140/71 (94) 100 Nasal Cannula 3.00 06/21/17 15:21 97.8 48 20 118/77 (91) 99 Nasal Cannula 3.00 06/21/17 13:50 49 18 112/60 (77) 99 Nasal Cannula 3.00 06/21/17 13:27 20 98 Room Air 06/21/17 13:25 98.6 48 18 112/66 (81) 99 Room Air 06/21/17 13:10 17 97 Room Air 06/21/17 13:10 47 16 81/51 (61) Result Diagram: 06/21/17 1330 06/21/17 1330 Other Results Laboratory Tests Test 06/21/17 13:30 06/21/17 13:33 06/21/17 14:30 06/21/17 16:00 White Blood Count 7.8 TH/MM3 Red Blood Count 2.98 MIL/MM3 Hemoglobin 8.8 GM/DL Hematocrit 26.6 % Mean Corpuscular Volume 89.4 FL Mean Corpuscular Hemoglobin 29.5 PG Mean Corpuscular Hemoglobin Concent 33.0 % Red Cell Distribution Width 18.3 % Platelet Count 247 TH/MM3 Mean Platelet Volume 8.3 FL Neutrophils (%) (Auto) 74.6 % Lymphocytes (%) (Auto) 19.8 % Monocytes (%) (Auto) 5.0 % Eosinophils (%) (Auto) 0.3 % Basophils (%) (Auto) 0.3 % Neutrophils # (Auto) 5.8 TH/MM3 Lymphocytes # (Auto) 1.6 TH/MM3 Monocytes # (Auto) 0.4 TH/MM3 Eosinophils # (Auto) 0.0 TH/MM3 Basophils # (Auto) 0.0 TH/MM3 CBC Comment DIFF FINAL Differential Comment Urine Color YELLOW Urine Turbidity CLEAR Urine pH 6.0 Urine Specific [place] 1.010 Urine Protein 100 mg/dL Urine Glucose (UA) NEG mg/dL Urine Ketones NEG mg/dL Urine Occult Blood NEG Urine Nitrite NEG Urine Bilirubin NEG Urine Urobilinogen LESS THAN 2.0 MG/DL Urine Leukocyte Esterase NEG Urine RBC 2 /hpf Urine WBC LESS THAN 1 /hpf Urine Bacteria RARE /hpf Urine Hyaline Casts 1 /lpf Microscopic Urinalysis Comment CATH-CULTURE IND Blood Urea Nitrogen 29 MG/DL Creatinine 2.01 MG/DL Random Glucose 253 MG/DL Total Protein 6.6 GM/DL Albumin 2.1 GM/DL Calcium Level 7.6 MG/DL Alkaline Phosphatase 132 U/L Aspartate Amino Transf (AST/SGOT) 166 U/L Alanine Aminotransferase (ALT/SGPT) 89 U/L Total Bilirubin 0.5 MG/DL Sodium Level 136 MEQ/L Potassium Level 4.7 MEQ/L Chloride Level 103 MEQ/L Carbon Dioxide Level 21.1 MEQ/L Anion Gap 12 MEQ/L Estimat Glomerular Filtration Rate 29 ML/MIN Total Creatine Kinase 65 U/L Troponin I LESS THAN 0.02 NG/ML Lipase 95 U/L Thyroid Stimulating Hormone 3rd Gen 3.800 uIU/ML Lactic Acid Level 4.0 mmol/L 1.7 mmol/L Ammonia 17 MCMOL/L Prothrombin Time 11.2 SEC Prothromb Time International Ratio 1.1 RATIO Activated Partial Thromboplast Time 26.2 SEC Imaging Last 24 hours Impressions Chest X-Ray 06/21/17 1314 Signed Impressions: Service Date/Time: Wednesday, June 21, 2017 13:57 - CONCLUSION: No acute disease. Parminder Nichols MD Head CT 06/21/17 0000 Signed Impressions: Service Date/Time: Wednesday, June 21, 2017 14:09 - CONCLUSION: No acute intracranial disease. No change in from previous study. Parminder Nichols MD Gall Bladder Ultrasound 06/21/17 0000 Signed Impressions: Service Date/Time: Wednesday, June 21, 2017 15:11 - CONCLUSION: Trace ascites. Gallbladder wall thickening. I cannot confirm gallstones. Cholecystitis would be a consideration. Braxton Cavanaugh MD FACR Abdomen/Pelvis CT 06/21/17 0000 Signed Impressions: Service Date/Time: Wednesday, June 21, 2017 14:12 - CONCLUSION: Gallstones prominent gallbladder with thickened gallbladder wall. Acute cholecystitis may be consideration. Trace ascites Extensive vascular calcifications Multiple diverticuli throughout the colon . Braxton Cavanaugh MD FACR Objective Remarks General: NAD, Alert and oriented X 3 Chest: CTA Cardiac: Regular Abd: +BS, soft ND/NT Ext: Left knee effusion (chronic) A/P Problem List: (1) Altered mental status ICD Codes: R41.82 - Altered mental status, unspecified Status: Acute Plan: AMS Hypotension - Pt is an 81 y/o AAF with DM, HTN, Hyperlipidemia, hypothyroidism, CKD stage 3 , and polymyositis. - Pt was recently [place] [facility] [place] 05[place]26[place] after a left hip fracture. Pt underwent left hip bipolar replacement arthroplasty on 05/23/[address] Jacobs and did well postoperatively and went to SNF at discharge - Pt reports that she has had some recent medications changes from rehab: - Valsartan was increased to 320mg QHS on 06/13/17, Atorvastatin changed to Pravastatin and Allopurinol decreased to 100mg Q12H - She was brought back to the ED at [facility] on 06/21[place]17 with AMS that began yesterday morning. Her BP yesterday morning was reportedly 92/52 and BS was 152 when the pt was confused. Pt reported that she had to go to the bathroom and had a soft BM on the way to the bathroom and pt sat on the toilet but seemed to be very lethargic. Pt felt hot but no fever was documented. When EMS arrived pt received Narcan 0.8 mg as well as Zofran 4 mg IV and normal saline 1 L IV bolus by EMS. She was reportedly hypotensive on scene with a systolic blood pressure in the 70s. Pt reportedly complained of epigastric pain and nausea. Pt was brought to the ED and en route pt had an episode of vomiting and another BM. Pt was given IVF in the ED and her BP improved and her AMS improved. - In addition to the Valsartan pt takes Verapamil 240mg po daily, Coreg 12.5mg po BID, Norvasc 5mg po daily, and Bumex 1mg po daily for her BP. She also takes Gabapentin 800mg TID, Percocet 10/325 Q6H and Methocarbamol at night. This regimen of pain medication has not changed recently. - Its not clear if the AMS may have been related to hypotension (?dehydration and/or medication related) vs. effects of her narcotic meds vs. other. - Pt does not appear septic. Her WBC count has been WNL and she has been afebrile. - Head CT with no acute changes - BP has been more elevated since admission - Home regimen was resumed at admission - Monitor clinical status closely Elevated LFTs Abnormal imaging indicating gallstones and possible cholecystitis - Pts grand-daughter reports that periodically the pt complains of abdominal pain and occasionally uses Gas-X for this but its not clear if this helps or not. Pt denies any abd pain with food intake. - She complained yesterday of abdominal pain prior to admission. - CT Abd/pelvis (06/21) --> Gallstones prominent gallbladder with thickened gallbladder wall. Acute cholecystitis may be consideration. Trace ascites Extensive vascular calcifications Multiple diverticuli throughout the colon - GB US (06/21) --> Trace ascites. Gallbladder wall thickening. I cannot confirm gallstones. Cholecystitis would be a consideration. - General Surgery was consulted at admission - LFTs at admission noted AST 166, ALT 89, AlkPhos 132. Awaiting repeat labs for today. - She has tolerated clear liquids. Acute on chronic kidney disease, stage 3 - Labs slightly higher than baseline at admission - Pt is on IVF - Awaiting repeat labs for today Diabetes mellitus, type 2 - Hold OHA - NovoLog SSI - Accu checks (2) Hypotension ICD Codes: I95.9 - Hypotension, unspecified Status: Acute (3) RUQ abdominal pain ICD Codes: R10.11 - Right upper quadrant pain Status: Acute (4) MARIIA (acute kidney injury) ICD Codes: N17.9 - Acute kidney failure, unspecified Status: Acute (5) DM (diabetes mellitus) ICD Codes: E11.9 - Type 2 diabetes mellitus without complications Status: Chronic Problem Qualifiers (1) Altered mental status: Qualified Codes: R41.82 - Altered mental status, unspecified (2) Hypotension: Qualified Codes: I95.9 - Hypotension, unspecified Anay Tomlin Jun 22, 2017 08:59
[2017-06-22] MEDS: ALLOPURINOL 100 MG TAB PO SCH (09:00)
[2017-06-22] MEDS: ENOXAPARIN SODIUM 30 MG/0.3 ML SYRINGE SQ SCH (09:00)
[2017-06-22] MEDS: PANTOPRAZOLE SOD 40 MG DELAYED RELEASE TAB PO SCH (09:00)
[2017-06-22] MEDS: CARVEDILOL 12.5 MG TAB PO SCH ×2 (09:00→22:19)
[2017-06-22] MEDS: FAMOTIDINE 20 MG TAB PO SCH (09:00)
[2017-06-22] MEDS: FERROUS SULFATE 325 MG (65 MG ELEMENTAL IRON) TAB PO SCH (09:00)
[2017-06-22] MEDS: ASPIRIN EC 81 MG TABEC PO SCH (09:00)
[2017-06-22] MEDS ORDERED: ATORVASTATIN 20 MG TAB PO SCH (09:00)
[2017-06-22] MEDS ORDERED: amLODIPine BESYLATE 5 MG TAB PO SCH (09:00)
[2017-06-22] MEDS: predniSONE 10 MG TAB PO SCH (09:00)
[2017-06-22] MEDS: VALSARTAN 80 MG TAB PO SCH (09:00)
[2017-06-22 11:08] LABS: AUTOMATED NEUTROPHIL # 2.7 TH/MM3 (1.8-7.7); BASOPHIL % 0.6 % (0.0-2.0); EOSINOPHIL # 0.2 TH/MM3 (0-0.4); EOSINOPHIL % 3.9 % (0.0-4.0); HEMATOCRIT 25.9 % (35.0-46.0); HEMOGLOBIN 8.7 GM/DL (11.6-15.3); LYMPH % 30.5 % (9.0-44.0); LYMPHOCYTE # 1.5 TH/MM3 (1.0-4.8); MEAN CELL VOLUME 89.4 FL (80.0-100.0); MEAN CORPUSCULAR HEMOGLOBIN 30.1 PG (27.0-34.0); MEAN CORPUSCULAR HGB CONC 33.7 % (32.0-36.0); MEAN PLATELET VOLUME 8.4 FL (7.0-11.0); MONO % 8.8 % (0.0-8.0); MONOCYTE # 0.4 TH/MM3 (0-0.9); NEUT % 56.2 % (16.0-70.0); PLATELET COUNT 216 TH/MM3 (150-450); RED BLOOD COUNT 2.89 MIL/MM3 (4.00-5.30); RED CELL DISTRIBUTION WIDTH 18.2 % (11.6-17.2); WHITE BLOOD COUNT 4.8 TH/MM3 (4.0-11.0)
[2017-06-22 11:32] LABS: ALBUMIN 2.3 GM/DL (3.4-5.0); ALKALINE PHOSPHATASE 135 U/L (45-117); ALT (GPT) 82 U/L (10-53); AST (GOT) 99 U/L (15-37); BICARBONATE 25.2 MEQ/L (21.0-32.0); BLOOD UREA NITROGEN 21 MG/DL (7-18); CALCIUM 7.9 MG/DL (8.5-10.1); CHLORIDE 106 MEQ/L (98-107); GLOMERULAR FILTRATION RATE 38 ML/MIN (>89); GLUCOSE,RANDOM 77 MG/DL (74-106); SODIUM (NA) 142 MEQ/L (136-145); TOTAL BILIRUBIN ADULT 0.3 MG/DL (0.2-1.0); TOTAL PROTEIN 6.8 GM/DL (6.4-8.2)
[2017-06-22] MEDS: GABAPENTIN 400 MG CAP PO SCH ×3 (13:00→19:28)
[2017-06-22] MEDS: cloNIDine HCL 0.1 MG TAB PO PRN (19:29)
--- NOTE | 2017-06-22 19:58 | EKG ---
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
[2017-06-22] MEDS: SODIUM CHLORIDE 0.9% FLUSH 10 ML FLUSH IV FLUSH PRN (22:18)
[2017-06-22] MEDS: PRIMIDONE 50 MG TAB PO SCH (22:19)
[2017-06-22] MEDS: ACETAMINOPHEN/HYDROcodone 325 MG/10 MG TAB PO PRN (22:24)
[2017-06-23 00:15] VITALS: BP 176/79; PULSE 89; RESP 16; TEMP 98.1; O2SAT 96
[2017-06-23 03:21] VITALS: BP 170/92; PULSE 83; RESP 20; TEMP 98.7; O2SAT 96
[2017-06-23] MEDS: PIPERACIL-TAZO 2.25 GM PREMIX 50 ML IV SCH (04:55)
[2017-06-23] MEDS: LEVOTHYROXINE SODIUM 25 MCG TAB PO SCH (05:07)
[2017-06-23] MEDS: INSULIN ASPART SUPPLEMENTAL SCALE SQ SCH ×4 (08:00→21:00)
[2017-06-23 08:18] LABS: ALBUMIN 2.4 GM/DL (3.4-5.0); AST (GOT) 59 U/L (15-37); BICARBONATE 27.9 MEQ/L (21.0-32.0); BLOOD UREA NITROGEN 13 MG/DL (7-18); CALCIUM 8.5 MG/DL (8.5-10.1); CHLORIDE 107 MEQ/L (98-107); CREATININE 1.24 MG/DL (0.50-1.00); GLOMERULAR FILTRATION RATE 50 ML/MIN (>89); GLUCOSE,RANDOM 94 MG/DL (74-106); SODIUM (NA) 143 MEQ/L (136-145)
[2017-06-23 08:20] LABS: ALT (GPT) 66 U/L (10-53)
[2017-06-23 08:22] LABS: ALKALINE PHOSPHATASE 124 U/L (45-117); TOTAL BILIRUBIN ADULT 0.4 MG/DL (0.2-1.0)
[2017-06-23 09:26] VITALS: BP 184/101; PULSE 79; RESP 18; TEMP 98.1; O2SAT 97
--- NOTE | 2017-06-23 09:26 | HHI.PR ---
Subjective Remarks Pt reports that she had a loose BM this morning otherwise no complaints overnight Afebrile She complains of some gas and belching this morning. Objective Vitals Vital Signs Date Time Temp Pulse Resp B/P (MAP) Pulse Ox O2 Delivery O2 Flow Rate FiO2 06/23/17 03:21 98.7 83 20 170/92 (118) 96 06/23/17 00:15 98.1 89 16 176/79 (111) 96 06/22/17 20:43 98.4 16 16 166/84 (111) 95 06/22/17 18:47 188/98 (128) Automatic Cuff 06/22/17 17:06 182/97 (125) 06/22/17 16:17 98.3 84 16 94 06/22/17 12:15 98.3 81 18 159/82 (107) 94 Result Diagram: 06/22/17 0930 06/23/17 0724 Other Results Laboratory Tests Test 06/21/17 13:30 06/21/17 13:33 06/21/17 14:30 06/21/17 16:00 White Blood Count 7.8 TH/MM3 Red Blood Count 2.98 MIL/MM3 Hemoglobin 8.8 GM/DL Hematocrit 26.6 % Mean Corpuscular Volume 89.4 FL Mean Corpuscular Hemoglobin 29.5 PG Mean Corpuscular Hemoglobin Concent 33.0 % Red Cell Distribution Width 18.3 % Platelet Count 247 TH/MM3 Mean Platelet Volume 8.3 FL Neutrophils (%) (Auto) 74.6 % Lymphocytes (%) (Auto) 19.8 % Monocytes (%) (Auto) 5.0 % Eosinophils (%) (Auto) 0.3 % Basophils (%) (Auto) 0.3 % Neutrophils # (Auto) 5.8 TH/MM3 Lymphocytes # (Auto) 1.6 TH/MM3 Monocytes # (Auto) 0.4 TH/MM3 Eosinophils # (Auto) 0.0 TH/MM3 Basophils # (Auto) 0.0 TH/MM3 CBC Comment DIFF FINAL Differential Comment Urine Color YELLOW Urine Turbidity CLEAR Urine pH 6.0 Urine Specific [place] 1.010 Urine Protein 100 mg/dL Urine Glucose (UA) NEG mg/dL Urine Ketones NEG mg/dL Urine Occult Blood NEG Urine Nitrite NEG Urine Bilirubin NEG Urine Urobilinogen LESS THAN 2.0 MG/DL Urine Leukocyte Esterase NEG Urine RBC 2 /hpf Urine WBC LESS THAN 1 /hpf Urine Bacteria RARE /hpf Urine Hyaline Casts 1 /lpf Microscopic Urinalysis Comment CATH-CULTURE IND Blood Urea Nitrogen 29 MG/DL Creatinine 2.01 MG/DL Random Glucose 253 MG/DL Total Protein 6.6 GM/DL Albumin 2.1 GM/DL Calcium Level 7.6 MG/DL Alkaline Phosphatase 132 U/L Aspartate Amino Transf (AST/SGOT) 166 U/L Alanine Aminotransferase (ALT/SGPT) 89 U/L Total Bilirubin 0.5 MG/DL Sodium Level 136 MEQ/L Potassium Level 4.7 MEQ/L Chloride Level 103 MEQ/L Carbon Dioxide Level 21.1 MEQ/L Anion Gap 12 MEQ/L Estimat Glomerular Filtration Rate 29 ML/MIN Total Creatine Kinase 65 U/L Troponin I LESS THAN 0.02 NG/ML Lipase 95 U/L Thyroid Stimulating Hormone 3rd Gen 3.800 uIU/ML Lactic Acid Level 4.0 mmol/L 1.7 mmol/L Ammonia 17 MCMOL/L Prothrombin Time 11.2 SEC Prothromb Time International Ratio 1.1 RATIO Activated Partial Thromboplast Time 26.2 SEC Test 06/22/17 09:30 06/23/17 07:24 White Blood Count 4.8 TH/MM3 Red Blood Count 2.89 MIL/MM3 Hemoglobin 8.7 GM/DL Hematocrit 25.9 % Mean Corpuscular Volume 89.4 FL Mean Corpuscular Hemoglobin 30.1 PG Mean Corpuscular Hemoglobin Concent 33.7 % Red Cell Distribution Width 18.2 % Platelet Count 216 TH/MM3 Mean Platelet Volume 8.4 FL Neutrophils (%) (Auto) 56.2 % Lymphocytes (%) (Auto) 30.5 % Monocytes (%) (Auto) 8.8 % Eosinophils (%) (Auto) 3.9 % Basophils (%) (Auto) 0.6 % Neutrophils # (Auto) 2.7 TH/MM3 Lymphocytes # (Auto) 1.5 TH/MM3 Monocytes # (Auto) 0.4 TH/MM3 Eosinophils # (Auto) 0.2 TH/MM3 Basophils # (Auto) 0.0 TH/MM3 CBC Comment DIFF FINAL Differential Comment Blood Urea Nitrogen 21 MG/DL 13 MG/DL Creatinine 1.60 MG/DL 1.24 MG/DL Random Glucose 77 MG/DL 94 MG/DL Total Protein 6.8 GM/DL 7.0 GM/DL Albumin 2.3 GM/DL 2.4 GM/DL Calcium Level 7.9 MG/DL 8.5 MG/DL Alkaline Phosphatase 135 U/L 124 U/L Aspartate Amino Transf (AST/SGOT) 99 U/L 59 U/L Alanine Aminotransferase (ALT/SGPT) 82 U/L 66 U/L Total Bilirubin 0.3 MG/DL 0.4 MG/DL Sodium Level 142 MEQ/L 143 MEQ/L Potassium Level 3.5 MEQ/L 3.5 MEQ/L Chloride Level 106 MEQ/L 107 MEQ/L Carbon Dioxide Level 25.2 MEQ/L 27.9 MEQ/L Anion Gap 11 MEQ/L 8 MEQ/L Estimat Glomerular Filtration Rate 38 ML/MIN 50 ML/MIN Imaging Last 24 hours Impressions Chest X-Ray 06/21/17 1314 Signed Impressions: Service Date/Time: Wednesday, June 21, 2017 13:57 - CONCLUSION: No acute disease. Parminder Nichols MD Head CT 06/21/17 0000 Signed Impressions: Service Date/Time: Wednesday, June 21, 2017 14:09 - CONCLUSION: No acute intracranial disease. No change in from previous study. Parminder Nichols MD Gall Bladder Ultrasound 06/21/17 0000 Signed Impressions: Service Date/Time: Wednesday, June 21, 2017 15:11 - CONCLUSION: Trace ascites. Gallbladder wall thickening. I cannot confirm gallstones. Cholecystitis would be a consideration. rBaxton Cavanaugh MD FACR Abdomen/Pelvis CT 06/21/17 0000 Signed Impressions: Service Date/Time: Wednesday, June 21, 2017 14:12 - CONCLUSION: Gallstones prominent gallbladder with thickened gallbladder wall. Acute cholecystitis may be consideration. Trace ascites Extensive vascular calcifications Multiple diverticuli throughout the colon . Braxton Cavanaugh MD FACR Objective Remarks General: NAD, Alert and oriented X 3 Chest: CTA Cardiac: Regular Abd: +BS, soft ND/NT Ext: Left knee effusion (chronic) A/P Problem List: (1) Altered mental status ICD Codes: R41.82 - Altered mental status, unspecified Status: Acute Plan: AMS Hypotension - Pt is an 81 y/o AAF with DM, HTN, Hyperlipidemia, hypothyroidism, CKD stage 3 , and polymyositis. - Pt was recently admitted to [facility] from 05/22/17 to 05/26/17 after a left hip fracture. Pt underwent left hip bipolar replacement arthroplasty on 05/23/[address] Jacobs and did well postoperatively and went to SNF at discharge - Pt reports that she has had some recent medications changes from rehab: - Valsartan was increased to 320mg QHS on 06/13/17, Atorvastatin changed to Pravastatin and Allopurinol decreased to 100mg Q12H - She was brought back to the ED at [facility] on 06/21/17 with AMS that began yesterday morning. Her BP yesterday morning was reportedly 92/52 and BS was 152 when the pt was confused. Pt reported that she had to go to the bathroom and had a soft BM on the way to the bathroom and pt sat on the toilet but seemed to be very lethargic. Pt felt hot but no fever was documented. When EMS arrived pt received Narcan 0.8 mg as well as Zofran 4 mg IV and normal saline 1 L IV bolus by EMS. She was reportedly hypotensive on scene with a systolic blood pressure in the 70s. Pt reportedly complained of epigastric pain and nausea. Pt was brought to the ED and en route pt had an episode of vomiting and another BM. Pt was given IVF in the ED and her BP improved and her AMS improved. - In addition to the Valsartan pt takes Verapamil 240mg po daily, Coreg 12.5mg po BID, Norvasc 5mg po daily, and Bumex 1mg po daily for her BP. She also takes Gabapentin 800mg TID, Percocet 10/325 Q6H and Methocarbamol at night. This regimen of pain medication has not changed recently. - Its not clear if the AMS may have been related to hypotension (?dehydration and/or medication related) vs. effects of her narcotic meds vs. other. - Pt does not appear septic. Her WBC count has been WNL and she has been afebrile. - Head CT with no acute changes - Coreg 12.5mg po BID, Norvasc 5mg po daily were resumed at admission at decreased dose of Valsartan 160mg po daily. - We may need to increase the dose on her Norvasc to 10mg po daily as her BP has been more elevated since admission - Monitor clinical status closely Elevated LFTs Abnormal imaging indicating gallstones and possible cholecystitis - Pts grand-daughter reports that periodically the pt complains of abdominal pain and occasionally uses Gas-X for this but its not clear if this helps or not. Pt denies any abd pain with food intake. - She complained yesterday of abdominal pain prior to admission. - CT Abd/pelvis (06/21) --> Gallstones prominent gallbladder with thickened gallbladder wall. Acute cholecystitis may be consideration. Trace ascites Extensive vascular calcifications Multiple diverticuli throughout the colon - GB US (06/21) --> Trace ascites. Gallbladder wall thickening. Cannot confirm gallstones. Cholecystitis would be a consideration. - General Surgery was consulted at admission - Pt was started on Zosyn at admission - LFTs at admission noted AST 166, ALT 89, AlkPhos 132. R - Repeat labs on 06/22 noted improvement in the LFTs which continue to trend down on 06/23. - She has tolerated clear liquids. - Advance to full liquids today, await general surgery opinion Acute on chronic kidney disease, stage 3 - Labs slightly higher than baseline at admission - Pt is on IVF - Renal function improving with IVF hydration Diabetes mellitus, type 2 - Hold OHA - NovoLog SSI - Accu checks (2) Hypotension ICD Codes: I95.9 - Hypotension, unspecified Status: Acute (3) RUQ abdominal pain ICD Codes: R10.11 - Right upper quadrant pain Status: Acute (4) MARIIA (acute kidney injury) ICD Codes: N17.9 - Acute kidney failure, unspecified Status: Acute (5) DM (diabetes mellitus) ICD Codes: E11.9 - Type 2 diabetes mellitus without complications Status: Chronic Problem Qualifiers (1) Altered mental status: Qualified Codes: R41.82 - Altered mental status, unspecified (2) Hypotension: Qualified Codes: I95.9 - Hypotension, unspecified Anay Tomlin Jun 23, 2017 09:25
[2017-06-23] MEDS: SIMETHICONE 125 MG CHEWABLE TAB PO SCH ×3 (10:00→22:17)
[2017-06-23] MEDS: FAMOTIDINE 20 MG TAB PO SCH (11:15)
[2017-06-23] MEDS: ASPIRIN EC 81 MG TABEC PO SCH (11:15)
[2017-06-23] MEDS: cloNIDine HCL 0.1 MG TAB PO PRN ×3 (11:16→22:42)
[2017-06-23] MEDS: CARVEDILOL 12.5 MG TAB PO SCH ×2 (11:17→22:17)
[2017-06-23] MEDS: FERROUS SULFATE 325 MG (65 MG ELEMENTAL IRON) TAB PO SCH (11:17)
[2017-06-23] MEDS: predniSONE 10 MG TAB PO SCH (11:17)
[2017-06-23] MEDS: GABAPENTIN 400 MG CAP PO SCH ×3 (11:18→18:08)
[2017-06-23 13:10] VITALS: BP 186/92
[2017-06-23] MEDS: VALSARTAN 80 MG TAB PO SCH (13:16)
[2017-06-23] MEDS: ALLOPURINOL 100 MG TAB PO SCH (13:17)
[2017-06-23] MEDS: ENOXAPARIN SODIUM 30 MG/0.3 ML SYRINGE SQ SCH (13:17)
[2017-06-23] MEDS: PANTOPRAZOLE SOD 40 MG DELAYED RELEASE TAB PO SCH (13:17)
[2017-06-23 15:10] VITALS: BP 176/86; PULSE 91; RESP 17; TEMP 98.7; O2SAT 96
[2017-06-23 19:56] VITALS: BP 151/85; PULSE 77; RESP 18; TEMP 96.2; O2SAT 97
[2017-06-23] MEDS: PRIMIDONE 50 MG TAB PO SCH (22:17)
[2017-06-23] MEDS: ACETAMINOPHEN/HYDROcodone 325 MG/10 MG TAB PO PRN (22:18)
[2017-06-24 00:11] VITALS: BP 180/96; PULSE 90; RESP 18; TEMP 96; O2SAT 98
[2017-06-24 04:39] VITALS: BP 127/79; PULSE 72; RESP 19; TEMP 97.6; O2SAT 98
[2017-06-24] MEDS: LEVOTHYROXINE SODIUM 25 MCG TAB PO SCH (04:59)
[2017-06-24] MEDS: ACETAMINOPHEN/HYDROcodone 325 MG/10 MG TAB PO PRN ×3 (05:00→21:02)
[2017-06-24] MEDS: SIMETHICONE 125 MG CHEWABLE TAB PO SCH ×3 (05:00→22:25)
[2017-06-24 07:47] VITALS: BP 165/98; PULSE 76; RESP 16; TEMP 98.5; O2SAT 98
--- NOTE | 2017-06-24 08:25 | HHI.PR ---
Subjective Remarks Pt has not had any further diarrhea She reports that her abd pain has resolved She is anxious to go home today Objective Vitals Vital Signs Date Time Temp Pulse Resp B/P (MAP) Pulse Ox O2 Delivery O2 Flow Rate FiO2 06/24/17 07:47 98.5 76 16 165/98 (120) 98 06/24/17 04:39 97.6 72 19 127/79 (95) 98 06/24/17 00:11 96.0 90 18 180/96 (124) 98 06/23/17 19:56 96.2 77 18 151/85 (107) 97 06/23/17 15:10 98.7 91 17 176/86 (116) 96 06/23/17 13:10 186/92 (123) 06/23/17 09:26 98.1 79 18 184/101 (128) 97 Result Diagram: 06/22/17 0930 06/23/17 0724 Other Results Laboratory Tests Test 06/22/17 09:30 06/23/17 07:24 06/23/17 16:00 White Blood Count 4.8 TH/MM3 Red Blood Count 2.89 MIL/MM3 Hemoglobin 8.7 GM/DL Hematocrit 25.9 % Mean Corpuscular Volume 89.4 FL Mean Corpuscular Hemoglobin 30.1 PG Mean Corpuscular Hemoglobin Concent 33.7 % Red Cell Distribution Width 18.2 % Platelet Count 216 TH/MM3 Mean Platelet Volume 8.4 FL Neutrophils (%) (Auto) 56.2 % Lymphocytes (%) (Auto) 30.5 % Monocytes (%) (Auto) 8.8 % Eosinophils (%) (Auto) 3.9 % Basophils (%) (Auto) 0.6 % Neutrophils # (Auto) 2.7 TH/MM3 Lymphocytes # (Auto) 1.5 TH/MM3 Monocytes # (Auto) 0.4 TH/MM3 Eosinophils # (Auto) 0.2 TH/MM3 Basophils # (Auto) 0.0 TH/MM3 CBC Comment DIFF FINAL Differential Comment Blood Urea Nitrogen 21 MG/DL 13 MG/DL Creatinine 1.60 MG/DL 1.24 MG/DL Random Glucose 77 MG/DL 94 MG/DL Total Protein 6.8 GM/DL 7.0 GM/DL Albumin 2.3 GM/DL 2.4 GM/DL Calcium Level 7.9 MG/DL 8.5 MG/DL Alkaline Phosphatase 135 U/L 124 U/L Aspartate Amino Transf (AST/SGOT) 99 U/L 59 U/L Alanine Aminotransferase (ALT/SGPT) 82 U/L 66 U/L Total Bilirubin 0.3 MG/DL 0.4 MG/DL Sodium Level 142 MEQ/L 143 MEQ/L Potassium Level 3.5 MEQ/L 3.5 MEQ/L Chloride Level 106 MEQ/L 107 MEQ/L Carbon Dioxide Level 25.2 MEQ/L 27.9 MEQ/L Anion Gap 11 MEQ/L 8 MEQ/L Estimat Glomerular Filtration Rate 38 ML/MIN 50 ML/MIN Stool C. difficile Toxin (PCR) NEGATIVE Stl C. difficile Toxin Epiderm 027 PRESUMPTIVE NEGATIVE Imaging Last 24 hours Impressions Chest X-Ray 06/21/17 1314 Signed Impressions: Service Date/Time: Wednesday, June 21, 2017 13:57 - CONCLUSION: No acute disease. Parminder Nichols MD Head CT 06/21/17 0000 Signed Impressions: Service Date/Time: Wednesday, June 21, 2017 14:09 - CONCLUSION: No acute intracranial disease. No change in from previous study. Parminder Nichols MD Gall Bladder Ultrasound 06/21/17 0000 Signed Impressions: Service Date/Time: Wednesday, June 21, 2017 15:11 - CONCLUSION: Trace ascites. Gallbladder wall thickening. I cannot confirm gallstones. Cholecystitis would be a consideration. Braxton Cavanaugh MD FACR Abdomen/Pelvis CT 06/21/17 0000 Signed Impressions: Service Date/Time: Wednesday, June 21, 2017 14:12 - CONCLUSION: Gallstones prominent gallbladder with thickened gallbladder wall. Acute cholecystitis may be consideration. Trace ascites Extensive vascular calcifications Multiple diverticuli throughout the colon . Braxton Cavanaugh MD FACR Objective Remarks General: NAD, Alert and oriented X 3 Chest: CTA Cardiac: Regular Abd: +BS, soft ND/NT Ext: Left knee effusion (chronic) A/P Problem List: (1) Altered mental status ICD Codes: R41.82 - Altered mental status, unspecified Status: Acute Plan: AMS Hypotension/HTN - Pt is an 81 y/o AAF with DM, HTN, Hyperlipidemia, hypothyroidism, CKD stage 3 , and polymyositis. - Pt was recently admitted to [facility] [place] from 05/22/17 to 05/26/17 after a left hip fracture. Pt underwent left hip bipolar replacement arthroplasty on 05/23/[address] Jacobs and did well postoperatively and went to SNF at discharge - Pt reports that she has had some recent medications changes from rehab: - Valsartan was increased to 320mg QHS on 06/13/17, Atorvastatin changed to Pravastatin and Allopurinol decreased to 100mg Q12H - She was brought back to the ED at [facility] [place] on 06/21/17 with AMS that began yesterday morning. Her BP yesterday morning was reportedly 92/52 and BS was 152 when the pt was confused. Pt reported that she had to go to the bathroom and had a soft BM on the way to the bathroom and pt sat on the toilet but seemed to be very lethargic. Pt felt hot but no fever was documented. When EMS arrived pt received Narcan 0.8 mg as well as Zofran 4 mg IV and normal saline 1 L IV bolus by EMS. She was reportedly hypotensive on scene with a systolic blood pressure in the 70s. Pt reportedly complained of epigastric pain and nausea. Pt was brought to the ED and en route pt had an episode of vomiting and another BM. Pt was given IVF in the ED and her BP improved and her AMS improved. - In addition to the Valsartan pt takes Verapamil 240mg po daily, Coreg 12.5mg po BID, Norvasc 5mg po daily, and Bumex 1mg po daily for her BP at home. She also takes Gabapentin 800mg TID, Percocet 10/325 Q6H and Methocarbamol at night. This regimen of pain medication has not changed recently. - Its not clear if the AMS may have been related to hypotension (?dehydration and/or medication related) vs. effects of her narcotic meds vs. other. - Pt does not appear septic. Her WBC count has been WNL and she has been afebrile. - Head CT with no acute changes - BP has been more elevated since admission and somewhat difficult to control. - On 06/23 her Norvasc was increased to 10mg po daily. Upon repeat review of records it appears the Norvasc was started while she was at rehab and the Valsartan was increased per the pts families report at admission. The pts and family want to minimize the number of medications she is taking and since the Norvasc and Verapamil are both CCB we will stop the Norvasc and resume Verapamil 240mg po daily which she was on as an outpt on 06/24 - She is also on Valsartan 160mg daily and Coreg 12.5mg po BID - Monitor BP today. If BP remains stable anticipate d/c home tomorrow Elevated LFTs Abnormal imaging indicating gallstones and possible cholecystitis - Pts grand-daughter reports that periodically the pt complains of abdominal pain and occasionally uses Gas-X for this but its not clear if this helps or not. Pt denies any abd pain with food intake. - She complained yesterday of abdominal pain prior to admission. - CT Abd/pelvis (06/21) --> Gallstones prominent gallbladder with thickened gallbladder wall. Acute cholecystitis may be consideration. Trace ascites Extensive vascular calcifications Multiple diverticuli throughout the colon - GB US (06/21) --> Trace ascites. Gallbladder wall thickening. I cannot confirm gallstones. Cholecystitis would be a consideration. - General Surgery evaluated and did not feel any surgical intervention was warranted at this time. - LFTs at admission noted AST 166, ALT 89, AlkPhos 132. Repeat labs have been trending down. - She has tolerated advanced diet without any further complaints of abd pain. Acute on chronic kidney disease, stage 3 - Labs slightly higher than baseline at admission - Pt is on IVF - Repeat labs are improving. Diabetes mellitus, type 2 - Hold OHA - NovoLog SSI - Accu checks (2) Hypotension ICD Codes: I95.9 - Hypotension, unspecified Status: Acute (3) RUQ abdominal pain ICD Codes: R10.11 - Right upper quadrant pain Status: Acute (4) MARIIA (acute kidney injury) ICD Codes: N17.9 - Acute kidney failure, unspecified Status: Acute (5) DM (diabetes mellitus) ICD Codes: E11.9 - Type 2 diabetes mellitus without complications Status: Chronic Assessment and Plan Patient examined. Assessment and plan formulated with Anay Tomlin PA-C. I agree with the above. Stop norvasc. If BP reading remain stable, then anticipate discharge to home 06/25/17 Problem Qualifiers (1) Altered mental status: Qualified Codes: R41.82 - Altered mental status, unspecified (2) Hypotension: Qualified Codes: I95.9 - Hypotension, unspecified Anay Tomlin Jun 24, 2017 08:25 Chavo Soto DO Jun 25, 2017 00:38
[2017-06-24] MEDS: PANTOPRAZOLE SOD 40 MG DELAYED RELEASE TAB PO SCH (09:57)
[2017-06-24] MEDS: VALSARTAN 80 MG TAB PO SCH (09:57)
[2017-06-24] MEDS: FAMOTIDINE 20 MG TAB PO SCH (09:57)
[2017-06-24] MEDS: ENOXAPARIN SODIUM 30 MG/0.3 ML SYRINGE SQ SCH (09:57)
[2017-06-24] MEDS: FERROUS SULFATE 325 MG (65 MG ELEMENTAL IRON) TAB PO SCH (09:57)
[2017-06-24] MEDS: GABAPENTIN 400 MG CAP PO SCH ×3 (09:58→17:33)
[2017-06-24] MEDS: CARVEDILOL 12.5 MG TAB PO SCH ×2 (09:58→21:02)
[2017-06-24] MEDS: ASPIRIN EC 81 MG TABEC PO SCH (09:58)
[2017-06-24] MEDS: ALLOPURINOL 100 MG TAB PO SCH (09:58)
[2017-06-24] MEDS: predniSONE 10 MG TAB PO SCH (09:58)
[2017-06-24] MEDS: INSULIN ASPART SUPPLEMENTAL SCALE SQ SCH ×4 (10:09→21:00)
[2017-06-24] MEDS: VERAPAMIL HCL 120 MG TAB PO SCH (11:05)
[2017-06-24 12:30] VITALS: BP 132/80; PULSE 62; RESP 18; TEMP 98.7; O2SAT 100
[2017-06-24 16:17] VITALS: BP 111/66; PULSE 67; RESP 18; TEMP 98; O2SAT 98
[2017-06-24 20:38] VITALS: BP 168/87; PULSE 76; RESP 16; TEMP 97.9; O2SAT 97
[2017-06-24] MEDS: PRIMIDONE 50 MG TAB PO SCH (21:01)
[2017-06-25] VITALS (9 sets, daily range): BP systolic 97–178; BP diastolic 60–92; PULSE 58–80; RESP 14–18; TEMP 97–98.2; O2SAT 96–100
[2017-06-25] MEDS: LEVOTHYROXINE SODIUM 25 MCG TAB PO SCH (05:20)
[2017-06-25] MEDS: cloNIDine HCL 0.1 MG TAB PO PRN (05:20)
[2017-06-25] MEDS: ACETAMINOPHEN/HYDROcodone 325 MG/10 MG TAB PO PRN (05:21)
[2017-06-25] MEDS: SIMETHICONE 125 MG CHEWABLE TAB PO SCH ×3 (05:21→21:29)
[2017-06-25] MEDS: INSULIN ASPART SUPPLEMENTAL SCALE SQ SCH ×4 (08:00→21:00)
[2017-06-25] MEDS: GABAPENTIN 400 MG CAP PO SCH ×3 (08:23→16:50)
[2017-06-25] MEDS: VERAPAMIL HCL 120 MG TAB PO SCH (08:23)
[2017-06-25] MEDS: VALSARTAN 80 MG TAB PO SCH ×2 (08:23→21:29)
[2017-06-25] MEDS: ENOXAPARIN SODIUM 30 MG/0.3 ML SYRINGE SQ SCH (08:24)
[2017-06-25] MEDS: ALLOPURINOL 100 MG TAB PO SCH (08:24)
[2017-06-25] MEDS: PANTOPRAZOLE SOD 40 MG DELAYED RELEASE TAB PO SCH (08:24)
[2017-06-25] MEDS: predniSONE 10 MG TAB PO SCH (08:24)
[2017-06-25] MEDS: CARVEDILOL 12.5 MG TAB PO SCH ×2 (08:24→21:28)
[2017-06-25] MEDS: FAMOTIDINE 20 MG TAB PO SCH (08:25)
[2017-06-25] MEDS: ASPIRIN EC 81 MG TABEC PO SCH (08:25)
[2017-06-25] MEDS: FERROUS SULFATE 325 MG (65 MG ELEMENTAL IRON) TAB PO SCH (08:25)
--- NOTE | 2017-06-25 10:16 | HHI.PR ---
Subjective Remarks No new complaints. Objective Vitals Vital Signs Date Time Temp Pulse Resp B/P (MAP) Pulse Ox O2 Delivery O2 Flow Rate FiO2 06/25/17 09:02 97.9 63 18 97/60 (72) 96 Manual Cuff/Auscultation 06/25/17 08:32 169/72 (104) 06/25/17 05:17 170/88 (115) 06/25/17 01:00 98.0 80 16 172/90 (117) 97 06/24/17 20:38 97.9 76 16 168/87 (114) 97 06/24/17 16:17 98.0 67 18 111/66 (81) 98 06/24/17 12:30 98.7 62 18 132/80 (97) 100 Result Diagram: 06/22/17 0930 06/23/17 0724 Imaging Last 24 hours Impressions Chest X-Ray 06/21/17 1314 Signed Impressions: Service Date/Time: Wednesday, June 21, 2017 13:57 - CONCLUSION: No acute disease. Parminder Nichols MD Head CT 06/21/17 0000 Signed Impressions: Service Date/Time: Wednesday, June 21, 2017 14:09 - CONCLUSION: No acute intracranial disease. No change in from previous study. Parminder Nichols MD Gall Bladder Ultrasound 06/21/17 0000 Signed Impressions: Service Date/Time: Wednesday, June 21, 2017 15:11 - CONCLUSION: Trace ascites. Gallbladder wall thickening. I cannot confirm gallstones. Cholecystitis would be a consideration. Braxton Cavanaugh MD FACR Abdomen/Pelvis CT 06/21/17 0000 Signed Impressions: Service Date/Time: Wednesday, June 21, 2017 14:12 - CONCLUSION: Gallstones prominent gallbladder with thickened gallbladder wall. Acute cholecystitis may be consideration. Trace ascites Extensive vascular calcifications Multiple diverticuli throughout the colon . Braxton Cavanaugh MD FACR Objective Remarks General: NAD, Alert and oriented X 3 Chest: CTA Cardiac: Regular Abd: +BS, soft ND/NT Ext: Left knee effusion (chronic) A/P Problem List: (1) Altered mental status ICD Codes: R41.82 - Altered mental status, unspecified Status: Acute Plan: AMS Hypotension/HTN - Pt is an 81 y/o AAF with DM, HTN, Hyperlipidemia, hypothyroidism, CKD stage 3 , and polymyositis. - Pt was recently admitted to [facility] [place] from 05/22/17 to 05/26/17 after a left hip fracture. Pt underwent left hip bipolar replacement arthroplasty on 05/23/[address] Jacobs and did well postoperatively and went to SNF at discharge - Pt reports that she has had some recent medications changes from rehab: - Valsartan was increased to 320mg QHS on 06/13/17, Atorvastatin changed to Pravastatin and Allopurinol decreased to 100mg Q12H - She was brought back to the ED at [facility] [place] on 06/21/17 with AMS that began yesterday morning. Her BP yesterday morning was reportedly 92/52 and BS was 152 when the pt was confused. Pt reported that she had to go to the bathroom and had a soft BM on the way to the bathroom and pt sat on the toilet but seemed to be very lethargic. Pt felt hot but no fever was documented. When EMS arrived pt received Narcan 0.8 mg as well as Zofran 4 mg IV and normal saline 1 L IV bolus by EMS. She was reportedly hypotensive on scene with a systolic blood pressure in the 70s. Pt reportedly complained of epigastric pain and nausea. Pt was brought to the ED and en route pt had an episode of vomiting and another BM. Pt was given IVF in the ED and her BP improved and her AMS improved. - In addition to the Valsartan pt takes Verapamil 240mg po daily, Coreg 12.5mg po BID, Norvasc 5mg po daily, and Bumex 1mg po daily for her BP at home. She also takes Gabapentin 800mg TID, Percocet 10/325 Q6H and Methocarbamol at night. This regimen of pain medication has not changed recently. - Its not clear if the AMS may have been related to hypotension (?dehydration and/or medication related) vs. effects of her narcotic meds vs. other. - Pt does not appear septic. Her WBC count has been WNL and she has been afebrile. - Head CT with no acute changes - BP has been more elevated since admission and somewhat difficult to control. - On 06/23 her Norvasc was increased to 10mg po daily. Upon repeat review of records it appears the Norvasc was started while she was at rehab and the Valsartan was increased per the pts families report at admission. The pts and family want to minimize the number of medications she is taking and since the Norvasc and Verapamil are both CCB we will stop the Norvasc and resume Verapamil 240mg po daily which she was on as an outpt on 06/24 - She is also on Valsartan 160mg daily and Coreg 12.5mg po BID 06/25/17 - Pt's blood pressure readings have remained somewhat labile - repeat blood pressure this AM an hour after medications 110/69 - Pt has NO new complaints. - If possible, would like to adjust BP medication regimen and obtain better control prior to discharge to help avoid readmission - continued coreg, verapamil - change valsartan to 80mg BID (from 160mg daily) - anticipate d/c to home with C and home PT 06/25 Elevated LFTs Abnormal imaging indicating gallstones and possible cholecystitis - Pts grand-daughter reports that periodically the pt complains of abdominal pain and occasionally uses Gas-X for this but its not clear if this helps or not. Pt denies any abd pain with food intake. - She complained yesterday of abdominal pain prior to admission. - CT Abd/pelvis (06/21) --> Gallstones prominent gallbladder with thickened gallbladder wall. Acute cholecystitis may be consideration. Trace ascites Extensive vascular calcifications Multiple diverticuli throughout the colon - GB US (06/21) --> Trace ascites. Gallbladder wall thickening. I cannot confirm gallstones. Cholecystitis would be a consideration. - General Surgery evaluated and did not feel any surgical intervention was warranted at this time. - LFTs at admission noted AST 166, ALT 89, AlkPhos 132. Repeat labs have been trending down. - She has tolerated advanced diet without any further complaints of abd pain. Acute on chronic kidney disease, stage 3 - Labs slightly higher than baseline at admission - Pt is on IVF - Repeat labs are improving. Diabetes mellitus, type 2 - Hold OHA - NovoLog SSI - Accu checks (2) Hypotension ICD Codes: I95.9 - Hypotension, unspecified Status: Acute (3) RUQ abdominal pain ICD Codes: R10.11 - Right upper quadrant pain Status: Acute (4) MARIIA (acute kidney injury) ICD Codes: N17.9 - Acute kidney failure, unspecified Status: Acute (5) DM (diabetes mellitus) ICD Codes: E11.9 - Type 2 diabetes mellitus without complications Status: Chronic Assessment and Plan Patient examined. Assessment and plan formulated with Anay Tomlin PA-C. I agree with the above. Stop [facility]. If BP reading remain stable, then anticipate discharge to home 06/25/17 Problem Qualifiers (1) Altered mental status: Qualified Codes: R41.82 - Altered mental status, unspecified (2) Hypotension: Qualified Codes: I95.9 - Hypotension, unspecified Chavo Soto DO Jun 25, 2017 10:16
--- NOTE | 2017-06-25 10:19 | HHI.FF ---
Face to Face Verification Diagnosis: (1) DM (diabetes mellitus) (2) Effusion, left knee (3) Hypertension (4) Altered mental status (5) Hypotension Physical Therapy Order: Evaluate and Treat, Improve ambulation, Strength and gait training Home Health Nursing Order: Medical education Signs/symptoms of disease process Medication education-adverse effect Nursing assessment with vital signs Instructions: Pt has had difficulty with blood pressure regimen. Please assist pt to take bp readings, record readings, and communicate reading to PCP, Dr. Ortiz. Polypharmacy may also be contributing to pt's admission with AMS. Please review pt's home medications in comparison to [facility] discharge list and review pt's system for administering her daily medications. I have seen patient Emelia Morrow on 06/25/17. My clinical findings support the need for the requested home health care services because: Ltd mobility - disease progression Deconditioned w/ increased weakness Med compliance is questionable Limited ability to care for self Need for psychosocial assistance Impaired cognition/judgement I certify that my clinical findings support that this patient is homebound because: Impaired cognitive ability/safety Unsteady gait/balance Unsafe to leave home unassisted Need for psychosocial assistance Unable to use public transportation Chavo Soto DO Jun 25, 2017 10:19
[2017-06-25] MEDS: PRIMIDONE 50 MG TAB PO SCH (21:28)
[2017-06-26] MEDS: ACETAMINOPHEN/HYDROcodone 325 MG/10 MG TAB PO PRN ×2 (00:04→08:48)
[2017-06-26 01:10] VITALS: BP 148/79
[2017-06-26 05:05] VITALS: BP 156/88; PULSE 82; RESP 14; TEMP 98.2; O2SAT 96
[2017-06-26] MEDS: LEVOTHYROXINE SODIUM 25 MCG TAB PO SCH (06:17)
[2017-06-26] MEDS: SIMETHICONE 125 MG CHEWABLE TAB PO SCH ×2 (06:17→13:35)
[2017-06-26] MEDS: INSULIN ASPART SUPPLEMENTAL SCALE SQ SCH ×2 (08:00→12:00)
[2017-06-26 08:11] VITALS: BP 178/88; PULSE 85; RESP 18; TEMP 98.1; O2SAT 98
[2017-06-26] MEDS: ALLOPURINOL 100 MG TAB PO SCH (08:44)
[2017-06-26] MEDS: VERAPAMIL HCL 120 MG TAB PO SCH (08:44)
[2017-06-26] MEDS: ENOXAPARIN SODIUM 30 MG/0.3 ML SYRINGE SQ SCH (08:44)
[2017-06-26] MEDS: predniSONE 10 MG TAB PO SCH (08:45)
[2017-06-26] MEDS: GABAPENTIN 400 MG CAP PO SCH ×2 (08:45→13:35)
[2017-06-26] MEDS: VALSARTAN 80 MG TAB PO SCH (08:45)
[2017-06-26] MEDS: FAMOTIDINE 20 MG TAB PO SCH (08:45)
[2017-06-26] MEDS: FERROUS SULFATE 325 MG (65 MG ELEMENTAL IRON) TAB PO SCH (08:45)
[2017-06-26] MEDS: CARVEDILOL 12.5 MG TAB PO SCH (08:46)
[2017-06-26] MEDS: ASPIRIN EC 81 MG TABEC PO SCH (08:46)
[2017-06-26] MEDS: PANTOPRAZOLE SOD 40 MG DELAYED RELEASE TAB PO SCH (08:47)
[2017-06-26 13:09] VITALS: BP 155/76; PULSE 64; RESP 18; TEMP 97.8; O2SAT 97
--- NOTE | 2017-06-26 13:37 | HHI.PR ---
Subjective Remarks No new complaints. Pt is adamant on discharge today. Objective Vitals Vital Signs Date Time Temp Pulse Resp B/P (MAP) Pulse Ox O2 Delivery O2 Flow Rate FiO2 06/26/17 13:09 97.8 64 18 155/76 (102) 97 06/26/17 08:11 98.1 85 18 178/88 (118) 98 06/26/17 05:05 98.2 82 14 156/88 (110) 96 06/26/17 01:10 148/79 (102) 06/25/17 23:56 97.0 74 14 171/90 (117) 96 06/25/17 20:05 98.0 74 14 178/92 (120) 96 06/25/17 16:44 98.2 72 18 145/75 (98) 97 Result Diagram: 06/22/17 0930 06/23/17 0724 Imaging Last 24 hours Impressions Chest X-Ray 06/21/17 1314 Signed Impressions: Service Date/Time: Wednesday, June 21, 2017 13:57 - CONCLUSION: No acute disease. Parminder Nichols MD Head CT 06/21/17 0000 Signed Impressions: Service Date/Time: Wednesday, June 21, 2017 14:09 - CONCLUSION: No acute intracranial disease. No change in from previous study. Parminder Nichols MD Gall Bladder Ultrasound 06/21/17 0000 Signed Impressions: Service Date/Time: Wednesday, June 21, 2017 15:11 - CONCLUSION: Trace ascites. Gallbladder wall thickening. I cannot confirm gallstones. Cholecystitis would be a consideration. Braxton Cavanaugh MD FACR Abdomen/Pelvis CT 06/21/17 0000 Signed Impressions: Service Date/Time: Wednesday, June 21, 2017 14:12 - CONCLUSION: Gallstones prominent gallbladder with thickened gallbladder wall. Acute cholecystitis may be consideration. Trace ascites Extensive vascular calcifications Multiple diverticuli throughout the colon . Braxton Cavanaugh MD FACR Objective Remarks General: NAD, Alert and oriented X 3 Chest: CTA Cardiac: Regular Abd: +BS, soft ND/NT Ext: Left knee effusion (chronic) A/P Problem List: (1) Altered mental status ICD Codes: R41.82 - Altered mental status, unspecified Status: Acute Plan: AMS Hypotension/HTN - Pt is an 81 y/o AAF with DM, HTN, Hyperlipidemia, hypothyroidism, CKD stage 3 , and polymyositis. - Pt was recently admitted to [facility] [place] from 05/22/17 to 05/26/17 after a left hip fracture. Pt underwent left hip bipolar replacement arthroplasty on 05/23/[address] Jacobs and did well postoperatively and went to SNF at discharge - Pt reports that she has had some recent medications changes from rehab: - Valsartan was increased to 320mg QHS on 06/13/17, Atorvastatin changed to Pravastatin and Allopurinol decreased to 100mg Q12H - She was brought back to the ED at [facility] [place] on 06/21/17 with AMS that began yesterday morning. Her BP yesterday morning was reportedly 92/52 and BS was 152 when the pt was confused. Pt reported that she had to go to the bathroom and had a soft BM on the way to the bathroom and pt sat on the toilet but seemed to be very lethargic. Pt felt hot but no fever was documented. When EMS arrived pt received Narcan 0.8 mg as well as Zofran 4 mg IV and normal saline 1 L IV bolus by EMS. She was reportedly hypotensive on scene with a systolic blood pressure in the 70s. Pt reportedly complained of epigastric pain and nausea. Pt was brought to the ED and en route pt had an episode of vomiting and another BM. Pt was given IVF in the ED and her BP improved and her AMS improved. - In addition to the Valsartan pt takes Verapamil 240mg po daily, Coreg 12.5mg po BID, Norvasc 5mg po daily, and Bumex 1mg po daily for her BP at home. She also takes Gabapentin 800mg TID, Percocet 10/325 Q6H and Methocarbamol at night. This regimen of pain medication has not changed recently. - Its not clear if the AMS may have been related to hypotension (?dehydration and/or medication related) vs. effects of her narcotic meds vs. other. - Pt does not appear septic. Her WBC count has been WNL and she has been afebrile. - Head CT with no acute changes - BP has been more elevated since admission and somewhat difficult to control. - On 06/23 her Norvasc was increased to 10mg po daily. Upon repeat review of records it appears the Norvasc was started while she was at rehab and the Valsartan was increased per the pts families report at admission. The pts and family want to minimize the number of medications she is taking and since the Norvasc and Verapamil are both CCB we will stop the Norvasc and resume Verapamil 240mg po daily which she was on as an outpt on 06/24 - She is also on Valsartan 160mg daily and Coreg 12.5mg po BID 06/26/17 - Pt's blood pressure readings have remained somewhat labile - continued coreg, verapamil - change valsartan to 160mg qPM. AM blood pressure elevated. Try giving valsartan at bedtime & the other doses in the morning. - discharge to home today with HHC and home PT - C to assist in obtaining and record BP readings - BP log - Pt to f/u with PCP, Dr. Ortiz in 1 week Elevated LFTs Abnormal imaging indicating gallstones and possible cholecystitis - Pts grand-daughter reports that periodically the pt complains of abdominal pain and occasionally uses Gas-X for this but its not clear if this helps or not. Pt denies any abd pain with food intake. - She complained yesterday of abdominal pain prior to admission. - CT Abd/pelvis (06/21) --> Gallstones prominent gallbladder with thickened gallbladder wall. Acute cholecystitis may be consideration. Trace ascites Extensive vascular calcifications Multiple diverticuli throughout the colon - GB US (06/21) --> Trace ascites. Gallbladder wall thickening. I cannot confirm gallstones. Cholecystitis would be a consideration. - General Surgery evaluated and did not feel any surgical intervention was warranted at this time. - LFTs at admission noted AST 166, ALT 89, AlkPhos 132. Repeat labs have been trending down. - She has tolerated advanced diet without any further complaints of abd pain. Acute on chronic kidney disease, stage 3 - Labs slightly higher than baseline at admission - Pt is on IVF - Repeat labs are improving. Diabetes mellitus, type 2 - Hold OHA - NovoLog SSI - Accu checks (2) Hypotension ICD Codes: I95.9 - Hypotension, unspecified Status: Acute (3) RUQ abdominal pain ICD Codes: R10.11 - Right upper quadrant pain Status: Acute (4) MARIIA (acute kidney injury) ICD Codes: N17.9 - Acute kidney failure, unspecified Status: Acute (5) DM (diabetes mellitus) ICD Codes: E11.9 - Type 2 diabetes mellitus without complications Status: Chronic Assessment and Plan Patient examined. Assessment and plan formulated with Anay Tomlin PA-C. I agree with the above. Stop [facility]. If BP reading remain stable, then anticipate discharge to home 06/25/17 Problem Qualifiers (1) Altered mental status: Qualified Codes: R41.82 - Altered mental status, unspecified (2) Hypotension: Qualified Codes: I95.9 - Hypotension, unspecified Chavo Soto DO Jun 26, 2017 13:37
--- NOTE | 2017-06-26 13:38 | HHI.DS ---
Discharge Summary Admission Date Jun 25, 2017 at 10:06 Discharge Date: Jun 26, 2017 Admitting Diagnosis AMS, hypotension, possible cholecystitis (1) Altered mental status Diagnosis: Principal ICD Codes: R41.82 - Altered mental status, unspecified Status: Acute (2) Hypotension Diagnosis: Principal ICD Codes: I95.9 - Hypotension, unspecified Status: Acute (3) RUQ abdominal pain Diagnosis: Principal ICD Codes: R10.11 - Right upper quadrant pain Status: Acute (4) MARIIA (acute kidney injury) Diagnosis: Principal ICD Codes: N17.9 - Acute kidney failure, unspecified Status: Acute (5) DM (diabetes mellitus) Diagnosis: Secondary ICD Codes: E11.9 - Type 2 diabetes mellitus without complications Status: Chronic Brief History Mrs. Morrow is a pleasant 81 y/o AAF with DM, HTN, Hyperlipidemia, hypothyroidism, CKD stage 3, and polymyositis Pt was recently admitted to [facility] from 05/22/17 to 05/26/17 after a left hip fracture. Pt underwent left hip bipolar replacement arthroplasty on 05/23/[address] Jacobs and did well postoperatively and went to SNF at discharge. Pt presented back to the ED at [facility] on 06/21/17 with AMS. According to ED documentation, the pts daughter called 911 for altered mental status that started this morning. When EMS arrived pt received Narcan 0.8 mg as well as Zofran 4 mg IV and normal saline 1 L IV bolus by EMS. She was reportedly hypotensive on scene with a systolic blood pressure in the 70s. Pt reportedly complained of epigastric pain and nausea. Labs work in the ED noted a normal WBC count of 7.8,patient received more IV fluid in er with improvement in blood pressure . Patient had CT abdomen showed gallstones with thickening and suggested cholecystitis will start on antibiotics and get surgical evaluation. CBC/BMP: 06/22/17 0930 06/23/17 0724 Significant Findings Laboratory Tests Test 06/23/17 16:00 PE at Discharge General: NAD, Alert and oriented X 3 Chest: CTA Cardiac: Regular Abd: +BS, soft ND/NT Ext: Left knee effusion (chronic) Hospital Course (1) Altered mental status ICD Codes: R41.82 - Altered mental status, unspecified Status: Acute Plan: AMS Hypotension/HTN - Pt is an 81 y/o AAF with DM, HTN, Hyperlipidemia, hypothyroidism, CKD stage 3 , and polymyositis. - Pt was recently admitted to [facility] from 05/22/17 to 05/26/17 after a left hip fracture. Pt underwent left hip bipolar replacement arthroplasty on 05/23/[address] Jacobs and did well postoperatively and went to SNF at discharge - Pt reports that she has had some recent medications changes from rehab: - Valsartan was increased to 320mg QHS on 06/13/17, Atorvastatin changed to Pravastatin and Allopurinol decreased to 100mg Q12H - She was brought back to the ED at [facility] on 06/21/17 with AMS that began yesterday morning. Her BP yesterday morning was reportedly 92/52 and BS was 152 when the pt was confused. Pt reported that she had to go to the bathroom and had a soft BM on the way to the bathroom and pt sat on the toilet but seemed to be very lethargic. Pt felt hot but no fever was documented. When EMS arrived pt received Narcan 0.8 mg as well as Zofran 4 mg IV and normal saline 1 L IV bolus by EMS. She was reportedly hypotensive on scene with a systolic blood pressure in the 70s. Pt reportedly complained of epigastric pain and nausea. Pt was brought to the ED and en route pt had an episode of vomiting and another BM. Pt was given IVF in the ED and her BP improved and her AMS improved. - In addition to the Valsartan pt takes Verapamil 240mg po daily, Coreg 12.5mg po BID, Norvasc 5mg po daily, and Bumex 1mg po daily for her BP at home. She also takes Gabapentin 800mg TID, Percocet 10/325 Q6H and Methocarbamol at night. This regimen of pain medication has not changed recently. - Its not clear if the AMS may have been related to hypotension (?dehydration and/or medication related) vs. effects of her narcotic meds vs. other. - Pt does not appear septic. Her WBC count has been WNL and she has been afebrile. - Head CT with no acute changes - BP has been more elevated since admission and somewhat difficult to control. - On 06/23 her Norvasc was increased to 10mg po daily. Upon repeat review of records it appears the Norvasc was started while she was at rehab and the Valsartan was increased per the pts families report at admission. The pts and family want to minimize the number of medications she is taking and since the Norvasc and Verapamil are both CCB we will stop the Norvasc and resume Verapamil 240mg po daily which she was on as an outpt on 06/24 - She is also on Valsartan 160mg daily and Coreg 12.5mg po BID 06/26/17 - Pt's blood pressure readings have remained somewhat labile - continued coreg, verapamil - change valsartan to 160mg qPM. AM blood pressure elevated. Try giving valsartan at bedtime & the other doses in the morning. - discharge to home today with HHC and home PT - HHC to assist in obtaining and record BP readings - BP log - Pt to f/u with PCP, Dr. Ortiz in 1 week Elevated LFTs Abnormal imaging indicating gallstones and possible cholecystitis - Pts grand-daughter reports that periodically the pt complains of abdominal pain and occasionally uses Gas-X for this but its not clear if this helps or not. Pt denies any abd pain with food intake. - She complained yesterday of abdominal pain prior to admission. - CT Abd/pelvis (06/21) --> Gallstones prominent gallbladder with thickened gallbladder wall. Acute cholecystitis may be consideration. Trace ascites Extensive vascular calcifications Multiple diverticuli throughout the colon - GB US (06/21) --> Trace ascites. Gallbladder wall thickening. I cannot confirm gallstones. Cholecystitis would be a consideration. - General Surgery evaluated and did not feel any surgical intervention was warranted at this time. - LFTs at admission noted AST 166, ALT 89, AlkPhos 132. Repeat labs have been trending down. - She has tolerated advanced diet without any further complaints of abd pain. Acute on chronic kidney disease, stage 3 - Labs slightly higher than baseline at admission - Pt is on IVF - Repeat labs are improving. Diabetes mellitus, type 2 - Hold OHA - NovoLog SSI - Accu checks Pt Condition on Discharge: Stable Discharge Disposition: Disch w/ Home Health Serv Discharge Instructions DIET: Follow Instructions for: Heart Healthy Diet, Diabetic Diet Speech Therapy-Diet Recommends: Regular Activities you can perform: Weight Bearing as [place] Activities to Avoid: Strenuous Activity Changed Medications: Valsartan (Valsartan) 80 Mg Tab 160 MG PO HS for Blood Pressure Management, #30 TAB 0 Refills (Changed from: DAILY) Continued Medications: Aspirin DR (Aspirin Adult Low Strength) 81 Mg Tabdr 81 MG PO DAILY, TAB Atorvastatin (Atorvastatin) 20 Mg Tab 20 MG PO DAILY for Cholesterol Management, #30 TAB 0 Refills Bumetanide (Bumetanide) 1 Mg Tab 1 MG PO DAILY for swelling, #30 TAB 0 Refills Carvedilol (Carvedilol) 6.25 Mg Tab 12.5 MG PO BID for HTN, #60 TAB 0 Refills Cholecalciferol (D 400) 400 Unit Tab 800 UNITS PO DAILY Cholecalciferol (Vitamin D3) 1,000 Unit Cap 2000 UNITS PO DAILY for Nutritional Supplement, #1 BOTTLE 0 Refills Ferrous Sulfate (Ferrous Sulfate) 325 Mg (65 Mg Iron) Tablet 325 MG PO DAILY for Nutritional Supplement, #30 TAB 0 Refills Gabapentin (Gabapentin) 800 Mg Tab 800 MG PO TID, #90 TAB 0 Refills Glipizide (Glucotrol) 5 Mg Tab 5 MG PO DAILYAC for dm, #30 TAB Hydrocodone/Acetaminophen (Hydrocodone-Acetamin 10-325 mg) 10 Mg-325 Mg Tablet 1 TAB PO Q4H PRN for Pain, #50 TAB Levothyroxine (Levothyroxine) 25 Mcg Tab 25 MCG PO DAILY for Thyroid, #30 TAB 0 Refills Pantoprazole (Protonix) 40 Mg Tab 40 MG PO DAILY for Reflux, #30 TAB 0 Refills Potassium Chloride ER (Potassium Chloride ER) 10 Meq Cap 10 MEQ PO DAILY for Electrolyte Replacement, #30 CAP 0 Refills Prednisone (Prednisone) 10 Mg Tab 10 MG PO DAILY, TAB 0 Refills Primidone (Primidone) 50 Mg Tab 50 MG PO HS for Control Seizures, #60 TAB 0 Refills Ranitidine (Zantac) 150 Mg Tab 75 MG PO DAILY for Reduce Stomach Acid, #30 TAB 0 Refills Verapamil ER 24 HR (Verapamil ER 24 HR) 240 Mg Tab 240 MG PO DAILY, #30 TAB 0 Refills Discontinued Medications: Amlodipine (Norvasc) 5 Mg Tab 5 MG PO DAILY for Blood Pressure Management, #30 TAB 0 Refills Enoxaparin Inj (Lovenox Inj) 30 Mg/0.3 Ml Syr 30 MG SQ DAILY for Blood Clot Prevention for 25 Days, SYRINGE 0 Refills Methocarbamol (Methocarbamol) 500 Mg Tab 500 MG PO HS for Muscle Spasm, #30 TAB 0 Refills Chavo Soto DO Jun 26, 2017 13:38
[2017-06-26] MEDS ORDERED: VALS1TAB64 PO (13:44)
--- NOTE | 2017-06-26 13:47 | HHI.DCPOC ---
Discharge Care Plan Diagnosis: (1) Hypertension (2) Effusion, left knee (3) MARIIA (acute kidney injury) (4) Altered mental status Goals to Promote Your Health * To prevent worsening of your condition and complications * To maintain your health at the optimal level Directions to Meet Your Goals Take your medications as prescribed Follow your dietary instruction Follow activity as directed Keep your appointments as scheduled Take your immunizations and boosters as scheduled If your symptoms worsen call your PCP, if no PCP go to Urgent Care Center or Emergency Room Smoking is Dangerous to Your Health. Avoid second hand smoke Call the 24-hour hour crisis hotline for domestic abuse at Chavo Soto DO Jun 26, 2017 13:47
== END 2017-06-26 16:38 | disposition home health service (06) | DRG 948 ==
LOC: NEPE 12:49 → NEDA 16:48 → INTOOBSV 16:48 → NEPHCDU 20:13 → OBSVTOIN 06-25 10:06
PROVIDERS: ADMIT Hospitalist; ATTEND Hospitalist
DX: R41.82 Altered mental status, unspecified (principal); N17.9 Acute kidney failure, unspecified; E11.42 Type 2 diabetes mellitus with diabetic polyneuropathy; E11.21 Type 2 diabetes mellitus with diabetic nephropathy; Z79.84 Long term (current) use of oral hypoglycemic drugs; I95.9 Hypotension, unspecified; I12.9 Hypertensive chronic kidney disease with stage 1 through stage 4 chronic kidney disease, or unspecified chronic kidney disease; N18.3 Chronic kidney disease, stage 3 (moderate); J44.9 Chronic obstructive pulmonary disease, unspecified; R10.11 Right upper quadrant pain; Z96.642 Presence of left artificial hip joint; Z79.82 Long term (current) use of aspirin; Z79.52 Long term (current) use of systemic steroids; E78.5 Hyperlipidemia, unspecified; F17.210 Nicotine dependence, cigarettes, uncomplicated; E03.9 Hypothyroidism, unspecified
CPT/HCPCS: 70450; 71045; 74176; 76705; 80053; 81001; 82140; 82550; 82948; 83605; 83690; 84443; 84484; 85025; 85610; 85730; 86403; 87040; 87070; 87086; 87205; 87493; 93005; 96361; 96365; 96366; 96372; G0378; G8987-GP; G8988-GP; J1650; J1815; J2543; J7030; J7070; J7512; P9612

== ENCOUNTER 2017-12-06 17:16 | Inpatient (IN) ==
[2017-12-06] MEDS ORDERED: Labetalol HCl Inj 100 MG/20 ML Vial IV.PUSH ONE (21:47)
--- NOTE | 2017-12-06 21:52 | ED ---
HPI General Chief complaint: Hypertension Stated complaint: Sob,Left side pain high BP Time Seen by Provider: 12/06/17 21:35 Source: patient and family Mode of arrival: ambulatory Limitations: no limitations History of Present Illness HPI narrative: 81-year-old female presents to the emergency department by private transportation the care of her family for evaluation of elevated blood pressure headache shortness of breath left-sided pain for the past few days. Patient states she has known history of hypertension. Patient states that she takes blood pressure medication and has taken her morning dosage of blood pressure medication. Patient has noticed her blood pressure trending upward over the past few days but today blood pressure was the highest. Patient denies having any chest pain but has noted some left arm ache however she states she has had this for several weeks and this is not a new finding patient also complains of chronic low back pain which she also states is not new and does not appear to be related to symptoms today. Patient has shortness of breath with exertion but no orthopnea no PND and no dyspnea at rest. Patient's had no palpitations. Patient denies abdominal pain. Patient's had no nausea no vomiting no change in bowel habits and good urine output. Patient's had no sudden onset thunderclap or worst ever headache. Currently patient has no headache. Patient denies any visual disturbance altered mentation or difficulty with her speech. Patient's had no balance disturbance. Patient denies any upper extremity or lower extremity numbness tingling or weakness. Patient has chronic pain in her left knee and has significant arthritic changes with soft tissue swelling which has been evaluated by orthopedist but has been told due to her underlying medical condition she is not a candidate for surgical repair. Patient presents now due to inability to control her blood pressure at home with her current blood pressure medications. Patient has not had the opportunity to contact her primary care provider. Patient is unable to identify exacerbating or alleviating factors. Onset (ago): day(s) Location: head, back and upper extremity Radiation: non-radiation Severity: moderate (chronic) Quality: aching Pain Consistency: intermittent Relieving factors: none Exacerbating factors: none Associated symptoms: denies other symptoms and confusion Treatments prior to arrival: other (blood pressure medication) Related Data Home Medications Medication Instructions Recorded Confirmed allopurinol 100 mg PO BID 12/06/17 12/06/17 aspirin 81 mg PO DAILY 12/06/17 12/06/17 atorvastatin 20 mg PO DAILY 12/06/17 12/06/17 bumetanide 1 mg PO DAILY 12/06/17 12/06/17 calcium carbonate 600 mg PO BID 12/06/17 12/06/17 carvedilol 12.5 mg PO BID 12/06/17 12/06/17 ferrous sulfate 325 mg PO TID 12/06/17 12/06/17 gabapentin 800 mg PO TID 12/06/17 12/06/17 glipizide 5 mg PO DAILY 12/06/17 12/06/17 insulin aspart U-100 [Novolog 12/06/17 Flexpen U-100 Insulin] levothyroxine 25 mcg PO DAILY 12/06/17 12/06/17 methocarbamol 500 mg PO QPM 12/06/17 12/06/17 [id number] cmplx#[id number] 12/06/17 [Vitamin D3 Complete] oxycodone-acetaminophen 2 tab PO Q4-6H PRN 12/06/17 12/06/17 pantoprazole 40 mg PO DAILY 12/06/17 12/06/17 potassium chloride [Klor-Con 10] 10 meq PO DAILY 12/06/17 12/06/17 pravastatin 20 mg PO QPM 12/06/17 12/06/17 prednisone 10 mg PO DAILY 12/06/17 12/06/17 primidone 50 mg PO DAILY 12/06/17 12/06/17 ranitidine HCl 150 mg PO DAILY 12/06/17 12/06/17 telmisartan 40 mg PO BID 12/06/17 12/06/17 verapamil 240 mg PO QAM 12/06/17 12/06/17 Allergies Allergy/AdvReac Type Severity Reaction Status Date / Time pregabalin Allergy Intermediate Rash Verified 12/06/17 21:29 Review of Systems ROS: all other systems reviewed are negative [facility] Medical History Medical History Back fracture (Acute) Diabetes (Acute) Gastric reflux (Acute) Gout (Acute) Hip fracture requiring operative repair (Acute) Hypercholesteremia (Acute) Hypertension (Acute) Hypothyroid (Acute) Neuropathy (Acute) Rheumatoid arthritis (Acute) Surgical History Surgical History History of tubal ligation (Acute) Social History Social History Substance History: No History of Abuse Second Hand Smoke Exposure: No Smoking Status: Current every day smoker Tobacco Type: Cigarettes How Often Do You Have a Drink Containing Alcohol: Monthly or less Recent Travel in [facility] within the Last 8 Weeks: No Recent Out of Country Travel within the Last 8 Weeks: No Immunization History Tetanus Immunization: Unsure Hx Influenza Vaccine This Season: Yes Exam Narrative Exam Narrative: GENERAL: Well-developed well-nourished elderly female in no acute distress no respiratory distress GCS 15 SKIN: Focused skin assessment warm/dry. HEAD: Atraumatic. Normocephalic. EYES: Pupils equal and round. No scleral icterus. No injection or drainage. ENT: No nasal bleeding or discharge. Mucous membranes pink and moist. NECK: Trachea midline. No JVD. CARDIOVASCULAR: Regular rate and rhythm. No murmur appreciated. RESPIRATORY: No accessory muscle use. Clear to auscultation. Breath sounds equal bilaterally. GASTROINTESTINAL: Abdomen soft, non-tender, nondistended. Hepatic and splenic margins not palpable. MUSCULOSKELETAL: No obvious deformities. No clubbing. No cyanosis. No edema. NEUROLOGICAL: Awake and alert. No obvious cranial nerve deficits. Motor grossly within normal limits. Normal speech. PSYCHIATRIC: Appropriate mood and affect; insight and judgment normal. Course Initial Documented Vital Signs Temperature 97.7 F 12/06/17 17:34 Pulse Rate 87 12/06/17 17:34 Respiratory Rate 14 12/06/17 17:34 Blood Pressure 179/124 H 12/06/17 17:34 Pulse Oximetry 93 L 12/06/17 17:34 Last Documented Vital Signs Temperature 97.7 F 12/06/17 17:34 Pulse Rate 72 12/07/17 18:00 Respiratory Rate 18 12/07/17 03:09 Blood Pressure 131/92 H 12/07/17 03:09 Pulse Oximetry 94 L 12/07/17 13:31 Medical Decision Making MDM Narrative Medical decision making narrative: 81-year-old female with known hypertension presents with uncontrolled blood pressure elevation with intermittent headache low back pain chronic left arm pain; patient is taken her morning dose of blood pressure medications but states she has been taking her blood pressure medications twice daily as prescribed and blood pressure has not been well controlled. Patient will be given a one-time dose of labetalol goal is to decrease her blood pressure by 20% Patient with initial response to labetalol heart rate stable has not taken her evening dose of, telmisartan 40 mg, will be administered also an inch of Nitropaste to chest wall while labs/work-up pending Patient administerd additional dose of Labetalol 20 mg minimal decrease in BP response; no availability of hydralazine --will start patient on cardene infusion discussed with DR Miller --requests patient admit to licensing coordinator -- discussed with Dr Crespo --will admit to the ICU Medical Screen Exam Complete: Yes Emergency Medical Condition: Yes Lab Data Result diagrams: 12/06/17 22:15 12/06/17 22:15 Lab Results 12/06/17 12/06/17 12/06/17 Range/Units 22:15 22:15 22:15 WBC 7.6 (4.0-11.0) th/mm3 RBC 4.70 (4.00-5.30) mil/mm3 Hgb 14.3 (11.6-15.3) gm/dL Hct 41.8 (35.0-46.0) % MCV 89.0 (80.0-100.0) fL MCH 30.4 (27.0-34.0) pg MCHC 34.1 (32.0-36.0) % RDW 18.8 H (11.6-17.2) % Plt Count 180 (150-450) th/mm3 MPV 8.2 (7.0-11.0) fL Neut % (Auto) 68.0 (16.0-70.0) % Lymph % (Auto) 23.0 (9.0-44.0) % Lipscomb % (Auto) 8.3 H (0.0-8.0) % Eos % (Auto) 0.4 (0.0-4.0) % Baso % (Auto) 0.3 (0.0-2.0) % Neut # (Auto) 5.2 (1.8-7.7) th/mm3 Lymph # (Auto) 1.7 (1.0-4.8) th/mm3 Lipscomb # (Auto) 0.6 (0.0-0.9) th/mm3 Eos # (Auto) 0.0 (0.0-0.4) th/mm3 Baso # (Auto) 0.0 (0.0-0.2) th/mm3 WBC Differential . Differential Comment Auto diff final Sodium 145 (136-145) meq/L Potassium 3.4 L (3.5-5.1) meq/L Chloride 104 (98-107) meq/L Carbon Dioxide 30.1 (21.0-32.0) meq/L Anion Gap 11 (5-15) meq/L BUN 29 H (7-18) mg/dL Creatinine 1.70 H (0.50-1.00) mg/dL Estimated GFR 35 L (>89) mL/min POC Glucose (68-110) mg/dl Random Glucose 72 L (74-106) mg/dL Calcium 8.7 (8.5-10.1) mg/dL Magnesium 2.3 (1.5-2.5) mg/dL Total Bilirubin 0.6 (0.2-1.0) mg/dL AST 16 (15-37) U/L ALT 17 (10-53) U/L Alkaline Phosphatase 70 (45-117) U/L Total Creatine Kinase 117 (26-192) U/L CK-MB (CK-2) 1.5 (0.5-3.6) ng/mL Troponin I Less than 0.02 L (0.02-0.05) ng/mL Total Protein 8.9 H (6.4-8.2) g/dL Albumin 3.5 (3.4-5.0) g/dL Lipase 207 (73-393) U/L Nasal Screen MRSA (PCR) (Negative) 12/07/17 12/07/17 12/07/17 Range/Units 09:20 17:21 17:21 WBC (4.0-11.0) th/mm3 RBC (4.00-5.30) mil/mm3 Hgb (11.6-15.3) gm/dL Hct (35.0-46.0) % MCV (80.0-100.0) fL MCH (27.0-34.0) pg MCHC (32.0-36.0) % RDW (11.6-17.2) % Plt Count (150-450) th/mm3 MPV (7.0-11.0) fL Neut % (Auto) (16.0-70.0) % Lymph % (Auto) (9.0-44.0) % Lipscomb % (Auto) (0.0-8.0) % Eos % (Auto) (0.0-4.0) % Baso % (Auto) (0.0-2.0) % Neut # (Auto) (1.8-7.7) th/mm3 Lymph # (Auto) (1.0-4.8) th/mm3 Lipscomb # (Auto) (0.0-0.9) th/mm3 Eos # (Auto) (0.0-0.4) th/mm3 Baso # (Auto) (0.0-0.2) th/mm3 WBC Differential Differential Comment Sodium (136-145) meq/L Potassium (3.5-5.1) meq/L Chloride (98-107) meq/L Carbon Dioxide (21.0-32.0) meq/L Anion Gap (5-15) meq/L BUN (7-18) mg/dL Creatinine (0.50-1.00) mg/dL Estimated GFR (>89) mL/min POC Glucose 160 H 158 H (68-110) mg/dl Random Glucose (74-106) mg/dL Calcium (8.5-10.1) mg/dL Magnesium (1.5-2.5) mg/dL Total Bilirubin (0.2-1.0) mg/dL AST (15-37) U/L ALT (10-53) U/L Alkaline Phosphatase (45-117) U/L Total Creatine Kinase (26-192) U/L CK-MB (CK-2) (0.5-3.6) ng/mL Troponin I (0.02-0.05) ng/mL Total Protein (6.4-8.2) g/dL Albumin (3.4-5.0) g/dL Lipase (73-393) U/L Nasal Screen MRSA (PCR) Mrsa detected (Negative) Imaging Data Radiologist's impression: Chest X-Ray 12/06/17 21:46 CONCLUSION: Negative examination. Head CT 12/06/17 21:47 CONCLUSION: 1. Mild stable cerebral atrophy. 2. No acute infarct, acute hemorrhage, mass effect or extra-axial fluid collections. . Discharge Plan Discharge Disposition Patient Disposition: 30 Still Patient Discharge Condition Condition: Stable Discharge Details Diagnosis: Hypertensive crisis Physicians Team ED Provider: Rosa Alvarez Primary Care Provider: Francy Ortiz Attending Provider: Alex Morrow Other Providers: Alex Morrow Discharge Interventions Interventions: ED Discharge Assessment Last Done: 12/07/17 07:53 Vital Signs Last Done: 12/06/17 21:19 Status ED Status: Left Department Discharge Information Discharge Date/Time: 12/07/17 07:53
--- NOTE | 2017-12-06 22:21 | XR ---
EXAM DATE: 12/06/2017 10:17 PM EDT AGE/SEX: 81 years / Female INDICATIONS: High blood pressure. CLINICAL DATA: This is the patient's initial encounter. Patient reports that signs and symptoms have been present for 1 day and indicates a pain score of 9/10. MEDICAL/SURGICAL HISTORY: Arthritis. Diabetes. Fusion, lumbar. COMPARISON: [facility] [place], CHEST SINGLE AP, 06/21/2017. . FINDINGS: A single AP view of the chest demonstrates the lungs to be symmetrically aerated without evidence of mass, infiltrate or effusion. The cardiomediastinal contours are unremarkable. Osseous structures a re intact. CONCLUSION: Negative examination. Electronically signed by: Clint Moe MD 12/06/2017 10:19 PM EDT
[2017-12-06 22:33] LABS: Baso % (Auto) 0.3 % (0.0-2.0); Eos % (Auto) 0.4 % (0.0-4.0); Hematocrit 41.8 % (35.0-46.0); Hemoglobin 14.3 gm/dL (11.6-15.3); Lymph # (Auto) 1.7 th/mm3 (1.0-4.8); Mean Corpuscular HGB Conc 34.1 % (32.0-36.0); Mean Corpuscular Hemoglobin 30.4 pg (27.0-34.0); Mean Platelet Volume 8.2 fL (7.0-11.0); Mono # (Auto) 0.6 th/mm3 (0.0-0.9); Mono % (Auto) 8.3 % (0.0-8.0); Neut # (Auto) 5.2 th/mm3 (1.8-7.7); Platelet Count 180 th/mm3 (150-450); Red Cell Distribution Width 18.8 % (11.6-17.2); White Blood Count 7.6 th/mm3 (4.0-11.0)
[2017-12-06 22:58] LABS: Magnesium 2.3 mg/dL (1.5-2.5)
[2017-12-06 23:00] LABS: Creatine Kinase 117 U/L (26-192)
--- NOTE | 2017-12-06 23:46 | CT ---
EXAM DATE: 12/06/2017 11:37 PM EDT AGE/SEX: 81 years / Female INDICATIONS: Headaches. CLINICAL DATA: This is the patient's initial encounter. Patient reports that signs and symptoms have been present for 1 day and indicates a pain score of 7/10. MEDICAL/SURGICAL HISTORY: Hypertension. Diabetes mellitus type II. Gastroesophageal reflux diseas e. Tubal ligation. RADIATION DOSE: 44.07 CTDI (mGy) COMPARISON: [facility] [place], CT BRAIN W/O CONTRAST, 06/21/2017. [facility] [place], CT BRAIN W/O CONTRAST, 07/01/2015. . TECHNIQUE: CT of the head without contrast. Using automated exposure control and adjustment of the mA and/or kV according to patient size, radiation dose was kept as low as reasonably achievable to ob tain optimal diagnostic quality images. DICOM format image data is available electronically for revi ew and comparison. FINDINGS: Cerebrum: Mild cerebral atrophy is stable. No evidence of midline shift, mass lesion, hemorrhage or acute infarction. No extraaxial fluid collections are seen. Posterior Fossa: The cerebellum and brainstem are intact. The 4th ventricle is midline. The cerebe llopontine angle is unremarkable. Extracranial: The visualized portion of the orbits is intact. Skull: The calvaria is intact. No evidence of skull fracture. CONCLUSION: 1. Mild stable cerebral atrophy. 2. No acute infarct, acute hemorrhage, mass effect or extra-axial fluid collections. . Electronically signed by: Clint Moe MD 12/06/2017 11:45 PM EDT
[2017-12-07] MEDS ORDERED: Labetalol HCl Inj 100 MG/20 ML Vial IV.PUSH ONE (00:05)
[2017-12-07 00:42] LABS: Alanine Aminotransferase 17 U/L (10-53); Albumin 3.5 g/dL (3.4-5.0); Anion Gap 11 meq/L (5-15); Aspartate Aminotransferase 16 U/L (15-37); Blood Urea Nitrogen 29 mg/dL (7-18); Calcium 8.7 mg/dL (8.5-10.1); Carbon Dioxide 30.1 meq/L (21.0-32.0); Chloride 104 meq/L (98-107); Glomerular Filtration Rate 35 mL/min (>89); Glucose,Random 72 mg/dL (74-106); Lipase 207 U/L (73-393); Potassium 3.4 meq/L (3.5-5.1); Sodium 145 meq/L (136-145)
[2017-12-07 00:46] LABS: Alkaline Phosphatase 70 U/L (45-117); Total Protein 8.9 g/dL (6.4-8.2)
[2017-12-07 01:05] LABS: Creatine Kinase MB 1.5 ng/mL (0.5-3.6)
[2017-12-07] MEDS ORDERED: niCARdipine Inj 25 MG in Sodium Chlor 0.9% Inj 240 ML IV.CONT PRN (01:05)
[2017-12-07] MEDS ORDERED: hydrALAZINE HCl Inj 20 MG/ML Vial IV.PUSH ONE (01:25)
[2017-12-07] MEDS ORDERED: hydrALAZINE HCl Inj 20 MG/ML Vial IV.PUSH STA (01:25)
[2017-12-07] MEDS ORDERED: Labetalol HCl Inj 100 MG/20 ML Vial IV.PUSH PRN (01:29)
[2017-12-07] MEDS ORDERED: Potassium Chlor 40 mEq Premix 40 MEQ/100 ML PIGGYBACK IV.SIG PRN ×2 (01:29)
[2017-12-07] MEDS ORDERED: Potassium Chloride 25 MEQ Effervescent Tablet PO PRN (01:29)
[2017-12-07] MEDS ORDERED: Acetaminophen 325 MG Tablet PO PRN (01:29)
[2017-12-07] MEDS ORDERED: Magnesium Sulfate Inj 4 GM in Sodium Chlor 0.9% Inj 92 ML IV.SIG PRN (01:29)
[2017-12-07] MEDS ORDERED: Bisacodyl 10 MG Supp RECTAL PRN (01:29)
[2017-12-07] MEDS ORDERED: Magnesium Sulfate Inj 2 GM in Sodium Chlor 0.9% Inj 96 ML IV.SIG PRN (01:29)
[2017-12-07] MEDS ORDERED: Magnesium Oxide 400 MG Tablet PO PRN (01:29)
[2017-12-07] MEDS ORDERED: Potassium Chlor 20 mEq Premix 20 MEQ/100 ML PIGGYBACK IV.SIG PRN ×2 (01:29)
[2017-12-07] MEDS ORDERED: hydrALAZINE HCl Inj 20 MG/ML Vial IV.PUSH PRN (01:29)
[2017-12-07] MEDS ORDERED: Potassium Phosphate 500 MG Soluble Tablet PO PRN ×2 (01:29)
[2017-12-07] MEDS ORDERED: Potassium Phosphate Inj 30 MMOL in Sodium Chlor 0.9% Inj 250 ML IV.SIG PRN (01:29)
[2017-12-07] MEDS ORDERED: Sodium Phosphate Inj 30 MMOL in Sodium Chlor 0.9% Inj 250 ML IV.SIG PRN (01:29)
--- NOTE | 2017-12-07 01:37 | P.HPCC ---
History of Present Illness Service: Critical Care Medicine Primary Care Physician: Francy Ortiz MD Chief Complaint: headache History of Present Illness: 81yF with history of hypertension presents with worsening hypertension and headache. she also has chronic pain complaints and complains of pain in those areas, particularly shoulder, back. CT head negative. SBP 220s. given ntg and labetalol in ER. started on nicardipine drip. trop negative. Cr elevated above baseline. ROS negative for chest pain, sob, fever, chills, n/v/c/d/abd pain. Review of Systems All other systems reviewed negative except as stated in HPI [facility] - History History Provided By: Patient, Family Member - Medical History Medical History: Medical History (Last Reviewed 12/07/17 @ 01:34 by Rome Crespo MD) Back fracture Diabetes Gastric reflux Gout Hip fracture requiring operative repair Hypercholesteremia Hypertension Hypothyroid Neuropathy Rheumatoid arthritis - Surgical History Surgical History: Surgical History (Last Reviewed 12/07/17 @ 01:34 by Rome Crespo MD) History of tubal ligation - Tobacco History Second Hand Smoke Exposure: Yes Tobacco Use In Past 30 Days: Yes Smoking Status: Current some day smoker Tobacco Type: Cigarettes - Alcohol History How Often Do You Have a Drink Containing Alcohol: 4 or more times a week - Substance Use History Substance History: No History of Abuse - Travel History Recent Travel in the [place] Within the Last 8 Weeks: No Recent Travel Out of the Country Within the Last 8 Weeks: No - Immunization History Tetanus Immunization: Unsure Hx Influenza Vaccine This Season: Yes Medications and Allergies Active Medications: Active Medications Allopurinol (Zyloprim) 100 mg PO BID [facility] Aspirin (Aspirin Chew) 81 mg PO DAILY [facility] Atorvastatin Calcium (Lipitor) 20 mg PO DAILY [facility] Bumetanide (Bumex) 1 mg PO DAILY [facility] Carvedilol (Coreg) 25 mg PO BID [facility] Clonidine HCl (Catapres) 0.2 mg PO Q8HR [facility] Ferrous Sulfate (Ferosul) 325 mg PO TID [facility] Hydralazine HCl (Apresoline) 50 mg PO Q8H PRN PRN Reason: sbp > 180 Nicardipine HCl 25 mg/ Sodium (Chloride) 250 mls @ 50 mls/hr IV.CONT TITRATE PRN; Protocol PRN Reason: Per Protocol Levothyroxine Sodium (Synthroid) 25 mcg PO DAILY [facility] Non-Formulary Medication (Calcium Carbonate [Calcium Carbonate]) 600 mg PO BID [facility] Non-Formulary Medication (Gabapentin [Gabapentin]) 800 mg PO TID [facility] Non-Formulary Medication (Telmisartan [Telmisartan]) 40 mg PO BID [facility] Pantoprazole Sodium (Protonix) 40 mg PO DAILY [facility] Potassium Chloride (Klor-Con 10) 10 meq PO DAILY [facility] Prednisone (Deltasone) 10 mg PO DAILY [facility] Sodium Chloride (Ns Flush) 2 ml IV.FLUSH UNSCH PRN PRN Reason: FLUSH AFTER USING IV ACCESS Verapamil HCl (Isoptin Sr) 240 mg PO QAM [facility] Allergies Allergy/AdvReac Type Severity Reaction Status Date / Time pregabalin Allergy Intermediate Rash Verified 12/06/17 21:29 Home Medications Medication Instructions Recorded Confirmed Type allopurinol 100 mg PO BID 12/06/17 12/06/17 History aspirin 81 mg PO DAILY 12/06/17 12/06/17 History atorvastatin 20 mg PO DAILY 12/06/17 12/06/17 History bumetanide 1 mg PO DAILY 12/06/17 12/06/17 History calcium carbonate 600 mg PO BID 12/06/17 12/06/17 History carvedilol 12.5 mg PO BID 12/06/17 12/06/17 History ferrous sulfate 325 mg PO TID 12/06/17 12/06/17 History gabapentin 800 mg PO TID 12/06/17 12/06/17 History glipizide 5 mg PO DAILY 12/06/17 12/06/17 History insulin aspart U-100 [Novolog 12/06/17 History Flexpen U-100 Insulin] levothyroxine 25 mcg PO DAILY 12/06/17 12/06/17 History methocarbamol 500 mg PO QPM 12/06/17 12/06/17 History [id number] 12/06/17 History [Vitamin D3 Complete] oxycodone-acetaminophen 2 tab PO Q4-6H PRN 12/06/17 12/06/17 History pantoprazole 40 mg PO DAILY 12/06/17 12/06/17 History potassium chloride [Klor-Con 10] 10 meq PO DAILY 12/06/17 12/06/17 History pravastatin 20 mg PO QPM 12/06/17 12/06/17 History prednisone 10 mg PO DAILY 12/06/17 12/06/17 History primidone 50 mg PO DAILY 12/06/17 12/06/17 History ranitidine HCl 150 mg PO DAILY 12/06/17 12/06/17 History telmisartan 40 mg PO BID 12/06/17 12/06/17 History verapamil 240 mg PO QAM 12/06/17 12/06/17 History Results - Labs CBC & Chem 7: 12/06/17 22:15 12/06/17 22:15 Labs: Short CBC 12/06/17 Range/Units 22:15 WBC 7.6 (4.0-11.0) th/mm3 Hgb 14.3 (11.6-15.3) gm/dL Hct 41.8 (35.0-46.0) % Plt Count 180 (150-450) th/mm3 BMP 12/06/17 22:15 Sodium 145 Potassium 3.4 L Chloride 104 Carbon Dioxide 30.1 BUN 29 H Creatinine 1.70 H Calcium 8.7 Cardiac Enzymes 12/06/17 12/06/17 Range/Units 22:15 22:15 Total Creatine Kinase 117 (26-192) U/L CK-MB (CK-2) 1.5 (0.5-3.6) ng/mL Troponin I Less than 0.02 L (0.02-0.05) ng/mL Liver Function 12/06/17 Range/Units 22:15 Total Bilirubin 0.6 (0.2-1.0) mg/dL AST 16 (15-37) U/L ALT 17 (10-53) U/L Alkaline Phosphatase 70 (45-117) U/L Albumin 3.5 (3.4-5.0) g/dL - Imaging Impressions Chest X-Ray 12/06/17 21:46 CONCLUSION: Negative examination. Head CT 12/06/17 21:47 CONCLUSION: 1. Mild stable cerebral atrophy. 2. No acute infarct, acute hemorrhage, mass effect or extra-axial fluid collections. . Exam Vital signs: Vital Signs 12/06/17 17:34 12/06/17 21:19 12/07/17 00:15 Temperature 36.5 C Pulse Rate 87 73 81 Respiratory Rate 14 16 Blood Pressure 179/124 H 200/122 H 208/124 H Pulse Oximetry 93 L 95 12/07/17 00:27 12/07/17 00:50 12/07/17 01:06 Temperature Pulse Rate 75 79 75 Respiratory Rate 18 Blood Pressure 193/120 H 196/122 H 186/112 H Pulse Oximetry 98 Intake & Output 12/06/17 12/06/17 12/07/17 06:59 18:59 06:59 Weight 69.4 kg Narrative: GENERAL: elderly female, frail, lying in bed, no acute distress HEENT: Normocephalic. Atraumatic. Pupils equal, round, reactive, conjugate. Mucous membranes are moist NECK: Trachea is midline. There is no JVD. CHEST: unlabored. room air. equal chest rise. CARDIOVASCULAR: normal rate, regular rhythm. hypertensive in the 180s systolic. on nicardipine at 5 mg/hr. ABDOMEN: Soft, nontender, nondistended. No guarding. MUSCULOSKELETAL: Pulses 2+. No peripheral edema. NEUROLOGICAL: RASS 0. CAM -. GCS 15. follows commands. no focal deficits. Caprini VTE Risk Assessment Caprini VTE Risk Assessment: Moderate/High Risk (score >= 2) Caprini Risk Assessment Model: Point Value = 1 Point Value = 2 Point Value = 3 Point Value = 5 Age 41-60 Minor surgery BMI > 25 kg/m2 Swollen legs Varicose veins or History of unexplained or recurrent spontaneous Oral contraceptives or hormone replacement Sepsis (< 1 month) Serious lung disease, including pneumonia (< 1 month) Abnormal pulmonary function Acute myocardial infarction Congestive heart failure (< 1 month) History of inflammatory bowel disease Medical patient at bed rest Age 61-74 Arthroscopic surgery Major open surgery (> 45 min) Laparoscopic surgery (> 45 min) Malignancy Confined to bed (> 72 hours) Immobilizing plaster cast Central venous access Age >= 75 History of VTE Family history of VTE Factor V Leiden Prothrombin [id number] Lupus anticoagulant Anticardiolipin antibodies Elevated serum homocysteine Heparin-induced thrombocytopenia Other congenital or acquired thrombophilia Stroke (< 1 month) Elective arthroplasty Hip, pelvis, or leg fracture Acute spinal cord injury (< 1 month) Prophylaxis Regimen: Total Risk Factor Score Risk Level Prophylaxis Regimen 0-1 Low Early ambulation 2 Moderate Order ONE of the following: *Sequential Compression Device (SCD) *Heparin 5000 units SQ BID 3-4 Higher Order ONE of the following medications: *Heparin 5000 units SQ TID *Enoxaparin/Lovenox 40 mg SQ daily (WT < 150 kg, CrCl > 30 mL/min) *Enoxaparin/Lovenox 30 mg SQ daily (WT < 150 kg, CrCl > 10-29 mL/min) *Enoxaparin/Lovenox 30 mg SQ BID (WT < 150 kg, CrCl > 30 mL/min) AND/OR *Sequential Compression Device (SCD) 5 or more Highest Order ONE of the following medications: *Heparin 5000 units SQ TID (Preferred with Epidurals) *Enoxaparin/Lovenox 40 mg SQ daily (WT < 150 kg, CrCl > 30 mL/min) *Enoxaparin/Lovenox 30 mg SQ daily (WT < 150 kg, CrCl > 10-29 mL/min) *Enoxaparin/Lovenox 30 mg SQ BID (WT < 150 kg, CrCl > 30 mL/min) AND *Sequential Compression Device (SCD) Assessment and Plan - Assessment and Plan Plan: Assessment: 81yF with hypertensive urgency. will add back home anti- hypertensives. goal sbp < 180. if we can wean off nicardipine infusion, safe to transition out of ICU. Hypertensive Urgency - nicardipine infusion - restart home antihypertensives - prn hydralazine, labetalol - start clonidine 0.2mg po q8h - increase home carvedilol to 25 mg po q12h. - if off nicardipine, can transfer out of ICU Hyperlipidemia - home statin diabetes - ssi chronic pain - home gabapentin - prn oxycodone home ppi advance diet as tolerated SCDs [facility] dispo: transfer to hospitalist services once off nicardipine.
[2017-12-07] MEDS ORDERED: Chlorhexidine Gluconate 2% 1 Pack (2 Cloths) TOPICAL PRN (04:00)
[2017-12-07] MEDS: Heparin - SQ 10,000 UNITS/ML Vial SQ SCH ×3 (07:06→21:58)
[2017-12-07] MEDS: Carvedilol 12.5 MG Tablet PO SCH ×2 (09:16→20:09)
[2017-12-07] MEDS: Calcium Carbonate 500 MG Tablet PO SCH ×2 (09:17→20:10)
[2017-12-07] MEDS: predniSONE 10 MG Tablet PO SCH (09:17)
[2017-12-07] MEDS: Polyethylene Glycol 3350 17 GM Packet PO SCH ×2 (09:17→20:11)
[2017-12-07] MEDS: Allopurinol 100 MG Tablet PO SCH ×2 (09:17→20:24)
[2017-12-07] MEDS: Senna/Docusate Sodium 8.6/50 MG Tablet PO SCH ×2 (09:17→20:11)
[2017-12-07] MEDS: Gabapentin 400 MG Capsule PO SCH ×3 (09:17→17:29)
[2017-12-07] MEDS: Ferrous Sulfate 325 MG Tablet PO SCH ×3 (09:17→17:29)
[2017-12-07] MEDS: Chlorhexidine Gluconate 2% 1 Pack (2 Cloths) TOPICAL SCH (09:19)
[2017-12-07] MEDS: Verapamil SR 240 MG Tablet PO SCH (10:40)
[2017-12-07] MEDS ORDERED: Dextrose 50% in Water 50 ML Vial IV.PUSH PRN (14:33)
--- NOTE | 2017-12-07 14:34 | P.PNIM ---
Subjective Interval history: No new complaints today Her BP is better controlled Physical Exam Vital signs: Vital Signs 12/06/17 17:34 12/06/17 21:19 12/07/17 00:15 Temperature 97.7 F Pulse Rate 87 73 81 Respiratory Rate 14 16 Blood Pressure 179/124 H 200/122 H 208/124 H Pulse Oximetry 93 L 95 12/07/17 00:27 12/07/17 00:50 12/07/17 01:06 Temperature Pulse Rate 75 79 75 Respiratory Rate 18 Blood Pressure 193/120 H 196/122 H 186/112 H Pulse Oximetry 98 12/07/17 01:30 12/07/17 02:19 12/07/17 03:09 Temperature Pulse Rate 92 H 78 Respiratory Rate 18 18 Blood Pressure 152/88 H 131/92 H Pulse Oximetry 98 99 96 12/07/17 09:00 12/07/17 09:22 12/07/17 09:31 Temperature Pulse Rate 84 83 Respiratory Rate Blood Pressure Pulse Oximetry 99 94 L 12/07/17 13:31 Temperature Pulse Rate 83 Respiratory Rate Blood Pressure Pulse Oximetry 94 L Intake & Output 12/06/17 12/07/17 12/07/17 18:59 06:59 18:59 Intake Total 100 / 100 Balance 100 / 100 Weight 69.4 kg 64.5 kg Intake: IV 100 / 100 Cardene Inj 25 MG In NS Inj 240 100 / 100 ML @ 5 MG/HR 50 mls/hr IV.CONT TITRATE PRN Rx#:[id number] Other: Date of Last Bowel Movement 12/06/17 Weight On Admission 64.5 kg Narrative: General: NAD, AAOx3 Chest: CTA Cardiac: Regular Abd: +BS, soft ND/NT Ext: No edema Results - Labs CBC & Chem 7: 12/06/17 22:15 12/06/17 22:15 Laboratory Results - last 24 hr 12/06/17 12/06/17 12/06/17 22:15 22:15 22:15 WBC 7.6 RBC 4.70 Hgb 14.3 Hct 41.8 MCV 89.0 MCH 30.4 MCHC 34.1 RDW 18.8 H Plt Count 180 MPV 8.2 Neut % (Auto) 68.0 Lymph % (Auto) 23.0 [place] % (Auto) 8.3 H Eos % (Auto) 0.4 Baso % (Auto) 0.3 Neut # (Auto) 5.2 Lymph # (Auto) 1.7 [place] # (Auto) 0.6 Eos # (Auto) 0.0 Baso # (Auto) 0.0 WBC Differential . Differential Comment Auto diff final Sodium 145 Potassium 3.4 L Chloride 104 Carbon Dioxide 30.1 Anion Gap 11 BUN 29 H Creatinine 1.70 H Estimated GFR 35 L Random Glucose 72 L Calcium 8.7 Magnesium 2.3 Total Bilirubin 0.6 AST 16 ALT 17 Alkaline Phosphatase 70 Total Creatine Kinase 117 CK-MB (CK-2) 1.5 Troponin I Less than 0.02 L Total Protein 8.9 H Albumin 3.5 Lipase 207 Nasal Screen MRSA (PCR) 12/07/17 09:20 WBC RBC Hgb Hct MCV MCH MCHC RDW Plt Count MPV Neut % (Auto) Lymph % (Auto) [place] % (Auto) Eos % (Auto) Baso % (Auto) Neut # (Auto) Lymph # (Auto) [place] # (Auto) Eos # (Auto) Baso # (Auto) WBC Differential Differential Comment Sodium Potassium Chloride Carbon Dioxide Anion Gap BUN Creatinine Estimated GFR Random Glucose Calcium Magnesium Total Bilirubin AST ALT Alkaline Phosphatase Total Creatine Kinase CK-MB (CK-2) Troponin I Total Protein Albumin Lipase Nasal Screen MRSA (PCR) Mrsa detected - Imaging Impressions Chest X-Ray 12/06/17 21:46 CONCLUSION: Negative examination. Head CT 12/06/17 21:47 CONCLUSION: 1. Mild stable cerebral atrophy. 2. No acute infarct, acute hemorrhage, mass effect or extra-axial fluid collections. . Assessment and Plan - Assessment (1) HTN (hypertension) Code(s): I10 - Essential (primary) hypertension Status: Acute Plan: Hypertensive urgency HTN - Pt is an 81 y/o AAF with DM, HTN, Hyperlipidemia, hypothyroidism, CKD stage 3 , and polymyositis. - Pt presented to the ED at [facility] on 12/07/17 with worsening hypertension and headache. Her SBP was in the 220's in the ED. - CT head negative. - pt was given ntg and labetalol in ER and admitted to the intensivists and started on nicardipine drip. - Her troponins were negative. - Pt was weaned off the nicardipine infusion - Pt was restarted on her home antihypertensives: Telmisartan 40mg daily ( Converted to Cozaar 25mg BID), Verapamil 240mg daily and Coreg was increased to 25mg PO BID, - Clonidine 0.2mg po q8h added on 12/07/17 - Vasotec PRN - Pts BP is improving with last BP reading was systolic in the 130's - Pt reports that last month her BP medications were changed when she was taken off Valsartan and started on Telmisartan and since then her BP has been more difficult to control. Hyperlipidemia - Cont. statin diabetes - NovoLog SSI chronic pain - home gabapentin - prn oxycodone
[2017-12-07] MEDS: Insulin NovoLOG Aspart Correctional Sugar Inj SQ SCH ×2 (17:30→20:18)
[2017-12-08] MEDS: hydrALAZINE 50 MG Tablet PO PRN (01:09)
[2017-12-08] MEDS: Heparin - SQ 10,000 UNITS/ML Vial SQ SCH ×3 (05:57→21:02)
[2017-12-08] MEDS: Chlorhexidine Gluconate 2% 1 Pack (2 Cloths) TOPICAL SCH (06:01)
[2017-12-08 08:08] LABS: Baso % (Auto) 0.6 % (0.0-2.0); Eos # (Auto) 0.1 th/mm3 (0.0-0.4); Eos % (Auto) 2.5 % (0.0-4.0); Hematocrit 39.4 % (35.0-46.0); Hemoglobin 12.7 gm/dL (11.6-15.3); Lymph # (Auto) 1.6 th/mm3 (1.0-4.8); Lymph % (Auto) 33.8 % (9.0-44.0); Mean Corpuscular HGB Conc 32.3 % (32.0-36.0); Mean Corpuscular Hemoglobin 29.6 pg (27.0-34.0); Mean Corpuscular Volume 91.8 fL (80.0-100.0); Mean Platelet Volume 8.5 fL (7.0-11.0); Mono # (Auto) 0.5 th/mm3 (0.0-0.9); Mono % (Auto) 10.6 % (0.0-8.0); Neut # (Auto) 2.5 th/mm3 (1.8-7.7); Neut % (Auto) 52.5 % (16.0-70.0); Platelet Count 147 th/mm3 (150-450); Red Blood Count 4.29 mil/mm3 (4.00-5.30); Red Cell Distribution Width 18.6 % (11.6-17.2); White Blood Count 4.7 th/mm3 (4.0-11.0)
[2017-12-08] MEDS: Senna/Docusate Sodium 8.6/50 MG Tablet PO SCH ×2 (08:09→21:06)
[2017-12-08] MEDS: Calcium Carbonate 500 MG Tablet PO SCH ×2 (08:09→21:05)
[2017-12-08] MEDS: Verapamil SR 240 MG Tablet PO SCH (08:09)
[2017-12-08] MEDS: Ferrous Sulfate 325 MG Tablet PO SCH ×3 (08:10→17:38)
[2017-12-08] MEDS: Gabapentin 400 MG Capsule PO SCH ×3 (08:10→17:38)
[2017-12-08] MEDS: Allopurinol 100 MG Tablet PO SCH ×2 (08:10→21:04)
[2017-12-08] MEDS: predniSONE 10 MG Tablet PO SCH (08:10)
[2017-12-08] MEDS: Carvedilol 12.5 MG Tablet PO SCH ×2 (08:10→21:04)
[2017-12-08] MEDS: Polyethylene Glycol 3350 17 GM Packet PO SCH ×2 (08:11→21:13)
[2017-12-08 08:33] LABS: Calcium 8.8 mg/dL (8.5-10.1); Carbon Dioxide 28.8 meq/L (21.0-32.0); Magnesium 2.1 mg/dL (1.5-2.5); Phosphorus 3.7 mg/dL (2.5-4.9); Potassium 3.6 meq/L (3.5-5.1)
--- NOTE | 2017-12-08 09:12 | P.PNIM ---
Subjective Interval history: daughter at bedside. bp spiked to 190s in middle of night. currently 174/104 Physical Exam Vital signs: Vital Signs 12/07/17 09:22 12/07/17 09:31 12/07/17 13:31 Temperature Pulse Rate 83 83 Respiratory Rate Blood Pressure Pulse Oximetry 99 94 L 94 L 12/07/17 17:00 12/07/17 18:00 12/07/17 19:00 Temperature Pulse Rate 85 72 72 Respiratory Rate Blood Pressure Pulse Oximetry 12/07/17 20:00 12/07/17 21:00 12/07/17 22:00 Temperature 98.3 F Pulse Rate 74 70 68 Respiratory Rate 20 Blood Pressure 143/90 H Pulse Oximetry 98 12/07/17 23:00 12/08/17 00:00 12/08/17 01:00 Temperature 97.9 F Pulse Rate 71 68 70 Respiratory Rate 20 Blood Pressure 149/99 H Pulse Oximetry 97 12/08/17 02:00 12/08/17 03:00 12/08/17 04:00 Temperature 98 F Pulse Rate 71 65 67 Respiratory Rate 18 Blood Pressure 154/98 H Pulse Oximetry 96 12/08/17 05:00 12/08/17 06:00 Temperature Pulse Rate 69 70 Respiratory Rate Blood Pressure Pulse Oximetry Intake & Output 12/07/17 12/08/17 12/08/17 18:59 06:59 18:59 Intake Total 240 / 240 1900 / 1900 Output Total 1800 / 1800 Balance 240 / 240 100 / 100 Weight 64.5 kg 64.6 kg Intake: IV 1000 / 1000 LR 1000 mL Inj 1,000 ML @ 42 1000 / 1000 mls/hr IV.CONT .[id number] [facility] Rx# :[id number] Oral 240 / 240 900 / 900 Output: Urine 1800 / 1800 Other: Date of Last Bowel Movement 12/06/17 Weight On Admission 64.5 kg heart reg lung cta abd s/nt ext no edema Results - Labs CBC & Chem 7: 12/08/17 06:58 12/08/17 06:58 Laboratory Results - last 24 hr 12/07/17 12/07/17 12/07/17 09:20 17:21 17:21 WBC RBC Hgb Hct MCV MCH MCHC RDW Plt Count MPV Neut % (Auto) Lymph % (Auto) [place] % (Auto) Eos % (Auto) Baso % (Auto) Neut # (Auto) Lymph # (Auto) [place] # (Auto) Eos # (Auto) Baso # (Auto) WBC Differential Differential Comment Sodium Potassium Chloride Carbon Dioxide Anion Gap BUN Creatinine Estimated GFR POC Glucose 160 H 158 H Random Glucose Calcium Phosphorus Magnesium Nasal Screen MRSA (PCR) Mrsa detected 12/07/17 12/08/17 12/08/17 20:05 06:58 06:58 WBC 4.7 RBC 4.29 Hgb 12.7 Hct 39.4 MCV 91.8 MCH 29.6 MCHC 32.3 RDW 18.6 H Plt Count 147 L MPV 8.5 Neut % (Auto) 52.5 Lymph % (Auto) 33.8 [place] % (Auto) 10.6 H Eos % (Auto) 2.5 Baso % (Auto) 0.6 Neut # (Auto) 2.5 Lymph # (Auto) 1.6 [place] # (Auto) 0.5 Eos # (Auto) 0.1 Baso # (Auto) 0.0 WBC Differential . Differential Comment Auto diff final Sodium 140 Potassium 3.6 Chloride 103 Carbon Dioxide 28.8 Anion Gap 8 BUN 28 H Creatinine 1.61 H Estimated GFR 37 L POC Glucose 159 H Random Glucose 108 H Calcium 8.8 Phosphorus 3.7 Magnesium 2.1 Nasal Screen MRSA (PCR) 12/08/17 08:01 WBC RBC Hgb Hct MCV MCH MCHC RDW Plt Count MPV Neut % (Auto) Lymph % (Auto) [place] % (Auto) Eos % (Auto) Baso % (Auto) Neut # (Auto) Lymph # (Auto) [place] # (Auto) Eos # (Auto) Baso # (Auto) WBC Differential Differential Comment Sodium Potassium Chloride Carbon Dioxide Anion Gap BUN Creatinine Estimated GFR POC Glucose 113 H Random Glucose Calcium Phosphorus Magnesium Nasal Screen MRSA (PCR) Assessment and Plan - Assessment (1) HTN (hypertension) Code(s): I10 - Essential (primary) hypertension Status: Acute Plan: Hypertensive urgency HTN - Pt is an 81 y/o AAF with DM, HTN, Hyperlipidemia, hypothyroidism, CKD stage 3 , and polymyositis. - Pt presented to the ED at [facility] on 12/07/17 with worsening hypertension and headache. Her SBP was in the 220's in the ED. - CT head negative. - pt was given ntg and labetalol in ER and admitted to the intensivists and started on nicardipine drip. - Her troponins were negative. - Pt was weaned off the nicardipine infusion - Pt reports that last month her BP medications were changed when she was taken off Valsartan and started on Telmisartan and since then her BP has been more difficult to control. - Pt was started on r: Telmisartan 40mg daily (Converted to Cozaar 50 mg BID), Verapamil 240mg daily and Coreg was increased to 25mg PO BID, - Clonidine 0.2mg po q8h added on 12/07/17 by Derrickman Helper. - Vasotec PRN pt bp had improved over course of yesterday but then spiked again overnight. will continue to work on her bp control over next 24hrs in hospital and hopefully dc her home in AM Hyperlipidemia - Cont. statin diabetes - NovoLog SSI chronic pain - home gabapentin - prn oxycodone
[2017-12-08] MEDS: Insulin NovoLOG Aspart Correctional Sugar Inj SQ SCH ×4 (12:50→21:14)
--- NOTE | 2017-12-08 12:53 | ECG ---
Date Performed: 12/06/2017 Time Performed: 22:10:25 PTAGE: 81 years EKG: Sinus rhythm POSSIBLE LEFT ATRIAL ENLARGEMENT MARKED RIGHT AXIS DEVIATION RIGHT BUNDLE BRANCH BLOCK ABNORMAL ECG PREVIOUS TRACING : 06/21/2017 13.27 Since the previous tracing, no significant change noted DOCTOR: Oscar Francisco Interpretating Date/Time 12/08/2017 12:53:00
[2017-12-09] MEDS: Chlorhexidine Gluconate 2% 1 Pack (2 Cloths) TOPICAL SCH (06:12)
[2017-12-09] MEDS: Heparin - SQ 10,000 UNITS/ML Vial SQ SCH ×3 (06:13→21:11)
[2017-12-09 06:45] LABS: Baso % (Auto) 0.1 % (0.0-2.0); Eos # (Auto) 0.1 th/mm3 (0.0-0.4); Eos % (Auto) 1.2 % (0.0-4.0); Hematocrit 38.6 % (35.0-46.0); Hemoglobin 12.8 gm/dL (11.6-15.3); Lymph # (Auto) 1.3 th/mm3 (1.0-4.8); Lymph % (Auto) 29.6 % (9.0-44.0); Mean Corpuscular HGB Conc 33.2 % (32.0-36.0); Mean Corpuscular Hemoglobin 30.4 pg (27.0-34.0); Mean Corpuscular Volume 91.6 fL (80.0-100.0); Mean Platelet Volume 8.7 fL (7.0-11.0); Mono # (Auto) 0.4 th/mm3 (0.0-0.9); Mono % (Auto) 8.1 % (0.0-8.0); Neut # (Auto) 2.6 th/mm3 (1.8-7.7); Platelet Count 140 th/mm3 (150-450); Red Blood Count 4.22 mil/mm3 (4.00-5.30); Red Cell Distribution Width 18.8 % (11.6-17.2); White Blood Count 4.3 th/mm3 (4.0-11.0)
[2017-12-09 07:43] LABS: Calcium 9.1 mg/dL (8.5-10.1); Carbon Dioxide 30.2 meq/L (21.0-32.0); Magnesium 2.1 mg/dL (1.5-2.5); Phosphorus 3.7 mg/dL (2.5-4.9); Potassium 3.7 meq/L (3.5-5.1)
[2017-12-09] MEDS: Ferrous Sulfate 325 MG Tablet PO SCH ×3 (08:44→18:10)
[2017-12-09] MEDS: predniSONE 10 MG Tablet PO SCH (08:44)
[2017-12-09] MEDS: Verapamil SR 240 MG Tablet PO SCH (08:45)
[2017-12-09] MEDS: Calcium Carbonate 500 MG Tablet PO SCH ×2 (08:45→21:10)
[2017-12-09] MEDS: Gabapentin 400 MG Capsule PO SCH ×2 (08:45→21:10)
[2017-12-09] MEDS: Carvedilol 12.5 MG Tablet PO SCH ×2 (08:45→21:10)
[2017-12-09] MEDS: Allopurinol 100 MG Tablet PO SCH ×2 (08:46→21:10)
[2017-12-09] MEDS: Polyethylene Glycol 3350 17 GM Packet PO SCH ×2 (08:59→21:12)
[2017-12-09] MEDS: Senna/Docusate Sodium 8.6/50 MG Tablet PO SCH ×2 (08:59→21:12)
[2017-12-09] MEDS: Insulin NovoLOG Aspart Correctional Sugar Inj SQ SCH ×4 (14:21→21:09)
--- NOTE | 2017-12-09 15:17 | P.DCO ---
- Physical Therapy Order: Evaluate and treat - Home Health Nursing Order: Medical education, Signs/symptoms of disease process, Nursing assessment with vital signs - Certification I have seen patient Emelia Morrow on 12/09/17. My clinical findings support the need for the requested home health care services because: Deconditioned with increased weakness I certify that my clinical findings support that this patient is homebound because: Unsteady gait/balance
--- NOTE | 2017-12-09 15:31 | P.PNIM ---
Subjective Interval history: Pts BP was low this morning No reported dizziness or weakness Denies any headache, chest pain or SOB Physical Exam Vital signs: Vital Signs 12/08/17 16:00 12/08/17 17:00 12/08/17 18:00 Temperature 98.1 F Pulse Rate 76 72 73 Respiratory Rate 18 Blood Pressure 120/77 Pulse Oximetry 98 12/08/17 19:00 12/08/17 20:00 12/08/17 21:00 Temperature 97.9 F Pulse Rate 78 80 69 Respiratory Rate 20 Blood Pressure 144/83 H Pulse Oximetry 96 12/08/17 22:00 12/08/17 23:00 12/09/17 00:00 Temperature 98 F Pulse Rate 65 69 71 Respiratory Rate 18 Blood Pressure 166/93 H Pulse Oximetry 95 12/09/17 01:00 12/09/17 02:00 12/09/17 03:00 Temperature Pulse Rate 70 72 73 Respiratory Rate Blood Pressure Pulse Oximetry 12/09/17 04:00 12/09/17 05:00 12/09/17 06:00 Temperature 98.8 F Pulse Rate 74 73 77 Respiratory Rate 18 Blood Pressure 173/98 H Pulse Oximetry 96 12/09/17 08:00 Temperature 98 F Pulse Rate 65 Respiratory Rate 16 Blood Pressure 106/67 Pulse Oximetry 16 L Intake & Output 12/08/17 12/09/17 12/09/17 18:59 06:59 18:59 Intake Total 2840 / 2840 1000 / 1000 Output Total 1500 / 1500 1501 / 1501 Balance 1340 / 1340 -501 / -501 Weight 64.7 kg Intake: IV 1400 / 1400 LR 1000 mL Inj 1,000 ML @ 42 1400 / 1400 mls/hr IV.CONT .[id number] [facility] Rx# :[id number] Oral 1440 / 1440 1000 / 1000 Output: Urine 1500 / 1500 1500 / 1500 Stool 1 / 1 Other: Date of Last Bowel Movement 12/06/17 12/06/17 12/06/17 Narrative: General: NAD, AAOx3 Chest: CTA Cardiac: Regular Abd: +BS, soft ND/NT Ext: No edema Results - Labs CBC & Chem 7: 12/10/17 05:12 12/10/17 05:12 Laboratory Results - last 24 hr 12/08/17 12/08/17 12/09/17 16:06 19:49 05:26 WBC 4.3 RBC 4.22 Hgb 12.8 Hct 38.6 MCV 91.6 MCH 30.4 MCHC 33.2 RDW 18.8 H Plt Count 140 L MPV 8.7 Neut % (Auto) 61.0 Lymph % (Auto) 29.6 [place] % (Auto) 8.1 H Eos % (Auto) 1.2 Baso % (Auto) 0.1 Neut # (Auto) 2.6 Lymph # (Auto) 1.3 [place] # (Auto) 0.4 Eos # (Auto) 0.1 Baso # (Auto) 0.0 WBC Differential . Differential Comment Auto diff final Sodium Potassium Chloride Carbon Dioxide Anion Gap BUN Creatinine Estimated GFR POC Glucose 139 H 144 H Random Glucose Calcium Phosphorus Magnesium 12/09/17 12/09/17 12/09/17 05:26 08:42 12:03 WBC RBC Hgb Hct MCV MCH MCHC RDW Plt Count MPV Neut % (Auto) Lymph % (Auto) [place] % (Auto) Eos % (Auto) Baso % (Auto) Neut # (Auto) Lymph # (Auto) [place] # (Auto) Eos # (Auto) Baso # (Auto) WBC Differential Differential Comment Sodium 140 Potassium 3.7 Chloride 102 Carbon Dioxide 30.2 Anion Gap 8 BUN 28 H Creatinine 1.79 H Estimated GFR 33 L POC Glucose 136 H 320 H Random Glucose 104 Calcium 9.1 Phosphorus 3.7 Magnesium 2.1 12/09/17 14:22 WBC RBC Hgb Hct MCV MCH MCHC RDW Plt Count MPV Neut % (Auto) Lymph % (Auto) [place] % (Auto) Eos % (Auto) Baso % (Auto) Neut # (Auto) Lymph # (Auto) [place] # (Auto) Eos # (Auto) Baso # (Auto) WBC Differential Differential Comment Sodium Potassium Chloride Carbon Dioxide Anion Gap BUN Creatinine Estimated GFR POC Glucose 169 H Random Glucose Calcium Phosphorus Magnesium - Imaging Chest X-Ray 12/06/17 21:46 CONCLUSION: Negative examination. Head CT 12/06/17 21:47 CONCLUSION: 1. Mild stable cerebral atrophy. 2. No acute infarct, acute hemorrhage, mass effect or extra-axial fluid collections. . Assessment and Plan - Assessment (1) HTN (hypertension) Code(s): I10 - Essential (primary) hypertension Status: Acute Plan: Hypertensive urgency HTN - Pt is an 81 y/o AAF with DM, HTN, Hyperlipidemia, hypothyroidism, CKD stage 3 , and polymyositis. - Pt presented to the ED at [facility] on 12/07/17 with worsening hypertension and headache. Her SBP was in the 220's in the ED. - CT head negative. - pt was given ntg and labetalol in ER and admitted to the intensivists and started on nicardipine drip. - Her troponins were negative. - Pt was weaned off the nicardipine infusion - Pt reports that last month her BP medications were changed when she was taken off Valsartan and started on Telmisartan and since then her BP has been more difficult to control. - As an outpt pt was, Telmisartan 40mg daily (Converted to Cozaar 50 mg BID as an inpt), Verapamil 240mg daily and Coreg was increased to 25mg PO BID, - Clonidine 0.2mg po q8h added on 12/07/17 by Car Scrubber. - BP rather low this morning but BP held into the afternoon even with all the medications given this morning. - Change Clonidine to 0.1mg patch and stop PO clonidine. - Vasotec PRN - DVT prophylaxis Hyperlipidemia - Cont. statin Diabetes - NovoLog SSI Chronic pain - home gabapentin - prn oxycodone - Attending Attestation Patient examined. Assessment and plan formulated with Anay Tomlin PA-C. I agree with the above.
[2017-12-09] MEDS: hydrALAZINE 50 MG Tablet PO PRN (22:57)
[2017-12-10] MEDS: Chlorhexidine Gluconate 2% 1 Pack (2 Cloths) TOPICAL SCH (04:33)
[2017-12-10] MEDS: Heparin - SQ 10,000 UNITS/ML Vial SQ SCH (05:49)
[2017-12-10 06:04] LABS: Baso % (Auto) 0.3 % (0.0-2.0); Eos # (Auto) 0.1 th/mm3 (0.0-0.4); Eos % (Auto) 2.2 % (0.0-4.0); Hematocrit 37.2 % (35.0-46.0); Hemoglobin 12.6 gm/dL (11.6-15.3); Lymph # (Auto) 1.7 th/mm3 (1.0-4.8); Mean Corpuscular HGB Conc 33.8 % (32.0-36.0); Mean Corpuscular Hemoglobin 30.2 pg (27.0-34.0); Mean Corpuscular Volume 89.5 fL (80.0-100.0); Mean Platelet Volume 9.2 fL (7.0-11.0); Mono # (Auto) 0.4 th/mm3 (0.0-0.9); Mono % (Auto) 7.3 % (0.0-8.0); Neut # (Auto) 3.1 th/mm3 (1.8-7.7); Neut % (Auto) 58.2 % (16.0-70.0); Platelet Count 160 th/mm3 (150-450); Red Blood Count 4.16 mil/mm3 (4.00-5.30); Red Cell Distribution Width 18.5 % (11.6-17.2); White Blood Count 5.3 th/mm3 (4.0-11.0)
[2017-12-10 06:16] LABS: Calcium 8.9 mg/dL (8.5-10.1); Carbon Dioxide 27.3 meq/L (21.0-32.0); Magnesium 1.9 mg/dL (1.5-2.5); Potassium 3.8 meq/L (3.5-5.1)
[2017-12-10 06:17] LABS: Phosphorus 3.1 mg/dL (2.5-4.9)
--- NOTE | 2017-12-10 09:37 | P.PNIM ---
Subjective Interval history: Pts BP last night andre to systolic in the 200's Repeat vitals this morning with systolic BP in the 130's Pt is insistent on going home today Denies any chest pain, palpitations, SOB or dizziness Physical Exam Vital signs: Vital Signs 12/09/17 10:00 12/09/17 11:00 12/09/17 12:00 Temperature 98.5 F Pulse Rate 61 60 60 Respiratory Rate 16 Blood Pressure 108/60 Pulse Oximetry 96 12/09/17 13:00 12/09/17 14:00 12/09/17 15:00 Temperature Pulse Rate 58 L 60 60 Respiratory Rate Blood Pressure Pulse Oximetry 12/09/17 16:00 12/09/17 17:00 12/09/17 18:00 Temperature 98.2 F Pulse Rate 64 60 52 L Respiratory Rate 18 Blood Pressure 111/62 Pulse Oximetry 98 12/09/17 19:00 12/09/17 20:00 12/09/17 21:00 Temperature 97.8 F Pulse Rate 52 L 56 L 56 L Respiratory Rate 16 Blood Pressure 125/75 Pulse Oximetry 99 12/09/17 22:00 12/09/17 23:00 12/09/17 23:15 Temperature 97.7 F Pulse Rate 58 L 58 L Respiratory Rate 16 Blood Pressure 191/109 H 217/106 H Pulse Oximetry 95 12/10/17 00:00 12/10/17 01:00 12/10/17 02:00 Temperature Pulse Rate 66 58 L 64 Respiratory Rate Blood Pressure Pulse Oximetry 12/10/17 03:00 12/10/17 04:00 12/10/17 05:00 Temperature 98.6 F Pulse Rate 71 69 81 Respiratory Rate 16 Blood Pressure 154/91 H Pulse Oximetry 98 12/10/17 06:00 12/10/17 07:00 Temperature 98.2 F Pulse Rate 78 66 Respiratory Rate 16 Blood Pressure 131/76 Pulse Oximetry 98 Intake & Output 12/09/17 12/10/17 12/10/17 18:59 06:59 18:59 Intake Total 1919 / 0 720 / 720 Output Total 2300 / 2300 400 / 400 Balance -380 / -380 320 / 320 Weight 64.8 kg Intake: Oral 1919 720 / 720 Output: Urine 2300 / 2300 400 / 400 Other: # Urine Diapers 1 Date of Last Bowel Movement 12/06/17 12/09/17 12/09/17 Narrative: General: NAD, AAOx3 Chest: CTA Cardiac: Regular Abd: +BS, soft ND/NT Ext: No edema Results - Labs CBC & Chem 7: 12/10/17 05:12 12/10/17 05:12 Laboratory Results - last 24 hr 12/09/17 12/09/17 12/09/17 12:03 14:22 17:06 WBC RBC Hgb Hct MCV MCH MCHC RDW Plt Count MPV Neut % (Auto) Lymph % (Auto) Fergus % (Auto) Eos % (Auto) Baso % (Auto) Neut # (Auto) Lymph # (Auto) Fergus # (Auto) Eos # (Auto) Baso # (Auto) WBC Differential Differential Comment Sodium Potassium Chloride Carbon Dioxide Anion Gap BUN Creatinine Estimated GFR POC Glucose 320 H 169 H 127 H Random Glucose Calcium Phosphorus Magnesium 12/09/17 12/10/17 12/10/17 20:15 05:12 05:12 WBC 5.3 RBC 4.16 Hgb 12.6 Hct 37.2 MCV 89.5 MCH 30.2 MCHC 33.8 RDW 18.5 H Plt Count 160 MPV 9.2 Neut % (Auto) 58.2 Lymph % (Auto) 32.0 Fergus % (Auto) 7.3 Eos % (Auto) 2.2 Baso % (Auto) 0.3 Neut # (Auto) 3.1 Lymph # (Auto) 1.7 Fergus # (Auto) 0.4 Eos # (Auto) 0.1 Baso # (Auto) 0.0 WBC Differential . Differential Comment Auto diff final Sodium 139 Potassium 3.8 Chloride 105 Carbon Dioxide 27.3 Anion Gap 7 BUN 33 H Creatinine 1.87 H Estimated GFR 31 L POC Glucose 178 H Random Glucose 94 Calcium 8.9 Phosphorus 3.1 Magnesium 1.9 12/10/17 08:17 WBC RBC Hgb Hct MCV MCH MCHC RDW Plt Count MPV Neut % (Auto) Lymph % (Auto) Fergus % (Auto) Eos % (Auto) Baso % (Auto) Neut # (Auto) Lymph # (Auto) Fergus # (Auto) Eos # (Auto) Baso # (Auto) WBC Differential Differential Comment Sodium Potassium Chloride Carbon Dioxide Anion Gap BUN Creatinine Estimated GFR POC Glucose 90 Random Glucose Calcium Phosphorus Magnesium - Imaging Chest X-Ray 12/06/17 21:46 CONCLUSION: Negative examination. Head CT 12/06/17 21:47 CONCLUSION: 1. Mild stable cerebral atrophy. 2. No acute infarct, acute hemorrhage, mass effect or extra-axial fluid collections. . Assessment and Plan - Assessment (1) HTN (hypertension) Code(s): I10 - Essential (primary) hypertension Status: Acute Plan: Hypertensive urgency HTN - Pt is an 81 y/o AAF with DM, HTN, Hyperlipidemia, hypothyroidism, CKD stage 3 , and polymyositis. - Pt presented to the ED at [facility] [place] on 12/07/17 with worsening hypertension and headache. Her SBP was in the 220's in the ED. - CT head negative. - pt was given ntg and labetalol in ER and admitted to the intensivists and started on nicardipine drip. - Her troponins were negative. - Pt was weaned off the nicardipine infusion - Pt reports that last month her BP medications were changed when she was taken off Valsartan and started on Telmisartan and since then her BP has been more difficult to control. - As an outpt pt was, Telmisartan 40mg daily (Converted to Cozaar 50 mg BID as an inpt), Verapamil 240mg daily and Coreg was increased to 25mg PO BID, - Clonidine 0.2mg po q8h added on 12/07/17 by Program Supervisor. - BP rather low this morning but BP held into the afternoon even with all the medications given this morning. - Clonidine changed to 0.1mg patch and stop PO clonidine on 12/09/17. - Pts BP did rise last night but overnight and this morning her BP has been stable. - Pt is anxious for discharge today - Pt to be discharged on medication regimen to include: Coreg 25mg po BID Cozaar 50mg po BID Verapamil 240mg po daily Clonidine patch 0.1mg Q7D - We will arrange for HHC/PT to monitor the pts BP readings at home and provide her PCP, Dr. Mathew, with this information - Pt will need to followup with Dr. Mathew in 1 week Hyperlipidemia - Cont. statin Diabetes - Pt to resume her home diabetes regimen upon discharge. Chronic pain - home gabapentin - prn oxycodone - Attending Attestation Patient examined. Assessment and plan formulated with Anay Tomlin PA-C. I agree with the above.
[2017-12-10] MEDS: Insulin NovoLOG Aspart Correctional Sugar Inj SQ SCH ×2 (09:57→12:34)
[2017-12-10] MEDS: Polyethylene Glycol 3350 17 GM Packet PO SCH (09:58)
[2017-12-10] MEDS: Calcium Carbonate 500 MG Tablet PO SCH (09:59)
[2017-12-10] MEDS: Allopurinol 100 MG Tablet PO SCH (09:59)
[2017-12-10] MEDS: Ferrous Sulfate 325 MG Tablet PO SCH (10:00)
[2017-12-10] MEDS: Senna/Docusate Sodium 8.6/50 MG Tablet PO SCH (10:00)
[2017-12-10] MEDS: Gabapentin 400 MG Capsule PO SCH (10:00)
[2017-12-10] MEDS: Carvedilol 12.5 MG Tablet PO SCH (10:04)
[2017-12-10] MEDS: Verapamil SR 240 MG Tablet PO SCH (10:04)
[2017-12-10] MEDS: predniSONE 10 MG Tablet PO SCH (10:10)
--- NOTE | 2018-01-02 13:26 | P.DS ---
<Anay Tomlin - Last Filed: 01/02/18 13:25> Date of admission: 12/07/17 01:29 Primary care physician: Francy Ortiz MD Attending physician on discharge: Chavo Soto Anticipated date of discharge: 12/10/17 Brief History from admission: 81yF with history of hypertension presents with worsening hypertension and headache. she also has chronic pain complaints and complains of pain in those areas, particularly shoulder, back. CT head negative. SBP 220s. given ntg and labetalol in ER. started on nicardipine drip. trop negative. Cr elevated above baseline. ROS negative for chest pain, sob, fever, chills, n/v/c/d/abd pain. DS: Diagnosis - Discharge Diagnosis (1) HTN (hypertension) Status: Acute DS: Medications - Discharge Medications Prescriptions: carvedilol [Coreg] 25 mg PO BID 30 Days #120 tab clonidine [[id number]] 1 patch TRANSDERMAL Q7D 30 Days each losartan 50 mg PO BID 30 Days #60 tab DS: Summary Hospital Course: Hypertensive urgency HTN - Pt is an 81 y/o AAF with DM, HTN, Hyperlipidemia, hypothyroidism, CKD stage 3 , and polymyositis. - Pt [place] [facility] [place]07[place] with worsening hypertension and headache. Her SBP was in the 220's in the ED. - CT head negative. - pt was given ntg and labetalol in ER and admitted to the intensivists and started on nicardipine drip. - Her troponins were negative. - Pt was weaned off the nicardipine infusion - Pt reports that last month her BP medications were changed when she was taken off Valsartan and started on Telmisartan and since then her BP has been more difficult to control. - As an outpt pt was, Telmisartan 40mg daily (Converted to Cozaar 50 mg BID as an inpt), Verapamil 240mg daily and Coreg was increased to 25mg PO BID, - Clonidine 0.2mg po q8h added on 12/07/17 by Deputy Juvenile Officer. - BP rather low this morning but BP held into the afternoon even with all the medications given this morning. - Clonidine changed to 0.1mg patch and stop PO clonidine on 12/09/17. - Pts BP did rise last night but overnight and this morning her BP has been stable. - Pt is anxious for discharge today - Pt to be discharged on medication regimen to include: Coreg 25mg po BID Cozaar 50mg po BID Verapamil 240mg po daily Clonidine patch 0.1mg Q7D - We will arrange for HHC/PT to monitor the pts BP readings at home and provide her PCP, Dr. Mathew, with this information - Pt will need to followup with Dr. Mathew in 1 week Hyperlipidemia - Cont. statin Diabetes - Pt to resume her home diabetes regimen upon discharge. Chronic pain - home gabapentin - prn oxycodone - Time Spent with Patient Total time spent providing and/or coordinating discharge services: Less than 30 minutes - Quality: VTE Deep Vein Thrombosis/Pulmonary Embolism Present on Admission: No Results Procedures completed during hospitalization: see above - Impressions ITS Impressions Chest X-Ray 12/06/17 21:46 CONCLUSION: Negative examination. Head CT 12/06/17 21:47 CONCLUSION: 1. Mild stable cerebral atrophy. 2. No acute infarct, acute hemorrhage, mass effect or extra-axial fluid collections. . <Chavo Soto - Last Filed: 01/05/18 17:53> Date of admission: 12/07/17 01:29 Primary care physician: Francy Ortiz MD DS: Diagnosis - Discharge Diagnosis (1) HTN (hypertension) Status: Acute DS: Summary Hospital Course: Patient examined. Assessment and plan formulated with Anay Tomlin PA-C. I agree with the above. - Time Spent with Patient Total time spent providing and/or coordinating discharge services: Results - Impressions ITS Impressions Chest X-Ray 12/06/17 21:46 CONCLUSION: Negative examination. Head CT 12/06/17 21:47 CONCLUSION: 1. Mild stable cerebral atrophy. 2. No acute infarct, acute hemorrhage, mass effect or extra-axial fluid collections. . Discharge Plan - Discharge Order Discharge Orders: Discharge Order (Routine); Ordered 12/10/17 Ordered By: Anay Tomlin - Discharge Details Anticipated Discharge Date: 12/10/17 Discharge Comment: Followup with Dr. Mathew in 1 week, call for an appt. - Physicians Team Primary Care Provider: Francy Ortiz Attending Provider: Alex Morrow Other Providers: Alex Morrow MD ; [facility]
== END 2017-12-10 13:45 | disposition home health service (06) ==
LOC: NEPC 17:16 → NEDA 12-07 01:29 → HCVI 12-07 08:50 → HCIS 12-07 15:13
PROVIDERS: ADMIT Hospitalist; ATTEND Hospitalist